=== PATIENT | female | born 1965 | race African-American/Black ===

== ENCOUNTER 2016-12-11 11:56 | Inpatient (IN) | payer MEDICARE, MEDICAID ==
[~2016-12-11] VITALS: Ht 170.2 cm; Wt 158.8 kg
[~2016-12-11 11:56] MED LIST: ACTOS30 MG ORAL; ATIVAN1 MG ORAL; BACLOFEN10 MG ORAL; BACLOFEN20 MG ORAL; CYMBALTA30 MG ORAL; GLIPIZIDE XL10 MG ORAL; GLIPIZIDE10 MG PO; HEPARIN SO5000 UNIT2 SUBQ; IRON325 M1 PO; LANTUS SOL100 UNIT/1 SUBQ; LYRICA150 MG ORAL; LYRICA50 MG ORAL; LYRICA75 M1 ORAL; MACROBID100 MG ORAL; MEROPENEM1 GM IV; MOBIC15 MG ORAL; MS CONTIN PO; NITROFURANTOIN100 M2 ORAL; NORCO 10-325 T1 EACH ORAL; NYSTATIN CREAM15 GM TOPIC; PERCOCET 5-3251 EACH ORAL; PRAVACHOL40 MG ORAL; PREDNISONE2.5 MG ORAL; VITAMIN D250000 UNI1 ORAL
[2016-12-11 12:13] VITALS: BP 141/83
[2016-12-11] MEDS ORDERED: ACTOS30 MG ORAL (13:15)
[2016-12-11] MEDS ORDERED: ATIVAN1 MG ORAL (13:15)
[2016-12-11] MEDS ORDERED: DUONEB 0.5-3(2.53 ML HHN (13:19)
[2016-12-11] MEDS ORDERED: HUMULIN R100 UNIT/1 SUBQ (13:19)
[2016-12-11] MEDS ORDERED: DULCOLAX10 MG RC (13:19)
[2016-12-11] MEDS ORDERED: FUROSEMIDE40 MG ORAL (13:20)
[2016-12-11] MEDS ORDERED: PROBIOTIC1 EAC2 PO (13:20)
[2016-12-11] MEDS ORDERED: MULTIVITAMINS1 EA13 ORAL (13:24)
[2016-12-11] MEDS ORDERED: MINERAL OIL EN133 ML RC (13:24)
[2016-12-11] MEDS ORDERED: VITAMIN D250000 UNI1 ORAL (13:25)
[2016-12-11] MEDS ORDERED: ocean nasal spray NASAL (13:25)
[2016-12-11 14:42] VITALS: BP 139/86
[2016-12-11 16:03] LABS: BASOPHILS % (AUTO) 1.4 % (0.0-2.0); EOSINOPHILS % (AUTO) 3.9 % (0.0-3.0); MEAN CORPUSCULAR HEMOGLOBIN 30.2 PG (27.0-31.0); MEAN CORPUSCULAR VOLUME 89 FL (80-99); MEAN PLATELET VOLUME 7.6 FL (6.5-10.1); MONOCYTES % (AUTO) 11.3 % (1.0-10.0); NEUTROPHILS % (AUTO) 42.5 % (45.0-75.0); PLATELET COUNT 189 K/UL (150-450); RED CELL DISTRIBUTION WIDTH 14.2 % (11.6-14.8); WHITE BLOOD COUNT 5.6 K/UL (4.8-10.8)
[2016-12-11 16:33] LABS: TROPONIN I < 0.30 ng/mL (<=0.30)
[2016-12-11 17:07] LABS: ALANINE AMINOTRANSFERASE 17 U/L (3-33); ALBUMIN/GLOBULIN RATIO 0.9 (1.0-2.7); ANION GAP 18 (5-15); ASPARTATE AMINO TRANSFERASE 17 U/L (5-40); CALCIUM 9.4 mg/dL (8.6-10.2); CARBON DIOXIDE 26 mEQ/L (20-30); CHLORIDE 90 mEQ/L (98-107); CREATININE 0.9 mg/dL (0.5-0.9); GLOMERULAR FILTRATION RATE > 60 mL/min (>60); HEMOLYSIS 3; POTASSIUM 4.1 mEQ/L (3.4-4.9); SODIUM 134 mEQ/L (135-145); TOTAL PROTEIN 7.7 g/dL (6.6-8.7)
[2016-12-11 17:17] LABS: CKMB 1.9 ng/mL (< 3.8)
--- NOTE | 2016-12-11 17:33 | Emergency Room Report ---
History of Present Illness General Chief Complaint: Female Urogenital Problems Source: Patient Present Illness HPI 51-year-old female presents ED for evaluation. Patient states that she has a superpubic catheter because she is paralyzed. Per home care worker was attempting to flush the catheter today but is clogged. She tried to deflate the balloon. Care worker was unsuccessful so she cut the catheter. Patient is here to have catheter replaced. Patient states she otherwise feels fine. Patient that she likely has a UTI. Has increased urinary frequency. Denies any fevers or chills. Denies flank pain. Denies nausea or vomiting. No other aggravating or leading factors. 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, VRE Hx Neurological Problems: Yes - paraplegic Hx Paralysis: Yes Hx Peripheral Neuropathy: Yes 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 Review of Systems All Other Systems: negative except mentioned in HPI Physical Exam Vital Signs Date Time Temp Pulse Resp B/P Pulse Ox O2 Delivery O2 Flow Rate FiO2 12/11/16 11:55 97.0 82 16 141/83 98 Room Air Sp02 EP Interpretation: reviewed, normal General Appearance: no apparent distress, alert, GCS 15, non-toxic, obese Head: normocephalic Eyes: bilateral eye PERRL, bilateral eye normal inspection ENT: normal ENT inspection Neck: normal inspection Respiratory: chest non-tender, lungs clear, normal breath sounds, speaking full sentences Cardiovascular #1: regular rate, rhythm, no edema Gastrointestinal: normal bowel sounds, non tender, soft, non-distended, no guarding, no rebound Rectal: deferred Genitourinary: other - suprapubic catheter site C/D/I. catheter cut Musculoskeletal: normal inspection Neurologic: alert, oriented x3, responsive, motor strength/tone normal, sensory intact, speech normal Psychiatric: normal inspection Skin: normal inspection Lymphatic: normal inspection Medical Decision Making Diagnostic Impression: Primary Impression: Suprapubic catheter dysfunction Qualified Codes: T83.010A - Breakdown (mechanical) of cystostomy catheter, initial encounter ER Course Hospital Course 51-year-old female presents to ED with suprapubic catheter which was caught by brick pitcher. Unable to deflate balloon Differential Diagnosis - UTI, cystitis, malfunctioning catheter Clinical course Patient placed on stretcher. After initial history and physical, I secured the catheter using a clamp. I was unable to deflate the balloon. I discussed case with urology. Recommend that Garcia catheter be placed in the urethra. If successful patient can be discharged home and is suprapubic catheter will keep the site open. We were unable to successfully place a Garcia catheter in the urethra. Patient states it is very difficult to place a Garcia catheter for her. Ordered labs, IVFs Labs reviewed-no leukocytosis, hemoglobin/hematocrit stable, electrolytes okay Case discussed wtih Dr Gutierrez; he will consult and see the patient Case discussed with Dr. Choe and he agreed to accept the patient to his service for further care and support Diagnosis - suprapubic catheter dysfunction Admitted to floor in serious condition Labs Test 12/11/16 15:40 White Blood Count 5.6 K/UL (4.8-10.8) Red Blood Count 4.50 M/UL (4.20-5.40) Hemoglobin 13.6 G/DL (12.0-16.0) Hematocrit 39.9 % (37.0-47.0) Mean Corpuscular Volume 89 FL (80-99) Mean Corpuscular Hemoglobin 30.2 PG (27.0-31.0) Mean Corpuscular Hemoglobin Concent 34.0 G/DL (32.0-36.0) Red Cell Distribution Width 14.2 % (11.6-14.8) Platelet Count 189 K/UL (150-450) Mean Platelet Volume 7.6 FL (6.5-10.1) Neutrophils (%) (Auto) 42.5 % (45.0-75.0) Lymphocytes (%) (Auto) 41.0 % (20.0-45.0) Monocytes (%) (Auto) 11.3 % (1.0-10.0) Eosinophils (%) (Auto) 3.9 % (0.0-3.0) Basophils (%) (Auto) 1.4 % (0.0-2.0) Sodium Level 134 mEQ/L (135-145) Potassium Level 4.1 mEQ/L (3.4-4.9) Chloride Level 90 mEQ/L (98-107) Carbon Dioxide Level 26 mEQ/L (20-30) Anion Gap 18 (5-15) Blood Urea Nitrogen 11 mg/dL (7-23) Creatinine 0.9 mg/dL (0.5-0.9) Estimat Glomerular Filtration Rate > 60 mL/min (>60) Glucose Level 314 mg/dL (74-106) Lactic Acid Level 1.50 mmol/L (0.66-2.22) Calcium Level 9.4 mg/dL (8.6-10.2) Total Bilirubin 0.3 mg/dL (0.0-1.2) Aspartate Amino Transf (AST/SGOT) 17 U/L (5-40) Alanine Aminotransferase (ALT/SGPT) 17 U/L (3-33) Alkaline Phosphatase 80 U/L (35-104) Total Creatine Kinase 174 U/L (26-140) Creatine Kinase MB 1.9 ng/mL (< 3.8) Creatine Kinase MB Relative Index 1.0 Troponin I < 0.30 ng/mL (<=0.30) Total Protein 7.7 g/dL (6.6-8.7) Albumin 3.8 g/dL (3.5-5.2) Globulin 3.9 g/dL Albumin/Globulin Ratio 0.9 (1.0-2.7) Last Vital Signs Date Time Temp Pulse Resp B/P Pulse Ox O2 Delivery O2 Flow Rate FiO2 12/11/16 14:42 97.2 68 15 139/86 98 Room Air Status: improved Disposition: ADMITTED INPATIENT Condition: Serious Referrals: NON PHYSICIAN (PCP) MACHO WRIGHT M.D. Dec 11, 2016 17:33
[2016-12-11] MEDS ORDERED: LORazepam 1mg tab ORAL PRN (18:15)
[2016-12-11] MEDS ORDERED: Morphine Sulfate 2mg/ml Inj IVP ONE (18:15)
[2016-12-11] MEDS ORDERED: DuoNeb 0.5-3(2.5)mg/3ml neb HHN PRN (18:15)
[2016-12-11] MEDS ORDERED: Fleet's Mineral Oil Enema RECTAL PRN (18:15)
[2016-12-11] MEDS ORDERED: Norco 10mg/325mg tab ORAL PRN (18:15)
[2016-12-11] MEDS ORDERED: Morphine Sulfate 2mg/ml Inj IVP PRN (18:30)
--- NOTE | 2016-12-11 18:32 | History and Physical ---
History of Present Illness General Date patient seen: Dec 11, 2016 Time patient seen: 18:32 Reason for Hospitalization: Suprapubic catheter dysfunction, UTI Present Illness HPI 50 year old female with pmh of DM2 c/b neuropathy, morbid obesity, paraplegia s/ p fall and neurogenic bladder w/ multiple admissions for clogged suprapubic catheter and UTI, multiple decubitus ulcers presents with suprapubic catheter dysfunction. Pt states that her suprapubic catheter was changed a few weeks ago and it got clogged w/ debris. Family was unable to irrigate it. A home nurse tried to remove it but was unsuccessful in replacing the balloon. She cut the catheter but she was still unsuccessful. the catheter has been plugged up for a few days. She has been passing some urine around the catheter from the urethra. She does has some mild discomfort in that area. She denies f/c, n/v, d/c, chest pain, SOB. Allergies: Coded Allergies: No Known Allergies (Unverified , 07/15/16) Medication History Scheduled Duloxetine Hcl* (Cymbalta*), 30 MG ORAL BID, (Reported) Ergocalciferol (Vitamin D2)* (Vitamin D*), 50,000 UNIT ORAL ONCE A WEEK, ( Reported) Ferrous Sulfate (Iron), 325 MG PO DAILY, (Reported) Furosemide* (Lasix*), 40 MG ORAL DAILY, (Reported) Glipizide (Glipizide), 5 MG ORAL BID, (Reported) Insulin Glargine (Lantus), 12 UNITS SUBQ BEDTIME, (Reported) Insulin Regular, Human (Humulin R), 0 SUBQ BEFORE MEALS AND HS, (Reported) Lactobacillus Acidophilus (Probiotic), 1 EACH PO DAILY, (Reported) Meloxicam* (Mobic*), 15 MG ORAL DAILY, (Reported) Multivitamin with Minerals (Multivitamins with Minerals), 1 TAB ORAL DAILY, ( Reported) Pioglitazone Hcl* (Actos*), 30 MG ORAL DAILY, (Reported) Pravastatin Sodium (Pravachol), 40 MG ORAL BEDTIME, (Reported) Pregabalin* (Lyrica*), 200 MG ORAL BID, (Reported) [ms contin sr], 15 MG PO TID, (Reported) Scheduled PRN Baclofen* (Lioresal*), 20 MG ORAL THREE TIMES A DAY PRN for Muscle Spasms, ( Reported) Bisacodyl (Dulcolax), 10 MG RC DAILY PRN for Constipation, (Reported) Hydrocodone Bit/Acetaminophen 10-325* (Marlin 10-325*), 1 TAB ORAL Q6H PRN for For Pain, (Reported) Ipratropium/Albuterol Sulfate (DuoNeb 0.5-3(2.5)mg/3ml), 3 ML HHN EVERY 4 HOURS PRN for Shortness of Breath, (Reported) Lorazepam* (Ativan*), 1 MG ORAL THREE TIMES A DAY PRN for For Anxiety, (Reported ) Mineral Oil (Mineral Oil Enema), 133 ML RC DAILY PRN for Constipation, (Reported ) [ocean nasal spray], 1 SPRAYS NASAL EVERY 2 HOURS PRN for congestion, (Reported) Discontinued Medications Baclofen* (Baclofen*), 200 MG ORAL THREE TIMES A DAY, (Reported) Discontinued Reason: Prescription changed Meropenem (Meropenem), 1 GM IV Q8HR, (Reported) Discontinued Reason: Therapy completed Patient History History Provided By: Patient, Medical Record, PMD Healthcare decision maker Resuscitation status Advanced Directive on File Family History Family History: Patient reports no known family medical history. Social History Social History: (1) No significant social history Review of Systems ROS Narrative CONSTITUTIONAL: No weight loss, fever, chills, weakness or fatigue. HEENT: Eyes: No visual loss, blurred vision, double vision or yellow sclerae. Ears, Nose, Throat: No hearing loss, sneezing, congestion, runny nose or sore throat. SKIN: No rash or itching. CARDIOVASCULAR: No chest pain, chest pressure or chest discomfort. No palpitations or edema. RESPIRATORY: No shortness of breath, cough or sputum. GASTROINTESTINAL: No anorexia, nausea, vomiting or diarrhea. No abdominal pain or blood. NEUROLOGICAL: No headache, dizziness, syncope, paralysis, ataxia, numbness or tingling in the extremities. No change in bowel or bladder control. MUSCULOSKELETAL: No muscle, back pain, joint pain or stiffness. HEMATOLOGIC: No anemia, bleeding or bruising. LYMPHATICS: No enlarged nodes. No history of splenectomy. PSYCHIATRIC: No history of depression or anxiety. ENDOCRINOLOGIC: No reports of sweating, cold or heat intolerance. No polyuria or polydipsia. ALLERGIES: No history of asthma, hives, eczema or rhinitis. Physical Exam Physical Exam Narrative General: alert, cooperative, no distress, appears stated age, morbidly obese Head: normocephalic, without obvious abnormality, atraumatic Eyes: conjunctivae/corneas clear. PERRL, EOM's intact Throat: lips, mucosa, and tongue normal. MMM Neck: supple, symmetrical, trachea midline, and no JVD Lungs: clear to auscultation bilaterally Heart: regular rate and rhythm, S1, S2 normal, no murmur, click, rub or gallop Abdomen: soft, non-tender, non-distended, bowel sounds normal; no masses or organomegaly : suprapubic catheter site c/d/i Extremities: extremities normal, atraumatic, no cyanosis or edema Pulses: 2+ and symmetric Skin: skin color, texture, turgor normal; no rashes or lesions Neurologic: grossly normal, no focal deficits Last 24 Hour Vital Signs Date Time Temp Pulse Resp B/P Pulse Ox O2 Delivery O2 Flow Rate FiO2 12/11/16 18:01 97.2 79 15 99/63 98 Room Air 12/11/16 14:42 97.2 68 15 139/86 98 Room Air 12/11/16 12:13 97.0 16 141/83 98 Room Air 12/11/16 11:55 97.0 82 16 141/83 98 Room Air Laboratory Tests Test 12/11/16 15:40 White Blood Count 5.6 K/UL (4.8-10.8) Red Blood Count 4.50 M/UL (4.20-5.40) Hemoglobin 13.6 G/DL (12.0-16.0) Hematocrit 39.9 % (37.0-47.0) Mean Corpuscular Volume 89 FL (80-99) Mean Corpuscular Hemoglobin 30.2 PG (27.0-31.0) Mean Corpuscular Hemoglobin Concent 34.0 G/DL (32.0-36.0) Red Cell Distribution Width 14.2 % (11.6-14.8) Platelet Count 189 K/UL (150-450) Mean Platelet Volume 7.6 FL (6.5-10.1) Neutrophils (%) (Auto) 42.5 % (45.0-75.0) L Lymphocytes (%) (Auto) 41.0 % (20.0-45.0) Monocytes (%) (Auto) 11.3 % (1.0-10.0) H Eosinophils (%) (Auto) 3.9 % (0.0-3.0) H Basophils (%) (Auto) 1.4 % (0.0-2.0) Sodium Level 134 mEQ/L (135-145) L Potassium Level 4.1 mEQ/L (3.4-4.9) Chloride Level 90 mEQ/L (98-107) L Carbon Dioxide Level 26 mEQ/L (20-30) Anion Gap 18 (5-15) H Blood Urea Nitrogen 11 mg/dL (7-23) Creatinine 0.9 mg/dL (0.5-0.9) Estimat Glomerular Filtration Rate > 60 mL/min (>60) Glucose Level 314 mg/dL (74-106) H Lactic Acid Level 1.50 mmol/L (0.66-2.22) Calcium Level 9.4 mg/dL (8.6-10.2) Total Bilirubin 0.3 mg/dL (0.0-1.2) Aspartate Amino Transf (AST/SGOT) 17 U/L (5-40) Alanine Aminotransferase (ALT/SGPT) 17 U/L (3-33) Alkaline Phosphatase 80 U/L (35-104) Total Creatine Kinase 174 U/L (26-140) H Creatine Kinase MB 1.9 ng/mL (< 3.8) Creatine Kinase MB Relative Index 1.0 Troponin I < 0.30 ng/mL (<=0.30) Total Protein 7.7 g/dL (6.6-8.7) Albumin 3.8 g/dL (3.5-5.2) Globulin 3.9 g/dL Albumin/Globulin Ratio 0.9 (1.0-2.7) L Height (Feet): 5 Height (Inches): 7.00 Weight (Pounds): 350 Medications Current Medications Medications (Trade) Dose Ordered Sig/Cristóbal Route PRN Reason Start Time Stop Time Status Last Admin Dose Admin Acetaminophen/ Hydrocodone Bitart (Marlin 10/325) 1 ea Q6H PRN ORAL For severe Pain 12/11/16 18:15 12/18/16 18:14 UNV Albuterol/ Ipratropium (DuoNeb 0.5-3(2.5)mg/3ml) 3 ml EVERY 4 HOURS PRN HHN Shortness of Breath 12/11/16 18:15 12/16/16 18:14 UNV Baclofen (Lioresal) 200 mg THREE TIMES A DAY PRN ORAL muscle spasms 12/11/16 18:15 01/10/17 18:14 UNV Bisacodyl (Dulcolax) 10 mg DAILY PRN RECTAL Constipation 12/11/16 18:15 01/10/17 18:14 UNV Dextrose (Dextrose 50%) STAT PRN IV Hypoglycemia 12/11/16 18:15 01/10/17 18:14 UNV Dextrose (Dextrose 50%) STAT PRN IV Hypoglycemia 12/11/16 18:15 01/10/17 18:14 UNV Duloxetine HCl (Cymbalta) 30 mg BID ORAL 12/12/16 09:00 01/11/17 08:59 UNV Ferrous Sulfate (Feosol) 325 mg DAILY ORAL 12/12/16 09:00 01/11/17 08:59 UNV Heparin Sodium (Porcine) (Heparin 5000 units/ml) 5,000 units EVERY 12 HOURS SUBQ 12/11/16 21:00 01/10/17 20:59 UNV Lorazepam (Ativan) 1 mg THREE TIMES A DAY PRN ORAL For Anxiety 12/11/16 18:15 12/18/16 18:14 UNV Mineral Oil (Fleet's Mineral Oil Enema) 133 ml DAILY PRN RECTAL Constipation 12/11/16 18:15 01/10/17 18:14 UNV Multivitamins Therapeutic (Therapeutic Multivitamin) 1 ea DAILY ORAL 12/12/16 09:00 01/11/17 08:59 UNV Pravastatin Sodium (Pravachol) 40 mg BEDTIME ORAL 12/11/16 21:00 01/10/17 20:59 UNV Pregabalin (Lyrica) 200 mg BID ORAL 12/12/16 09:00 01/11/17 08:59 UNV Assessment/Plan Problem List: (1) Suprapubic catheter dysfunction ICD Codes: T83.018A - Breakdown (mechanical) of other indwelling urethral catheter, initial encounter SNOMED: 852618987 Qualifiers: Qualified Codes: T83.010A - Breakdown (mechanical) of cystostomy catheter, initial encounter (2) UTI (urinary tract infection) ICD Codes: N39.0 - Urinary tract infection, site not specified SNOMED: 19434024 (3) Neurogenic bladder ICD Codes: N31.9 - Neuromuscular dysfunction of bladder, unspecified SNOMED: 208680915 (4) Diabetes mellitus type 2 with complications, uncontrolled ICD Codes: E11.8 - Type 2 diabetes mellitus with unspecified complications; E11.65 - Type 2 diabetes mellitus with hyperglycemia SNOMED: 47261048, 484143028, 387210515 (5) Morbid obesity ICD Codes: E66.01 - Morbid (severe) obesity due to excess calories SNOMED: 327230994 Status: stable Assessment/Plan Admit inpt Appreciate urology rec's--old suprapubic catheter was removed and new one placed and irrigated Start zosyn for likely UTI (12/11-) F/u urine cx ID consult in AM Cont home meds Pain control, supportive care, bowel regimen IVFs Trend CBC, BMP DVT Prophylaxis: SCD, HSQ Code Status: Full Hospital Classification Declaration: Based on this initial evaluation, and depending on the patient's clinical course, I anticipate that this patient will require hospitalization for 2-3 days for suprapubic catheter dysfunction, UTI, and close respiratory/hemodynamic monitoring. Disposition: Once the patient is stable to leave the hospital, I anticipate the patient will likely be discharged to the following environment: home with vs SNF I spent 70 minutes on this patient's case, and 37 minutes were dedicated to counseling and/or care coordination. Discussed with patient/family, nursing staff, SW/CM, urology, ID regarding clinical status, treatment course, and disposition planning. Time of note may not reflect time of encounter. Gregg Cortes M.D. Dec 11, 2016 18:32
[2016-12-11] MEDS ORDERED: BACLOFEN20 MG ORAL (18:48)
[2016-12-11 18:55] VITALS: BP 137/84
[2016-12-11 20:00] VITALS: BP 108/61
[2016-12-11] MEDS: Heparin 5000 units/ml inj SUBQ SCH (21:00)
[2016-12-11] MEDS: Piperacillin/Tazobactam 4.5 GM in D5W 110 ML IVPB SCH (21:02)
[2016-12-11] MEDS: DULoxetine 30mg cap ORAL SCH (21:50)
[2016-12-11] MEDS: NovoLOG Insulin Flexpen SUBQ SCH (21:55)
[2016-12-11] MEDS ORDERED: Levemir Flexpen SUBQ SCH (23:00)
[2016-12-12] VITALS: BP 112/60
[2016-12-12 02:16] LABS: KETONES,URINE NEGATIVE (NEGATIVE); LEUKOCYTE ESTERASE ,URINE 3+ (NEGATIVE); NITRITE,URINE NEGATIVE (NEGATIVE); PH,URINE 6 (4.5-8.0); PROTEIN,URINE 3+ (NEGATIVE); UROBILINOGEN,URINE NORMAL MG/DL (0.0-1.0)
[2016-12-12 02:17] LABS: APPEARANCE,URINE SLIGHTLY CLOUDY
[2016-12-12 02:30] LABS: BACTERIA,URINE FEW /HPF; SQUAMOUS EPITHELIAL CELL,UR FEW /LPF (NONE/OCC); WBC,URINE TNTC /HPF (0 - 2)
--- NOTE | 2016-12-12 02:58 | Consultation ---
DATE OF CONSULTATION: 12/11/2016 CONSULTATION: REFERRING PHYSICIAN: Rj Choe M.D. and Rigoberto Perrin M.D. CONSULTING PHYSICIAN: Shaheen Gutierrez M.D. REASON FOR CONSULTATION: Evaluation of malfunctioning suprapubic tube. HISTORY OF PRESENT ILLNESS: This is a 51-year-old female, she has a history of neurogenic bladder. She has a history of urinary retention. She has a history of chronic suprapubic tube. Apparently, suprapubic tube was changed a few weeks ago and it got clogged with debris. Family were not able to irrigate it. A home nurse tried to remove it, but she was unsuccessful in replacing the balloon. She cut the catheter, however, she was still unsuccessful. The patient was brought to the emergency room. Apparently, the catheter had been plugged up for a few days. She has been passing some urine around the catheter from the urethra. She has some mild discomfort. PAST MEDICAL HISTORY: Significant for above, again neurogenic bladder. She also has a history of paraplegia and diabetes. PAST SURGICAL HISTORY: As above. MEDICATIONS: Current medication list was reviewed. ALLERGIES: No known drug allergies. SOCIAL HISTORY: Currently nonsmoker. FAMILY HISTORY: Noncontributory. REVIEW OF SYSTEMS: No chest pain. PHYSICAL EXAMINATION: GENERAL: The patient is an obese female, in no acute distress. VITAL SIGNS: Temperature is 97.2 degrees, blood pressure 99/62, pulse 79, and respirations 16. HEENT: Normocephalic . NECK: Supple. ABDOMEN: Soft. Suprapubic tube is in place. It appears to be an 18 or 20-[place], it has been cut. LABORATORY DATA: BUN 11, creatinine 0.9, and potassium 4.1. White count is 5.6, hemoglobin 13.6, and platelets of 189,000. IMAGING STUDIES: No renal imaging studies here. PROCEDURE AT THE BEDSIDE: To evaluate the existing suprapubic tube, it appeared to be 20-[place] catheter, it was cut. I was able to pass a 0.018 wire through the balloon port and opened up the port and allowed the water to drain and I was able to remove the suprapubic tube. At that point, the area was prepped and I placed a new 22-[place] Irish suprapubic tube catheter, put in about 25 cubic centimeters of sterile water to keep it in, catheter was hand irrigated and it was in good position. IMPRESSION: 1. Urinary retention with chronic suprapubic tube. 2. Probable neurogenic bladder. 3. Hematuria history. 4. Urinary tract infection history. PLAN AND DISCUSSION: Again, as noted above. I was able to remove the old suprapubic tube and new catheter has been placed. The catheter was irrigated and remained indwelling. She does have urine with an odor, it is probably infected or colonized and will recommend antibiotics. Catheter will be irrigated on a p.r.n. basis. At some point, she may need to have a cystoscopy. Thank you for this consultation. Shaheen Gutierrez M.D. DR: Sav JOB#: [id number] CC:
[2016-12-12 04:00] VITALS: BP 137/72
[2016-12-12] MEDS: Piperacillin/Tazobactam 4.5 GM in D5W 110 ML IVPB SCH ×3 (05:33→21:11)
[2016-12-12] MEDS: GlipiZIDE 5mg tab ORAL SCH ×2 (06:13→17:23)
[2016-12-12] MEDS: NovoLOG Insulin Flexpen SUBQ SCH ×4 (06:15→21:15)
[2016-12-12 07:32] LABS: HEMOGLOBIN A1C 8.5 % (< 6.0)
[2016-12-12 07:33] LABS: ANION GAP 14 (5-15); CALCIUM 8.9 mg/dL (8.6-10.2); CARBON DIOXIDE 28 mEQ/L (20-30); CHLORIDE 95 mEQ/L (98-107); CREATININE 0.8 mg/dL (0.5-0.9); GLOMERULAR FILTRATION RATE > 60 mL/min (>60); HEMOLYSIS 1; MAGNESIUM 1.6 mg/dL (1.7-2.5); SODIUM 137 mEQ/L (135-145)
[2016-12-12 07:38] LABS: BASOPHILS % (AUTO) 0.7 % (0.0-2.0); EOSINOPHILS % (AUTO) 3.6 % (0.0-3.0); LYMPHOCYTES % (AUTO) 35.2 % (20.0-45.0); MEAN CORPUSCULAR HEMOGLOBIN 28.4 PG (27.0-31.0); MEAN CORPUSCULAR HGB CONC 31.3 G/DL (32.0-36.0); MEAN CORPUSCULAR VOLUME 91 FL (80-99); MEAN PLATELET VOLUME 8.2 FL (6.5-10.1); NEUTROPHILS % (AUTO) 49.6 % (45.0-75.0); PLATELET COUNT 192 K/UL (150-450); RED BLOOD COUNT 4.14 M/UL (4.20-5.40); RED CELL DISTRIBUTION WIDTH 14.7 % (11.6-14.8); WHITE BLOOD COUNT 6.4 K/UL (4.8-10.8)
[2016-12-12 08:00] VITALS: BP 167/89
[2016-12-12 08:15] LABS: ALANINE AMINOTRANSFERASE 15 U/L (3-33); ASPARTATE AMINO TRANSFERASE 15 U/L (5-40); BILIRUBIN,DIRECT 0.1 mg/dL (0.1-0.3); HEMOLYSIS 2; TOTAL PROTEIN 6.8 g/dL (6.6-8.7)
[2016-12-12] MEDS: Lyrica 50mg cap ORAL SCH ×2 (09:06→17:23)
[2016-12-12] MEDS: Multivitamin w/Minerals tab ORAL SCH (09:06)
[2016-12-12] MEDS: Lyrica 75mg cap ORAL SCH ×2 (09:07→17:23)
[2016-12-12] MEDS: DULoxetine 30mg cap ORAL SCH ×2 (09:07→21:11)
[2016-12-12] MEDS: Heparin 5000 units/ml inj SUBQ SCH ×2 (09:08→21:13)
--- NOTE | 2016-12-12 10:52 | Urology Progress Note ---
Assessment/Plan Assessment/Plan 1. Urinary retention with chronic suprapubic tube. 2. Probable neurogenic bladder. 3. Hematuria history. 4. Urinary tract infection history. irrigate sp tube PRN abx as ordered consider renal u/s Subjective Allergies: Coded Allergies: No Known Allergies (Unverified , 07/15/16) Subjective all noted, new sp tube draining ok Objective Last 24 Hour Vital Signs Date Time Temp Pulse Resp B/P Pulse Ox O2 Delivery O2 Flow Rate FiO2 12/12/16 10:06 97.7 12/12/16 08:00 97.7 80 20 167/89 99 Room Air 12/12/16 06:39 76 16 Room Air 12/12/16 04:00 97.7 83 20 137/72 98 Room Air 12/12/16 00:00 98.1 88 20 112/60 100 Room Air 12/11/16 20:00 97.7 99 20 108/61 99 Room Air 12/11/16 20:00 97.7 99 20 108/61 99 Room Air 12/11/16 19:40 91 18 Room Air 12/11/16 18:55 97.5 88 21 137/84 100 Room Air 12/11/16 18:01 97.2 79 15 99/63 98 Room Air 12/11/16 14:42 97.2 68 15 139/86 98 Room Air 12/11/16 12:13 97.0 16 141/83 98 Room Air 12/11/16 11:55 97.0 82 16 141/83 98 Room Air Intake and Output 12/11/16 12/12/16 19:00 07:00 Output Total 250 ml Balance -250 ml Output Urine Total 250 ml Current Medications Medications (Trade) Dose Ordered Sig/Cristóbal Route PRN Reason Start Time Stop Time Status Last Admin Dose Admin Acetaminophen/ Hydrocodone Bitart ([place] 10/325) 1 ea Q6H PRN ORAL Severe Pain (Pain Scale 7-10) 12/11/16 18:15 12/18/16 18:14 Albuterol/ Ipratropium (DuoNeb 0.5-3(2.5)mg/3ml) 3 ml Q4H PRN HHN Shortness of Breath 12/11/16 18:15 12/16/16 18:14 Baclofen (Lioresal) 20 mg TIDPRN PRN ORAL muscle spasms 12/11/16 18:15 01/10/17 18:14 Bisacodyl (Dulcolax) 10 mg DAILYPRN PRN RECTAL Constipation 12/11/16 18:15 01/10/17 18:14 Dextrose (Dextrose 50%) STAT PRN IV Hypoglycemia 12/11/16 19:00 01/10/17 18:59 Duloxetine HCl (Cymbalta) 30 mg Q12HR ORAL 12/11/16 21:00 01/10/17 20:59 12/12/16 09:07 Ferrous Sulfate (Feosol) 325 mg DAILY ORAL 12/12/16 09:00 01/11/17 08:59 12/12/16 09:07 Glipizide (Glucotrol) 5 mg BIAC ORAL 12/12/16 06:30 01/11/17 06:29 12/12/16 06:13 Heparin Sodium (Porcine) (Heparin 5000 units/ml) 5,000 units EVERY 12 HOURS SUBQ 12/11/16 21:00 01/10/17 20:59 12/12/16 09:08 Insulin Aspart (NovoLOG) BEFORE MEALS AND HS SUBQ 12/11/16 21:00 01/10/17 20:59 12/12/16 06:15 Insulin Detemir 12 units 12 units QHS SUBQ 12/12/16 21:00 01/11/17 20:59 Lorazepam (Ativan) 1 mg Q8H PRN ORAL For Anxiety 12/11/16 18:15 12/18/16 18:14 Magnesium Sulfate (Magnesium Sulfate 1gm/100ml) 100 ml @ 100 mls/hr Q1H IVPB 12/12/16 09:30 12/12/16 11:29 Mineral Oil (Fleet's Mineral Oil Enema) 133 ml DAILYPRN PRN RECTAL Constipation 12/11/16 18:15 01/10/17 18:14 Morphine Sulfate (Morphine Sulfate) 2 mg Q4H PRN IVP For breakthrough Pain 12/11/16 18:30 12/18/16 18:29 Multivitamins Therapeutic (Therapeutic Multivitamin) 1 ea DAILY ORAL 12/12/16 09:00 01/11/17 08:59 12/12/16 09:06 Ondansetron HCl 4 mg 4 mg Q6H PRN IVP Nausea & Vomiting 12/11/16 18:30 5/26/17 18:29 Piperacillin Sod/ Tazobactam Sod/ Dextrose (Zosyn/D5W) 110 ml @ 27.5 mls/hr EVERY 8 HOURS IVPB 12/11/16 20:00 12/18/16 19:59 12/12/16 05:33 Pravastatin Sodium (Pravachol) 40 mg BEDTIME ORAL 12/11/16 21:00 01/10/17 20:59 12/11/16 21:51 Pregabalin (Lyrica) 50 mg BID ORAL 12/12/16 09:00 01/11/17 08:59 12/12/16 09:06 Pregabalin (Lyrica) 150 mg BID ORAL 12/12/16 09:00 01/11/17 08:59 12/12/16 09:07 Laboratory Tests 12/11/16 15:40: White Blood Count 5.6, Red Blood Count 4.50, Hemoglobin 13.6, Hematocrit 39.9, Mean Corpuscular Volume 89, Mean Corpuscular Hemoglobin 30.2, Mean Corpuscular Hemoglobin Concent 34.0, Red Cell Distribution Width 14.2, Platelet Count 189, Mean Platelet Volume 7.6, Neutrophils (%) (Auto) 42.5L, Lymphocytes (%) (Auto) 41.0, Monocytes (%) (Auto) 11.3H, Eosinophils (%) (Auto) 3.9H, Basophils (%) ( Auto) 1.4, Sodium Level 134L, Potassium Level 4.1, Chloride Level 90L, Carbon Dioxide Level 26, Anion Gap 18H, Blood Urea Nitrogen 11, Creatinine 0.9, Estimat Glomerular Filtration Rate > 60, Glucose Level 314H, Lactic Acid Level 1.50, Calcium Level 9.4, Total Bilirubin 0.3, Aspartate Amino Transf (AST/SGOT) 17, Alanine Aminotransferase (ALT/SGPT) 17, Alkaline Phosphatase 80, Total Creatine Kinase 174H, Creatine Kinase MB 1.9, Creatine Kinase MB Relative Index 1.0, Troponin I < 0.30, Total Protein 7.7, Albumin 3.8, Globulin 3.9, Albumin/ Globulin Ratio 0.9L 12/12/16 02:02: Urine Color Pale yellow, Urine Appearance Slightly cloudy, Urine pH 6, Urine Specific [place] 1.015, Urine Protein 3+H, Urine Glucose (UA) 4+H, Urine Ketones Negative, Urine Occult Blood 5+H, Urine Nitrite Negative, Urine Bilirubin Negative, Urine Urobilinogen Normal, Urine Leukocyte Esterase 3+H, Urine RBC 2-4H, Urine WBC TntcH, Urine Squamous Epithelial Cells Few, Urine Bacteria Few 12/12/16 05:10: White Blood Count 6.4, Red Blood Count 4.14L, Hemoglobin 11.8L, Hematocrit 37.7 , Mean Corpuscular Volume 91, Mean Corpuscular Hemoglobin 28.4, Mean Corpuscular Hemoglobin Concent 31.3L, Red Cell Distribution Width 14.7, Platelet Count 192, Mean Platelet Volume 8.2, Neutrophils (%) (Auto) 49.6, Lymphocytes (%) (Auto) 35.2, Monocytes (%) (Auto) 11.0H, Eosinophils (%) (Auto) 3.6H, Basophils (%) (Auto) 0.7, Sodium Level 137, Potassium Level 4.0, Chloride Level 95L, Carbon Dioxide Level 28, Anion Gap 14, Blood Urea Nitrogen 11, Creatinine 0.8, Estimat Glomerular Filtration Rate > 60, Glucose Level 320H, Calcium Level 8.9, Total Bilirubin < 0.2, Aspartate Amino Transf (AST/SGOT) 15, Alanine Aminotransferase (ALT/SGPT) 15, Alkaline Phosphatase 70, Total Protein 6.8, Albumin 3.4L, Hemoglobin A1c 8.5H, Magnesium Level 1.6L, Direct Bilirubin 0.1, Pro-B-Type Natriuretic Peptide 43 Height (Feet): 5 Height (Inches): 7.00 Weight (Pounds): 350 Objective exam stable DAPHNIE VIDES Dec 12, 2016 10:52
[2016-12-12 12:00] VITALS: BP 127/68
[2016-12-12] MEDS ORDERED: Heparin 2000 units/Ns 1000ml INJ ONE (12:15)
[2016-12-12] MEDS ORDERED: Lidocaine 1% Plain 30 ml INJ ONE (12:15)
[2016-12-12] MEDS ORDERED: Sodium Bicarbonate 8.4% 50ml Inj IV ONE (12:15)
--- NOTE | 2016-12-12 12:50 | Infectious Diseases Prog Note ---
Assessment/Plan Assessment/Plan Full consult to follow: A) 1) uti 2) hx pseudomonas and esbl 3) sp catheter 4) dm, nb, spinal chord injury, neuropathy P) 1) agree with zosyn 2) check urine culture 3) continue treatment per primary 4) thank you Subjective Allergies: Coded Allergies: No Known Allergies (Unverified , 07/15/16) Objective Vital Signs Last 24 Hour Vital Signs Date Time Temp Pulse Resp B/P Pulse Ox O2 Delivery O2 Flow Rate FiO2 12/12/16 10:06 97.7 12/12/16 08:00 97.7 80 20 167/89 99 Room Air 12/12/16 06:39 76 16 Room Air 12/12/16 04:00 97.7 83 20 137/72 98 Room Air 12/12/16 00:00 98.1 88 20 112/60 100 Room Air 12/11/16 20:00 97.7 99 20 108/61 99 Room Air 12/11/16 20:00 97.7 99 20 108/61 99 Room Air 12/11/16 19:40 91 18 Room Air 12/11/16 18:55 97.5 88 21 137/84 100 Room Air 12/11/16 18:01 97.2 79 15 99/63 98 Room Air 12/11/16 14:42 97.2 68 15 139/86 98 Room Air Height (Feet): 5 Height (Inches): 7.00 Weight (Pounds): 350 Laboratory Tests Test 12/11/16 15:40 12/12/16 02:02 12/12/16 05:10 White Blood Count 5.6 K/UL (4.8-10.8) 6.4 K/UL (4.8-10.8) Red Blood Count 4.50 M/UL (4.20-5.40) 4.14 M/UL (4.20-5.40) L Hemoglobin 13.6 G/DL (12.0-16.0) 11.8 G/DL (12.0-16.0) L Hematocrit 39.9 % (37.0-47.0) 37.7 % (37.0-47.0) Mean Corpuscular Volume 89 FL (80-99) 91 FL (80-99) Mean Corpuscular Hemoglobin 30.2 PG (27.0-31.0) 28.4 PG (27.0-31.0) Mean Corpuscular Hemoglobin Concent 34.0 G/DL (32.0-36.0) 31.3 G/DL (32.0-36.0) L Red Cell Distribution Width 14.2 % (11.6-14.8) 14.7 % (11.6-14.8) Platelet Count 189 K/UL (150-450) 192 K/UL (150-450) Mean Platelet Volume 7.6 FL (6.5-10.1) 8.2 FL (6.5-10.1) Neutrophils (%) (Auto) 42.5 % (45.0-75.0) L 49.6 % (45.0-75.0) Lymphocytes (%) (Auto) 41.0 % (20.0-45.0) 35.2 % (20.0-45.0) Monocytes (%) (Auto) 11.3 % (1.0-10.0) H 11.0 % (1.0-10.0) H Eosinophils (%) (Auto) 3.9 % (0.0-3.0) H 3.6 % (0.0-3.0) H Basophils (%) (Auto) 1.4 % (0.0-2.0) 0.7 % (0.0-2.0) Sodium Level 134 mEQ/L (135-145) L 137 mEQ/L (135-145) Potassium Level 4.1 mEQ/L (3.4-4.9) 4.0 mEQ/L (3.4-4.9) Chloride Level 90 mEQ/L (98-107) L 95 mEQ/L (98-107) L Carbon Dioxide Level 26 mEQ/L (20-30) 28 mEQ/L (20-30) Anion Gap 18 (5-15) H 14 (5-15) Blood Urea Nitrogen 11 mg/dL (7-23) 11 mg/dL (7-23) Creatinine 0.9 mg/dL (0.5-0.9) 0.8 mg/dL (0.5-0.9) Estimat Glomerular Filtration Rate > 60 mL/min (>60) > 60 mL/min (>60) Glucose Level 314 mg/dL (74-106) H 320 mg/dL (74-106) H Lactic Acid Level 1.50 mmol/L (0.66-2.22) Calcium Level 9.4 mg/dL (8.6-10.2) 8.9 mg/dL (8.6-10.2) Total Bilirubin 0.3 mg/dL (0.0-1.2) < 0.2 mg/dL (0.0-1.2) Aspartate Amino Transf (AST/SGOT) 17 U/L (5-40) 15 U/L (5-40) Alanine Aminotransferase (ALT/SGPT) 17 U/L (3-33) 15 U/L (3-33) Alkaline Phosphatase 80 U/L (35-104) 70 U/L (35-104) Total Creatine Kinase 174 U/L (26-140) H Creatine Kinase MB 1.9 ng/mL (< 3.8) Creatine Kinase MB Relative Index 1.0 Troponin I < 0.30 ng/mL (<=0.30) Total Protein 7.7 g/dL (6.6-8.7) 6.8 g/dL (6.6-8.7) Albumin 3.8 g/dL (3.5-5.2) 3.4 g/dL (3.5-5.2) L Globulin 3.9 g/dL Albumin/Globulin Ratio 0.9 (1.0-2.7) L Urine Color Pale yellow Urine Appearance Slightly cloudy Urine pH 6 (4.5-8.0) Urine Specific [place] 1.015 (1.005-1.035) Urine Protein 3+ (NEGATIVE) H Urine Glucose (UA) 4+ (NEGATIVE) H Urine Ketones Negative (NEGATIVE) Urine Occult Blood 5+ (NEGATIVE) H Urine Nitrite Negative (NEGATIVE) Urine Bilirubin Negative (NEGATIVE) Urine Urobilinogen Normal MG/DL (0.0-1.0) Urine Leukocyte Esterase 3+ (NEGATIVE) H Urine RBC 2-4 /HPF (0 - 2) H Urine WBC Tntc /HPF (0 - 2) H Urine Squamous Epithelial Cells Few /LPF (NONE/OCC) Urine Bacteria Few /HPF (NONE) Hemoglobin A1c 8.5 % (< 6.0) H Magnesium Level 1.6 mg/dL (1.7-2.5) L Direct Bilirubin 0.1 mg/dL (0.1-0.3) Pro-B-Type Natriuretic Peptide 43 pg/mL (0-125) Current Medications Medications (Trade) Dose Ordered Sig/Cristóbal Route PRN Reason Start Time Stop Time Status Last Admin Dose Admin Acetaminophen/ Hydrocodone Bitart ([place] 10/325) 1 ea Q6H PRN ORAL Severe Pain (Pain Scale 7-10) 12/11/16 18:15 12/18/16 18:14 Albuterol/ Ipratropium (DuoNeb 0.5-3(2.5)mg/3ml) 3 ml Q4H PRN HHN Shortness of Breath 12/11/16 18:15 12/16/16 18:14 Baclofen (Lioresal) 20 mg TIDPRN PRN ORAL muscle spasms 12/11/16 18:15 01/10/17 18:14 Bisacodyl (Dulcolax) 10 mg DAILYPRN PRN RECTAL Constipation 12/11/16 18:15 01/10/17 18:14 Dextrose (Dextrose 50%) STAT PRN IV Hypoglycemia 12/11/16 19:00 01/10/17 18:59 Duloxetine HCl (Cymbalta) 30 mg Q12HR ORAL 12/11/16 21:00 01/10/17 20:59 12/12/16 09:07 Ferrous Sulfate (Feosol) 325 mg DAILY ORAL 12/12/16 09:00 01/11/17 08:59 12/12/16 09:07 Glipizide (Glucotrol) 5 mg BIAC ORAL 12/12/16 06:30 01/11/17 06:29 12/12/16 06:13 Heparin Sodium (Porcine) (Heparin 5000 units/ml) 5,000 units EVERY 12 HOURS SUBQ 12/11/16 21:00 01/10/17 20:59 12/12/16 09:08 Heparin Sodium/ Sodium Chloride (Heparin 2000 units/Ns 1000ml premix) 2,000 unit ONCE ONCE INJ 12/12/16 12:15 12/12/16 12:16 UNV Insulin Aspart (NovoLOG) BEFORE MEALS AND HS SUBQ 12/11/16 21:00 01/10/17 20:59 12/12/16 12:06 Insulin Detemir (Levemir) 12 units QHS SUBQ 12/12/16 21:00 01/11/17 20:59 Lidocaine HCl (Xylocaine 1% 30ml) 30 ml ONCE ONCE INJ 12/12/16 12:15 12/12/16 12:16 UNV Lorazepam (Ativan) 1 mg Q8H PRN ORAL For Anxiety 12/11/16 18:15 12/18/16 18:14 Mineral Oil (Fleet's Mineral Oil Enema) 133 ml DAILYPRN PRN RECTAL Constipation 12/11/16 18:15 01/10/17 18:14 Morphine Sulfate (Morphine Sulfate) 2 mg Q4H PRN IVP For breakthrough Pain 12/11/16 18:30 12/18/16 18:29 Multivitamins Therapeutic (Therapeutic Multivitamin) 1 ea DAILY ORAL 12/12/16 09:00 01/11/17 08:59 12/12/16 09:06 Ondansetron HCl 4 mg 4 mg Q6H PRN IVP Nausea & Vomiting 12/11/16 18:30 01/10/17 18:29 Piperacillin Sod/ Tazobactam Sod/ Dextrose (Zosyn/D5W) 110 ml @ 27.5 mls/hr EVERY 8 HOURS IVPB 12/11/16 20:00 12/18/16 19:59 12/12/16 05:33 Pravastatin Sodium (Pravachol) 40 mg BEDTIME ORAL 12/11/16 21:00 01/10/17 20:59 12/11/16 21:51 Pregabalin (Lyrica) 50 mg BID ORAL 12/12/16 09:00 01/11/17 08:59 12/12/16 09:06 Pregabalin (Lyrica) 150 mg BID ORAL 12/12/16 09:00 01/11/17 08:59 12/12/16 09:07 Sodium Bicarbonate (Sodium Bicarbonate) 50 ml ONCE ONCE IV 12/12/16 12:15 12/12/16 12:16 UNV ARIELA NEVAREZ Dec 12, 2016 12:50
[2016-12-12] MEDS ORDERED: NS 275ml ONE (15:23)
[2016-12-12] MEDS ORDERED: Tubing IV Secondary IV ONE (15:23)
--- NOTE | 2016-12-12 15:35 | Wound Care Consultation ---
Wound Assessment Wound Assessment #1: Wound Number: #1 Wound Present on Admission: Yes New Wound: No Status Change of Wound: No Wound Location Body Site Modif: left Wound Location Body Site: breast fold Wound Type: erosion - intertrigo rash Chato Test: Does not Chato Wound Thickness: Partial Thickness Percent of Wound Yaak/Red: 100 Wound Drainage Description: Serosanguineous Wound Drainage Amount: Scant Wound Drainage Odor: None/Absent Tissue Surrounding Wound: Macerated - erythemic Wound General Appearance: Reddened, Open to air Wound Assessment #2: Wound Number: #2 Wound Present on Admission: Yes New Wound: No Status Change of Wound: No Wound Location Body Site Modif: left Wound Location Body Site: ischial tuberosity Wound Type: scar Chato Test: Does not Chato Wound Thickness: Full Thickness Wound Length: 3.0 Wound Width: 2.0 Wound Depth: utd Percent of Wound Yaak/Red: 100 Wound Drainage Amount: None Wound Drainage Odor: None/Absent Tissue Surrounding Wound: Intact Wound General Appearance: Open to air, Clean/Dry Wound Assessment #3: Wound Number: #3 Wound Present on Admission: Yes New Wound: No Status Change of Wound: No Wound Location Body Site Modif: left, mid Wound Location Body Site: buttocks Wound Type: pressure ulcer Chato Test: Does not Chato Pressure Ulcer Stage: II Wound Thickness: Partial Thickness Wound Length: 1.0 Wound Width: 1.0 Wound Depth: 0.2 Percent of Wound Yaak/Red: 100 Wound Drainage Description: Serosanguineous Wound Drainage Amount: Scant Wound Drainage Odor: None/Absent Tissue Surrounding Wound: Macerated - erythemic Wound General Appearance: Reddened Wound Assessment #4: Wound Number: #4 Wound Present on Admission: Yes New Wound: No Status Change of Wound: No Wound Location Body Site Modif: mid Wound Location Body Site: coccyx Wound Type: pressure ulcer Chato Test: Does not Chato Pressure Ulcer Stage: II Wound Thickness: Partial Thickness Wound Length: 1.5 Wound Width: 1.5 Wound Depth: 0.1 Percent of Wound Yaak/Red: 100 Wound Drainage Description: Serosanguineous Wound Drainage Amount: Scant Tissue Surrounding Wound: Macerated - erythemic Wound General Appearance: Reddened Wound Comment #1 left breast fold intertrigo. #2 left ischial tuberosity full thickness scar tissue. #3 left mid buttock stage II. #4 coccyx pressure ulcer stage II. Recommendation. -Apply low air loss overlay mattress SPR. -Local wound care as ordered. -Turn and reposition. -Keep clean and dry. -Optimize nutrition. -Offload affected sites. -Assess and notify MD for any further changes of condition in skin. ABEL TINAJERO Dec 12, 2016 15:35
[2016-12-12 16:00] VITALS: BP 119/71
--- NOTE | 2016-12-12 17:30 | Diagnostic Imaging Report ---
Indications: Needs long-term IV access Technique: Ultrasound confirms patent compressible right basilic vein. Total sterile technique, including sterile probe cover and sterile gel, hat, mask,, sterile gown, large sterile drape, and preparation with 2% chlorhexidine utilized. Local anesthesia with 1% lidocaine. Under real-time ultrasound guidance, puncture basilic vein using 21-gauge needle, documented and archived, passage 0.018 guidewire under direct fluoroscopy, which was used to determine appropriate catheter length, exchange for 5 [place] peel-away sheath. 5 [place] Bard dual-lumen power PICC cut to is 41 cm. It was inserted through the peel-away sheath. Peel-away sheath and guidewire removed. Catheter fixed to the skin. Both catheter ports aspirated and flushed. Patient tolerated procedure well, without immediate complication. Digital radiograph documents satisfactory catheter tip position, at the cavoatrial junction. Total fluoroscopy time 0.3 minutes. Total dose area product 30 dGycm2 Impression: Successful placement of right arm PICC under sonographic and fluoroscopic guidance, as described above.
[2016-12-12] MEDS: Magnesium Oxide 400mg tab ORAL SCH (18:43)
[2016-12-12] MEDS: Nystatin Powder 100,000 units/gm 15gm TOPIC SCH (18:58)
[2016-12-12 20:00] VITALS: BP 124/74
[2016-12-12] MEDS ORDERED: Levemir Flexpen SUBQ SCH ×2 (21:00)
--- NOTE | 2016-12-12 21:50 | General Progress Note ---
Assessment/Plan Problem List: (1) Suprapubic catheter dysfunction ICD Codes: T83.018A - Breakdown (mechanical) of other indwelling urethral catheter, initial encounter SNOMED: 193641745 Qualifiers: Qualified Codes: T83.010A - Breakdown (mechanical) of cystostomy catheter, initial encounter (2) UTI (urinary tract infection) ICD Codes: N39.0 - Urinary tract infection, site not specified SNOMED: 66035775 (3) Neurogenic bladder ICD Codes: N31.9 - Neuromuscular dysfunction of bladder, unspecified SNOMED: 911773920 (4) Diabetes mellitus type 2 with complications, uncontrolled ICD Codes: E11.8 - Type 2 diabetes mellitus with unspecified complications; E11.65 - Type 2 diabetes mellitus with hyperglycemia SNOMED: 15382435, 293517364, 495691561 (5) Morbid obesity ICD Codes: E66.01 - Morbid (severe) obesity due to excess calories SNOMED: 925393802 Status: stable Assessment/Plan Appreciate urology rec's--old suprapubic catheter was removed and new one placed and irrigated on 12/11 Cont zosyn for UTI (12/11-) F/u urine cx--showing >100K GNR Appreciate ID rec's Cont home meds Pain control, supportive care, bowel regimen IVFs Trend CBC, BMP PICC line placed 12/12 DVT Prophylaxis: SCD, HSQ Code Status: Full Hospital Classification Declaration: Based on this initial evaluation, and depending on the patient's clinical course, I anticipate that this patient will require hospitalization for 2-3 days for suprapubic catheter dysfunction, UTI, and close respiratory/hemodynamic monitoring. Disposition: Once the patient is stable to leave the hospital, I anticipate the patient will likely be discharged to the following environment: home with \ I spent 40 minutes on this patient's case, and 22 minutes were dedicated to counseling and/or care coordination. Discussed with patient/family, nursing staff, SW/CM, urology, ID regarding clinical status, treatment course, and disposition planning. Time of note may not reflect time of encounter. Subjective Date patient seen: Dec 12, 2016 Time patient seen: 13:00 ROS Limited/Unobtainable: No Constitutional: Reports: no symptoms HEENT: Reports: no symptoms Cardiovascular: Reports: no symptoms Respiratory: Reports: no symptoms Gastrointestinal/Abdominal: Reports: no symptoms Genitourinary: Reports: no symptoms Neurologic/Psychiatric: Reports: no symptoms Endocrine: Reports: no symptoms Hematologic/Lymphatic: Reports: no symptoms Allergies: Coded Allergies: No Known Allergies (Unverified , 07/15/16) All Systems: reviewed and negative except above Subjective No acute o/n events Difficult IV access so pt requesting for PICC UCx showing >100K GNR Cont on zosyn per ID Objective Last 24 Hour Vital Signs Date Time Temp Pulse Resp B/P Pulse Ox O2 Delivery O2 Flow Rate FiO2 12/12/16 20:00 96.8 92 18 124/74 12/12/16 19:54 90 18 Room Air 12/12/16 18:24 98.2 12/12/16 16:00 98.1 89 20 119/71 98 Room Air 12/12/16 12:00 98.2 93 20 127/68 97 Room Air 12/12/16 08:00 97.7 80 20 167/89 99 Room Air 12/12/16 06:39 76 16 Room Air 12/12/16 04:00 97.7 83 20 137/72 98 Room Air 12/12/16 00:00 98.1 88 20 112/60 100 Room Air Intake and Output 12/11/16 12/12/16 19:00 07:00 Output Total 250 ml Balance -250 ml Output Urine Total 250 ml Laboratory Tests 12/12/16 02:02: Urine Color Pale yellow, Urine Appearance Slightly cloudy, Urine pH 6, Urine Specific [place] 1.015, Urine Protein 3+H, Urine Glucose (UA) 4+H, Urine Ketones Negative, Urine Occult Blood 5+H, Urine Nitrite Negative, Urine Bilirubin Negative, Urine Urobilinogen Normal, Urine Leukocyte Esterase 3+H, Urine RBC 2-4H, Urine WBC TntcH, Urine Squamous Epithelial Cells Few, Urine Bacteria Few 12/12/16 05:10: White Blood Count 6.4, Red Blood Count 4.14L, Hemoglobin 11.8L, Hematocrit 37.7 , Mean Corpuscular Volume 91, Mean Corpuscular Hemoglobin 28.4, Mean Corpuscular Hemoglobin Concent 31.3L, Red Cell Distribution Width 14.7, Platelet Count 192, Mean Platelet Volume 8.2, Neutrophils (%) (Auto) 49.6, Lymphocytes (%) (Auto) 35.2, Monocytes (%) (Auto) 11.0H, Eosinophils (%) (Auto) 3.6H, Basophils (%) (Auto) 0.7, Sodium Level 137, Potassium Level 4.0, Chloride Level 95L, Carbon Dioxide Level 28, Anion Gap 14, Blood Urea Nitrogen 11, Creatinine 0.8, Estimat Glomerular Filtration Rate > 60, Glucose Level 320H, Hemoglobin A1c 8.5H, Calcium Level 8.9, Magnesium Level 1.6L, Total Bilirubin < 0.2, Direct Bilirubin 0.1, Aspartate Amino Transf (AST/SGOT) 15, Alanine Aminotransferase (ALT/SGPT) 15, Alkaline Phosphatase 70, Pro-B-Type Natriuretic Peptide 43, Total Protein 6.8, Albumin 3.4L Height (Feet): 5 Height (Inches): 7.00 Weight (Pounds): 350 Objective General: alert, cooperative, no distress, appears stated age, obese Head: normocephalic, without obvious abnormality, atraumatic Eyes: conjunctivae/corneas clear. PERRL, EOM's intact Throat: lips, mucosa, and tongue normal. MMM Neck: supple, symmetrical, trachea midline, and no JVD Lungs: clear to auscultation bilaterally Heart: regular rate and rhythm, S1, S2 normal, no murmur, click, rub or gallop Abdomen: soft, non-tender, non-distended, bowel sounds normal; no masses or organomegaly Extremities: extremities normal, atraumatic, no cyanosis or edema Pulses: 2+ and symmetric Skin: skin color, texture, turgor normal; no rashes or lesions Neurologic: grossly normal, no focal deficits Gregg Cortes M.D. Dec 12, 2016 21:50
[2016-12-13] VITALS: BP 126/71
[2016-12-13 04:00] VITALS: BP 124/72
[2016-12-13] MEDS: GlipiZIDE 5mg tab ORAL SCH ×2 (06:13→16:27)
[2016-12-13] MEDS: Piperacillin/Tazobactam 4.5 GM in D5W 110 ML IVPB SCH ×3 (06:13→22:11)
[2016-12-13] MEDS: NovoLOG Insulin Flexpen SUBQ SCH ×4 (06:15→22:16)
[2016-12-13 08:07] VITALS: BP 148/93
[2016-12-13] MEDS: DULoxetine 30mg cap ORAL SCH ×2 (09:15→22:11)
[2016-12-13] MEDS: Multivitamin w/Minerals tab ORAL SCH (09:16)
[2016-12-13] MEDS: Nystatin Powder 100,000 units/gm 15gm TOPIC SCH ×3 (09:16→17:32)
[2016-12-13] MEDS: Lyrica 50mg cap ORAL SCH ×2 (09:16→17:31)
[2016-12-13] MEDS: Lyrica 75mg cap ORAL SCH ×2 (09:16→17:30)
[2016-12-13] MEDS: Magnesium Oxide 400mg tab ORAL SCH ×2 (09:16→17:31)
[2016-12-13] MEDS: Heparin 5000 units/ml inj SUBQ SCH ×2 (09:18→22:14)
--- NOTE | 2016-12-13 10:16 | Urology Progress Note ---
Assessment/Plan Assessment/Plan 1. Urinary retention with chronic suprapubic tube. 2. Probable neurogenic bladder. 3. Hematuria history. 4. Urinary tract infection history. irrigate sp tube PRN abx as ordered f/u on cx's consider renal u/s Subjective Allergies: Coded Allergies: No Known Allergies (Unverified , 07/15/16) Subjective all noted, new sp tube draining ok Objective Last 24 Hour Vital Signs Date Time Temp Pulse Resp B/P Pulse Ox O2 Delivery O2 Flow Rate FiO2 12/13/16 08:07 97.9 82 16 148/93 100 Room Air 12/13/16 06:55 82 18 Room Air 12/13/16 04:00 98.1 91 20 124/72 98 Room Air 12/13/16 00:00 98.0 88 20 126/71 99 Room Air 12/12/16 20:00 96.8 92 18 124/74 12/12/16 19:54 90 18 Room Air 12/12/16 18:24 98.2 12/12/16 16:00 98.1 89 20 119/71 98 Room Air 12/12/16 12:00 98.2 93 20 127/68 97 Room Air Intake and Output 12/12/16 12/13/16 19:00 07:00 Intake Total 320 ml 910.0 ml Output Total 500 ml 700 ml Balance -180 ml 210.0 ml Intake Oral 320 ml 800 ml IV Total 110.0 ml Output Urine Total 500 ml 700 ml Microbiology Date/Time Source Procedure Growth Status 12/11/16 15:40 Blood Blood Culture - Preliminary NO GROWTH AFTER 24 HOURS Resulted 12/12/16 02:02 Urine,Clean Catch Urine Culture - Preliminary Gram Negative Bacillus 1 Resulted Current Medications Medications (Trade) Dose Ordered Sig/Cristóbal Route PRN Reason Start Time Stop Time Status Last Admin Dose Admin Acetaminophen/ Hydrocodone Bitart ([place] 10/325) 1 ea Q6H PRN ORAL Severe Pain (Pain Scale 7-10) 12/11/16 18:15 12/18/16 18:14 Albuterol/ Ipratropium (DuoNeb 0.5-3(2.5)mg/3ml) 3 ml Q4H PRN HHN Shortness of Breath 12/11/16 18:15 12/16/16 18:14 Baclofen (Lioresal) 20 mg TIDPRN PRN ORAL muscle spasms 12/11/16 18:15 01/10/17 18:14 Bisacodyl (Dulcolax) 10 mg DAILYPRN PRN RECTAL Constipation 12/11/16 18:15 01/10/17 18:14 Dextrose (Dextrose 50%) STAT PRN IV Hypoglycemia 12/11/16 19:00 01/10/17 18:59 Duloxetine HCl (Cymbalta) 30 mg Q12HR ORAL 12/11/16 21:00 01/10/17 20:59 12/13/16 09:15 Ferrous Sulfate (Feosol) 325 mg DAILY ORAL 12/12/16 09:00 01/11/17 08:59 12/13/16 09:16 Glipizide (Glucotrol) 5 mg BIAC ORAL 12/12/16 06:30 01/11/17 06:29 12/13/16 06:13 Heparin Sodium (Porcine) (Heparin 5000 units/ml) 5,000 units EVERY 12 HOURS SUBQ 12/11/16 21:00 01/10/17 20:59 12/13/16 09:18 Insulin Aspart (NovoLOG) BEFORE MEALS AND HS SUBQ 12/11/16 21:00 01/10/17 20:59 12/13/16 06:15 Insulin Detemir (Levemir) 15 units QHS SUBQ 12/12/16 21:00 01/11/17 20:59 12/12/16 21:16 Lorazepam (Ativan) 1 mg Q8H PRN ORAL For Anxiety 12/11/16 18:15 12/18/16 18:14 Magnesium Oxide 400 mg 400 mg BID ORAL 12/12/16 18:00 01/11/17 17:59 12/13/16 09:16 Magnesium Sulfate (Magnesium Sulfate 1gm/100ml) 100 ml @ 100 mls/hr Q1H IVPB 12/13/16 10:00 12/13/16 12:59 12/13/16 09:17 Mineral Oil (Fleet's Mineral Oil Enema) 133 ml DAILYPRN PRN RECTAL Constipation 12/11/16 18:15 01/10/17 18:14 Morphine Sulfate (Morphine Sulfate) 2 mg Q4H PRN IVP For breakthrough Pain 12/11/16 18:30 12/18/16 18:29 Multivitamins Therapeutic (Therapeutic Multivitamin) 1 ea DAILY ORAL 12/12/16 09:00 01/11/17 08:59 12/13/16 09:16 Nystatin (Nystop Powder) 1 applic THREE TIMES A DAY TOPIC 12/12/16 18:00 01/11/17 17:59 12/13/16 09:16 Ondansetron HCl 4 mg 4 mg Q6H PRN IVP Nausea & Vomiting 12/11/16 18:30 01/10/17 18:29 Piperacillin Sod/ Tazobactam Sod/ Dextrose (Zosyn/D5W) 110 ml @ 27.5 mls/hr EVERY 8 HOURS IVPB 12/11/16 20:00 12/18/16 19:59 12/13/16 06:13 Pravastatin Sodium (Pravachol) 40 mg BEDTIME ORAL 12/11/16 21:00 01/10/17 20:59 12/12/16 21:11 Pregabalin (Lyrica) 50 mg BID ORAL 12/12/16 09:00 01/11/17 08:59 12/13/16 09:16 Pregabalin (Lyrica) 150 mg BID ORAL 12/12/16 09:00 01/11/17 08:59 12/13/16 09:16 Laboratory Tests 12/13/16 06:45: Magnesium Level 1.4L Height (Feet): 5 Height (Inches): 7.00 Weight (Pounds): 350 Objective exam stable, urine yellow with some debris DAPHNIE VIDES Dec 13, 2016 10:16
[2016-12-13 11:43] LABS: ANION GAP 17 (5-15); CALCIUM 8.4 mg/dL (8.6-10.2); CARBON DIOXIDE 27 mEQ/L (20-30); CHLORIDE 92 mEQ/L (98-107); CREATININE 0.8 mg/dL (0.5-0.9); GLOMERULAR FILTRATION RATE > 60 mL/min (>60); HEMOLYSIS 3; POTASSIUM 3.9 mEQ/L (3.4-4.9); SODIUM 136 mEQ/L (135-145)
[2016-12-13 11:53] VITALS: BP 146/78
--- NOTE | 2016-12-13 13:58 | GI Initial Consult Note ---
History of Present Illness General Date patient seen: Dec 13, 2016 Time patient seen: 13:49 Reason for Hospitalization: Female Urogenital Problems Present Illness HPI 51-year-old female presents ED for evaluation. Patient states that she has a superpubic catheter because she is paralyzed. Per home care worker was attempting to flush the catheter today but is clogged. She tried to deflate the balloon. Care worker was unsuccessful so she cut the catheter. Patient is here to have catheter replaced. Patient states she otherwise feels fine. Patient that she likely has a UTI. Has increased urinary frequency. Denies any fevers or chills. Denies flank pain. Denies nausea or vomiting. No other aggravating or leading factors. Denies any other associated symptoms GI CONSULT: HPI as noted above. GI consulted for abdominal pain. Pt seen on floor, awake A&Ox4 NAD with no active s/sx of N/V/D. Abdomen tender to touch all quad. Pt having BM and positive for flatus. Presents today with anemia and hypoalbuminemia. No history of endoscopic procedures. Home Meds Reported Medications Baclofen* (LIORESAL*) 20 Mg Tablet, 20 MG ORAL THREE TIMES A DAY Y for Muscle Spasms, TAB 12/11/16 Ergocalciferol (Vitamin D2)* (VITAMIN D*) 50,000 Unit Capsule, 39325 UNIT ORAL ONCE A WEEK, CAP 12/11/16 [ocean nasal spray] No Conflict Check, 1 SPRAYS NASAL EVERY 2 HOURS Y for congestion 12/11/16 Multivitamin with Minerals (Multivitamins with Minerals) 1 Each Tablet, 1 TAB ORAL DAILY, TAB 12/11/16 Mineral Oil (MINERAL OIL ENEMA) 133 Ml Enema, 133 ML RC DAILY Y for Constipation , EA 12/11/16 Furosemide* (LASIX*) 40 Mg Tablet, 40 MG ORAL DAILY, TAB 12/11/16 Lactobacillus Acidophilus (PROBIOTIC) 1 Each Capsule, 1 EACH PO DAILY, CAP 12/11/16 Insulin Regular, Human (HUMULIN R) 100 Unit/1 Ml Vial, 0 SUBQ BEFORE MEALS AND HS, VIAL 12/11/16 Ipratropium/Albuterol Sulfate (DuoNeb 0.5-3(2.5)mg/3ml) 3 Ml Ampul.neb, 3 ML HHN EVERY 4 HOURS Y for Shortness of Breath, EA 12/11/16 Bisacodyl (DULCOLAX) 10 Mg Supp.rect, 10 MG RC DAILY Y for Constipation, SUPP 12/11/16 Glipizide (Glipizide) 10 Mg Tablet, 5 MG ORAL BID, #30 TAB 0 Refills 07/15/16 Duloxetine Hcl* (CYMBALTA*) 30 Mg Capsule.dr, 30 MG ORAL BID, CAP 07/15/16 Pregabalin* (LYRICA*) 75 Mg Capsule, 200 MG ORAL BID, CAP 07/15/16 Ferrous Sulfate (IRON) 325 Mg Tablet, 325 MG PO DAILY, TAB 08/31/15 Pravastatin Sodium (PRAVACHOL) 40 Mg Tablet, 40 MG ORAL BEDTIME, TAB 08/31/15 Pioglitazone Hcl* (ACTOS*) 30 Mg Tablet, 30 MG ORAL DAILY, TAB 08/31/15 [ms contin sr] No Conflict Check, 15 MG PO TID 08/31/15 Meloxicam* (MOBIC*) 15 Mg Tablet, 15 MG ORAL DAILY, #30 TAB 0 Refills 08/31/15 Lorazepam* (ATIVAN*) 1 Mg Tablet, 1 MG ORAL THREE TIMES A DAY Y for For Anxiety , TAB 08/31/15 Insulin Glargine (LANTUS) 100 Unit/1 Ml Insuln.pen, 12 UNITS SUBQ BEDTIME, #1 EA 0 Refills 08/31/15 Hydrocodone Bit/Acetaminophen 10-325* ([place] 10-325*) 1 Each Tablet, 1 TAB ORAL Q6H Y for For Pain, #10 TAB 0 Refills PRN PAIN 08/31/15 Discontinued Reported Medications Meropenem (MEROPENEM) 1 Gm Vial, 1 GM IV Q8HR for 7 Days, VIAL 07/19/16 Baclofen* (BACLOFEN*) 10 Mg Tablet, 200 MG ORAL THREE TIMES A DAY, TAB 07/15/16 Med list reviewed/reconciled: Yes Allergies: Coded Allergies: No Known Allergies (Unverified , 07/15/16) Patient History History Provided By: Patient, Medical Record PMH Narrative Past Medical History: other - paraplegic Past Surgical History: other - suprapubic catheter Pertinent Family History: none Social History: Denies: alcohol use, drug use, smoking Last Menstrual Period: 11/16/16 Now: No Immunizations: UTD Reviewed Nursing Documentation: PMH: Agreed, PSxH: Agreed Nursing Documentation-PMH Hx Cardiac Problems: No Hx Diabetes: Yes Hx Cancer: No Hx Gastrointestinal Problems: No 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, VRE Hx Neurological Problems: Yes - paraplegic Hx Paralysis: Yes Hx Peripheral Neuropathy: Yes 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 Review of Systems All Other Systems: negative except mentioned in HPI Physical Exam Vital Signs Date Time Temp Pulse Resp B/P Pulse Ox O2 Delivery O2 Flow Rate FiO2 12/11/16 11:55 97.0 82 16 141/83 98 Room Air Sp02 EP Interpretation: reviewed Labs Laboratory Tests Test 12/13/16 06:45 Sodium Level 136 mEQ/L (135-145) Potassium Level 3.9 mEQ/L (3.4-4.9) Chloride Level 92 mEQ/L (98-107) L Carbon Dioxide Level 27 mEQ/L (20-30) Anion Gap 17 (5-15) H Blood Urea Nitrogen 9 mg/dL (7-23) Creatinine 0.8 mg/dL (0.5-0.9) Estimat Glomerular Filtration Rate > 60 mL/min (>60) Glucose Level 312 mg/dL (74-106) H Calcium Level 8.4 mg/dL (8.6-10.2) L Magnesium Level 1.4 mg/dL (1.7-2.5) L General Appearance: well appearing, no apparent distress, alert, obese Head: normocephalic EENT: normal ENT inspection Respiratory: normal breath sounds, no respiratory distress Cardiovascular: normal rate Gastrointestinal: soft, tenderness - all quad Rectal: deferred Musculoskeletal: back normal Neurologic: normal inspection, alert, oriented x3, responsive Psychiatric: normal inspection, judgement/insight normal, memory normal Skin: normal inspection, normal color, no rash Lymphatic: normal inspection, no adenopathy Current Medications Current Medications Medications (Trade) Dose Ordered Sig/Cristóbal Route PRN Reason Start Time Stop Time Status Last Admin Dose Admin Acetaminophen/ Hydrocodone Bitart ([place] 10/325) 1 ea Q6H PRN ORAL Severe Pain (Pain Scale 7-10) 12/11/16 18:15 12/18/16 18:14 Albuterol/ Ipratropium (DuoNeb 0.5-3(2.5)mg/3ml) 3 ml Q4H PRN HHN Shortness of Breath 12/11/16 18:15 12/16/16 18:14 Baclofen (Lioresal) 20 mg TIDPRN PRN ORAL muscle spasms 12/11/16 18:15 01/10/17 18:14 Bisacodyl (Dulcolax) 10 mg DAILYPRN PRN RECTAL Constipation 12/11/16 18:15 01/10/17 18:14 Dextrose (Dextrose 50%) STAT PRN IV Hypoglycemia 12/11/16 19:00 01/10/17 18:59 Duloxetine HCl (Cymbalta) 30 mg Q12HR ORAL 12/11/16 21:00 01/10/17 20:59 12/13/16 09:15 Ferrous Sulfate (Feosol) 325 mg DAILY ORAL 12/12/16 09:00 01/11/17 08:59 12/13/16 09:16 Glipizide (Glucotrol) 5 mg BIAC ORAL 12/12/16 06:30 01/11/17 06:29 12/13/16 06:13 Heparin Sodium (Porcine) (Heparin 5000 units/ml) 5,000 units EVERY 12 HOURS SUBQ 12/11/16 21:00 01/10/17 20:59 12/13/16 09:18 Insulin Aspart (NovoLOG) BEFORE MEALS AND HS SUBQ 12/11/16 21:00 01/10/17 20:59 12/13/16 11:20 Insulin Detemir (Levemir) 15 units QHS SUBQ 12/12/16 21:00 01/11/17 20:59 12/12/16 21:16 Lorazepam (Ativan) 1 mg Q8H PRN ORAL For Anxiety 12/11/16 18:15 12/18/16 18:14 Magnesium Oxide (Mag-Ox 400mg) 400 mg BID ORAL 12/12/16 18:00 01/11/17 17:59 12/13/16 09:16 Mineral Oil (Fleet's Mineral Oil Enema) 133 ml DAILYPRN PRN RECTAL Constipation 12/11/16 18:15 01/10/17 18:14 Morphine Sulfate (Morphine Sulfate) 2 mg Q4H PRN IVP For breakthrough Pain 12/11/16 18:30 12/18/16 18:29 Multivitamins Therapeutic (Therapeutic Multivitamin) 1 ea DAILY ORAL 12/12/16 09:00 01/11/17 08:59 12/13/16 09:16 Nystatin (Nystop Powder) 1 applic THREE TIMES A DAY TOPIC 12/12/16 18:00 01/11/17 17:59 12/13/16 09:16 Ondansetron HCl 4 mg 4 mg Q6H PRN IVP Nausea & Vomiting 12/11/16 18:30 01/10/17 18:29 Piperacillin Sod/ Tazobactam Sod/ Dextrose (Zosyn/D5W) 110 ml @ 27.5 mls/hr EVERY 8 HOURS IVPB 12/11/16 20:00 12/18/16 19:59 12/13/16 13:13 Pravastatin Sodium (Pravachol) 40 mg BEDTIME ORAL 12/11/16 21:00 01/10/17 20:59 12/12/16 21:11 Pregabalin (Lyrica) 50 mg BID ORAL 12/12/16 09:00 01/11/17 08:59 12/13/16 09:16 Pregabalin (Lyrica) 150 mg BID ORAL 12/12/16 09:00 01/11/17 08:59 12/13/16 09:16 GI: Plan Problems: (1) Abdominal pain (2) Anemia (3) Hypoalbuminemia (4) Diabetes mellitus type 2 with complications, uncontrolled (5) Morbid obesity Plan symptomatic treatment at this time ordered KUB anemia work up monitor H&H, transfuse prn ordered H2 fu iron panel >> pt currently on FeSO4 OB stool uncollected colace fu labs Discussed with Dr. Owusu. Thank you for referring this patient, we will follow. Marika Leal N.P. Dec 13, 2016 13:58
[2016-12-13 14:11] LABS: BASOPHILS % (AUTO) 1.6 % (0.0-2.0); EOSINOPHILS % (AUTO) 4.4 % (0.0-3.0); LYMPHOCYTES % (AUTO) 42.1 % (20.0-45.0); MEAN CORPUSCULAR HEMOGLOBIN 29.1 PG (27.0-31.0); MEAN CORPUSCULAR HGB CONC 32.4 G/DL (32.0-36.0); MEAN CORPUSCULAR VOLUME 90 FL (80-99); MEAN PLATELET VOLUME 7.3 FL (6.5-10.1); MONOCYTES % (AUTO) 6.4 % (1.0-10.0); NEUTROPHILS % (AUTO) 45.4 % (45.0-75.0); PLATELET COUNT 173 K/UL (150-450); RED BLOOD COUNT 3.94 M/UL (4.20-5.40); RED CELL DISTRIBUTION WIDTH 14.5 % (11.6-14.8); WHITE BLOOD COUNT 4.9 K/UL (4.8-10.8)
--- NOTE | 2016-12-13 14:16 | Infectious Diseases Prog Note ---
Assessment/Plan Assessment/Plan Full consult dictated: A) 1) gram neg uti 2) hx pseudomonas and esbl 3) sp catheter 4) dm, nb, spinal chord injury, neuropathy P) 1) zosyn 2) check final urine culture 3) adjust abx once urine culture finalized 4) continue treatment per primary Subjective Constitutional: Denies: fever Cardiovascular: Denies: chest pain Gastrointestinal/Abdominal: Denies: nausea, vomiting Genitourinary: Reports: other - sp cath Neurologic: Denies: headache Allergies: Coded Allergies: No Known Allergies (Unverified , 07/15/16) Objective Vital Signs Last 24 Hour Vital Signs Date Time Temp Pulse Resp B/P Pulse Ox O2 Delivery O2 Flow Rate FiO2 12/13/16 11:53 97.3 86 15 146/78 100 12/13/16 08:07 97.9 82 16 148/93 100 Room Air 12/13/16 06:55 82 18 Room Air 12/13/16 04:00 98.1 91 20 124/72 98 Room Air 12/13/16 00:00 98.0 88 20 126/71 99 Room Air 12/12/16 20:00 96.8 92 18 124/74 12/12/16 19:54 90 18 Room Air 12/12/16 18:24 98.2 12/12/16 16:00 98.1 89 20 119/71 98 Room Air Height (Feet): 5 Height (Inches): 7.00 Weight (Pounds): 350 General Appearance: no acute distress HEENT: normocephalic, atraumatic, anicteric, mucous membranes moist, supple Respiratory/Chest: lungs clear, normal breath sounds, no respiratory distress Cardiovascular: normal rate, regular rhythm, no gallop/murmur Abdomen: soft, non tender, no organomegaly, non distended Genitourinary: other - sp cath Microbiology Date/Time Source Procedure Growth Status 12/11/16 15:40 Blood Blood Culture - Preliminary NO GROWTH AFTER 24 HOURS Resulted 12/11/16 15:25 Blood Blood Culture - Preliminary NO GROWTH AFTER 24 HOURS Resulted 12/12/16 02:02 Urine,Clean Catch Urine Culture - Preliminary Gram Negative Bacillus 1 Resulted Laboratory Tests Test 12/13/16 06:45 12/13/16 12:20 Sodium Level 136 mEQ/L (135-145) Potassium Level 3.9 mEQ/L (3.4-4.9) Chloride Level 92 mEQ/L (98-107) L Carbon Dioxide Level 27 mEQ/L (20-30) Anion Gap 17 (5-15) H Blood Urea Nitrogen 9 mg/dL (7-23) Creatinine 0.8 mg/dL (0.5-0.9) Estimat Glomerular Filtration Rate > 60 mL/min (>60) Glucose Level 312 mg/dL (74-106) H Calcium Level 8.4 mg/dL (8.6-10.2) L Magnesium Level 1.4 mg/dL (1.7-2.5) L White Blood Count 4.9 K/UL (4.8-10.8) Red Blood Count 3.94 M/UL (4.20-5.40) L Hemoglobin 11.5 G/DL (12.0-16.0) L Hematocrit 35.5 % (37.0-47.0) L Mean Corpuscular Volume 90 FL (80-99) Mean Corpuscular Hemoglobin 29.1 PG (27.0-31.0) Mean Corpuscular Hemoglobin Concent 32.4 G/DL (32.0-36.0) Red Cell Distribution Width 14.5 % (11.6-14.8) Platelet Count 173 K/UL (150-450) Mean Platelet Volume 7.3 FL (6.5-10.1) Neutrophils (%) (Auto) 45.4 % (45.0-75.0) Lymphocytes (%) (Auto) 42.1 % (20.0-45.0) Monocytes (%) (Auto) 6.4 % (1.0-10.0) Eosinophils (%) (Auto) 4.4 % (0.0-3.0) H Basophils (%) (Auto) 1.6 % (0.0-2.0) Current Medications Medications (Trade) Dose Ordered Sig/Cristóbal Route PRN Reason Start Time Stop Time Status Last Admin Dose Admin Acetaminophen/ Hydrocodone Bitart ([place] 10/325) 1 ea Q6H PRN ORAL Severe Pain (Pain Scale 7-10) 12/11/16 18:15 12/18/16 18:14 Albuterol/ Ipratropium (DuoNeb 0.5-3(2.5)mg/3ml) 3 ml Q4H PRN HHN Shortness of Breath 12/11/16 18:15 12/16/16 18:14 Baclofen (Lioresal) 20 mg TIDPRN PRN ORAL muscle spasms 12/11/16 18:15 01/10/17 18:14 Bisacodyl (Dulcolax) 10 mg DAILYPRN PRN RECTAL Constipation 12/11/16 18:15 01/10/17 18:14 Dextrose (Dextrose 50%) STAT PRN IV Hypoglycemia 12/11/16 19:00 01/10/17 18:59 Docusate Sodium (Colace) 100 mg TID ORAL 12/13/16 18:00 01/12/17 17:59 Duloxetine HCl (Cymbalta) 30 mg Q12HR ORAL 12/11/16 21:00 01/10/17 20:59 12/13/16 09:15 Famotidine (Pepcid I.v.) 20 mg Q12HR IVP 12/13/16 21:00 01/12/17 20:59 Ferrous Sulfate (Feosol) 325 mg DAILY ORAL 12/12/16 09:00 01/11/17 08:59 12/13/16 09:16 Glipizide (Glucotrol) 5 mg BIAC ORAL 12/12/16 06:30 01/11/17 06:29 12/13/16 06:13 Heparin Sodium (Porcine) (Heparin 5000 units/ml) 5,000 units EVERY 12 HOURS SUBQ 12/11/16 21:00 01/10/17 20:59 12/13/16 09:18 Insulin Aspart (NovoLOG) BEFORE MEALS AND HS SUBQ 12/11/16 21:00 01/10/17 20:59 12/13/16 11:20 Insulin Detemir (Levemir) 15 units QHS SUBQ 12/12/16 21:00 01/11/17 20:59 12/12/16 21:16 Lorazepam (Ativan) 1 mg Q8H PRN ORAL For Anxiety 12/11/16 18:15 12/18/16 18:14 Magnesium Oxide (Mag-Ox 400mg) 400 mg BID ORAL 12/12/16 18:00 01/11/17 17:59 12/13/16 09:16 Mineral Oil (Fleet's Mineral Oil Enema) 133 ml DAILYPRN PRN RECTAL Constipation 12/11/16 18:15 01/10/17 18:14 Morphine Sulfate (Morphine Sulfate) 2 mg Q4H PRN IVP For breakthrough Pain 12/11/16 18:30 12/18/16 18:29 Multivitamins Therapeutic (Therapeutic Multivitamin) 1 ea DAILY ORAL 12/12/16 09:00 01/11/17 08:59 12/13/16 09:16 Nystatin (Nystop Powder) 1 applic THREE TIMES A DAY TOPIC 12/12/16 18:00 01/11/17 17:59 12/13/16 09:16 Ondansetron HCl 4 mg 4 mg Q6H PRN IVP Nausea & Vomiting 12/11/16 18:30 01/10/17 18:29 Piperacillin Sod/ Tazobactam Sod/ Dextrose (Zosyn/D5W) 110 ml @ 27.5 mls/hr EVERY 8 HOURS IVPB 12/11/16 20:00 12/18/16 19:59 12/13/16 13:13 Pravastatin Sodium (Pravachol) 40 mg BEDTIME ORAL 12/11/16 21:00 01/10/17 20:59 12/12/16 21:11 Pregabalin (Lyrica) 50 mg BID ORAL 12/12/16 09:00 01/11/17 08:59 12/13/16 09:16 Pregabalin (Lyrica) 150 mg BID ORAL 12/12/16 09:00 01/11/17 08:59 12/13/16 09:16 ARIELA NEVAREZ Dec 13, 2016 14:16
--- NOTE | 2016-12-13 14:49 | Diagnostic Imaging Report ---
Indication: Abdominal pain Comparison: None Single view of the abdomen obtained Findings: The study is limited by body habitus. Bowel gas pattern is nonspecific. Cholecystectomy clips noted in the right upper quadrant of abdomen. No mass, ectopic calcifications, or abnormal gas collections are identified. The bones are unremarkable. Impression: No acute findings
[2016-12-13 16:26] VITALS: BP 141/85
--- NOTE | 2016-12-13 16:54 | General Progress Note ---
Assessment/Plan Problem List: (1) Suprapubic catheter dysfunction ICD Codes: T83.018A - Breakdown (mechanical) of other indwelling urethral catheter, initial encounter SNOMED: 399890894 Qualifiers: Qualified Codes: T83.010A - Breakdown (mechanical) of cystostomy catheter, initial encounter (2) UTI (urinary tract infection) ICD Codes: N39.0 - Urinary tract infection, site not specified SNOMED: 18170071 (3) Neurogenic bladder ICD Codes: N31.9 - Neuromuscular dysfunction of bladder, unspecified SNOMED: 065583907 (4) Diabetes mellitus type 2 with complications, uncontrolled ICD Codes: E11.8 - Type 2 diabetes mellitus with unspecified complications; E11.65 - Type 2 diabetes mellitus with hyperglycemia SNOMED: 74814184, 695349198, 123603964 (5) Morbid obesity ICD Codes: E66.01 - Morbid (severe) obesity due to excess calories SNOMED: 356909210 Status: stable Assessment/Plan Appreciate urology rec's--old suprapubic catheter was removed and new one placed and irrigated on 12/11 Cont zosyn for UTI (12/11-) F/u urine cx--showing >100K GNR Check renal U/S per urology Appreciate ID rec's Will consult GI given pt c/o worsening abd pain and distention Cont home meds Pain control, supportive care, bowel regimen IVFs Trend CBC, BMP PICC line placed 12/12 DVT Prophylaxis: SCD, HSQ Code Status: Full Hospital Classification Declaration: Based on this initial evaluation, and depending on the patient's clinical course, I anticipate that this patient will require hospitalization for 1-2 days for suprapubic catheter dysfunction, UTI, and close respiratory/hemodynamic monitoring. Disposition: Once the patient is stable to leave the hospital, I anticipate the patient will likely be discharged to the following environment: home with HH\ I spent 40 minutes on this patient's case, and 22 minutes were dedicated to counseling and/or care coordination. Discussed with patient/family, nursing staff, SW/CM, urology, ID regarding clinical status, treatment course, and disposition planning. Time of note may not reflect time of encounter. Subjective Date patient seen: Dec 13, 2016 Time patient seen: 16:52 ROS Limited/Unobtainable: No Constitutional: Reports: no symptoms HEENT: Reports: no symptoms Cardiovascular: Reports: no symptoms Respiratory: Reports: no symptoms Gastrointestinal/Abdominal: Reports: no symptoms Genitourinary: Reports: no symptoms Neurologic/Psychiatric: Reports: no symptoms Endocrine: Reports: no symptoms Hematologic/Lymphatic: Reports: no symptoms Allergies: Coded Allergies: No Known Allergies (Unverified , 07/15/16) All Systems: reviewed and negative except above Subjective No acute o/n events UCx showing >100K GNR Cont on zosyn per ID C/o worsening abd pain and distention. Wants to see GI Objective Last 24 Hour Vital Signs Date Time Temp Pulse Resp B/P Pulse Ox O2 Delivery O2 Flow Rate FiO2 12/13/16 16:26 97.3 67 15 141/85 100 Nasal Cannula 12/13/16 11:53 97.3 86 15 146/78 100 12/13/16 08:07 97.9 82 16 148/93 100 Room Air 12/13/16 06:55 82 18 Room Air 12/13/16 04:00 98.1 91 20 124/72 98 Room Air 12/13/16 00:00 98.0 88 20 126/71 99 Room Air 12/12/16 20:00 96.8 92 18 124/74 12/12/16 19:54 90 18 Room Air 12/12/16 18:24 98.2 Intake and Output 12/12/16 12/13/16 19:00 07:00 Intake Total 320 ml 910.0 ml Output Total 500 ml 700 ml Balance -180 ml 210.0 ml Intake Oral 320 ml 800 ml IV Total 110.0 ml Output Urine Total 500 ml 700 ml Laboratory Tests 12/13/16 06:45: Sodium Level 136, Potassium Level 3.9, Chloride Level 92L, Carbon Dioxide Level 27, Anion Gap 17H, Blood Urea Nitrogen 9, Creatinine 0.8, Estimat Glomerular Filtration Rate > 60, Glucose Level 312H, Calcium Level 8.4L, Magnesium Level 1.4L 12/13/16 12:20: White Blood Count 4.9, Red Blood Count 3.94L, Hemoglobin 11.5L, Hematocrit 35.5L , Mean Corpuscular Volume 90, Mean Corpuscular Hemoglobin 29.1, Mean Corpuscular Hemoglobin Concent 32.4, Red Cell Distribution Width 14.5, Platelet Count 173, Mean Platelet Volume 7.3, Neutrophils (%) (Auto) 45.4, Lymphocytes (% ) (Auto) 42.1, Monocytes (%) (Auto) 6.4, Eosinophils (%) (Auto) 4.4H, Basophils (%) (Auto) 1.6 Height (Feet): 5 Height (Inches): 7.00 Weight (Pounds): 350 Objective General: alert, cooperative, no distress, appears stated age, obese Head: normocephalic, without obvious abnormality, atraumatic Eyes: conjunctivae/corneas clear. PERRL, EOM's intact Throat: lips, mucosa, and tongue normal. MMM Neck: supple, symmetrical, trachea midline, and no JVD Lungs: clear to auscultation bilaterally Heart: regular rate and rhythm, S1, S2 normal, no murmur, click, rub or gallop Abdomen: soft, mild TTP diffusely,+some distention, obese abd, bowel sounds normal; no masses or organomegaly : suprapubic catheter site c/d/i Extremities: extremities normal, atraumatic, no cyanosis or edema Pulses: 2+ and symmetric Skin: skin color, texture, turgor normal; no rashes or lesions Neurologic: grossly normal, no focal deficits Gregg Cortes M.D. Dec 13, 2016 16:54
[2016-12-13] MEDS: Docusate 100mg tablet ORAL SCH (17:31)
[2016-12-13 21:00] VITALS: BP 130/72
[2016-12-13] MEDS: Levemir Flexpen SUBQ SCH (21:00)
[2016-12-13] MEDS: Famotidine 20 MG/ 2ML VIAL IVP SCH (22:12)
[2016-12-14] VITALS: BP 141/76
[2016-12-14 04:00] VITALS: BP 142/77
[2016-12-14] MEDS: NovoLOG Insulin Flexpen SUBQ SCH ×4 (06:47→21:23)
[2016-12-14] MEDS: Piperacillin/Tazobactam 4.5 GM in D5W 110 ML IVPB SCH ×2 (06:48→14:30)
[2016-12-14] MEDS: GlipiZIDE 5mg tab ORAL SCH ×2 (06:48→16:55)
[2016-12-14 08:39] LABS: BASOPHILS % (AUTO) 1.3 % (0.0-2.0); EOSINOPHILS % (AUTO) 5.3 % (0.0-3.0); MEAN CORPUSCULAR HEMOGLOBIN 28.5 PG (27.0-31.0); MEAN CORPUSCULAR HGB CONC 31.8 G/DL (32.0-36.0); MEAN CORPUSCULAR VOLUME 90 FL (80-99); MEAN PLATELET VOLUME 8.2 FL (6.5-10.1); MONOCYTES % (AUTO) 12.4 % (1.0-10.0); PLATELET COUNT 179 K/UL (150-450); RED BLOOD COUNT 4.05 M/UL (4.20-5.40); RED CELL DISTRIBUTION WIDTH 14.2 % (11.6-14.8); WHITE BLOOD COUNT 4.7 K/UL (4.8-10.8)
[2016-12-14 08:43] VITALS: BP 155/91
[2016-12-14 08:52] LABS: ANION GAP 13 (5-15); CALCIUM 7.5 mg/dL (8.6-10.2); CARBON DIOXIDE 29 mEQ/L (20-30); CHLORIDE 96 mEQ/L (98-107); CREATININE 0.8 mg/dL (0.5-0.9); GLOMERULAR FILTRATION RATE > 60 mL/min (>60); HEMOLYSIS 35; POTASSIUM 5.4 mEQ/L (3.4-4.9); SODIUM 138 mEQ/L (135-145)
[2016-12-14 08:58] LABS: FERRITIN 179 ng/mL (13-150)
--- NOTE | 2016-12-14 09:00 | Urology Progress Note ---
Assessment/Plan Assessment/Plan 1. Urinary retention with chronic suprapubic tube. 2. Probable neurogenic bladder. 3. Hematuria history. 4. Urinary tract infection history. irrigate sp tube PRN abx as ordered f/u on cx's consider renal u/s Subjective Allergies: Coded Allergies: No Known Allergies (Unverified , 07/15/16) Subjective all noted, new sp tube draining ok Objective Last 24 Hour Vital Signs Date Time Temp Pulse Resp B/P Pulse Ox O2 Delivery O2 Flow Rate FiO2 12/14/16 08:43 97.5 93 16 155/91 100 Nasal Cannula 12/14/16 04:00 97.0 74 20 142/77 99 Room Air 12/14/16 00:00 97.5 71 18 141/76 100 Room Air 12/13/16 21:00 97.7 61 19 130/72 94 Room Air 12/13/16 18:41 82 18 Room Air 12/13/16 16:26 97.3 67 15 141/85 100 Nasal Cannula 12/13/16 11:53 97.3 86 15 146/78 100 Intake and Output 12/13/16 12/14/16 19:00 07:00 Intake Total 2020.0 ml Output Total 1050 ml 1450 ml Balance 970.0 ml -1450 ml Intake Oral 1500 ml IV Total 520.0 ml Output Urine Total 1050 ml 1450 ml Microbiology Date/Time Source Procedure Growth Status 12/11/16 15:40 Blood Blood Culture - Preliminary NO GROWTH AFTER 24 HOURS Resulted 12/12/16 02:02 Urine,Clean Catch Urine Culture - Preliminary Gram Negative Bacillus 1 Resulted Current Medications Medications (Trade) Dose Ordered Sig/Cristóbal Route PRN Reason Start Time Stop Time Status Last Admin Dose Admin Acetaminophen/ Hydrocodone Bitart ([place] 10/325) 1 ea Q6H PRN ORAL Severe Pain (Pain Scale 7-10) 12/11/16 18:15 12/18/16 18:14 Albuterol/ Ipratropium (DuoNeb 0.5-3(2.5)mg/3ml) 3 ml Q4H PRN HHN Shortness of Breath 12/11/16 18:15 12/16/16 18:14 Baclofen (Lioresal) 20 mg TIDPRN PRN ORAL muscle spasms 12/11/16 18:15 01/10/17 18:14 Bisacodyl (Dulcolax) 10 mg DAILYPRN PRN RECTAL Constipation 12/11/16 18:15 01/10/17 18:14 Dextrose (Dextrose 50%) STAT PRN IV Hypoglycemia 12/11/16 19:00 01/10/17 18:59 Docusate Sodium (Colace) 100 mg TID ORAL 12/13/16 18:00 01/12/17 17:59 12/13/16 17:31 Duloxetine HCl (Cymbalta) 30 mg Q12HR ORAL 12/11/16 21:00 01/10/17 20:59 12/13/16 22:11 Famotidine (Pepcid I.v.) 20 mg Q12HR IVP 12/13/16 21:00 01/12/17 20:59 12/13/16 22:12 Ferrous Sulfate (Feosol) 325 mg DAILY ORAL 12/12/16 09:00 01/11/17 08:59 12/13/16 09:16 Glipizide (Glucotrol) 5 mg BIAC ORAL 12/12/16 06:30 01/11/17 06:29 12/14/16 06:48 Heparin Sodium (Porcine) (Heparin 5000 units/ml) 5,000 units EVERY 12 HOURS SUBQ 12/11/16 21:00 01/10/17 20:59 12/13/16 22:14 Insulin Aspart (NovoLOG) BEFORE MEALS AND HS SUBQ 12/11/16 21:00 01/10/17 20:59 12/14/16 06:47 Insulin Detemir (Levemir) 18 units QHS SUBQ 12/13/16 21:00 01/12/17 20:59 12/13/16 21:00 Lorazepam (Ativan) 1 mg Q8H PRN ORAL For Anxiety 12/11/16 18:15 12/18/16 18:14 Magnesium Oxide (Mag-Ox 400mg) 400 mg BID ORAL 12/12/16 18:00 01/11/17 17:59 12/13/16 17:31 Mineral Oil (Fleet's Mineral Oil Enema) 133 ml DAILYPRN PRN RECTAL Constipation 12/11/16 18:15 01/10/17 18:14 Morphine Sulfate (Morphine Sulfate) 2 mg Q4H PRN IVP For breakthrough Pain 12/11/16 18:30 12/18/16 18:29 Multivitamins Therapeutic (Therapeutic Multivitamin) 1 ea DAILY ORAL 12/12/16 09:00 01/11/17 08:59 12/13/16 09:16 Nystatin (Nystop Powder) 1 applic THREE TIMES A DAY TOPIC 12/12/16 18:00 01/11/17 17:59 12/13/16 09:16 Ondansetron HCl 4 mg 4 mg Q6H PRN IVP Nausea & Vomiting 12/11/16 18:30 01/10/17 18:29 Piperacillin Sod/ Tazobactam Sod/ Dextrose (Zosyn/D5W) 110 ml @ 27.5 mls/hr EVERY 8 HOURS IVPB 12/11/16 20:00 12/18/16 19:59 12/14/16 06:48 Pravastatin Sodium (Pravachol) 40 mg BEDTIME ORAL 12/11/16 21:00 01/10/17 20:59 12/13/16 22:11 Pregabalin (Lyrica) 50 mg BID ORAL 12/12/16 09:00 01/11/17 08:59 12/13/16 17:31 Pregabalin (Lyrica) 150 mg BID ORAL 12/12/16 09:00 01/11/17 08:59 12/13/16 17:30 Laboratory Tests 12/13/16 12:20: White Blood Count 4.9, Red Blood Count 3.94L, Hemoglobin 11.5L, Hematocrit 35.5L , Mean Corpuscular Volume 90, Mean Corpuscular Hemoglobin 29.1, Mean Corpuscular Hemoglobin Concent 32.4, Red Cell Distribution Width 14.5, Platelet Count 173, Mean Platelet Volume 7.3, Neutrophils (%) (Auto) 45.4, Lymphocytes (% ) (Auto) 42.1, Monocytes (%) (Auto) 6.4, Eosinophils (%) (Auto) 4.4H, Basophils (%) (Auto) 1.6 12/14/16 08:16: White Blood Count 4.7L, Red Blood Count 4.05L, Hemoglobin 11.6L, Hematocrit 36.3L, Mean Corpuscular Volume 90, Mean Corpuscular Hemoglobin 28.5, Mean Corpuscular Hemoglobin Concent 31.8L, Red Cell Distribution Width 14.2, Platelet Count 179, Mean Platelet Volume 8.2, Neutrophils (%) (Auto) 42.0L, Lymphocytes (%) (Auto) 39.0, Monocytes (%) (Auto) 12.4H, Eosinophils (%) (Auto) 5.3H, Basophils (%) (Auto) 1.3, Reticulocyte Count [Pending], Prothrombin Time [ Pending], Prothromb Time International Ratio [Pending], Activated Partial Thromboplast Time [Pending], Sodium Level 138, Potassium Level 5.4H, Chloride Level 96L, Carbon Dioxide Level 29, Anion Gap 13, Blood Urea Nitrogen 7, Creatinine 0.8, Estimat Glomerular Filtration Rate > 60, Glucose Level 258H, Calcium Level 7.5L, Iron Level 54, Total Iron Binding Capacity 217L, Percent Iron Saturation 25, Unsaturated Iron Binding 163, Ferritin 179H, Carcinoembryonic Antigen [Pending], Vitamin B12 Level [Pending], Folate [Pending ], Thyroid Stimulating Hormone (TSH) 1.260, Free Thyroxine [Pending] Height (Feet): 5 Height (Inches): 7.00 Weight (Pounds): 350 Objective exam stable, urine yellow with some debris DAPHNIE VIDES Dec 14, 2016 09:00
[2016-12-14] MEDS: Docusate 100mg tablet ORAL SCH ×3 (09:11→18:00)
[2016-12-14] MEDS: DULoxetine 30mg cap ORAL SCH ×2 (09:12→21:20)
[2016-12-14] MEDS: Multivitamin w/Minerals tab ORAL SCH (09:12)
[2016-12-14] MEDS: Lyrica 75mg cap ORAL SCH ×2 (09:12→18:06)
[2016-12-14] MEDS: Lyrica 50mg cap ORAL SCH ×2 (09:12→18:07)
[2016-12-14] MEDS: Magnesium Oxide 400mg tab ORAL SCH ×2 (09:12→18:06)
[2016-12-14] MEDS: Nystatin Powder 100,000 units/gm 15gm TOPIC SCH ×3 (09:13→18:08)
[2016-12-14] MEDS: Famotidine 20 MG/ 2ML VIAL IVP SCH ×2 (09:13→21:20)
[2016-12-14] MEDS: Heparin 5000 units/ml inj SUBQ SCH ×2 (09:15→21:21)
[2016-12-14] MEDS ORDERED: Sodium Polystyrene Sulfonate 15gm Powder ORAL ONE (11:00)
[2016-12-14 12:33] VITALS: BP 158/95
[2016-12-14 13:52] LABS: PROTHROMBIN TIME 10.2 SEC (9.30-11.50)
[2016-12-14 16:37] VITALS: BP 150/75
--- NOTE | 2016-12-14 18:22 | General Progress Note ---
Assessment/Plan Status: doing well, stable Assessment/Plan Assessment/Plan Problem List: (1) Suprapubic catheter dysfunction ICD Codes: T83.018A - Breakdown (mechanical) of other indwelling urethral catheter, initial encounter SNOMED: 208694551 Qualifiers: Qualified Codes: T83.010A - Breakdown (mechanical) of cystostomy catheter, initial encounter (2) UTI (urinary tract infection) ICD Codes: N39.0 - Urinary tract infection, of suprapubic catheter SNOMED: 09988622 (3) Neurogenic bladder ICD Codes: N31.9 - Neuromuscular dysfunction of bladder, unspecified SNOMED: 673769577 (4) Diabetes mellitus type 2 with complications, uncontrolled ICD Codes: E11.8 - Type 2 diabetes mellitus with unspecified complications; E11.65 - Type 2 diabetes mellitus with hyperglycemia SNOMED: 81430032, [id number], 764433699 (5) Morbid obesity ICD Codes: E66.01 - Morbid (severe) obesity due to excess calories SNOMED: 074765669 Status: stable Assessment/Plan Appreciate urology rec's--old suprapubic catheter was removed and new one placed and irrigated on 12/11 Urine cx was positive for proteus mirabilis, sensitive to amikacin, zosyn, and ertapenum. Resistant to many organisms including ceftriaxone. Consulted with ID , states she should continue on Ertapenum 1gm IVPB until 12/21/16. Check renal U/S per urology Appreciate ID rec's Cont home meds Pain control, supportive care, bowel regimen IVFs Trend CBC, BMP PICC line placed 12/12 DVT Prophylaxis: SCD, HSQ Code Status: Full Hospital Classification Declaration: Based on this initial evaluation, and depending on the patient's clinical course, I anticipate that this patient will require hospitalization for 1-2 days for suprapubic catheter dysfunction, UTI, and close respiratory/hemodynamic monitoring. Disposition: Once the patient is stable to leave the hospital, I anticipate the patient will likely be discharged to the following environment: home with HH: will need Ertapenum 1gm IVPB q24h until 12/21/16, can use picc I spent 40 minutes on this patient's case, and 22 minutes were dedicated to counseling and/or care coordination. Discussed with patient/family, nursing staff, SW/CM, urology, ID regarding clinical status, treatment course, and disposition planning. Time of note may not reflect time of encounter. Subjective Date patient seen: Dec 14, 2016 Time patient seen: 18:12 Constitutional: Denies: chills, diaphoresis, fever, malaise, weakness HEENT: Denies: blurred vision, double vision, ear pain, eye pain, tearing Cardiovascular: Denies: chest pain, edema, irregular heart rate, lightheadedness Respiratory: Denies: cough, orthopnea, shortness of breath Gastrointestinal/Abdominal: Denies: abdomen distended, abdominal pain, black stools Genitourinary: Denies: burning, discharge, flank pain, frequency Neurologic/Psychiatric: Denies: anxiety, depressed Endocrine: Denies: excessive sweating, flushing Hematologic/Lymphatic: Denies: anemia, easy bleeding Allergies: Coded Allergies: No Known Allergies (Unverified , 07/15/16) Subjective Patient denies fevers, pain. States she overall feels better. Objective Last 24 Hour Vital Signs Date Time Temp Pulse Resp B/P Pulse Ox O2 Delivery O2 Flow Rate FiO2 12/14/16 16:37 97.7 77 16 150/75 96 Room Air 12/14/16 13:37 79 18 Room Air 12/14/16 12:33 97.3 80 18 158/95 100 Room Air 12/14/16 10:11 97.5 12/14/16 08:43 97.5 93 16 155/91 100 Nasal Cannula 12/14/16 04:00 97.0 74 20 142/77 99 Room Air 12/14/16 00:00 97.5 71 18 141/76 100 Room Air 12/13/16 21:00 97.7 61 19 130/72 94 Room Air 12/13/16 18:41 82 18 Room Air Intake and Output 12/13/16 12/14/16 19:00 07:00 Intake Total 2020.0 ml Output Total 1050 ml 1450 ml Balance 970.0 ml -1450 ml Intake Oral 1500 ml IV Total 520.0 ml Output Urine Total 1050 ml 1450 ml Laboratory Tests 12/14/16 08:16: White Blood Count 4.7L, Red Blood Count 4.05L, Hemoglobin 11.6L, Hematocrit 36.3L, Mean Corpuscular Volume 90, Mean Corpuscular Hemoglobin 28.5, Mean Corpuscular Hemoglobin Concent 31.8L, Red Cell Distribution Width 14.2, Platelet Count 179, Mean Platelet Volume 8.2, Neutrophils (%) (Auto) 42.0L, Lymphocytes (%) (Auto) 39.0, Monocytes (%) (Auto) 12.4H, Eosinophils (%) (Auto) 5.3H, Basophils (%) (Auto) 1.3, Reticulocyte Count 0.8, Sodium Level 138, Potassium Level 5.4H, Chloride Level 96L, Carbon Dioxide Level 29, Anion Gap 13 , Blood Urea Nitrogen 7, Creatinine 0.8, Estimat Glomerular Filtration Rate > 60 , Glucose Level 258H, Calcium Level 7.5L, Iron Level 54, Total Iron Binding Capacity 217L, Percent Iron Saturation 25, Unsaturated Iron Binding 163, Ferritin 179H, Carcinoembryonic Antigen 3.1H, Vitamin B12 Level 532, Folate [ Pending], Thyroid Stimulating Hormone (TSH) 1.260, Free Thyroxine 1.05 12/14/16 12:50: Prothrombin Time 10.2, Prothromb Time International Ratio 1.0, Activated Partial Thromboplast Time 27 Height (Feet): 5 Height (Inches): 7.00 Weight (Pounds): 350 General Appearance: no apparent distress, alert EENT: PERRL/EOMI, normal ENT inspection Neck: non-tender, normal alignment, normal inspection Cardiovascular: normal peripheral pulses, normal rate, regular rhythm Respiratory/Chest: chest wall non-tender, lungs clear, normal breath sounds Genitourinary/Rectal: other - suprapubic [place] draining clear pale yellow liquid Extremities: normal range of motion, non-tender, normal inspection Edema: no edema noted Arm (L), no edema noted Arm (R), no edema noted Leg (L), no edema noted Leg (R), no edema noted Pedal (L), no edema noted Pedal (R), no edema noted Generalized Skin: normal pigmentation Objective Laboratory Tests Test 12/14/16 08:16 12/14/16 12:50 White Blood Count 4.7 K/UL (4.8-10.8) L Red Blood Count 4.05 M/UL (4.20-5.40) L Hemoglobin 11.6 G/DL (12.0-16.0) L Hematocrit 36.3 % (37.0-47.0) L Mean Corpuscular Volume 90 FL (80-99) Mean Corpuscular Hemoglobin 28.5 PG (27.0-31.0) Mean Corpuscular Hemoglobin Concent 31.8 G/DL (32.0-36.0) L Red Cell Distribution Width 14.2 % (11.6-14.8) Platelet Count 179 K/UL (150-450) Mean Platelet Volume 8.2 FL (6.5-10.1) Neutrophils (%) (Auto) 42.0 % (45.0-75.0) L Lymphocytes (%) (Auto) 39.0 % (20.0-45.0) Monocytes (%) (Auto) 12.4 % (1.0-10.0) H Eosinophils (%) (Auto) 5.3 % (0.0-3.0) H Basophils (%) (Auto) 1.3 % (0.0-2.0) Reticulocyte Count 0.8 % (0.0-2.0) Sodium Level 138 mEQ/L (135-145) Potassium Level 5.4 mEQ/L (3.4-4.9) H Chloride Level 96 mEQ/L (98-107) L Carbon Dioxide Level 29 mEQ/L (20-30) Anion Gap 13 (5-15) Blood Urea Nitrogen 7 mg/dL (7-23) Creatinine 0.8 mg/dL (0.5-0.9) Estimat Glomerular Filtration Rate > 60 mL/min (>60) Glucose Level 258 mg/dL (74-106) H Calcium Level 7.5 mg/dL (8.6-10.2) L Iron Level 54 ug/dL (37-145) Total Iron Binding Capacity 217 ug/dL (250-400) L Percent Iron Saturation 25 % (15-50) Unsaturated Iron Binding 163 ug/dL (112-346) Ferritin 179 ng/mL (13-150) H Carcinoembryonic Antigen 3.1 ng/mL H Vitamin B12 Level 532 pg/mL (211-946) Folate Pending Thyroid Stimulating Hormone (TSH) 1.260 uIU/mL (0.300-4.500) Free Thyroxine 1.05 ng/dL (0.86-1.85) Prothrombin Time 10.2 SEC (9.30-11.50) Prothromb Time International Ratio 1.0 (0.9-1.1) Activated Partial Thromboplast Time 27 SEC (23-33) Microbiology: Urine CX positive for proteus mirabilis , sensitive to ertapenum, zosyn, amikacin DION SYKES N.P. Dec 14, 2016 18:22
[2016-12-14] MEDS ORDERED: Ertapenem 1 GM in NS 55 ML IVPB SCH (20:00)
--- NOTE | 2016-12-14 20:12 | General Progress Note ---
Assessment/Plan Assessment/Plan Assessment (1) Abdominal pain (2) Anemia (3) Hypoalbuminemia (4) Diabetes mellitus type 2 with complications, uncontrolled (5) Morbid obesity Plan symptomatic treatment at this time anemia work up monitor H&H, transfuse prn ordered H2 fu iron panel >> pt currently on FeSO4 OB stool uncollected colace fu labs Subjective Allergies: Coded Allergies: No Known Allergies (Unverified , 07/15/16) Subjective Feels OK no abdominal complaints poor po BM not daily Objective Last 24 Hour Vital Signs Date Time Temp Pulse Resp B/P Pulse Ox O2 Delivery O2 Flow Rate FiO2 12/14/16 19:05 97.7 12/14/16 16:37 97.7 77 16 150/75 96 Room Air 12/14/16 13:37 79 18 Room Air 12/14/16 12:33 97.3 80 18 158/95 100 Room Air 12/14/16 08:43 97.5 93 16 155/91 100 Nasal Cannula 12/14/16 04:00 97.0 74 20 142/77 99 Room Air 12/14/16 00:00 97.5 71 18 141/76 100 Room Air 12/13/16 21:00 97.7 61 19 130/72 94 Room Air Intake and Output 12/13/16 12/14/16 19:00 07:00 Intake Total 2020.0 ml Output Total 1050 ml 1450 ml Balance 970.0 ml -1450 ml Intake Oral 1500 ml IV Total 520.0 ml Output Urine Total 1050 ml 1450 ml Laboratory Tests 12/14/16 08:16: White Blood Count 4.7L, Red Blood Count 4.05L, Hemoglobin 11.6L, Hematocrit 36.3L, Mean Corpuscular Volume 90, Mean Corpuscular Hemoglobin 28.5, Mean Corpuscular Hemoglobin Concent 31.8L, Red Cell Distribution Width 14.2, Platelet Count 179, Mean Platelet Volume 8.2, Neutrophils (%) (Auto) 42.0L, Lymphocytes (%) (Auto) 39.0, Monocytes (%) (Auto) 12.4H, Eosinophils (%) (Auto) 5.3H, Basophils (%) (Auto) 1.3, Reticulocyte Count 0.8, Sodium Level 138, Potassium Level 5.4H, Chloride Level 96L, Carbon Dioxide Level 29, Anion Gap 13 , Blood Urea Nitrogen 7, Creatinine 0.8, Estimat Glomerular Filtration Rate > 60 , Glucose Level 258H, Calcium Level 7.5L, Iron Level 54, Total Iron Binding Capacity 217L, Percent Iron Saturation 25, Unsaturated Iron Binding 163, Ferritin 179H, Carcinoembryonic Antigen 3.1H, Vitamin B12 Level 532, Folate [ Pending], Thyroid Stimulating Hormone (TSH) 1.260, Free Thyroxine 1.05 12/14/16 12:50: Prothrombin Time 10.2, Prothromb Time International Ratio 1.0, Activated Partial Thromboplast Time 27 Height (Feet): 5 Height (Inches): 7.00 Weight (Pounds): 350 Objective WDWN AA NCAT supple CTA RRR Soft ND NT no edema nonfocal ANGELINA GARCIA Dec 14, 2016 20:12
[2016-12-14 21:00] VITALS: BP 139/73
[2016-12-14] MEDS: Levemir Flexpen SUBQ SCH (21:22)
[2016-12-15] VITALS: BP 121/74
[2016-12-15 04:00] VITALS: BP 143/90
[2016-12-15] MEDS: GlipiZIDE 5mg tab ORAL SCH ×2 (05:56→15:34)
[2016-12-15] MEDS: NovoLOG Insulin Flexpen SUBQ SCH ×4 (05:57→21:03)
[2016-12-15 08:00] VITALS: BP 142/76
[2016-12-15] MEDS: DULoxetine 30mg cap ORAL SCH ×2 (08:37→20:58)
[2016-12-15] MEDS: Docusate 100mg tablet ORAL SCH ×3 (08:38→17:32)
[2016-12-15] MEDS: Magnesium Oxide 400mg tab ORAL SCH ×2 (08:38→17:32)
[2016-12-15] MEDS: Lyrica 50mg cap ORAL SCH ×2 (08:38→17:31)
[2016-12-15] MEDS: Lyrica 75mg cap ORAL SCH ×2 (08:38→17:32)
[2016-12-15] MEDS: Famotidine 20 MG/ 2ML VIAL IVP SCH (08:39)
[2016-12-15] MEDS: Multivitamin w/Minerals tab ORAL SCH (08:39)
[2016-12-15] MEDS: Nystatin Powder 100,000 units/gm 15gm TOPIC SCH ×3 (08:39→17:31)
--- NOTE | 2016-12-15 08:39 | Urology Progress Note ---
Assessment/Plan Assessment/Plan 1. Urinary retention with chronic suprapubic tube. 2. Probable neurogenic bladder. 3. Hematuria history. 4. Urinary tract infection/colonized. irrigate sp tube PRN MDR UTI/colonization abx as ordered, adjust per ID f/u on blood cx consider renal u/s Subjective Allergies: Coded Allergies: No Known Allergies (Unverified , 07/15/16) Subjective all noted, new sp tube draining ok Objective Last 24 Hour Vital Signs Date Time Temp Pulse Resp B/P Pulse Ox O2 Delivery O2 Flow Rate FiO2 12/15/16 08:00 97.3 80 20 142/76 97 Room Air 12/15/16 04:00 97.7 80 20 143/90 100 Room Air 12/15/16 00:00 82 20 121/74 100 Room Air 12/14/16 21:00 97.2 81 20 139/73 100 Room Air 12/14/16 19:30 77 18 Room Air 21 12/14/16 19:05 97.7 12/14/16 16:37 97.7 77 16 150/75 96 Room Air 12/14/16 13:37 79 18 Room Air 12/14/16 12:33 97.3 80 18 158/95 100 Room Air 12/14/16 08:43 97.5 93 16 155/91 100 Nasal Cannula Intake and Output 12/14/16 12/15/16 19:00 07:00 Intake Total 1220.0 ml 305 ml Output Total 1150 ml 900 ml Balance 70.0 ml -595 ml Intake Oral 1000 ml 250 ml IV Total 220.0 ml 55 ml Output Urine Total 1150 ml 900 ml # Bowel Movements 2 Microbiology Date/Time Source Procedure Growth Status 12/11/16 15:40 Blood Blood Culture - Preliminary NO GROWTH AFTER 48 HOURS Resulted 12/12/16 02:02 Urine,Clean Catch Urine Culture - Final Proteus Mirabilis Complete Current Medications Medications (Trade) Dose Ordered Sig/Cristóbal Route PRN Reason Start Time Stop Time Status Last Admin Dose Admin Acetaminophen/ Hydrocodone Bitart ([place] 10/325) 1 ea Q6H PRN ORAL Severe Pain (Pain Scale 7-10) 12/11/16 18:15 12/18/16 18:14 Albuterol/ Ipratropium (DuoNeb 0.5-3(2.5)mg/3ml) 3 ml Q4H PRN HHN Shortness of Breath 12/11/16 18:15 12/16/16 18:14 Baclofen (Lioresal) 20 mg TIDPRN PRN ORAL muscle spasms 12/11/16 18:15 01/10/17 18:14 Bisacodyl (Dulcolax) 10 mg DAILYPRN PRN RECTAL Constipation 12/11/16 18:15 01/10/17 18:14 Dextrose (Dextrose 50%) STAT PRN IV Hypoglycemia 12/11/16 19:00 01/10/17 18:59 Docusate Sodium (Colace) 100 mg TID ORAL 12/13/16 18:00 01/12/17 17:59 12/14/16 12:29 Duloxetine HCl (Cymbalta) 30 mg Q12HR ORAL 12/11/16 21:00 01/10/17 20:59 12/14/16 21:20 Ertapenem/Sodium Chloride (INVanz/Sodium Chloride) 55 ml @ 110 mls/hr Q24H IVPB 12/14/16 20:00 12/19/16 19:59 12/14/16 19:58 Famotidine (Pepcid I.v.) 20 mg Q12HR IVP 12/13/16 21:00 01/12/17 20:59 12/14/16 21:20 Ferrous Sulfate (Feosol) 325 mg DAILY ORAL 12/12/16 09:00 01/11/17 08:59 12/14/16 09:11 Glipizide (Glucotrol) 5 mg BIAC ORAL 12/12/16 06:30 01/11/17 06:29 12/15/16 05:56 Heparin Sodium (Porcine) (Heparin 5000 units/ml) 5,000 units EVERY 12 HOURS SUBQ 12/11/16 21:00 01/10/17 20:59 12/14/16 21:21 Insulin Aspart (NovoLOG) BEFORE MEALS AND HS SUBQ 12/11/16 21:00 01/10/17 20:59 12/15/16 05:57 Insulin Detemir 18 units 18 units QHS SUBQ 12/13/16 21:00 01/12/17 20:59 12/14/16 21:22 Lorazepam (Ativan) 1 mg Q8H PRN ORAL For Anxiety 12/11/16 18:15 12/18/16 18:14 Magnesium Oxide (Mag-Ox 400mg) 400 mg BID ORAL 12/12/16 18:00 01/11/17 17:59 12/14/16 18:06 Mineral Oil (Fleet's Mineral Oil Enema) 133 ml DAILYPRN PRN RECTAL Constipation 12/11/16 18:15 01/10/17 18:14 Morphine Sulfate (Morphine Sulfate) 2 mg Q4H PRN IVP For breakthrough Pain 12/11/16 18:30 12/18/16 18:29 Multivitamins Therapeutic (Therapeutic Multivitamin) 1 ea DAILY ORAL 12/12/16 09:00 01/11/17 08:59 12/14/16 09:12 Nystatin (Nystop Powder) 1 applic THREE TIMES A DAY TOPIC 12/12/16 18:00 01/11/17 17:59 12/14/16 18:08 Ondansetron HCl (Zofran) 4 mg Q6H PRN IVP Nausea & Vomiting 12/11/16 18:30 01/10/17 18:29 Pravastatin Sodium (Pravachol) 40 mg BEDTIME ORAL 12/11/16 21:00 01/10/17 20:59 12/14/16 21:20 Pregabalin (Lyrica) 50 mg BID ORAL 12/12/16 09:00 01/11/17 08:59 12/14/16 18:07 Pregabalin (Lyrica) 150 mg BID ORAL 12/12/16 09:00 01/11/17 08:59 12/14/16 18:06 Laboratory Tests 12/14/16 12:50: Prothrombin Time 10.2, Prothromb Time International Ratio 1.0, Activated Partial Thromboplast Time 27 Height (Feet): 5 Height (Inches): 7.00 Weight (Pounds): 350 Objective exam stable, urine yellow with some debris DAPHNIE VIDES Dec 15, 2016 08:39
[2016-12-15] MEDS: Heparin 5000 units/ml inj SUBQ SCH ×2 (08:52→21:00)
--- NOTE | 2016-12-15 09:08 | General Progress Note ---
Assessment/Plan Status: stable, progressing Assessment/Plan Assessment/Plan Problem List: (1) Suprapubic catheter dysfunction ICD Codes: T83.018A - Breakdown (mechanical) of other indwelling urethral catheter, initial encounter SNOMED: 676574286 Qualifiers: Qualified Codes: T83.010A - Breakdown (mechanical) of cystostomy catheter, initial encounter (2) UTI (urinary tract infection) ICD Codes: N39.0 - Urinary tract infection, of suprapubic catheter SNOMED: 20793356 (3) Neurogenic bladder ICD Codes: N31.9 - Neuromuscular dysfunction of bladder, unspecified SNOMED: 612514834 (4) Diabetes mellitus type 2 with complications, uncontrolled ICD Codes: E11.8 - Type 2 diabetes mellitus with unspecified complications; E11.65 - Type 2 diabetes mellitus with hyperglycemia SNOMED: 61694545, 300259754, 881204868 (5) Morbid obesity ICD Codes: E66.01 - Morbid (severe) obesity due to excess calories SNOMED: 107855781 Status: stable Assessment/Plan Appreciate urology rec's--old suprapubic catheter was removed and new one placed and irrigated on 12/11 Urine cx was positive for proteus mirabilis, sensitive to amikacin, zosyn, and ertapenum. Resistant to many organisms including ceftriaxone. Consulted with ID , states she should continue on Ertapenum 1gm IVPB until 12/21/16. Check renal U/S per urology; may be done as an outpatient if not completed this hospital stay Appreciate ID rec's Cont home meds Pain control, supportive care, bowel regimen IVFs Trend CBC, BMP PICC line placed 12/12 DVT Prophylaxis: SCD, HSQ Code Status: Full Hospital Classification Declaration: Based on this initial evaluation, and depending on the patient's clinical course, I anticipate that this patient will require hospitalization for 1-2 days for suprapubic catheter dysfunction, UTI, and close respiratory/hemodynamic monitoring. Disposition: Once the patient is stable to leave the hospital, I anticipate the patient will likely be discharged to the following environment: home with HH: will need Ertapenum 1gm IVPB q24h until 12/21/16, can use picc I spent 40 minutes on this patient's case, and 22 minutes were dedicated to counseling and/or care coordination. Discussed with patient/family (daughter), nursing staff, SW/CM, ID regarding clinical status, treatment course, and disposition planning. Time of note may not reflect time of encounter. Subjective Date patient seen: Dec 15, 2016 Time patient seen: 09:07 Constitutional: Reports: no symptoms, Denies: chills, fever, malaise, weakness HEENT: Reports: no symptoms Cardiovascular: Denies: chest pain, edema, irregular heart rate Respiratory: Denies: cough, orthopnea, shortness of breath Gastrointestinal/Abdominal: Denies: abdomen distended, abdominal pain, poor appetite, poor fluid intake, rectal bleeding Genitourinary: Reports: incontinence, Denies: burning, discharge, flank pain, frequency, hematuria Neurologic/Psychiatric: Reports: anxiety, no symptoms Endocrine: Reports: no symptoms Allergies: Coded Allergies: No Known Allergies (Unverified , 07/15/16) Subjective Patient denies fevers, pain. States she overall feels better. Objective Last 24 Hour Vital Signs Date Time Temp Pulse Resp B/P Pulse Ox O2 Delivery O2 Flow Rate FiO2 12/15/16 08:00 97.3 80 20 142/76 97 Room Air 12/15/16 04:00 97.7 80 20 143/90 100 Room Air 12/15/16 00:00 82 20 121/74 100 Room Air 12/14/16 21:00 97.2 81 20 139/73 100 Room Air 12/14/16 19:30 77 18 Room Air 21 12/14/16 19:05 97.7 12/14/16 16:37 97.7 77 16 150/75 96 Room Air 12/14/16 13:37 79 18 Room Air 12/14/16 12:33 97.3 80 18 158/95 100 Room Air Intake and Output 12/14/16 12/15/16 19:00 07:00 Intake Total 1220.0 ml 305 ml Output Total 1150 ml 900 ml Balance 70.0 ml -595 ml Intake Oral 1000 ml 250 ml IV Total 220.0 ml 55 ml Output Urine Total 1150 ml 900 ml # Bowel Movements 2 Laboratory Tests 12/14/16 12:50: Prothrombin Time 10.2, Prothromb Time International Ratio 1.0, Activated Partial Thromboplast Time 27 Height (Feet): 5 Height (Inches): 7.00 Weight (Pounds): 350 General Appearance: WD/WN, no apparent distress, alert EENT: PERRL/EOMI, normal ENT inspection Neck: non-tender, normal alignment, supple Cardiovascular: normal peripheral pulses, normal rate, regular rhythm Respiratory/Chest: chest wall non-tender, lungs clear Abdomen: normal bowel sounds, non tender, soft Genitourinary/Rectal: other - suprapubic urine draining clear yellow fluid Edema: no edema noted Arm (L), no edema noted Arm (R), no edema noted Leg (L), no edema noted Leg (R), no edema noted Pedal (L), no edema noted Pedal (R), no edema noted Generalized Edema: trace edema Neurologic: manager transit II-XII grossly normal, no motor/sensory deficits, alert, oriented x 3 Skin: normal pigmentation, warm/dry Lymphatic: normal anterior cervical (L), normal anterior cervical (R), normal axillary (L), normal axillary (R), normal inguinal (L), normal inguinal (R), normal other, normal posterior cervical (L), normal posterior cervical (R), normal submandibular (L), normal submandibular (R), normal supraclavicular (L), normal supraclavicular (R) Objective Laboratory Tests Test 12/14/16 08:16 12/14/16 12:50 White Blood Count 4.7 K/UL (4.8-10.8) L Red Blood Count 4.05 M/UL (4.20-5.40) L Hemoglobin 11.6 G/DL (12.0-16.0) L Hematocrit 36.3 % (37.0-47.0) L Mean Corpuscular Volume 90 FL (80-99) Mean Corpuscular Hemoglobin 28.5 PG (27.0-31.0) Mean Corpuscular Hemoglobin Concent 31.8 G/DL (32.0-36.0) L Red Cell Distribution Width 14.2 % (11.6-14.8) Platelet Count 179 K/UL (150-450) Mean Platelet Volume 8.2 FL (6.5-10.1) Neutrophils (%) (Auto) 42.0 % (45.0-75.0) L Lymphocytes (%) (Auto) 39.0 % (20.0-45.0) Monocytes (%) (Auto) 12.4 % (1.0-10.0) H Eosinophils (%) (Auto) 5.3 % (0.0-3.0) H Basophils (%) (Auto) 1.3 % (0.0-2.0) Reticulocyte Count 0.8 % (0.0-2.0) Sodium Level 138 mEQ/L (135-145) Potassium Level 5.4 mEQ/L (3.4-4.9) H Chloride Level 96 mEQ/L (98-107) L Carbon Dioxide Level 29 mEQ/L (20-30) Anion Gap 13 (5-15) Blood Urea Nitrogen 7 mg/dL (7-23) Creatinine 0.8 mg/dL (0.5-0.9) Estimat Glomerular Filtration Rate > 60 mL/min (>60) Glucose Level 258 mg/dL (74-106) H Calcium Level 7.5 mg/dL (8.6-10.2) L Iron Level 54 ug/dL (37-145) Total Iron Binding Capacity 217 ug/dL (250-400) L Percent Iron Saturation 25 % (15-50) Unsaturated Iron Binding 163 ug/dL (112-346) Ferritin 179 ng/mL (13-150) H Carcinoembryonic Antigen 3.1 ng/mL H Vitamin B12 Level 532 pg/mL (211-946) Folate Pending Thyroid Stimulating Hormone (TSH) 1.260 uIU/mL (0.300-4.500) Free Thyroxine 1.05 ng/dL (0.86-1.85) Prothrombin Time 10.2 SEC (9.30-11.50) Prothromb Time International Ratio 1.0 (0.9-1.1) Activated Partial Thromboplast Time 27 SEC (23-33) Microbiology: Urine CX positive for proteus mirabilis , sensitive to ertapenum, zosyn, amikacin DION SYKES NToroPToro Dec 15, 2016 09:08
[2016-12-15] MEDS ORDERED: Tubing IV Secondary IV ONE (09:43)
[2016-12-15] MEDS ORDERED: NS 275ml ONE (09:43)
[2016-12-15 11:51] VITALS: BP 156/79
--- NOTE | 2016-12-15 12:10 | Infectious Diseases Prog Note ---
Assessment/Plan Assessment/Plan A) 1) proteus uti - sensitive to carbapenems and zosyn, ? esbl 2) abdominal pain - w/u per gi 3) wounds noted and not acutely infected 4) suprapubic catheter - s/p replacement 5) dm, nb, spinal chord injury, neuropathy, obesity, anemia 6) allergies - negative, fh-nc, sh-negative, mar noted, notes and records reviewed 7) d/w RN P) 1) Invanz x one week more (total of 10 days abx) 2) watch labs 3) d/w with Claire Ignacio NP 4) continue treatment per primary and consultants 5) skin care per protocol 6) orders noted and entered Subjective Constitutional: Denies: fever HEENT: Denies: congestion Respiratory: Denies: shortness of breath Cardiovascular: Denies: chest pain Gastrointestinal/Abdominal: Reports: other - + abdominal bloating/discomfort , Denies: diarrhea, nausea, vomiting Neurologic: Denies: headache Psychiatric: Denies: depression Skin: Denies: rash Hematologic: Denies: bleeding Musculoskeletal: Denies: pain Allergies: Coded Allergies: No Known Allergies (Unverified , 07/15/16) Objective Vital Signs Last 24 Hour Vital Signs Date Time Temp Pulse Resp B/P Pulse Ox O2 Delivery O2 Flow Rate FiO2 12/15/16 11:51 98.8 82 22 156/79 97 Room Air 12/15/16 08:00 97.3 80 20 142/76 97 Room Air 12/15/16 06:59 83 18 Room Air 12/15/16 04:00 97.7 80 20 143/90 100 Room Air 12/15/16 00:00 82 20 121/74 100 Room Air 12/14/16 21:00 97.2 81 20 139/73 100 Room Air 12/14/16 19:30 77 18 Room Air 21 12/14/16 19:05 97.7 12/14/16 16:37 97.7 77 16 150/75 96 Room Air 12/14/16 13:37 79 18 Room Air 12/14/16 12:33 97.3 80 18 158/95 100 Room Air Height (Feet): 5 Height (Inches): 7.00 Weight (Pounds): 350 General Appearance: no acute distress HEENT: normocephalic, atraumatic, anicteric, mucous membranes moist, PERRL, EOMI, pharynx normal, supple, no JVD Respiratory/Chest: lungs clear, normal breath sounds, no respiratory distress, no accessory muscle use Cardiovascular: normal rate, regular rhythm, no gallop/murmur Abdomen: normal bowel sounds, soft, non tender, no organomegaly, no mass, distended Extremities: no cyanosis Skin: no rash, other - wounds noted and do noted look acutely infected Neurologic/Psychiatric: film reproducer II-XII grossly normal, alert, oriented x 3, responsive Lymphatic: no neck adenopathy Musculoskeletal: no effusion Objective kub - nad Microbiology Date/Time Source Procedure Growth Status 12/11/16 15:40 Blood Blood Culture - Preliminary NO GROWTH AFTER 72 HOURS Resulted 12/12/16 02:02 Urine,Clean Catch Urine Culture - Final Proteus Mirabilis Complete Laboratory Tests Test 12/14/16 12:50 Prothrombin Time 10.2 SEC (9.30-11.50) Prothromb Time International Ratio 1.0 (0.9-1.1) Activated Partial Thromboplast Time 27 SEC (23-33) Current Medications Medications (Trade) Dose Ordered Sig/Cristóbal Route PRN Reason Start Time Stop Time Status Last Admin Dose Admin Acetaminophen/ Hydrocodone Bitart ([place] 10/325) 1 ea Q6H PRN ORAL Severe Pain (Pain Scale 7-10) 12/11/16 18:15 12/18/16 18:14 Albuterol/ Ipratropium (DuoNeb 0.5-3(2.5)mg/3ml) 3 ml Q4H PRN HHN Shortness of Breath 12/11/16 18:15 12/16/16 18:14 Baclofen (Lioresal) 20 mg TIDPRN PRN ORAL muscle spasms 12/11/16 18:15 01/10/17 18:14 Bisacodyl (Dulcolax) 10 mg DAILYPRN PRN RECTAL Constipation 12/11/16 18:15 01/10/17 18:14 Dextrose (Dextrose 50%) STAT PRN IV Hypoglycemia 12/11/16 19:00 01/10/17 18:59 Docusate Sodium (Colace) 100 mg TID ORAL 12/13/16 18:00 01/12/17 17:59 12/15/16 08:38 Duloxetine HCl (Cymbalta) 30 mg Q12HR ORAL 12/11/16 21:00 01/10/17 20:59 12/15/16 08:37 Ertapenem/Sodium Chloride (INVanz/Sodium Chloride) 55 ml @ 110 mls/hr ONCE ONCE IVPB 12/15/16 14:00 12/15/16 14:29 Famotidine (Pepcid I.v.) 20 mg Q12HR IVP 12/13/16 21:00 01/12/17 20:59 12/15/16 08:39 Ferrous Sulfate (Feosol) 325 mg DAILY ORAL 12/12/16 09:00 01/11/17 08:59 12/15/16 08:38 Glipizide (Glucotrol) 5 mg BIAC ORAL 12/12/16 06:30 01/11/17 06:29 12/15/16 05:56 Heparin Sodium (Porcine) (Heparin 5000 units/ml) 5,000 units EVERY 12 HOURS SUBQ 12/11/16 21:00 01/10/17 20:59 12/15/16 08:52 Insulin Aspart (NovoLOG) BEFORE MEALS AND HS SUBQ 12/11/16 21:00 01/10/17 20:59 12/15/16 10:59 Insulin Detemir 18 units 18 units QHS SUBQ 12/13/16 21:00 01/12/17 20:59 12/14/16 21:22 Lorazepam (Ativan) 1 mg Q8H PRN ORAL For Anxiety 12/11/16 18:15 12/18/16 18:14 Magnesium Oxide (Mag-Ox 400mg) 400 mg BID ORAL 12/12/16 18:00 01/11/17 17:59 12/15/16 08:38 Mineral Oil (Fleet's Mineral Oil Enema) 133 ml DAILYPRN PRN RECTAL Constipation 12/11/16 18:15 01/10/17 18:14 Morphine Sulfate (Morphine Sulfate) 2 mg Q4H PRN IVP For breakthrough Pain 12/11/16 18:30 12/18/16 18:29 Multivitamins Therapeutic (Therapeutic Multivitamin) 1 ea DAILY ORAL 12/12/16 09:00 01/11/17 08:59 12/15/16 08:39 Nystatin (Nystop Powder) 1 applic THREE TIMES A DAY TOPIC 12/12/16 18:00 01/11/17 17:59 12/15/16 08:39 Ondansetron HCl (Zofran) 4 mg Q6H PRN IVP Nausea & Vomiting 12/11/16 18:30 01/10/17 18:29 Pravastatin Sodium (Pravachol) 40 mg BEDTIME ORAL 12/11/16 21:00 01/10/17 20:59 12/14/16 21:20 Pregabalin (Lyrica) 50 mg BID ORAL 12/12/16 09:00 01/11/17 08:59 12/15/16 08:38 Pregabalin (Lyrica) 150 mg BID ORAL 12/12/16 09:00 01/11/17 08:59 12/15/16 08:38 ARIELA NEVAREZ Dec 15, 2016 12:10
[2016-12-15] MEDS: Furosemide 40mg tab ORAL SCH (13:12)
[2016-12-15] MEDS ORDERED: Ertapenem 1 GM in NS 55 ML IVPB ONE (14:00)
--- NOTE | 2016-12-15 14:51 | General Progress Note ---
Assessment/Plan Assessment/Plan Assessment (1) Abdominal pain (2) Anemia (3) Hypoalbuminemia (4) Diabetes mellitus type 2 with complications, uncontrolled (5) Morbid obesity Plan symptomatic treatment at this time anemia work up monitor H&H, transfuse prn ordered H2 fu iron panel >> pt currently on FeSO4 OB stool uncollected colace fu labs Subjective Allergies: Coded Allergies: No Known Allergies (Unverified , 07/15/16) Subjective Feels OK no abdominal complaints poor po Objective Last 24 Hour Vital Signs Date Time Temp Pulse Resp B/P Pulse Ox O2 Delivery O2 Flow Rate FiO2 12/15/16 11:51 98.8 82 22 156/79 97 Room Air 12/15/16 08:00 97.3 80 20 142/76 97 Room Air 12/15/16 06:59 83 18 Room Air 12/15/16 04:00 97.7 80 20 143/90 100 Room Air 12/15/16 00:00 82 20 121/74 100 Room Air 12/14/16 21:00 97.2 81 20 139/73 100 Room Air 12/14/16 19:30 77 18 Room Air 21 12/14/16 19:05 97.7 12/14/16 16:37 97.7 77 16 150/75 96 Room Air Intake and Output 12/14/16 12/15/16 18:59 06:59 Intake Total 1220.0 ml 305 ml Output Total 1150 ml 900 ml Balance 70.0 ml -595 ml Intake Oral 1000 ml 250 ml IV Total 220.0 ml 55 ml Output Urine Total 1150 ml 900 ml # Bowel Movements 2 Height (Feet): 5 Height (Inches): 7.00 Weight (Pounds): 350 Objective WDWN AA NCAT supple CTA RRR Soft ND NT, (+) Sp cath no edema nonfocal ANGELINA GARCIA Dec 15, 2016 14:51
[2016-12-15 15:42] VITALS: BP 123/74
[2016-12-15 20:00] VITALS: BP 118/61
[2016-12-15] MEDS: Levemir Flexpen SUBQ SCH (21:02)
[2016-12-16] VITALS: BP 117/65
[2016-12-16 04:00] VITALS: BP 118/82
[2016-12-16 05:40] LABS: BASOPHILS % (AUTO) 1.3 % (0.0-2.0); EOSINOPHILS % (AUTO) 4.7 % (0.0-3.0); LYMPHOCYTES % (AUTO) 44.7 % (20.0-45.0); MEAN CORPUSCULAR HEMOGLOBIN 28.5 PG (27.0-31.0); MEAN CORPUSCULAR HGB CONC 31.6 G/DL (32.0-36.0); MEAN CORPUSCULAR VOLUME 90 FL (80-99); MEAN PLATELET VOLUME 7.9 FL (6.5-10.1); MONOCYTES % (AUTO) 10.1 % (1.0-10.0); NEUTROPHILS % (AUTO) 39.2 % (45.0-75.0); PLATELET COUNT 186 K/UL (150-450); RED CELL DISTRIBUTION WIDTH 14.9 % (11.6-14.8); WHITE BLOOD COUNT 6.2 K/UL (4.8-10.8)
[2016-12-16 05:57] LABS: ANION GAP 12 (5-15); CALCIUM 9.1 mg/dL (8.6-10.2); CARBON DIOXIDE 31 mEQ/L (20-30); CHLORIDE 95 mEQ/L (98-107); CREATININE 0.8 mg/dL (0.5-0.9); GLOMERULAR FILTRATION RATE > 60 mL/min (>60); HEMOLYSIS 0; POTASSIUM 3.7 mEQ/L (3.4-4.9); SODIUM 138 mEQ/L (135-145)
[2016-12-16] MEDS: GlipiZIDE 5mg tab ORAL SCH ×2 (06:17→17:11)
[2016-12-16] MEDS: NovoLOG Insulin Flexpen SUBQ SCH ×3 (06:19→17:15)
[2016-12-16 08:00] VITALS: BP 131/78
[2016-12-16] MEDS: Lyrica 75mg cap ORAL SCH ×2 (08:09→17:12)
[2016-12-16] MEDS: Lyrica 50mg cap ORAL SCH ×2 (08:09→17:11)
[2016-12-16] MEDS: DULoxetine 30mg cap ORAL SCH (08:10)
[2016-12-16] MEDS: Magnesium Oxide 400mg tab ORAL SCH ×2 (08:10→17:12)
[2016-12-16] MEDS: Furosemide 40mg tab ORAL SCH (08:10)
[2016-12-16] MEDS: Multivitamin w/Minerals tab ORAL SCH (08:10)
[2016-12-16] MEDS: Heparin 5000 units/ml inj SUBQ SCH (08:11)
[2016-12-16] MEDS: Nystatin Powder 100,000 units/gm 15gm TOPIC SCH ×3 (09:00→17:12)
--- NOTE | 2016-12-16 09:28 | Consultation ---
DATE OF CONSULTATION: 12/13/2016 CONSULTING PHYSICIAN: Nils Meneses M.D. ATTENDING PHYSICIAN: Rj Choe M.D. REASON FOR CONSULTATION: Gram-negative UTI and complicated UTI. CHIEF COMPLAINT: The patient's chief complaint coming into the hospital is malfunctioning suprapubic catheter. HISTORY OF PRESENT ILLNESS: This is a very pleasant 51-year-old female who comes in to [facility] with multiple medical problems, history of urinary tract infection, previous UTI, had ESBL organisms and Pseudomonas in the past. Records were reviewed. The patient also has a history of multiple wounds in the past. The patient comes in with malfunctioning suprapubic catheter and clotted with debris. The patient was admitted to [facility] for further management. It was noted that she had a significantly positive urinalysis, had complicated UTI with gram-negative UTI. Urine culture at this time is showing gram-negative organisms. The patient is presently on Zosyn. Case was communicated with Dr. Escobedo. The patient was also seen by Urology. MAR was noted. Orders were noted. Notes were reviewed. Case was discussed with RN. REVIEW OF SYSTEMS: Constitutional: The patient has generalized weakness and fatigue. She has a history of paralysis secondary to a spinal cord injury. Head And Neck: No neck pain, head pain, neck stiffness, thrush, dysphagia, weight loss, fevers, chills, or night sweats. Cardiac: No chest pain. Gastrointestinal: No nausea, vomiting, or diarrhea. She has some abdominal discomfort. Genitourinary: She has suprapubic catheter. Neurologic: No seizures. Skin: No new rash. She has multiple decubiti. Pulmonary: No congestion or shortness of breath. PAST MEDICAL HISTORY: Includes the following: The patient has past medical history of diabetes mellitus, history of neuropathy, history of morbid obesity, history of paraplegia, history of neurogenic bladder, history of status post fall and spinal cord injury, history of UTI, history of decubiti, history of suprapubic catheter, history of possible hyperlipidemia, history of hypoalbuminemia, and history of anemia. Please see past medical history in medical records. ALLERGIES: No known drug allergies. No antibiotic allergies. FAMILY HISTORY: Noncontributory. Negative for exposure to tuberculosis or cancer. SOCIAL HISTORY: Negative for smoking, alcohol, or drug use. MEDICATIONS: Upon reviewing the MAR, the patient is on the following medications: She is on Pepcid and Colace. She is on Levemir. She is on ferrous sulfate, multivitamins, Lyrica, glipizide, heparin, pravastatin, insulin, Zosyn, . She is on morphine, ondansetron, Zofran, baclofen, bisacodyl, hydrocodone, albuterol, lorazepam, and mineral oil. Please see medications in medical orders and past medication in medical orders. PHYSICAL EXAMINATION: GENERAL: The patient is alert, responsive, and in no acute distress. VITAL SIGNS: Temperature 97.3 degrees, pulse rate 86, respiratory rate 15, blood pressure 146/78, and oxygen saturation 100%. HEAD AND NECK: Oral exam, no thrush. Eye exam, no icterus. Neck is supple. No JVD. No sinus tenderness. Normocephalic. No facial droop. No neck stiffness. LUNGS: Clear bilaterally. No rhonchi or rales. HEART: Regular. No gallop or murmur. ABDOMEN: Soft. Positive bowel sounds. Some discomfort, but no rebound. SKIN: No rash or dermatitis. MUSCULOSKELETAL: No effusions or contractures. EXTREMITIES: Lower extremity exam, no obvious cellulitis. PERIPHERAL VASCULAR: No signs of gangrene. RECTAL: She has no rectal tube. GENITOURINARY: She has suprapubic catheter. Urine is cloudy. LINES: Line sites are without phlebitis. NEUROLOGIC: Generalized weakness and paralysis, but responsive and oriented x3. LABORATORY DATA: As follows: White count 4.9 and hemoglobin 11.5. Creatinine is 0.8. Urinalysis had 3+ leukocyte esterase and too many to count white blood cells. Urine culture has 100,000 gram-negative organisms. Blood cultures are negative. IMAGING STUDIES: PICC line was inserted. ASSESSMENT AND PLAN: 1. The patient has gram-negative urinary tract infection, complicated urinary tract infection. The patient has a history of Pseudomonas urinary tract infection in the past and also has a history of ESBL. ESBL in the past was sensitive to Zosyn. At this time, I will continue Zosyn, check final urine culture of the gram-negative organisms. for gram-negative, complicated urinary tract infection. Check final urine culture. 2. Malfunctioning suprapubic catheter. Treatment per Urology. 3. Abdominal discomfort. GI followup. 4. Diabetes. Blood sugar controlled per primary. 5. Anemia. 6. Hypoalbuminemia. 7. Possible hyperlipidemia. 8. Spinal cord injury and paralysis. 9. The patient has multiple wounds. . These are reviewed. Continue wound care protocol. 10. Neurogenic bladder and suprapubic catheter. 11. History of urinary tract infection. 12. Morbid obesity. 13. Neuropathy. 14. Neuralgia. 15. Social history is negative. 16. MAR is noted. 17. Case discussed with RN. 18. Family history noncontributory. 19. Case was communicated to Dr. Escboedo and the RN. 20. Case discussed with the patient and her family. 21. Continue treatment per primary consultants. Nils Meneses M.D. DR: ERLIN JOB#: [id number] CC:
[2016-12-16] MEDS: Docusate 100mg cap ORAL SCH ×2 (09:50→10:54)
[2016-12-16] MEDS ORDERED: Simethicone 80mg tab ORAL PRN (10:00)
[2016-12-16] MEDS ORDERED: Miralax 17gm pkt ORAL PRN (10:00)
--- NOTE | 2016-12-16 10:31 | Diagnostic Imaging Report ---
Indication: Flank pain, status post suprapubic catheter placement Technique: Grayscale and duplex images of the kidneys, retroperitoneum, and bladder were obtained. Comparison:None Findings: Right kidney measures 10.5 cm in length. Left kidney measures 8.4 cm in length. Both kidneys demonstrate normal echogenicity. No hydronephrosis. No focal abnormality. Normal inferior vena cava. Bladder is empty, contains a suprapubic catheter. Impression: Negative for hydronephrosis Suprapubic catheter within empty bladder.
--- NOTE | 2016-12-16 10:40 | GI Progress Note ---
Assessment/Plan Problems: (1) Diabetes mellitus type 2 with complications, uncontrolled ICD Codes: E11.8 - Type 2 diabetes mellitus with unspecified complications; E11.65 - Type 2 diabetes mellitus with hyperglycemia SNOMED: 51916117, 058455233, 820196995 (2) Morbid obesity ICD Codes: E66.01 - Morbid (severe) obesity due to excess calories SNOMED: 324333015 (3) Abdominal pain ICD Codes: R10.9 - Unspecified abdominal pain SNOMED: 55995393 (4) Hypoalbuminemia ICD Codes: E88.09 - Other disorders of plasma-protein metabolism, not elsewhere classified SNOMED: 995564159 (5) Anemia ICD Codes: D64.9 - Anemia, unspecified SNOMED: 812836704 Status: stable, unchanged Status Narrative Discussed with Dr. Owusu. Assessment/Plan KUB negative fu iron panel >> WNL >> FeSO4 OB stool uncollected symptomatic treatment at this time monitor H&H, transfuse prn H2B colace + miralax simethicone prn fu labs Subjective Subjective abdominal pain "fluid in her adipose tissue" Objective Last 24 Hour Vital Signs Date Time Temp Pulse Resp B/P Pulse Ox O2 Delivery O2 Flow Rate FiO2 12/16/16 09:24 96.9 12/16/16 08:00 97.3 82 20 131/78 100 Room Air 12/16/16 06:45 82 18 Room Air 12/16/16 04:00 96.9 76 20 118/82 98 Room Air 12/16/16 03:08 78 18 Room Air 12/16/16 00:00 96.8 80 20 117/65 100 Room Air 2.0 12/15/16 20:00 98.2 84 20 118/61 99 Room Air 12/15/16 15:42 98.4 82 22 123/74 96 Room Air 12/15/16 11:51 98.8 82 22 156/79 97 Room Air Intake and Output 12/15/16 12/16/16 19:00 07:00 Intake Total 1015 ml Output Total 1200 ml 4100 ml Balance -185 ml -4100 ml Intake Oral 960 ml IV Total 55 ml Output Urine Total 1200 ml 4100 ml Laboratory Tests Test 12/16/16 05:20 White Blood Count 6.2 K/UL (4.8-10.8) Red Blood Count 4.10 M/UL (4.20-5.40) L Hemoglobin 11.7 G/DL (12.0-16.0) L Hematocrit 36.9 % (37.0-47.0) L Mean Corpuscular Volume 90 FL (80-99) Mean Corpuscular Hemoglobin 28.5 PG (27.0-31.0) Mean Corpuscular Hemoglobin Concent 31.6 G/DL (32.0-36.0) L Red Cell Distribution Width 14.9 % (11.6-14.8) H Platelet Count 186 K/UL (150-450) Mean Platelet Volume 7.9 FL (6.5-10.1) Neutrophils (%) (Auto) 39.2 % (45.0-75.0) L Lymphocytes (%) (Auto) 44.7 % (20.0-45.0) Monocytes (%) (Auto) 10.1 % (1.0-10.0) H Eosinophils (%) (Auto) 4.7 % (0.0-3.0) H Basophils (%) (Auto) 1.3 % (0.0-2.0) Sodium Level 138 mEQ/L (135-145) Potassium Level 3.7 mEQ/L (3.4-4.9) Chloride Level 95 mEQ/L (98-107) L Carbon Dioxide Level 31 mEQ/L (20-30) H Anion Gap 12 (5-15) Blood Urea Nitrogen 8 mg/dL (7-23) Creatinine 0.8 mg/dL (0.5-0.9) Estimat Glomerular Filtration Rate > 60 mL/min (>60) Glucose Level 227 mg/dL (74-106) H Calcium Level 9.1 mg/dL (8.6-10.2) Height (Feet): 5 Height (Inches): 7.00 Weight (Pounds): 350 General Appearance: no apparent distress, alert, obese Cardiovascular: normal rate Respiratory/Chest: normal breath sounds, no respiratory distress Abdominal Exam: normal bowel sounds, non tender, soft Marika Leal N.PToro December 16, 2016 10:40
--- NOTE | 2016-12-16 11:07 | Urology Progress Note ---
Assessment/Plan Assessment/Plan 1. Urinary retention with chronic suprapubic tube. 2. Probable neurogenic bladder. 3. Hematuria history. 4. Urinary tract infection/colonized. irrigate sp tube PRN MDR UTI/colonization abx as ordered, adjust per ID f/u on blood cx Subjective Allergies: Coded Allergies: No Known Allergies (Unverified , 07/15/16) Subjective all noted, new sp tube draining ok Objective Last 24 Hour Vital Signs Date Time Temp Pulse Resp B/P Pulse Ox O2 Delivery O2 Flow Rate FiO2 12/16/16 09:24 96.9 12/16/16 08:00 97.3 82 20 131/78 100 Room Air 12/16/16 06:45 82 18 Room Air 12/16/16 04:00 96.9 76 20 118/82 98 Room Air 12/16/16 03:08 78 18 Room Air 12/16/16 00:00 96.8 80 20 117/65 100 Room Air 2.0 12/15/16 20:00 98.2 84 20 118/61 99 Room Air 12/15/16 15:42 98.4 82 22 123/74 96 Room Air 12/15/16 11:51 98.8 82 22 156/79 97 Room Air Intake and Output 12/15/16 12/16/16 19:00 07:00 Intake Total 1015 ml Output Total 1200 ml 4100 ml Balance -185 ml -4100 ml Intake Oral 960 ml IV Total 55 ml Output Urine Total 1200 ml 4100 ml Microbiology Date/Time Source Procedure Growth Status 12/11/16 15:40 Blood Blood Culture - Preliminary NO GROWTH AFTER 4 DAYS Resulted 12/12/16 02:02 Urine,Clean Catch Urine Culture - Final Proteus Mirabilis Complete Current Medications Medications (Trade) Dose Ordered Sig/Cristóbal Route PRN Reason Start Time Stop Time Status Last Admin Dose Admin Acetaminophen/ Hydrocodone Bitart ([place] 10/325) 1 ea Q6H PRN ORAL Severe Pain (Pain Scale 7-10) 12/11/16 18:15 12/18/16 18:14 Albuterol/ Ipratropium (DuoNeb 0.5-3(2.5)mg/3ml) 3 ml Q4H PRN HHN Shortness of Breath 12/11/16 18:15 12/16/16 18:14 Baclofen (Lioresal) 20 mg TIDPRN PRN ORAL muscle spasms 12/11/16 18:15 01/10/17 18:14 Bisacodyl (Dulcolax) 10 mg DAILYPRN PRN RECTAL Constipation 12/11/16 18:15 01/10/17 18:14 Dextrose (Dextrose 50%) STAT PRN IV Hypoglycemia 12/11/16 19:00 01/10/17 18:59 Docusate Sodium (Colace) 100 mg THREE TIMES A DAY ORAL 12/16/16 10:00 01/15/17 09:59 12/16/16 10:54 Duloxetine HCl (Cymbalta) 30 mg Q12HR ORAL 12/11/16 21:00 01/10/17 20:59 12/16/16 08:10 Ertapenem/Sodium Chloride (INVanz/Sodium Chloride) 50 ml @ 100 mls/hr Q24H IVPB 12/16/16 14:00 12/21/16 13:59 Ferrous Sulfate (Feosol) 325 mg DAILY ORAL 12/12/16 09:00 01/11/17 08:59 12/16/16 08:10 Furosemide (Lasix) 40 mg DAILY ORAL 12/15/16 14:00 01/14/17 13:59 12/16/16 08:10 Glipizide (Glucotrol) 5 mg BIAC ORAL 12/12/16 06:30 01/11/17 06:29 12/16/16 06:17 Heparin Sodium (Porcine) (Heparin 5000 units/ml) 5,000 units EVERY 12 HOURS SUBQ 12/11/16 21:00 01/10/17 20:59 12/16/16 08:11 Insulin Aspart (NovoLOG) BEFORE MEALS AND HS SUBQ 12/11/16 21:00 01/10/17 20:59 12/16/16 06:19 Insulin Detemir 18 units 18 units QHS SUBQ 12/13/16 21:00 01/12/17 20:59 12/15/16 21:02 Lorazepam (Ativan) 1 mg Q8H PRN ORAL For Anxiety 12/11/16 18:15 12/18/16 18:14 Magnesium Oxide (Mag-Ox 400mg) 400 mg BID ORAL 12/12/16 18:00 01/11/17 17:59 12/16/16 08:10 Mineral Oil (Fleet's Mineral Oil Enema) 133 ml DAILYPRN PRN RECTAL Constipation 12/11/16 18:15 01/10/17 18:14 Morphine Sulfate (Morphine Sulfate) 2 mg Q4H PRN IVP For breakthrough Pain 12/11/16 18:30 12/18/16 18:29 Multivitamins Therapeutic (Therapeutic Multivitamin) 1 ea DAILY ORAL 12/12/16 09:00 01/11/17 08:59 12/16/16 08:10 Nystatin (Nystop Powder) 1 applic THREE TIMES A DAY TOPIC 12/12/16 18:00 01/11/17 17:59 12/16/16 09:00 Ondansetron HCl (Zofran) 4 mg Q6H PRN IVP Nausea & Vomiting 12/11/16 18:30 01/10/17 18:29 Polyethylene Glycol (Miralax) 17 gm DAILY PRN ORAL Constipation 12/16/16 10:00 01/15/17 09:59 12/16/16 10:50 Pravastatin Sodium (Pravachol) 40 mg BEDTIME ORAL 12/11/16 21:00 01/10/17 20:59 12/15/16 20:59 Pregabalin (Lyrica) 50 mg BID ORAL 12/12/16 09:00 01/11/17 08:59 12/16/16 08:09 Pregabalin (Lyrica) 150 mg BID ORAL 12/12/16 09:00 01/11/17 08:59 12/16/16 08:09 Ranitidine HCl (Zantac) 150 mg Q12HR ORAL 12/15/16 21:00 01/12/17 20:59 12/16/16 08:10 Simethicone (Mylicon) 80 mg QID PRN ORAL Nausea & Vomiting 12/16/16 10:00 01/15/17 09:59 12/16/16 10:50 Laboratory Tests 12/16/16 05:20: White Blood Count 6.2, Red Blood Count 4.10L, Hemoglobin 11.7L, Hematocrit 36.9L , Mean Corpuscular Volume 90, Mean Corpuscular Hemoglobin 28.5, Mean Corpuscular Hemoglobin Concent 31.6L, Red Cell Distribution Width 14.9H, Platelet Count 186, Mean Platelet Volume 7.9, Neutrophils (%) (Auto) 39.2L, Lymphocytes (%) (Auto) 44.7, Monocytes (%) (Auto) 10.1H, Eosinophils (%) (Auto) 4.7H, Basophils (%) (Auto) 1.3, Sodium Level 138, Potassium Level 3.7, Chloride Level 95L, Carbon Dioxide Level 31H, Anion Gap 12, Blood Urea Nitrogen 8, Creatinine 0.8, Estimat Glomerular Filtration Rate > 60, Glucose Level 227H, Calcium Level 9.1 Height (Feet): 5 Height (Inches): 7.00 Weight (Pounds): 350 Objective exam stable, urine yellow with some debris renal u/s (12/13) negative DAPHNIE VIDES December 16, 2016 11:07
[2016-12-16 12:00] VITALS: BP 145/78
[2016-12-16 16:00] VITALS: BP 140/84
--- NOTE | 2016-12-16 18:20 | Discharge Summary ---
Discharge Summary Hospital Course Date of Admission Dec 11, 2016 at 15:46 Date of Discharge 12/16/16 Admitting Diagnosis malfunctioning suprapubic catheter HPI Carmen Mejia is a 51 year old female who was admitted on Dec 11, 2016 at 15: 46 for Malfuntioning Suprapubic Catheter Discharge Discharge Disposition Patient was discharged to Discharge Diagnoses: Gregg Cortes M.D. December 16, 2016 18:20
--- NOTE | 2016-12-16 19:19 | Infectious Diseases Prog Note ---
Assessment/Plan Assessment/Plan A) 1) proteus uti - sensitive to carbapenems and zosyn, ? esbl 2) abdominal pain - w/u per gi 3) wounds noted and not acutely infected 4) suprapubic catheter - s/p replacement 5) dm, nb, spinal chord injury, neuropathy, obesity, anemia 6) allergies - negative, fh-nc, sh-negative, mar noted, notes and records reviewed 7) d/w RN P) 1) Invanz x 6 days 2) watch labs 3) d/w Dr. Escobedo 4) continue treatment per primary and consultants 5) skin care per protocol 6) orders noted and entered Subjective Constitutional: Denies: fever HEENT: Denies: congestion Respiratory: Denies: shortness of breath Cardiovascular: Denies: chest pain Gastrointestinal/Abdominal: Denies: diarrhea, nausea, vomiting Genitourinary: Reports: other - + milton Neurologic: Denies: headache Psychiatric: Denies: depression Skin: Denies: rash Hematologic: Denies: bleeding Musculoskeletal: Denies: pain Allergies: Coded Allergies: No Known Allergies (Unverified , 07/15/16) Objective Vital Signs Last 24 Hour Vital Signs Date Time Temp Pulse Resp B/P Pulse Ox O2 Delivery O2 Flow Rate FiO2 12/16/16 18:10 97.5 12/16/16 16:00 97.9 87 20 140/84 100 Room Air 12/16/16 12:00 97.5 84 20 145/78 100 Room Air 12/16/16 08:00 97.3 82 20 131/78 100 Room Air 12/16/16 06:45 82 18 Room Air 12/16/16 04:00 96.9 76 20 118/82 98 Room Air 12/16/16 03:08 78 18 Room Air 12/16/16 00:00 96.8 80 20 117/65 100 Room Air 2.0 12/15/16 20:00 98.2 84 20 118/61 99 Room Air Height (Feet): 5 Height (Inches): 7.00 Weight (Pounds): 350 General Appearance: no acute distress HEENT: normocephalic, atraumatic, anicteric, mucous membranes moist, PERRL, EOMI, pharynx normal, supple, no JVD Respiratory/Chest: lungs clear, normal breath sounds, no respiratory distress, no accessory muscle use Cardiovascular: normal rate, regular rhythm, no gallop/murmur, no JVD Abdomen: normal bowel sounds, soft, non tender, no organomegaly, non distended Genitourinary: other - + milton - urine clearer Extremities: no cyanosis Skin: no rash Neurologic/Psychiatric: translator interpreter II-XII grossly normal, alert, oriented x 3, responsive, motor weakness Lymphatic: no groin adenopathy Musculoskeletal: no effusion Objective kub - nad Laboratory Tests Test 12/16/16 05:20 White Blood Count 6.2 K/UL (4.8-10.8) Red Blood Count 4.10 M/UL (4.20-5.40) L Hemoglobin 11.7 G/DL (12.0-16.0) L Hematocrit 36.9 % (37.0-47.0) L Mean Corpuscular Volume 90 FL (80-99) Mean Corpuscular Hemoglobin 28.5 PG (27.0-31.0) Mean Corpuscular Hemoglobin Concent 31.6 G/DL (32.0-36.0) L Red Cell Distribution Width 14.9 % (11.6-14.8) H Platelet Count 186 K/UL (150-450) Mean Platelet Volume 7.9 FL (6.5-10.1) Neutrophils (%) (Auto) 39.2 % (45.0-75.0) L Lymphocytes (%) (Auto) 44.7 % (20.0-45.0) Monocytes (%) (Auto) 10.1 % (1.0-10.0) H Eosinophils (%) (Auto) 4.7 % (0.0-3.0) H Basophils (%) (Auto) 1.3 % (0.0-2.0) Sodium Level 138 mEQ/L (135-145) Potassium Level 3.7 mEQ/L (3.4-4.9) Chloride Level 95 mEQ/L (98-107) L Carbon Dioxide Level 31 mEQ/L (20-30) H Anion Gap 12 (5-15) Blood Urea Nitrogen 8 mg/dL (7-23) Creatinine 0.8 mg/dL (0.5-0.9) Estimat Glomerular Filtration Rate > 60 mL/min (>60) Glucose Level 227 mg/dL (74-106) H Calcium Level 9.1 mg/dL (8.6-10.2) Current Medications Medications (Trade) Dose Ordered Sig/Cristóbal Route PRN Reason Start Time Stop Time Status Last Admin Dose Admin Acetaminophen/ Hydrocodone Bitart ([place] 10/325) 1 ea Q6H PRN ORAL Severe Pain (Pain Scale 7-10) 12/11/16 18:15 12/18/16 18:14 Baclofen (Lioresal) 20 mg TIDPRN PRN ORAL muscle spasms 12/11/16 18:15 01/10/17 18:14 Bisacodyl (Dulcolax) 10 mg DAILYPRN PRN RECTAL Constipation 12/11/16 18:15 01/10/17 18:14 Dextrose (Dextrose 50%) STAT PRN IV Hypoglycemia 12/11/16 19:00 01/10/17 18:59 Docusate Sodium (Colace) 100 mg THREE TIMES A DAY ORAL 12/16/16 10:00 01/15/17 09:59 12/16/16 10:54 Duloxetine HCl (Cymbalta) 30 mg Q12HR ORAL 12/11/16 21:00 01/10/17 20:59 12/16/16 08:10 Ertapenem/Sodium Chloride (INVanz/Sodium Chloride) 50 ml @ 100 mls/hr Q24H IVPB 12/16/16 14:00 12/21/16 13:59 12/16/16 14:44 Ferrous Sulfate (Feosol) 325 mg DAILY ORAL 12/12/16 09:00 01/11/17 08:59 12/16/16 08:10 Furosemide (Lasix) 40 mg DAILY ORAL 12/15/16 14:00 01/14/17 13:59 12/16/16 08:10 Glipizide (Glucotrol) 5 mg BIAC ORAL 12/12/16 06:30 01/11/17 06:29 12/16/16 17:11 Heparin Sodium (Porcine) (Heparin 5000 units/ml) 5,000 units EVERY 12 HOURS SUBQ 12/11/16 21:00 01/10/17 20:59 12/16/16 08:11 Insulin Aspart (NovoLOG) BEFORE MEALS AND HS SUBQ 12/11/16 21:00 01/10/17 20:59 12/16/16 17:15 Insulin Detemir 18 units 18 units QHS SUBQ 12/13/16 21:00 01/12/17 20:59 12/15/16 21:02 Lorazepam (Ativan) 1 mg Q8H PRN ORAL For Anxiety 12/11/16 18:15 12/18/16 18:14 Magnesium Oxide (Mag-Ox 400mg) 400 mg BID ORAL 12/12/16 18:00 01/11/17 17:59 12/16/16 17:12 Mineral Oil (Fleet's Mineral Oil Enema) 133 ml DAILYPRN PRN RECTAL Constipation 12/11/16 18:15 01/10/17 18:14 Morphine Sulfate (Morphine Sulfate) 2 mg Q4H PRN IVP For breakthrough Pain 12/11/16 18:30 12/18/16 18:29 Multivitamins Therapeutic (Therapeutic Multivitamin) 1 ea DAILY ORAL 12/12/16 09:00 01/11/17 08:59 12/16/16 08:10 Nystatin (Nystop Powder) 1 applic THREE TIMES A DAY TOPIC 12/12/16 18:00 01/11/17 17:59 12/16/16 17:12 Ondansetron HCl (Zofran) 4 mg Q6H PRN IVP Nausea & Vomiting 12/11/16 18:30 01/10/17 18:29 Polyethylene Glycol (Miralax) 17 gm DAILY PRN ORAL Constipation 12/16/16 10:00 01/15/17 09:59 12/16/16 10:50 Pravastatin Sodium (Pravachol) 40 mg BEDTIME ORAL 12/11/16 21:00 01/10/17 20:59 12/15/16 20:59 Pregabalin (Lyrica) 50 mg BID ORAL 12/12/16 09:00 01/11/17 08:59 12/16/16 17:11 Pregabalin (Lyrica) 150 mg BID ORAL 12/12/16 09:00 01/11/17 08:59 12/16/16 17:12 Ranitidine HCl (Zantac) 150 mg Q12HR ORAL 12/15/16 21:00 01/12/17 20:59 12/16/16 08:10 Simethicone (Mylicon) 80 mg QID PRN ORAL Nausea & Vomiting 12/16/16 10:00 01/15/17 09:59 12/16/16 10:50 ARIELA NEVAREZ December 16, 2016 19:18
[2016-12-16] MEDS ORDERED: Tubing IV Secondary IV ONE (19:59)
== END 2016-12-16 20:00 | disposition home health service (06) | DRG 699 ==
LOC: EDBD 11:56 → EMR 13:15 → 4E 15:46 → EDBEDREQ 16:17
PROC: 0T2BX0Z Change Drainage Device in Bladder, External Approach (ICD-10-PCS; principal; 2016-12-11)
PROC: 02HV33Z Insertion of Infusion Device into Superior Vena Cava, Percutaneous Approach (ICD-10-PCS; 2016-12-12)
DX: T83.010A Breakdown (mechanical) of cystostomy catheter, initial encounter (principal); N39.0 Urinary tract infection, site not specified; G82.20 Paraplegia, unspecified; Z68.43 Body mass index [BMI] 50.0-59.9, adult; N31.9 Neuromuscular dysfunction of bladder, unspecified; B96.4 Proteus (mirabilis) (morganii) as the cause of diseases classified elsewhere; E66.01 Morbid (severe) obesity due to excess calories; R33.8 Other retention of urine; Z79.4 Long term (current) use of insulin; G62.9 Polyneuropathy, unspecified; T14.8 Other injury of unspecified body region; X58.XXXS Exposure to other specified factors, sequela; E11.65 Type 2 diabetes mellitus with hyperglycemia; E88.09 Other disorders of plasma-protein metabolism, not elsewhere classified
CPT/HCPCS: 36415; 36569; 71010; 74000; 76775; 76937; 80048; 80053; 80076; 81001; 82378; 82550; 82553; 82607; 82728; 82746; 82962; 83036; 83540; 83550; 83605; 83735; 83880; 84439; 84443; 84484; 85025; 85044; 85610; 85730; 87040; 87086; 87181; 94664; J1815; S5561

== ENCOUNTER 2017-01-03 12:37 | Inpatient (IN) | payer MEDICARE, MEDICAID ==
[~2017-01-03] VITALS: Ht 170.2 cm; Wt 158.8 kg
[~2017-01-03 12:37] MED LIST changes: +DULCOLAX10 MG RC; +DUONEB 0.5-3(2.53 ML HHN; +FUROSEMIDE40 MG ORAL; +HUMULIN R100 UNIT/1 SUBQ; +MINERAL OIL EN133 ML RC; +MULTIVITAMINS1 EA13 ORAL; +PROBIOTIC1 EAC2 PO; +ocean nasal spray NASAL
[2017-01-03 16:00] VITALS: BP 121/78
--- NOTE | 2017-01-03 16:48 | History and Physical ---
History of Present Illness General Date patient seen: January 03, 2017 Time patient seen: 16:48 Reason for Hospitalization: UTI, generalized weakness Present Illness HPI 51 year old female with pmh of DM2 c/b neuropathy, morbid obesity, paraplegia s/ p fall and neurogenic bladder w/ multiple admissions for clogged suprapubic catheter and UTI, multiple decubitus ulcers presents with generalized weakness and concern for UTI. Pt was seen by PCP in office today. She c/o cloudy, malodorous urine, fevers/chills. She also c/o generalized weakness and inability to care for self. She was noted to have uncontrolled sugars. Denies n/ v, d/c, chest pain, SOB. Suprapubic catheter last changed 12/11. Pt recently treatment for UTI during last admission (12/11/16) and states she completed full treatment. Allergies: Coded Allergies: No Known Allergies (Unverified , 07/15/16) Medication History Scheduled Duloxetine Hcl* (Cymbalta*), 30 MG ORAL BID, (Reported) Ergocalciferol (Vitamin D2)* (Vitamin D*), 50,000 UNIT ORAL ONCE A WEEK, ( Reported) Ferrous Sulfate (Iron), 325 MG PO DAILY, (Reported) Furosemide* (Lasix*), 40 MG ORAL DAILY, (Reported) Glipizide (Glipizide), 5 MG ORAL BID, (Reported) Insulin Glargine (Lantus), 12 UNITS SUBQ BEDTIME, (Reported) Insulin Regular, Human (Humulin R), 0 SUBQ BEFORE MEALS AND HS, (Reported) Lactobacillus Acidophilus (Probiotic), 1 EACH PO DAILY, (Reported) Meloxicam* (Mobic*), 15 MG ORAL DAILY, (Reported) Multivitamin with Minerals (Multivitamins with Minerals), 1 TAB ORAL DAILY, ( Reported) Pioglitazone Hcl* (Actos*), 30 MG ORAL DAILY, (Reported) Pravastatin Sodium (Pravachol), 40 MG ORAL BEDTIME, (Reported) Pregabalin* (Lyrica*), 200 MG ORAL BID, (Reported) [ms contin sr], 15 MG PO TID, (Reported) Scheduled PRN Baclofen* (Lioresal*), 20 MG ORAL THREE TIMES A DAY PRN for Muscle Spasms, ( Reported) Bisacodyl (Dulcolax), 10 MG RC DAILY PRN for Constipation, (Reported) Hydrocodone Bit/Acetaminophen 10-325* ([place] 10-325*), 1 TAB ORAL Q6H PRN for For Pain, (Reported) Ipratropium/Albuterol Sulfate (DuoNeb 0.5-3(2.5)mg/3ml), 3 ML HHN EVERY 4 HOURS PRN for Shortness of Breath, (Reported) Lorazepam* (Ativan*), 1 MG ORAL THREE TIMES A DAY PRN for For Anxiety, (Reported ) Mineral Oil (Mineral Oil Enema), 133 ML RC DAILY PRN for Constipation, (Reported ) [ocean nasal spray], 1 SPRAYS NASAL EVERY 2 HOURS PRN for congestion, (Reported) Patient History History Provided By: Medical Record, PMD Healthcare decision maker N Resuscitation status Advanced Directive on File Past Medical/Surgical History Past Medical/Surgical History: (1) Diabetes mellitus type 2 with complications, uncontrolled (2) Suprapubic catheter (3) Neurogenic bladder (4) Pressure ulcer of left buttock, stage 2 (5) Pressure ulcer of coccygeal region, stage 2 (6) Intertrigo (7) Paraplegia Family History Family History: Patient reports no known family medical history. Social History Social History: (1) Lives in private house Review of Systems Constitutional: Reports: weakness Eye: Reports: no symptoms ENT: Reports: no symptoms Respiratory: Reports: no symptoms Cardiovascular: Reports: no symptoms Gastrointestinal: Reports: no symptoms Genitourinary: Reports: other - cloudy, malodorous urine Musculoskeletal: Reports: no symptoms Skin: Reports: no symptoms Psychiatric: Reports: no symptoms Neurological: Reports: no symptoms Endocrine: Reports: no symptoms Hematologic/Lymphatic: Reports: no symptoms Physical Exam Physical Exam Narrative General: alert, cooperative, no distress, appears stated age, morbidly obese Head: normocephalic, without obvious abnormality, atraumatic Eyes: conjunctivae/corneas clear. PERRL, EOM's intact Throat: lips, mucosa, and tongue normal. MMM Neck: supple, symmetrical, trachea midline, and no JVD Lungs: clear to auscultation bilaterally Heart: regular rate and rhythm, S1, S2 normal, no murmur, click, rub or gallop Abdomen: soft, non-tender, non-distended, bowel sounds normal; no masses or organomegaly : suprapubic catheter site c/d/i Extremities: extremities normal, atraumatic, no cyanosis or edema Pulses: 2+ and symmetric Skin: skin color, texture, turgor normal; no rashes or lesions Neurologic: +weakness BLE, stable Assessment/Plan Problem List: (1) Recurrent UTI ICD Codes: N39.0 - Urinary tract infection, site not specified SNOMED: 097659241 (2) Generalized weakness ICD Codes: R53.1 - Weakness SNOMED: 69236206 (3) Diabetes mellitus type 2 with complications, uncontrolled ICD Codes: E11.8 - Type 2 diabetes mellitus with unspecified complications; E11.65 - Type 2 diabetes mellitus with hyperglycemia SNOMED: 36578931, 528582347, 361519726 (4) Morbid obesity ICD Codes: E66.01 - Morbid (severe) obesity due to excess calories SNOMED: 862086090 (5) Suprapubic catheter ICD Codes: Z93.59 - Other cystostomy status SNOMED: 170649286 (6) Pressure ulcer of coccygeal region, stage 2 ICD Codes: L89.152 - Pressure ulcer of sacral region, stage 2 SNOMED: 367355985 (7) Pressure ulcer of left buttock, stage 2 ICD Codes: L89.322 - Pressure ulcer of left buttock, stage 2 SNOMED: 260191261 (8) Neurogenic bladder ICD Codes: N31.9 - Neuromuscular dysfunction of bladder, unspecified SNOMED: 218653027 (9) Peripheral neuropathy ICD Codes: G62.9 - Polyneuropathy, unspecified SNOMED: 20715577 Status: stable Assessment/Plan Admit inpt ID consulted Start zosyn (12/04-) given abnormal U/A concerning for recurrent infection Suprapubic catheter last changed on 12/11 F/u urine cx Cont home meds BALBIR Lantus 18U qHS Pain control, supportive care, bowel regimen Trend CBC, BMP PT/OT Wound care Will likely need SNF placement DVT Prophylaxis: SCD, HSQ Code Status: Full Hospital Classification Declaration: Based on this initial evaluation, and depending on the patient's clinical course, I anticipate that this patient will require hospitalization for 2-3 days for suprapubic catheter dysfunction, UTI, and close respiratory/hemodynamic monitoring. Disposition: Once the patient is stable to leave the hospital, I anticipate the patient will likely be discharged to the following environment: SNF I spent 70 minutes on this patient's case, and 37 minutes were dedicated to counseling and/or care coordination. Discussed with patient/family, nursing staff, SW/CM, ID regarding clinical status, treatment course, and disposition planning. Time of note may not reflect time of encounter. Gregg Cortes M.D. January 03, 2017 16:48
[2017-01-03] MEDS ORDERED: DuoNeb 0.5-3(2.5)mg/3ml neb HHN PRN (17:15)
[2017-01-03] MEDS ORDERED: Norco 10mg/325mg tab ORAL PRN (17:15)
[2017-01-03] MEDS ORDERED: Vitamin D 50,000 units cap ORAL SCH (17:15)
[2017-01-03] MEDS ORDERED: LORazepam 1mg tab ORAL PRN (17:15)
[2017-01-03] MEDS ORDERED: Fleet's Mineral Oil Enema RECTAL PRN (17:15)
[2017-01-03] MEDS ORDERED: Lyrica 50mg cap ORAL SCH (18:00)
[2017-01-03 18:04] LABS: BASOPHILS % (AUTO) 1.2 % (0.0-2.0); EOSINOPHILS % (AUTO) 2.7 % (0.0-3.0); LYMPHOCYTES % (AUTO) 34.8 % (20.0-45.0); MEAN CORPUSCULAR HEMOGLOBIN 30.6 PG (27.0-31.0); MEAN CORPUSCULAR HGB CONC 34.1 G/DL (32.0-36.0); MEAN CORPUSCULAR VOLUME 90 FL (80-99); MEAN PLATELET VOLUME 7.8 FL (6.5-10.1); MONOCYTES % (AUTO) 7.3 % (1.0-10.0); PLATELET COUNT 196 K/UL (150-450); RED BLOOD COUNT 4.17 M/UL (4.20-5.40); RED CELL DISTRIBUTION WIDTH 13.6 % (11.6-14.8); WHITE BLOOD COUNT 6.7 K/UL (4.8-10.8)
[2017-01-03 18:14] LABS: ALANINE AMINOTRANSFERASE 23 U/L (3-33); ANION GAP 16 (5-15); ASPARTATE AMINO TRANSFERASE 16 U/L (5-40); CALCIUM 9.3 mg/dL (8.6-10.2); CARBON DIOXIDE 27 mEQ/L (20-30); CHLORIDE 89 mEQ/L (98-107); CREATININE 0.9 mg/dL (0.5-0.9); GLOMERULAR FILTRATION RATE > 60 mL/min (>60); HEMOLYSIS 5; MAGNESIUM 1.5 mg/dL (1.7-2.5); POTASSIUM 3.8 mEQ/L (3.4-4.9); SODIUM 132 mEQ/L (135-145); TOTAL PROTEIN 7.1 g/dL (6.6-8.7)
[2017-01-03] MEDS ORDERED: Levemir Flexpen SUBQ SCH ×2 (21:00→23:00)
--- NOTE | 2017-01-03 21:03 | Infectious Diseases Prog Note ---
Assessment/Plan Assessment/Plan Full consult to follow: A) 1) possible ut, urine cloudy, ua pending, + symptoms per pt 2) hx uti's 3) allergies - negative 4) pmh noted P) 1) zosyn 2) check ua and urine culture 3) thank you Subjective Allergies: Coded Allergies: No Known Allergies (Unverified , 07/15/16) Objective Vital Signs Last 24 Hour Vital Signs Date Time Temp Pulse Resp B/P Pulse Ox O2 Delivery O2 Flow Rate FiO2 01/03/17 20:46 104 18 Room Air 01/03/17 16:00 97.3 95 121/78 98 Room Air Height (Feet): 5 Height (Inches): 7.00 Weight (Pounds): 350 Laboratory Tests Test 01/03/17 17:05 01/03/17 19:30 White Blood Count 6.7 K/UL (4.8-10.8) Red Blood Count 4.17 M/UL (4.20-5.40) L Hemoglobin 12.8 G/DL (12.0-16.0) Hematocrit 37.5 % (37.0-47.0) Mean Corpuscular Volume 90 FL (80-99) Mean Corpuscular Hemoglobin 30.6 PG (27.0-31.0) Mean Corpuscular Hemoglobin Concent 34.1 G/DL (32.0-36.0) Red Cell Distribution Width 13.6 % (11.6-14.8) Platelet Count 196 K/UL (150-450) Mean Platelet Volume 7.8 FL (6.5-10.1) Neutrophils (%) (Auto) 54.0 % (45.0-75.0) Lymphocytes (%) (Auto) 34.8 % (20.0-45.0) Monocytes (%) (Auto) 7.3 % (1.0-10.0) Eosinophils (%) (Auto) 2.7 % (0.0-3.0) Basophils (%) (Auto) 1.2 % (0.0-2.0) Sodium Level 132 mEQ/L (135-145) L Potassium Level 3.8 mEQ/L (3.4-4.9) Chloride Level 89 mEQ/L (98-107) L Carbon Dioxide Level 27 mEQ/L (20-30) Anion Gap 16 (5-15) H Blood Urea Nitrogen 14 mg/dL (7-23) Creatinine 0.9 mg/dL (0.5-0.9) Estimat Glomerular Filtration Rate > 60 mL/min (>60) Glucose Level 375 mg/dL (74-106) H Calcium Level 9.3 mg/dL (8.6-10.2) Magnesium Level 1.5 mg/dL (1.7-2.5) L Total Bilirubin 0.2 mg/dL (0.0-1.2) Aspartate Amino Transf (AST/SGOT) 16 U/L (5-40) Alanine Aminotransferase (ALT/SGPT) 23 U/L (3-33) Alkaline Phosphatase 102 U/L (35-104) Total Protein 7.1 g/dL (6.6-8.7) Albumin 3.7 g/dL (3.5-5.2) Globulin 3.4 g/dL Albumin/Globulin Ratio 1.0 (1.0-2.7) Urine Color Pending Urine Appearance Pending Urine pH Pending Urine Specific [place] Pending Urine Protein Pending Urine Glucose (UA) Pending Urine Ketones Pending Urine Occult Blood Pending Urine Nitrite Pending Urine Bilirubin Pending Urine Urobilinogen Pending Urine Leukocyte Esterase Pending Urine RBC Pending Urine WBC Pending Urine Squamous Epithelial Cells Pending Urine Bacteria Pending Current Medications Medications (Trade) Dose Ordered Sig/Cristóbal Route PRN Reason Start Time Stop Time Status Last Admin Dose Admin Acetaminophen/ Hydrocodone Bitart ([place] 10/325) 1 ea Q6H PRN ORAL For Pain 01/03/17 17:15 01/10/17 17:14 Albuterol/ Ipratropium (DuoNeb 0.5-3(2.5)mg/3ml) 3 ml Q4H PRN HHN Shortness of Breath 01/03/17 17:15 01/08/17 17:14 Baclofen (Lioresal) 20 mg THREE TIMES A DAY ORAL 01/03/17 18:00 02/02/17 17:59 01/03/17 17:50 Bisacodyl (Dulcolax) 10 mg DAILYPRN PRN RECTAL Constipation 01/03/17 17:00 02/02/17 16:59 Dextrose (Dextrose 50%) STAT PRN IV Hypoglycemia 01/03/17 17:00 02/02/17 16:59 Duloxetine HCl (Cymbalta) 30 mg BID ORAL 01/03/17 20:00 02/02/17 19:59 Ferrous Sulfate (Feosol) 325 mg DAILY ORAL 01/04/17 09:00 02/03/17 08:59 Furosemide (Lasix) 40 mg DAILY ORAL 01/04/17 09:00 02/03/17 08:59 Glipizide (Glucotrol) 5 mg BIAC ORAL 01/04/17 06:30 02/03/17 06:29 Heparin Sodium (Porcine) (Heparin 5000 units/ml) 5,000 units EVERY 12 HOURS SUBQ 01/03/17 21:00 02/02/17 20:59 Insulin Aspart (NovoLOG) BEFORE MEALS AND HS SUBQ 01/03/17 21:00 02/02/17 20:59 Insulin Detemir (Levemir) 15 units QHS SUBQ 01/03/17 21:00 02/02/17 20:59 Lactobacillus Acidophilus (Culturelle) 1 tab DAILY ORAL 01/04/17 09:00 02/03/17 08:59 Lorazepam (Ativan) 1 mg TIDPRN PRN ORAL ANXIETY 01/03/17 17:15 01/10/17 17:14 Mineral Oil (Fleet's Mineral Oil Enema) 133 ml DAILYPRN PRN RECTAL Constipation 01/03/17 17:15 02/02/17 17:14 Multivitamins (Multivitamins) 1 tab DAILY ORAL 01/04/17 09:00 02/03/17 08:59 Nystatin (Nystop Powder) 1 applic THREE TIMES A DAY TOPIC 01/03/17 20:00 02/02/17 19:59 Pioglitazone HCl (Actos) 30 mg ACBREAKFAST ORAL 01/04/17 06:30 02/03/17 06:29 Pravastatin Sodium (Pravachol) 40 mg BEDTIME ORAL 01/03/17 21:00 02/02/17 20:59 Pregabalin (Lyrica) 200 mg Q12HR ORAL 01/03/17 21:00 02/02/17 20:59 ARIELA NEVAREZ January 03, 2017 21:03
[2017-01-03] MEDS: Nystatin Powder 100,000 units/gm 15gm TOPIC SCH (21:04)
[2017-01-03] MEDS: NovoLOG Insulin Flexpen SUBQ SCH (21:06)
[2017-01-03] MEDS: DULoxetine 30mg cap ORAL SCH (21:06)
[2017-01-03] MEDS: Lyrica 50mg cap ORAL SCH (21:06)
[2017-01-03] MEDS: Heparin 5000 units/ml inj SUBQ SCH (21:10)
[2017-01-03 22:06] VITALS: BP 98/65
[2017-01-03 23:58] LABS: APPEARANCE,URINE CLOUDY; KETONES,URINE NEGATIVE (NEGATIVE); LEUKOCYTE ESTERASE ,URINE 3+ (NEGATIVE); NITRITE,URINE NEGATIVE (NEGATIVE); PH,URINE 8 (4.5-8.0); PROTEIN,URINE 2+ (NEGATIVE); UROBILINOGEN,URINE NORMAL MG/DL (0.0-1.0)
[2017-01-04 00:33] LABS: WBC,URINE 30-40 /HPF (0 - 2)
[2017-01-04 00:34] LABS: AMORPHOUS SEDIMENT,UR MANY /LPF; BACTERIA,URINE MANY /HPF; TRIPLE PHOSPHATE CRYSTAL,UR FEW /LPF
[2017-01-04 04:52] VITALS: BP 120/73
[2017-01-04] MEDS: GlipiZIDE 5mg tab ORAL SCH ×2 (06:08→16:59)
[2017-01-04] MEDS: NovoLOG Insulin Flexpen SUBQ SCH ×4 (06:10→22:37)
[2017-01-04 08:25] VITALS: BP 131/69
[2017-01-04] MEDS: Lactobacillus-GG tablet ORAL SCH (09:27)
[2017-01-04] MEDS: DULoxetine 30mg cap ORAL SCH ×2 (09:29→17:05)
[2017-01-04] MEDS: Lyrica 50mg cap ORAL SCH ×2 (09:30→22:25)
[2017-01-04] MEDS: Heparin 5000 units/ml inj SUBQ SCH ×2 (09:33→21:00)
[2017-01-04] MEDS: Nystatin Powder 100,000 units/gm 15gm TOPIC SCH ×3 (09:34→17:06)
[2017-01-04] MEDS: Furosemide 40mg tab ORAL SCH (09:51)
[2017-01-04 12:00] VITALS: BP 137/76
--- NOTE | 2017-01-04 14:16 | General Progress Note ---
Assessment/Plan Problem List: (1) Recurrent UTI ICD Codes: N39.0 - Urinary tract infection, site not specified SNOMED: 600009999 (2) Generalized weakness ICD Codes: R53.1 - Weakness SNOMED: 49395097 (3) Suprapubic catheter ICD Codes: Z93.59 - Other cystostomy status SNOMED: 525599668 (4) Morbid obesity ICD Codes: E66.01 - Morbid (severe) obesity due to excess calories SNOMED: 000456964 (5) Diabetes mellitus type 2 with complications, uncontrolled ICD Codes: E11.8 - Type 2 diabetes mellitus with unspecified complications; E11.65 - Type 2 diabetes mellitus with hyperglycemia SNOMED: 92665535, 396543046, 743017479 (6) Peripheral neuropathy ICD Codes: G62.9 - Polyneuropathy, unspecified SNOMED: 28534357 (7) Pressure ulcer of left buttock, stage 2 ICD Codes: L89.322 - Pressure ulcer of left buttock, stage 2 SNOMED: 019696830 (8) Pressure ulcer of coccygeal region, stage 2 ICD Codes: L89.152 - Pressure ulcer of sacral region, stage 2 SNOMED: 886355370 (9) Intertrigo ICD Codes: L30.4 - Erythema intertrigo SNOMED: 53679027 Status: stable Assessment/Plan ID consulted, appreciate rec's Cont zosyn (12/04-) given abnormal U/A concerning for recurrent infection Suprapubic catheter last changed on 12/11 F/u urine cx Cont home meds BALBIR Increase Lantus to 22U qHS Pain control, supportive care, bowel regimen PT/OT Wound care Will likely need SNF placement DVT Prophylaxis: SCD, HSQ Code Status: Full Hospital Classification Declaration: Based on this initial evaluation, and depending on the patient's clinical course, I anticipate that this patient will require hospitalization for 2-3 days for generalized weakness, UTI, and close respiratory/hemodynamic monitoring. Disposition: Once the patient is stable to leave the hospital, I anticipate the patient will likely be discharged to the following environment: SNF I spent 40 minutes on this patient's case, and 22 minutes were dedicated to counseling and/or care coordination. Discussed with patient/family, nursing staff, SW/CM, ID regarding clinical status, treatment course, and disposition planning. Time of note may not reflect time of encounter. Subjective Date patient seen: January 04, 2017 Time patient seen: 14:16 ROS Limited/Unobtainable: No Constitutional: Reports: weakness HEENT: Reports: no symptoms Cardiovascular: Reports: no symptoms Respiratory: Reports: no symptoms Gastrointestinal/Abdominal: Reports: no symptoms Genitourinary: Reports: no symptoms Neurologic/Psychiatric: Reports: no symptoms Endocrine: Reports: no symptoms Hematologic/Lymphatic: Reports: no symptoms Allergies: Coded Allergies: No Known Allergies (Unverified , 07/15/16) All Systems: reviewed and negative except above Subjective No acute o/n events C/o twitching of UEs, now improved Denies f/c, d/c, chest pain, SOB, abd pain Nauseous this AM, now improved Fowler too ill to work w/ PT/OT today Objective Last 24 Hour Vital Signs Date Time Temp Pulse Resp B/P Pulse Ox O2 Delivery O2 Flow Rate FiO2 01/04/17 14:07 98.1 01/04/17 12:00 98.1 79 19 137/76 Room Air 01/04/17 08:25 98.1 90 22 131/69 94 Room Air 01/04/17 08:25 99 18 Room Air 01/04/17 04:52 97.0 92 18 120/73 96 Room Air 01/03/17 22:06 96.0 104 17 98/65 100 Room Air 01/03/17 20:46 104 18 Room Air 01/03/17 16:00 97.3 95 121/78 98 Room Air Intake and Output 01/03/17 01/04/17 19:00 07:00 Intake Total 380 ml 100 ml Output Total 450 ml 1050 ml Balance -70 ml -950 ml Intake Oral 380 ml IV Total 100 ml Output Urine Total 450 ml 1050 ml # Voids 1 Laboratory Tests 01/03/17 17:05: White Blood Count 6.7, Red Blood Count 4.17L, Hemoglobin 12.8, Hematocrit 37.5, Mean Corpuscular Volume 90, Mean Corpuscular Hemoglobin 30.6, Mean Corpuscular Hemoglobin Concent 34.1, Red Cell Distribution Width 13.6, Platelet Count 196, Mean Platelet Volume 7.8, Neutrophils (%) (Auto) 54.0, Lymphocytes (%) (Auto) 34.8, Monocytes (%) (Auto) 7.3, Eosinophils (%) (Auto) 2.7, Basophils (%) (Auto ) 1.2, Sodium Level 132L, Potassium Level 3.8, Chloride Level 89L, Carbon Dioxide Level 27, Anion Gap 16H, Blood Urea Nitrogen 14, Creatinine 0.9, Estimat Glomerular Filtration Rate > 60, Glucose Level 375H, Calcium Level 9.3, Magnesium Level 1.5L, Total Bilirubin 0.2, Aspartate Amino Transf (AST/SGOT) 16 , Alanine Aminotransferase (ALT/SGPT) 23, Alkaline Phosphatase 102, Total Protein 7.1, Albumin 3.7, Globulin 3.4, Albumin/Globulin Ratio 1.0 01/03/17 20:20: Urine Color Pale yellow, Urine Appearance Cloudy, Urine pH 8, Urine Specific [place] 1.010, Urine Protein 2+H, Urine Glucose (UA) 4+H, Urine Ketones Negative , Urine Occult Blood 5+H, Urine Nitrite Negative, Urine Bilirubin Negative, Urine Urobilinogen Normal, Urine Leukocyte Esterase 3+H, Urine RBC 10-15H, Urine WBC 30-40H, Urine Squamous Epithelial Cells None, Urine Triple Phosphate Crystals FewH, Urine Amorphous Sediment ManyH, Urine Bacteria ManyH Height (Feet): 5 Height (Inches): 7.00 Weight (Pounds): 350 Objective General: alert, cooperative, no distress, appears stated age, morbidly obese Head: normocephalic, without obvious abnormality, atraumatic Eyes: conjunctivae/corneas clear. PERRL, EOM's intact Throat: lips, mucosa, and tongue normal. MMM Neck: supple, symmetrical, trachea midline, and no JVD Lungs: clear to auscultation bilaterally Heart: regular rate and rhythm, S1, S2 normal, no murmur, click, rub or gallop Abdomen: soft, non-tender, non-distended, bowel sounds normal; no masses or organomegaly : suprapubic catheter site c/d/i Extremities: extremities normal, atraumatic, no cyanosis or edema Pulses: 2+ and symmetric Skin: skin color, texture, turgor normal; no rashes or lesions Neurologic: +weakness BLE, stable Gregg Cortes M.D. January 04, 2017 14:16
[2017-01-04] MEDS ORDERED: Lidocaine 1% Plain 30 ml INJ PRN (14:30)
[2017-01-04] MEDS ORDERED: Heparin 2000 units/Ns 1000ml INJ PRN (14:30)
[2017-01-04] MEDS ORDERED: Sodium Bicarbonate 4% 2.4meq/5ml vial INJ PRN (14:30)
--- NOTE | 2017-01-04 15:41 | Infectious Diseases Prog Note ---
Assessment/Plan Assessment/Plan Full consult dictated: A) 1) uti, sig + ua 2) hx uti's 3) allergies - negative 4) pmh noted P) 1) zosyn 2) check urine culture 3) d/w Dr. Escobedo 4) d/w RN Subjective Allergies: Coded Allergies: No Known Allergies (Unverified , 07/15/16) Objective Vital Signs Last 24 Hour Vital Signs Date Time Temp Pulse Resp B/P Pulse Ox O2 Delivery O2 Flow Rate FiO2 01/04/17 14:07 98.1 01/04/17 12:00 98.1 79 19 137/76 Room Air 01/04/17 08:25 98.1 90 22 131/69 94 Room Air 01/04/17 08:25 99 18 Room Air 01/04/17 04:52 97.0 92 18 120/73 96 Room Air 01/03/17 22:06 96.0 104 17 98/65 100 Room Air 01/03/17 20:46 104 18 Room Air 01/03/17 16:00 97.3 95 121/78 98 Room Air Height (Feet): 5 Height (Inches): 7.00 Weight (Pounds): 350 Laboratory Tests Test 01/03/17 17:05 01/03/17 20:20 White Blood Count 6.7 K/UL (4.8-10.8) Red Blood Count 4.17 M/UL (4.20-5.40) L Hemoglobin 12.8 G/DL (12.0-16.0) Hematocrit 37.5 % (37.0-47.0) Mean Corpuscular Volume 90 FL (80-99) Mean Corpuscular Hemoglobin 30.6 PG (27.0-31.0) Mean Corpuscular Hemoglobin Concent 34.1 G/DL (32.0-36.0) Red Cell Distribution Width 13.6 % (11.6-14.8) Platelet Count 196 K/UL (150-450) Mean Platelet Volume 7.8 FL (6.5-10.1) Neutrophils (%) (Auto) 54.0 % (45.0-75.0) Lymphocytes (%) (Auto) 34.8 % (20.0-45.0) Monocytes (%) (Auto) 7.3 % (1.0-10.0) Eosinophils (%) (Auto) 2.7 % (0.0-3.0) Basophils (%) (Auto) 1.2 % (0.0-2.0) Sodium Level 132 mEQ/L (135-145) L Potassium Level 3.8 mEQ/L (3.4-4.9) Chloride Level 89 mEQ/L (98-107) L Carbon Dioxide Level 27 mEQ/L (20-30) Anion Gap 16 (5-15) H Blood Urea Nitrogen 14 mg/dL (7-23) Creatinine 0.9 mg/dL (0.5-0.9) Estimat Glomerular Filtration Rate > 60 mL/min (>60) Glucose Level 375 mg/dL (74-106) H Calcium Level 9.3 mg/dL (8.6-10.2) Magnesium Level 1.5 mg/dL (1.7-2.5) L Total Bilirubin 0.2 mg/dL (0.0-1.2) Aspartate Amino Transf (AST/SGOT) 16 U/L (5-40) Alanine Aminotransferase (ALT/SGPT) 23 U/L (3-33) Alkaline Phosphatase 102 U/L (35-104) Total Protein 7.1 g/dL (6.6-8.7) Albumin 3.7 g/dL (3.5-5.2) Globulin 3.4 g/dL Albumin/Globulin Ratio 1.0 (1.0-2.7) Urine Color Pale yellow Urine Appearance Cloudy Urine pH 8 (4.5-8.0) Urine Specific [place] 1.010 (1.005-1.035) Urine Protein 2+ (NEGATIVE) H Urine Glucose (UA) 4+ (NEGATIVE) H Urine Ketones Negative (NEGATIVE) Urine Occult Blood 5+ (NEGATIVE) H Urine Nitrite Negative (NEGATIVE) Urine Bilirubin Negative (NEGATIVE) Urine Urobilinogen Normal MG/DL (0.0-1.0) Urine Leukocyte Esterase 3+ (NEGATIVE) H Urine RBC 10-15 /HPF (0 - 2) H Urine WBC 30-40 /HPF (0 - 2) H Urine Squamous Epithelial Cells None /LPF (NONE/OCC) Urine Triple Phosphate Crystals Few /LPF (NONE) H Urine Amorphous Sediment Many /LPF (NONE) H Urine Bacteria Many /HPF (NONE) H Current Medications Medications (Trade) Dose Ordered Sig/Cristóbal Route PRN Reason Start Time Stop Time Status Last Admin Dose Admin Acetaminophen/ Hydrocodone Bitart ([place] 10/325) 1 ea Q6H PRN ORAL For Pain 01/03/17 17:15 01/10/17 17:14 Albuterol/ Ipratropium (DuoNeb 0.5-3(2.5)mg/3ml) 3 ml Q4H PRN HHN Shortness of Breath 01/03/17 17:15 01/08/17 17:14 Baclofen (Lioresal) 20 mg THREE TIMES A DAY ORAL 01/03/17 18:00 02/02/17 17:59 01/04/17 13:08 Bisacodyl (Dulcolax) 10 mg DAILYPRN PRN RECTAL Constipation 01/03/17 17:00 02/02/17 16:59 Chlorhexidine Gluconate (Glenda-Hex 2%) 1 applic DAILY TOPIC 01/05/17 09:00 02/04/17 08:59 Dextrose (Dextrose 50%) STAT PRN IV Hypoglycemia 01/03/17 17:00 02/02/17 16:59 Duloxetine HCl (Cymbalta) 30 mg BID ORAL 01/03/17 20:00 02/02/17 19:59 01/04/17 09:29 Ferrous Sulfate (Feosol) 325 mg DAILY ORAL 01/04/17 09:00 02/03/17 08:59 01/04/17 09:29 Furosemide (Lasix) 40 mg DAILY ORAL 01/04/17 09:00 02/03/17 08:59 01/04/17 09:51 Glipizide (Glucotrol) 5 mg BIAC ORAL 01/04/17 06:30 02/03/17 06:29 01/04/17 06:08 Heparin Sodium (Porcine) (Heparin 5000 units/ml) 5,000 units EVERY 12 HOURS SUBQ 01/03/17 21:00 02/02/17 20:59 01/04/17 09:33 Heparin Sodium/ Sodium Chloride (Heparin 2000 units/Ns 1000ml premix) 2,000 unit ONCE PRN INJ PICC LINE PLACEMENT 01/04/17 14:30 01/04/17 21:00 Insulin Aspart (NovoLOG) BEFORE MEALS AND HS SUBQ 01/03/17 21:00 02/02/17 20:59 01/04/17 12:02 Insulin Detemir (Levemir) 22 units QHS SUBQ 01/04/17 21:00 02/03/17 20:59 Lactobacillus Acidophilus (Culturelle) 1 tab DAILY ORAL 01/04/17 09:00 02/03/17 08:59 01/04/17 09:27 Lidocaine HCl (Xylocaine 1% 30ml) 30 ml ONCE PRN INJ PICC LINE PLACEMENT 01/04/17 14:30 01/04/17 21:00 Lorazepam (Ativan) 1 mg TIDPRN PRN ORAL ANXIETY 01/03/17 17:15 01/10/17 17:14 Mineral Oil (Fleet's Mineral Oil Enema) 133 ml DAILYPRN PRN RECTAL Constipation 01/03/17 17:15 02/02/17 17:14 Multivitamins (Multivitamins) 1 tab DAILY ORAL 01/04/17 09:00 02/03/17 08:59 01/04/17 09:27 Nystatin (Nystop Powder) 1 applic THREE TIMES A DAY TOPIC 01/03/17 20:00 02/02/17 19:59 01/04/17 13:09 Ondansetron HCl (Zofran) 4 mg Q6H PRN IVP Nausea & Vomiting 01/04/17 13:00 02/03/17 12:59 01/04/17 13:08 Pioglitazone HCl (Actos) 30 mg ACBREAKFAST ORAL 01/04/17 06:30 02/03/17 06:29 01/04/17 06:08 Piperacillin Sod/ Tazobactam Sod/ Dextrose (Zosyn/D5W) 100 ml @ 25 mls/hr EVERY 8 HOURS IVPB 01/03/17 23:00 01/08/17 22:59 01/04/17 13:08 Pravastatin Sodium (Pravachol) 40 mg BEDTIME ORAL 01/03/17 21:00 02/02/17 20:59 01/03/17 21:07 Pregabalin 200 mg 200 mg Q12HR ORAL 01/03/17 21:00 02/02/17 20:59 01/04/17 09:30 Sodium Bicarbonate (Sodium Bicarbonate 4%) 1 ml ONCE PRN INJ PICC LINE PLACEMENT 01/04/17 14:30 5/20/17 21:00 ARIELA NEVAREZ January 04, 2017 15:41
[2017-01-04 16:00] VITALS: BP 118/68
[2017-01-04] MEDS ORDERED: NS 275ml ONE (17:42)
[2017-01-04] MEDS ORDERED: Tubing IV Secondary IV ONE (17:42)
[2017-01-04 20:00] VITALS: BP 117/71
[2017-01-04] MEDS ORDERED: Levemir Flexpen SUBQ SCH ×2 (21:00)
[2017-01-05] VITALS: BP 120/76
[2017-01-05 04:00] VITALS: BP 134/74
--- NOTE | 2017-01-05 05:00 | Consultation ---
DATE OF CONSULTATION: 01/04/2017 INFECTIOUS DISEASES CONSULTATION ATTENDING PHYSICIAN: Rj Choe M.D. CONSULTING PHYSICIAN: Nils Meneses M.D. I was asked by Dr. Escobedo, his associate to see this patient. REASON FOR CONSULTATION: Urinary tract infection. CHIEF COMPLAINT: The patient's chief complaint coming into the hospital is urinary tract infection. HISTORY OF PRESENT ILLNESS: This is a 51-year-old female who has a history of recurrent UTI and has a Garcia at this time. She felt that she has symptoms related to UTI. The patient was admitted to [facility] for urinary tract infection treatment. The patient has urinalysis, likely has complicated UTI. An Infectious Diseases consultation is requested for antibiotic management. The patient was placed on Zosyn pending urine culture. The patient's case was discussed with Dr. Escobedo and RN. The patient will need a PICC line for difficult access and this was ordered. MAR was noted. Orders were noted. Notes were reviewed. PAST MEDICAL HISTORY: The patient's past medical history includes the following: The patient has a past medical history of recurrent UTI. She has a history of diabetes mellitus. She has a history of hyperlipidemia. She has a history of obesity, history of suprapubic catheter, hyperlipidemia, diabetes peripheral neuropathy, generalized weakness, history of UTIs, history of stage II pressure ulcer, history of anemia, hyperalbuminemia, abdominal pain, and neurogenic bladder. No mention of hypertension. Please see past medical history in medical order. MEDICATIONS: Upon reviewing the MAR, she is on the following medications: She is on chlorhexidine, insulin, sodium bicarbonate, lidocaine, heparin, Zofran, ferrous sulfate, Lasix, lactobacillus, multivitamins, glipizide, Actos, and Zosyn. She is on insulin, heparin, pravastatin, Lyrica, Cymbalta, Lioresal, and baclofen. She was on hydrocodone, DuoNeb, lorazepam, and . Please see medications in medical order. ALLERGIES: No known drug allergies. SOCIAL HISTORY: Negative for smoking, alcohol, or drug use. FAMILY HISTORY: Noncontributory. Negative for tuberculosis exposure or cancer. REVIEW OF SYSTEMS: Constitutional: She has generalized weakness and fatigue. No fever, chills, or night sweats. No weight loss. Head And Neck: No head pain, neck pain, thrush, or dysphagia. Cardiac: No chest pain or palpitation. Gastrointestinal: No nausea, vomiting, or diarrhea. Genitourinary: She has a Garcia. Pulmonary: No congestion or shortness of breath. Skin: No rash or itching. Extremities: No extremity pain. Neurologic: No seizures. PHYSICAL EXAMINATION: VITAL SIGNS: Temperature is 98.1 degrees, pulse rate 79, pulse rate , respiratory rate 19, blood pressure 137/76, and saturation 94% on room air. GENERAL: Alert, responsive, in no acute distress. No shortness of breath. HEAD AND NECK: Oral exam, no thrush. Eye exam, no icterus. Normocephalic. No facial droop. No neck stiffness. Neck, supple. HEART: Regular. No gallop or murmur. No friction rub. ABDOMEN: Soft. Positive bowel sounds. Nontender. LUNGS: Clear bilaterally. No rhonchi or rales. SKIN: No rash or dermatitis. MUSCULOSKELETAL: No effusion or contractures. Lower extremities are without cellulitis. PERIPHERAL VASCULAR: No cyanosis or gangrene. RECTAL: No rectal tube. GENITOURINARY: She has a suprapubic catheter. Urine is cloudy. LINES: Line sites are without phlebitis. NEUROLOGIC: Generalized weakness, responsive. Nonfocal. Alert and oriented x3. LABORATORY DATA: Laboratory data is as follows, white count 6.7, hemoglobin 12.8. The patient's creatinine is 0.9. Urinalysis had 3+ leukocyte esterase, 30-40 white blood cells, and many bacteria. Urine culture is pending. IMAGING STUDIES: None. ASSESSMENT AND PLAN: 1. The patient has a recurrent urinary tract infection. At this time, we will continue Zosyn and we will check urine culture. Zosyn also has ESBL coverage often. Also, Zosyn has enterococcus coverage. Thus, we will continue Zosyn pending urine culture. 2. The patient has history of diabetes. Continue blood sugar control per primary. 3. Suprapubic catheter. 4. History of . 5. Obesity. 6. Hyperlipidemia. 7. Peripheral neuropathy. 8. Generalized weakness. 9. History of edema. 10. History of ulcers. Wound care protocol. 11. Intertrigo. 12. Anemia. 13. Hyperalbuminemia. 14. History of abdominal pain. 15. No known allergies. 16. MAR as noted. 17. Family history is noncontributory. 18. Social history is negative. 19. . 20. Notes were reviewed. 21. Continue treatment with primary consultants. 22. Case was discussed with Dr. Escobedo. 23. Case was discussed with RN. 24. Case discussed with the patient. Nils Meneses M.D. DR: Isaias JOB#: [id number] CC:
[2017-01-05] MEDS: GlipiZIDE 5mg tab ORAL SCH ×2 (06:19→16:30)
[2017-01-05] MEDS: NovoLOG Insulin Flexpen SUBQ SCH ×5 (06:21→21:58)
[2017-01-05 07:10] LABS: ANION GAP 13 (5-15); CALCIUM 9.4 mg/dL (8.6-10.2); CARBON DIOXIDE 31 mEQ/L (20-30); CHLORIDE 96 mEQ/L (98-107); CREATININE 0.8 mg/dL (0.5-0.9); GLOMERULAR FILTRATION RATE > 60 mL/min (>60); HEMOLYSIS 2; SODIUM 140 mEQ/L (135-145)
[2017-01-05 07:17] LABS: BASOPHILS % (AUTO) 1.4 % (0.0-2.0); EOSINOPHILS % (AUTO) 3.4 % (0.0-3.0); LYMPHOCYTES % (AUTO) 46.7 % (20.0-45.0); MEAN CORPUSCULAR HEMOGLOBIN 28.1 PG (27.0-31.0); MEAN CORPUSCULAR HGB CONC 31.9 G/DL (32.0-36.0); MEAN CORPUSCULAR VOLUME 88 FL (80-99); MEAN PLATELET VOLUME 8.9 FL (6.5-10.1); MONOCYTES % (AUTO) 10.2 % (1.0-10.0); NEUTROPHILS % (AUTO) 38.2 % (45.0-75.0); PLATELET COUNT 213 K/UL (150-450); RED BLOOD COUNT 4.27 M/UL (4.20-5.40)
[2017-01-05] MEDS: Dyna-Hex 2% Top Sol 8oz TOPIC SCH (07:48)
[2017-01-05 08:00] VITALS: BP 127/71
[2017-01-05] MEDS: Lactobacillus-GG tablet ORAL SCH (09:11)
[2017-01-05] MEDS: DULoxetine 30mg cap ORAL SCH ×2 (09:11→17:55)
[2017-01-05] MEDS: Furosemide 40mg tab ORAL SCH (09:11)
[2017-01-05] MEDS: Lyrica 50mg cap ORAL SCH ×2 (09:11→21:55)
[2017-01-05] MEDS: Nystatin Powder 100,000 units/gm 15gm TOPIC SCH ×3 (09:12→17:55)
[2017-01-05] MEDS: Heparin 5000 units/ml inj SUBQ SCH ×2 (09:17→21:57)
[2017-01-05 12:16] VITALS: BP 135/77
[2017-01-05 16:00] VITALS: BP 114/73
[2017-01-05 20:00] VITALS: BP 124/66
[2017-01-05] MEDS: Levemir Flexpen SUBQ SCH (21:56)
[2017-01-06] VITALS: BP 121/65
[2017-01-06 04:00] VITALS: BP 132/81
[2017-01-06] MEDS: GlipiZIDE 5mg tab ORAL SCH (06:23)
[2017-01-06] MEDS: NovoLOG Insulin Flexpen SUBQ SCH ×9 (06:24→21:35)
[2017-01-06 07:54] VITALS: BP 109/79
[2017-01-06] MEDS: Lactobacillus-GG tablet ORAL SCH (08:19)
[2017-01-06] MEDS: Lyrica 50mg cap ORAL SCH ×2 (08:20→21:00)
[2017-01-06] MEDS: Furosemide 40mg tab ORAL SCH (08:20)
[2017-01-06] MEDS: DULoxetine 30mg cap ORAL SCH ×2 (08:21→16:46)
[2017-01-06] MEDS: Heparin 5000 units/ml inj SUBQ SCH ×2 (08:25→21:33)
[2017-01-06] MEDS: Dyna-Hex 2% Top Sol 8oz TOPIC SCH (08:25)
[2017-01-06] MEDS: Nystatin Powder 100,000 units/gm 15gm TOPIC SCH ×3 (08:26→16:46)
--- NOTE | 2017-01-06 09:39 | General Progress Note ---
Assessment/Plan Problem List: (1) Recurrent UTI ICD Codes: N39.0 - Urinary tract infection, site not specified SNOMED: 601082603 (2) Generalized weakness ICD Codes: R53.1 - Weakness SNOMED: 10562359 (3) Suprapubic catheter ICD Codes: Z93.59 - Other cystostomy status SNOMED: 063136538 (4) Morbid obesity ICD Codes: E66.01 - Morbid (severe) obesity due to excess calories SNOMED: 180960601 (5) Diabetes mellitus type 2 with complications, uncontrolled ICD Codes: E11.8 - Type 2 diabetes mellitus with unspecified complications; E11.65 - Type 2 diabetes mellitus with hyperglycemia SNOMED: 08575761, 786524422, 408772899 (6) Peripheral neuropathy ICD Codes: G62.9 - Polyneuropathy, unspecified SNOMED: 78556788 (7) Pressure ulcer of left buttock, stage 2 ICD Codes: L89.322 - Pressure ulcer of left buttock, stage 2 SNOMED: 773210723 (8) Pressure ulcer of coccygeal region, stage 2 ICD Codes: L89.152 - Pressure ulcer of sacral region, stage 2 SNOMED: 015523701 (9) Intertrigo ICD Codes: L30.4 - Erythema intertrigo SNOMED: 22708758 Status: stable Assessment/Plan ID consulted, appreciate rec's Cont zosyn (12/04-) given abnormal U/A concerning for recurrent infection Suprapubic catheter last changed on 12/11 F/u urine cx Cont home meds BALBIR Start Lispro 5U TID AC Incr Lantus to 24U qHS Pain control, supportive care, bowel regimen PT/OT Wound care SW consult for SNF placement--Jaime Stephens DC planning for Saturday 01/06 DVT Prophylaxis: SCD, HSQ Code Status: Full Hospital Classification Declaration: Based on this initial evaluation, and depending on the patient's clinical course, I anticipate that this patient will require hospitalization for 2-3 days for generalized weakness, UTI, and close respiratory/hemodynamic monitoring. Disposition: Once the patient is stable to leave the hospital, I anticipate the patient will likely be discharged to the following environment: SNF I spent 40 minutes on this patient's case, and 22 minutes were dedicated to counseling and/or care coordination. Discussed with patient/family, nursing staff, SW/CM, ID regarding clinical status, treatment course, and disposition planning. Time of note may not reflect time of encounter. Subjective Date patient seen: January 05, 2017 Time patient seen: 12:00 ROS Limited/Unobtainable: No Constitutional: Reports: weakness HEENT: Reports: no symptoms Cardiovascular: Reports: no symptoms Respiratory: Reports: no symptoms Gastrointestinal/Abdominal: Reports: no symptoms Genitourinary: Reports: no symptoms Neurologic/Psychiatric: Reports: no symptoms Endocrine: Reports: no symptoms Hematologic/Lymphatic: Reports: no symptoms Allergies: Coded Allergies: No Known Allergies (Unverified , 07/15/16) All Systems: reviewed and negative except above Subjective No acute o/n events Feels better today Denies f/c, d/c, chest pain, SOB, abd pain Asking to go to rehab Objective Last 24 Hour Vital Signs Date Time Temp Pulse Resp B/P Pulse Ox O2 Delivery O2 Flow Rate FiO2 01/06/17 07:54 96.8 92 18 109/79 99 Room Air 01/06/17 07:46 86 18 Room Air 01/06/17 04:00 96.4 74 20 132/81 99 Room Air 01/06/17 00:00 96.6 69 20 121/65 96 Room Air 01/05/17 20:40 90 18 Room Air 01/05/17 20:00 97.7 93 22 124/66 98 Room Air 01/05/17 18:54 96.1 01/05/17 16:00 96.1 101 18 114/73 100 Nasal Cannula 2.0 01/05/17 12:16 97.7 83 18 135/77 97 Room Air Intake and Output 01/05/17 01/06/17 19:00 07:00 Intake Total 820 ml Output Total 1000 ml 550 ml Balance -180 ml -550 ml Intake Oral 720 ml IV Total 100 ml Output Urine Total 1000 ml 550 ml Height (Feet): 5 Height (Inches): 7.00 Weight (Pounds): 350 Objective General: alert, cooperative, no distress, appears stated age, morbidly obese Head: normocephalic, without obvious abnormality, atraumatic Eyes: conjunctivae/corneas clear. PERRL, EOM's intact Throat: lips, mucosa, and tongue normal. MMM Neck: supple, symmetrical, trachea midline, and no JVD Lungs: clear to auscultation bilaterally Heart: regular rate and rhythm, S1, S2 normal, no murmur, click, rub or gallop Abdomen: soft, non-tender, non-distended, bowel sounds normal; no masses or organomegaly : suprapubic catheter site c/d/i Extremities: extremities normal, atraumatic, no cyanosis or edema Pulses: 2+ and symmetric Skin: skin color, texture, turgor normal; no rashes or lesions Neurologic: +weakness BLE, stable Gregg Cortes M.D. January 06, 2017 09:39
[2017-01-06] MEDS ORDERED: VITAMIN D1000 UNI1 ORAL (09:47)
[2017-01-06] MEDS ORDERED: GLIPIZIDE5 MG ORAL (09:47)
[2017-01-06] MEDS ORDERED: NOVOLOG100 UNITS1 SUBQ ×2 (09:47)
[2017-01-06] MEDS ORDERED: INVANZ1 GM IVPB (10:02)
[2017-01-06] MEDS: Vitamin D 1000 IU Tab ORAL SCH (11:30)
[2017-01-06] MEDS: Ertapenem 1 GM in NS 55 ML IVPB SCH (13:30)
[2017-01-06 14:00] VITALS: BP 124/65
--- NOTE | 2017-01-06 14:22 | Diagnostic Imaging Report ---
Indications: Needs long-term IV access Technique: Ultrasound confirms patent compressible right basilic vein. Total sterile technique, including sterile probe cover and sterile gel, hat, mask,, sterile gown, large sterile drape, and preparation with 2% chlorhexidine utilized. Local anesthesia with 1% lidocaine. Under real-time ultrasound guidance, puncture basilic vein using 21-gauge needle, documented and archived, passage 0.018 guidewire under direct fluoroscopy, which was used to determine appropriate catheter length, exchange for 5 Turk[place] peel-away sheath. 5 [place] Bard dual-lumen power PICC cut to 48 cm. It was inserted through the peel-away sheath. Peel-away sheath and guidewire removed. Catheter fixed to the skin. Both catheter ports aspirated and flushed. Patient tolerated procedure well, without immediate complication. Digital radiograph documents satisfactory catheter tip position, at the cavoatrial junction. Total fluoroscopy time 0.4 minutes. Total dose area product 13 dGycm2 Impression: Successful placement of right arm PICC under sonographic and fluoroscopic guidance, as described above.
--- NOTE | 2017-01-06 15:04 | Infectious Diseases Prog Note ---
Assessment/Plan Assessment/Plan ASSESSMENT AND PLAN: 1. gram neg uti - clinically improved - change to Ertapenem for 7 days - check final urine culture - check labs 2. The patient has history of diabetes. Continue blood sugar control per primary. 3. Suprapubic catheter. 4. History of UTI 5. Obesity. 6. Hyperlipidemia. 7. Peripheral neuropathy. 8. Generalized weakness. 9. History of edema. 10. History of ulcers. Wound care protocol. 11. Intertrigo. 12. Anemia. 13. Hyperalbuminemia. 14. History of abdominal pain. 15. No known allergies. 16. MAR as noted. 17. Family history is noncontributory. 18. Social history is negative. 19. mar noted 20. Notes were reviewed. 21. Continue treatment with primary consultants. 22. Case was discussed with Dr. Escobedo. 23. Case was discussed with RN. 24. Case discussed with the patient. Subjective Constitutional: Denies: fever HEENT: Denies: congestion Respiratory: Denies: shortness of breath Cardiovascular: Denies: chest pain Gastrointestinal/Abdominal: Denies: nausea, vomiting Genitourinary: Reports: other - + milton Neurologic: Denies: headache Psychiatric: Denies: depression Skin: Denies: rash Hematologic: Denies: bleeding Musculoskeletal: Denies: pain Allergies: Coded Allergies: No Known Allergies (Unverified , 07/15/16) Objective Vital Signs Last 24 Hour Vital Signs Date Time Temp Pulse Resp B/P Pulse Ox O2 Delivery O2 Flow Rate FiO2 01/06/17 13:59 96.8 01/06/17 07:54 96.8 92 18 109/79 99 Room Air 01/06/17 07:46 86 18 Room Air 01/06/17 04:00 96.4 74 20 132/81 99 Room Air 01/06/17 00:00 96.6 69 20 121/65 96 Room Air 01/05/17 20:40 90 18 Room Air 01/05/17 20:00 97.7 93 22 124/66 98 Room Air 01/05/17 16:00 96.1 101 18 114/73 100 Nasal Cannula 2.0 Height (Feet): 5 Height (Inches): 7.00 Weight (Pounds): 350 General Appearance: no acute distress HEENT: normocephalic, atraumatic, anicteric, mucous membranes moist, PERRL, EOMI, pharynx normal, supple, no JVD Respiratory/Chest: lungs clear, normal breath sounds, no respiratory distress, no accessory muscle use Cardiovascular: normal rate, regular rhythm, no gallop/murmur, no JVD Abdomen: normal bowel sounds, soft, non tender, no organomegaly, non distended Genitourinary: other - + milton - urine clearer Extremities: no cyanosis Skin: no rash 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, alert, oriented x 3, responsive Lymphatic: no neck adenopathy Musculoskeletal: no effusion Microbiology Date/Time Source Procedure Growth Status 01/03/17 20:10 Blood Blood Culture - Preliminary NO GROWTH AFTER 48 HOURS Resulted 01/03/17 20:00 Blood Blood Culture - Preliminary NO GROWTH AFTER 48 HOURS Resulted 01/03/17 19:30 Urine,Suprapubic Urine Culture - Preliminary Gram Negative Bacillus 1 Gram Negative Bacillus 2 Gram Negative Bacillus 3 Resulted Labs Test 01/03/17 17:05 01/03/17 20:20 01/05/17 05:55 White Blood Count 6.7 K/UL (4.8-10.8) 5.0 K/UL (4.8-10.8) Red Blood Count 4.17 M/UL (4.20-5.40) 4.27 M/UL (4.20-5.40) Hemoglobin 12.8 G/DL (12.0-16.0) 12.0 G/DL (12.0-16.0) Hematocrit 37.5 % (37.0-47.0) 37.6 % (37.0-47.0) Mean Corpuscular Volume 90 FL (80-99) 88 FL (80-99) Mean Corpuscular Hemoglobin 30.6 PG (27.0-31.0) 28.1 PG (27.0-31.0) Mean Corpuscular Hemoglobin Concent 34.1 G/DL (32.0-36.0) 31.9 G/DL (32.0-36.0) Red Cell Distribution Width 13.6 % (11.6-14.8) 14.0 % (11.6-14.8) Platelet Count 196 K/UL (150-450) 213 K/UL (150-450) Mean Platelet Volume 7.8 FL (6.5-10.1) 8.9 FL (6.5-10.1) Neutrophils (%) (Auto) 54.0 % (45.0-75.0) 38.2 % (45.0-75.0) Lymphocytes (%) (Auto) 34.8 % (20.0-45.0) 46.7 % (20.0-45.0) Monocytes (%) (Auto) 7.3 % (1.0-10.0) 10.2 % (1.0-10.0) Eosinophils (%) (Auto) 2.7 % (0.0-3.0) 3.4 % (0.0-3.0) Basophils (%) (Auto) 1.2 % (0.0-2.0) 1.4 % (0.0-2.0) Sodium Level 132 mEQ/L (135-145) 140 mEQ/L (135-145) Potassium Level 3.8 mEQ/L (3.4-4.9) 4.0 mEQ/L (3.4-4.9) Chloride Level 89 mEQ/L (98-107) 96 mEQ/L (98-107) Carbon Dioxide Level 27 mEQ/L (20-30) 31 mEQ/L (20-30) Anion Gap 16 (5-15) 13 (5-15) Blood Urea Nitrogen 14 mg/dL (7-23) 12 mg/dL (7-23) Creatinine 0.9 mg/dL (0.5-0.9) 0.8 mg/dL (0.5-0.9) Estimat Glomerular Filtration Rate > 60 mL/min (>60) > 60 mL/min (>60) Glucose Level 375 mg/dL (74-106) 271 mg/dL (74-106) Calcium Level 9.3 mg/dL (8.6-10.2) 9.4 mg/dL (8.6-10.2) Magnesium Level 1.5 mg/dL (1.7-2.5) Total Bilirubin 0.2 mg/dL (0.0-1.2) Aspartate Amino Transf (AST/SGOT) 16 U/L (5-40) Alanine Aminotransferase (ALT/SGPT) 23 U/L (3-33) Alkaline Phosphatase 102 U/L (35-104) Total Protein 7.1 g/dL (6.6-8.7) Albumin 3.7 g/dL (3.5-5.2) Globulin 3.4 g/dL Albumin/Globulin Ratio 1.0 (1.0-2.7) Urine Color Pale yellow Urine Appearance Cloudy Urine pH 8 (4.5-8.0) Urine Specific [place] 1.010 (1.005-1.035) Urine Protein 2+ (NEGATIVE) Urine Glucose (UA) 4+ (NEGATIVE) Urine Ketones Negative (NEGATIVE) Urine Occult Blood 5+ (NEGATIVE) Urine Nitrite Negative (NEGATIVE) Urine Bilirubin Negative (NEGATIVE) Urine Urobilinogen Normal MG/DL (0.0-1.0) Urine Leukocyte Esterase 3+ (NEGATIVE) Urine RBC 10-15 /HPF (0 - 2) Urine WBC 30-40 /HPF (0 - 2) Urine Squamous Epithelial Cells None /LPF (NONE/OCC) Urine Triple Phosphate Crystals Few /LPF (NONE) Urine Amorphous Sediment Many /LPF (NONE) Urine Bacteria Many /HPF (NONE) Current Medications Medications (Trade) Dose Ordered Sig/Cristóbal Route PRN Reason Start Time Stop Time Status Last Admin Dose Admin Acetaminophen/ Hydrocodone Bitart ([place] 10/325) 1 ea Q6H PRN ORAL For Pain 01/03/17 17:15 01/10/17 17:14 Albuterol/ Ipratropium (DuoNeb 0.5-3(2.5)mg/3ml) 3 ml Q4H PRN HHN Shortness of Breath 01/03/17 17:15 01/08/17 17:14 Baclofen (Lioresal) 20 mg THREE TIMES A DAY ORAL 01/03/17 18:00 02/02/17 17:59 01/06/17 13:00 Bisacodyl (Dulcolax) 10 mg DAILYPRN PRN RECTAL Constipation 01/03/17 17:00 02/02/17 16:59 Chlorhexidine Gluconate (Glenda-Hex 2%) 1 applic DAILY TOPIC 01/05/17 09:00 02/04/17 08:59 Dextrose (Dextrose 50%) STAT PRN IV Hypoglycemia 01/03/17 17:00 02/02/17 16:59 Duloxetine HCl (Cymbalta) 30 mg BID ORAL 01/03/17 20:00 02/02/17 19:59 01/06/17 08:21 Ertapenem/Sodium Chloride (INVanz/Sodium Chloride) 55 ml @ 110 mls/hr Q24H IVPB 01/06/17 12:00 01/13/17 11:59 01/06/17 13:30 Ferrous Sulfate (Feosol) 325 mg DAILY ORAL 01/04/17 09:00 02/03/17 08:59 01/06/17 08:19 Furosemide (Lasix) 40 mg DAILY ORAL 01/04/17 09:00 02/03/17 08:59 01/06/17 08:20 Glipizide (Glucotrol) 10 mg BIAC ORAL 01/06/17 16:30 02/05/17 16:29 Heparin Sodium (Porcine) (Heparin 5000 units/ml) 5,000 units EVERY 12 HOURS SUBQ 01/03/17 21:00 02/02/17 20:59 01/06/17 08:25 Insulin Aspart (NovoLOG) BEFORE MEALS AND HS SUBQ 01/03/17 21:00 02/02/17 20:59 01/06/17 12:30 Insulin Aspart (NovoLOG) 5 units NOVOTIAC SUBQ 01/05/17 16:50 02/04/17 16:49 01/06/17 13:30 Insulin Detemir (Levemir) 24 units QHS SUBQ 01/05/17 21:00 02/04/17 20:59 01/05/17 21:56 Lactobacillus Acidophilus (Culturelle) 1 tab DAILY ORAL 01/04/17 09:00 02/03/17 08:59 01/06/17 08:19 Lorazepam (Ativan) 1 mg TIDPRN PRN ORAL ANXIETY 01/03/17 17:15 01/10/17 17:14 Mineral Oil (Fleet's Mineral Oil Enema) 133 ml DAILYPRN PRN RECTAL Constipation 01/03/17 17:15 02/02/17 17:14 Multivitamins (Multivitamins) 1 tab DAILY ORAL 01/04/17 09:00 02/03/17 08:59 01/06/17 08:19 Nystatin (Nystop Powder) 1 applic THREE TIMES A DAY TOPIC 01/03/17 20:00 02/02/17 19:59 01/06/17 13:00 Ondansetron HCl (Zofran) 4 mg Q6H PRN IVP Nausea & Vomiting 01/04/17 13:00 02/03/17 12:59 01/04/17 13:08 Pioglitazone HCl (Actos) 30 mg ACBREAKFAST ORAL 01/04/17 06:30 02/03/17 06:29 01/06/17 06:22 Pravastatin Sodium (Pravachol) 40 mg BEDTIME ORAL 01/03/17 21:00 02/02/17 20:59 01/05/17 21:53 Pregabalin (Lyrica) 200 mg Q12HR ORAL 01/03/17 21:00 02/02/17 20:59 01/06/17 08:20 Vitamin D 1000 intlu 1,000 intlu DAILY ORAL 01/06/17 10:00 02/05/17 09:59 01/06/17 11:30 ARIELA NEVAREZ January 06, 2017 15:04
[2017-01-06 16:00] VITALS: BP 124/65
--- NOTE | 2017-01-06 16:02 | Wound Care Consultation ---
Wound Assessment Wound Assessment #1: Wound Present on Admission: Yes New Wound: No Status Change of Wound: No Wound Location Body Site Modif: left Wound Location Body Site: ischial tuberosity Wound Type: scar Chato Test: Does not Chato Wound Thickness: Full Thickness - scar tissue Wound Length: 3.0 Wound Width: 2.0 Wound Depth: utd Percent of Wound [place]/Red: 100 Wound Drainage Amount: None Wound Drainage Odor: None/Absent Tissue Surrounding Wound: Intact Wound General Appearance: Asymptomatic Wound Assessment #2: Wound Number: #2 Wound Present on Admission: Yes New Wound: No Status Change of Wound: No Wound Location Body Site Modif: left, right Wound Location Body Site: breast fold - intertrigo Wound Thickness: Partial Thickness Percent of Wound [place]/Red: 100 Wound Drainage Amount: None Wound Drainage Odor: None/Absent Tissue Surrounding Wound: Erythemic Wound General Appearance: Reddened Wound Comment #1 Left and right breast fold intertrigo #2 Left ischial tuberosity full thickness scar tissue Recommendation -Keep clean and dry -Offload both heels -Heel protector on both heels -Local wound care as ordered -Optimize nutrition -Assess and f/u accordingly for any changes JALIL CAMPA RN January 06, 2017 16:02
[2017-01-06] MEDS: GlipiZIDE 10mg tab ORAL SCH (16:46)
[2017-01-06] MEDS ORDERED: NS 275ml ONE (17:57)
[2017-01-06 20:00] VITALS: BP 108/68
[2017-01-06] MEDS: Levemir Flexpen SUBQ SCH (21:34)
--- NOTE | 2017-01-06 23:48 | General Progress Note ---
Assessment/Plan Problem List: (1) Recurrent UTI ICD Codes: N39.0 - Urinary tract infection, site not specified SNOMED: 009204776 (2) Generalized weakness ICD Codes: R53.1 - Weakness SNOMED: 41770443 (3) Suprapubic catheter ICD Codes: Z93.59 - Other cystostomy status SNOMED: 832109215 (4) Morbid obesity ICD Codes: E66.01 - Morbid (severe) obesity due to excess calories SNOMED: 893388127 (5) Diabetes mellitus type 2 with complications, uncontrolled ICD Codes: E11.8 - Type 2 diabetes mellitus with unspecified complications; E11.65 - Type 2 diabetes mellitus with hyperglycemia SNOMED: 59974933, 735264601, 237912925 (6) Peripheral neuropathy ICD Codes: G62.9 - Polyneuropathy, unspecified SNOMED: 80451465 (7) Pressure ulcer of left buttock, stage 2 ICD Codes: L89.322 - Pressure ulcer of left buttock, stage 2 SNOMED: 066823281 (8) Pressure ulcer of coccygeal region, stage 2 ICD Codes: L89.152 - Pressure ulcer of sacral region, stage 2 SNOMED: 939832080 (9) Intertrigo ICD Codes: L30.4 - Erythema intertrigo SNOMED: 53723129 Status: stable Assessment/Plan ID consulted, appreciate rec's Change to ertapenem per ID x 7 days (01/06-), s/p zosyn (01/03-01/06) Suprapubic catheter last changed on 12/11 Urology consulted for SP catheter exchange given UTI and it is almost due for change F/u urine cx--GNR Cont home meds BALBIR Cont Lispro 5U TID AC Incr Lantus to 24U qHS Glipizide 10mg BID AC Pain control, supportive care, bowel regimen PT/OT Wound care SW consult for SNF placement--awaiting bed confirmation DVT Prophylaxis: SCD, HSQ Code Status: Full Hospital Classification Declaration: Based on this initial evaluation, and depending on the patient's clinical course, I anticipate that this patient will require hospitalization for 2-3 days for generalized weakness, UTI, and close respiratory/hemodynamic monitoring. Disposition: Once the patient is stable to leave the hospital, I anticipate the patient will likely be discharged to the following environment: SNF I spent 40 minutes on this patient's case, and 22 minutes were dedicated to counseling and/or care coordination. Discussed with patient/family, nursing staff, SW/CM, ID regarding clinical status, treatment course, and disposition planning. Time of note may not reflect time of encounter. Subjective Date patient seen: January 06, 2017 Time patient seen: 16:00 ROS Limited/Unobtainable: No Constitutional: Reports: no symptoms HEENT: Reports: no symptoms Cardiovascular: Reports: no symptoms Respiratory: Reports: no symptoms Gastrointestinal/Abdominal: Reports: no symptoms Genitourinary: Reports: no symptoms Neurologic/Psychiatric: Reports: no symptoms Endocrine: Reports: no symptoms Hematologic/Lymphatic: Reports: no symptoms Allergies: Coded Allergies: No Known Allergies (Unverified , 07/15/16) Subjective No acute o/n events Feels better today Denies f/c, d/c, chest pain, SOB, abd pain Asking to go to rehab Objective Last 24 Hour Vital Signs Date Time Temp Pulse Resp B/P Pulse Ox O2 Delivery O2 Flow Rate FiO2 01/06/17 20:00 97.3 93 19 108/68 99 Room Air 01/06/17 19:30 82 20 Room Air 21 01/06/17 17:47 97.7 01/06/17 16:00 97.7 88 18 124/65 97 Room Air 01/06/17 07:54 96.8 92 18 109/79 99 Room Air 01/06/17 07:46 86 18 Room Air 01/06/17 04:00 96.4 74 20 132/81 99 Room Air 01/06/17 00:00 96.6 69 20 121/65 96 Room Air Intake and Output 01/05/17 01/06/17 19:00 07:00 Intake Total 820 ml Output Total 1000 ml 550 ml Balance -180 ml -550 ml Intake Oral 720 ml IV Total 100 ml Output Urine Total 1000 ml 550 ml Height (Feet): 5 Height (Inches): 7.00 Weight (Pounds): 350 Objective General: alert, cooperative, no distress, appears stated age, morbidly obese Head: normocephalic, without obvious abnormality, atraumatic Eyes: conjunctivae/corneas clear. PERRL, EOM's intact Throat: lips, mucosa, and tongue normal. MMM Neck: supple, symmetrical, trachea midline, and no JVD Lungs: clear to auscultation bilaterally Heart: regular rate and rhythm, S1, S2 normal, no murmur, click, rub or gallop Abdomen: soft, non-tender, non-distended, bowel sounds normal; no masses or organomegaly : suprapubic catheter site c/d/i Extremities: extremities normal, atraumatic, no cyanosis or edema Pulses: 2+ and symmetric Skin: skin color, texture, turgor normal; no rashes or lesions Neurologic: +weakness BLE, stable Gregg Cortes M.D. January 06, 2017 23:48
[2017-01-07] VITALS (9 sets, daily range): BP systolic 101–149; BP diastolic 59–86
--- NOTE | 2017-01-07 02:46 | Consultation ---
DATE OF CONSULTATION: 01/06/2017 CONSULTING PHYSICIAN: Shaheen Gutierrez M.D. REFERRING PHYSICIAN: Gergg Cortes M.D. REASON FOR CONSULTATION: For evaluation of suprapubic tube and UTI. HISTORY OF PRESENT ILLNESS: This is a 51-year-old female. She has a history of neurogenic bladder and chronic suprapubic tube from recent evaluation. I saw her on 12/11/2016 in the emergency room for suprapubic tube that was occluded. The catheter was removed and 22-[place] catheter was placed. The patient had a urinary tract infection and was treated with a course of antibiotics. She was admitted last week again because of urinary tract infection and weakness. She is due for suprapubic tube. Urology evaluation is requested. PAST MEDICAL HISTORY: Significant for history of neurogenic bladder as noted above, history of diabetes mellitus, history of recurrent UTIs, hyperlipidemia, obesity, and pressure ulcers. PAST SURGICAL HISTORY: She has had a suprapubic tube as noted above. CURRENT MEDICATIONS: Here in the hospital, the patient is on Glucotrol, , Levemir, Zofran, Feosol, Lasix, Culturelle, multivitamins, Actos, subcutaneous heparin, pravastatin, Lyrica, Cymbalta, Baclofen inhaler, Ativan, dextrose, and Dulcolax. ALLERGIES: No known drug allergies. SOCIAL HISTORY: She is currently nonsmoker. FAMILY HISTORY: Noncontributory. REVIEW OF SYSTEMS: No chest pain. PHYSICAL EXAMINATION: GENERAL: A pleasant female. VITAL SIGNS: Temperature is 97.7 degrees, blood pressure is /65, pulse 88, and respirations 18. HEENT: Normocephalic. NECK: Supple without lymphadenopathy. Suprapubic tube is in place. Urine is [place]. LABORATORY DATA: Her UA showed 10 to 15 RBCs, 3 to 4 WBCs, many bacteria, and 2+ protein. Urine culture on 01/03/2017 showed three strains of gram-negative bacilli. Blood cultures are negative thus far. Her BUN is 12, creatinine 0.8, and potassium 4.0. White count is 5.2, hemoglobin 12.0, and platelets are 213,000. DIAGNOSTIC IMAGING STUDIES: The patient had a renal ultrasound during the last admission, which was essentially negative. IMPRESSION: 1. Urinary retention with chronic suprapubic tube. 2. Neurogenic bladder. 3. Urinary tract infection and colonization. 4. Hematuria. 5. Proteinuria. PLAN AND DISCUSSION: The patient does have a suprapubic tube in place and is due for exchange. She is on antibiotics per recommendation of ID for UTI and colonization. I will plan to exchange the suprapubic tube prior to her discharge. At some point, she may need to have cystoscopy to evaluate the bladder. Thank you for this consultation. Shaheen Gutierrez M.D. DR: JOEL JOB#: [id number] CC:
[2017-01-07] MEDS: NovoLOG Insulin Flexpen SUBQ SCH ×7 (06:30→21:22)
[2017-01-07] MEDS: GlipiZIDE 10mg tab ORAL SCH ×2 (06:30→16:56)
--- NOTE | 2017-01-07 09:04 | Urology Progress Note ---
Assessment/Plan Assessment/Plan 1. Urinary retention with chronic suprapubic tube. 2. Neurogenic bladder. 3. Urinary tract infection and colonization. 4. Hematuria. 5. Proteinuria. abx as ordered I personally changed SP tube new 22f cath placed irrigated well and position is satisfactory rec to change q 3-4 weeks Subjective Allergies: Coded Allergies: No Known Allergies (Unverified , 07/15/16) Subjective all noted, feels fair, going to SNF today Objective Last 24 Hour Vital Signs Date Time Temp Pulse Resp B/P Pulse Ox O2 Delivery O2 Flow Rate FiO2 01/07/17 07:57 96.4 89 18 120/80 96 Room Air 01/07/17 06:45 85 18 Room Air 21 01/07/17 04:00 96.7 88 18 115/59 99 Room Air 01/07/17 00:00 97.2 82 19 127/70 100 Room Air 01/06/17 20:00 97.3 93 19 108/68 99 Room Air 01/06/17 19:30 82 20 Room Air 21 01/06/17 17:47 97.7 01/06/17 16:00 97.7 88 18 124/65 97 Room Air Intake and Output 01/06/17 01/07/17 19:00 07:00 Intake Total 720 ml 120 ml Output Total 1800 ml 900 ml Balance -1080 ml -780 ml Intake Oral 720 ml 120 ml Output Urine Total 1800 ml 900 ml Microbiology Date/Time Source Procedure Growth Status 01/03/17 20:10 Blood Blood Culture - Preliminary NO GROWTH AFTER 72 HOURS Resulted 01/03/17 19:30 Urine,Suprapubic Urine Culture - Preliminary Gram Negative Bacillus 1 Proteus Mirabilis Gram Negative Bacillus 3 Resulted Current Medications Medications (Trade) Dose Ordered Sig/Cristóbal Route PRN Reason Start Time Stop Time Status Last Admin Dose Admin Acetaminophen/ Hydrocodone Bitart ([place] 10/325) 1 ea Q6H PRN ORAL For Pain 01/03/17 17:15 01/10/17 17:14 Albuterol/ Ipratropium (DuoNeb 0.5-3(2.5)mg/3ml) 3 ml Q4H PRN HHN Shortness of Breath 01/03/17 17:15 01/08/17 17:14 Baclofen (Lioresal) 20 mg THREE TIMES A DAY ORAL 01/03/17 18:00 02/02/17 17:59 01/06/17 16:48 Bisacodyl (Dulcolax) 10 mg DAILYPRN PRN RECTAL Constipation 01/03/17 17:00 02/02/17 16:59 Chlorhexidine Gluconate (Glenda-Hex 2%) 1 applic DAILY TOPIC 01/05/17 09:00 02/04/17 08:59 Dextrose (Dextrose 50%) STAT PRN IV Hypoglycemia 01/03/17 17:00 02/02/17 16:59 Duloxetine HCl (Cymbalta) 30 mg BID ORAL 01/03/17 20:00 02/02/17 19:59 01/06/17 16:46 Ertapenem/Sodium Chloride (INVanz/Sodium Chloride) 55 ml @ 110 mls/hr Q24H IVPB 01/06/17 12:00 01/13/17 11:59 01/06/17 13:30 Ferrous Sulfate (Feosol) 325 mg DAILY ORAL 01/04/17 09:00 02/03/17 08:59 01/06/17 08:19 Furosemide (Lasix) 40 mg DAILY ORAL 01/04/17 09:00 02/03/17 08:59 01/06/17 08:20 Glipizide (Glucotrol) 10 mg BIAC ORAL 01/06/17 16:30 02/05/17 16:29 01/07/17 06:30 Heparin Sodium (Porcine) (Heparin 5000 units/ml) 5,000 units EVERY 12 HOURS SUBQ 01/03/17 21:00 02/02/17 20:59 01/06/17 21:33 Insulin Aspart (NovoLOG) BEFORE MEALS AND HS SUBQ 01/03/17 21:00 02/02/17 20:59 01/07/17 06:30 Insulin Aspart (NovoLOG) 5 units NOVOTIAC SUBQ 01/05/17 16:50 02/04/17 16:49 01/07/17 07:48 Insulin Detemir (Levemir) 24 units QHS SUBQ 01/05/17 21:00 02/04/17 20:59 01/06/17 21:34 Lactobacillus Acidophilus (Culturelle) 1 tab DAILY ORAL 01/04/17 09:00 02/03/17 08:59 5/22/17 08:19 Lorazepam (Ativan) 1 mg TIDPRN PRN ORAL ANXIETY 01/03/17 17:15 01/10/17 17:14 Mineral Oil (Fleet's Mineral Oil Enema) 133 ml DAILYPRN PRN RECTAL Constipation 01/03/17 17:15 02/02/17 17:14 Multivitamins (Multivitamins) 1 tab DAILY ORAL 01/04/17 09:00 02/03/17 08:59 01/06/17 08:19 Nystatin (Nystop Powder) 1 applic THREE TIMES A DAY TOPIC 01/03/17 20:00 02/02/17 19:59 01/06/17 16:46 Ondansetron HCl (Zofran) 4 mg Q6H PRN IVP Nausea & Vomiting 01/04/17 13:00 02/03/17 12:59 01/04/17 13:08 Pioglitazone HCl (Actos) 30 mg ACBREAKFAST ORAL 01/04/17 06:30 02/03/17 06:29 01/07/17 06:30 Pravastatin Sodium (Pravachol) 40 mg BEDTIME ORAL 01/03/17 21:00 02/02/17 20:59 01/06/17 21:29 Pregabalin (Lyrica) 200 mg Q12HR ORAL 01/03/17 21:00 02/02/17 20:59 01/06/17 21:00 Vitamin D 1000 intlu 1,000 intlu DAILY ORAL 01/06/17 10:00 02/05/17 09:59 01/06/17 11:30 Height (Feet): 5 Height (Inches): 7.00 Weight (Pounds): 350 Objective exam stable DAPHNIE VIDES January 07, 2017 09:04
[2017-01-07] MEDS: Lactobacillus-GG tablet ORAL SCH (09:40)
[2017-01-07] MEDS: Lyrica 50mg cap ORAL SCH ×2 (09:45→20:47)
[2017-01-07] MEDS: DULoxetine 30mg cap ORAL SCH ×2 (09:52→18:13)
[2017-01-07] MEDS: Vitamin D 1000 IU Tab ORAL SCH (09:53)
[2017-01-07] MEDS: Furosemide 40mg tab ORAL SCH (10:02)
[2017-01-07] MEDS: Heparin 5000 units/ml inj SUBQ SCH ×2 (10:36→20:51)
[2017-01-07] MEDS: Dyna-Hex 2% Top Sol 8oz TOPIC SCH (10:37)
[2017-01-07] MEDS: Nystatin Powder 100,000 units/gm 15gm TOPIC SCH ×3 (10:38→18:14)
[2017-01-07] MEDS: Ertapenem 1 GM in NS 55 ML IVPB SCH (12:02)
[2017-01-07] MEDS ORDERED: Levemir Flexpen SUBQ SCH (21:00)
[2017-01-08 04:00] VITALS: BP 138/71
[2017-01-08] MEDS: GlipiZIDE 10mg tab ORAL SCH ×2 (05:54→17:01)
[2017-01-08] MEDS: NovoLOG Insulin Flexpen SUBQ SCH ×6 (05:55→16:55)
[2017-01-08] MEDS: Dyna-Hex 2% Top Sol 8oz TOPIC SCH (08:15)
[2017-01-08] MEDS: Vitamin D 1000 IU Tab ORAL SCH (08:16)
[2017-01-08] MEDS: Lyrica 50mg cap ORAL SCH (08:16)
[2017-01-08] MEDS: Furosemide 40mg tab ORAL SCH (08:16)
[2017-01-08] MEDS: DULoxetine 30mg cap ORAL SCH ×2 (08:17→17:01)
[2017-01-08] MEDS: Lactobacillus-GG tablet ORAL SCH (08:17)
[2017-01-08] MEDS: Heparin 5000 units/ml inj SUBQ SCH (08:23)
--- NOTE | 2017-01-08 08:44 | General Progress Note ---
Assessment/Plan Problem List: (1) Recurrent UTI ICD Codes: N39.0 - Urinary tract infection, site not specified SNOMED: 838965188 (2) Generalized weakness ICD Codes: R53.1 - Weakness SNOMED: 80459664 (3) Suprapubic catheter ICD Codes: Z93.59 - Other cystostomy status SNOMED: 348441933 (4) Morbid obesity ICD Codes: E66.01 - Morbid (severe) obesity due to excess calories SNOMED: 051709459 (5) Diabetes mellitus type 2 with complications, uncontrolled ICD Codes: E11.8 - Type 2 diabetes mellitus with unspecified complications; E11.65 - Type 2 diabetes mellitus with hyperglycemia SNOMED: 53686763, 684228733, 326640504 (6) Peripheral neuropathy ICD Codes: G62.9 - Polyneuropathy, unspecified SNOMED: 51858627 (7) Pressure ulcer of left buttock, stage 2 ICD Codes: L89.322 - Pressure ulcer of left buttock, stage 2 SNOMED: 898690699 (8) Pressure ulcer of coccygeal region, stage 2 ICD Codes: L89.152 - Pressure ulcer of sacral region, stage 2 SNOMED: 661647179 (9) Intertrigo ICD Codes: L30.4 - Erythema intertrigo SNOMED: 62533448 Status: stable Assessment/Plan ID consulted, appreciate rec's Change to ertapenem per ID x 7 days (01/06-), s/p zosyn (01/03-01/06) Suprapubic catheter last changed on 12/11 Urology consulted for SP catheter exchange, appreciate rec's SP catheter exchanged on 01/07/17 F/u urine cx--GNR Cont home meds [facility] Cont Lispro 8U TID AC Incr Lantus to 28U qHS Glipizide 10mg BID AC Hold Actos Pain control, supportive care, bowel regimen PT/OT Wound care SW consult for SNF placement--awaiting bed confirmation DVT Prophylaxis: SCD, HSQ Code Status: Full Hospital Classification Declaration: Based on this initial evaluation, and depending on the patient's clinical course, I anticipate that this patient will require hospitalization for 2-3 days for generalized weakness, UTI, and close respiratory/hemodynamic monitoring. Disposition: Once the patient is stable to leave the hospital, I anticipate the patient will likely be discharged to the following environment: SNF I spent 40 minutes on this patient's case, and 22 minutes were dedicated to counseling and/or care coordination. Discussed with patient/family, nursing staff, SW/PATRICIA, ID regarding clinical status, treatment course, and disposition planning. Time of note may not reflect time of encounter. Subjective Date patient seen: January 07, 2017 Time patient seen: 16:00 Constitutional: Reports: no symptoms HEENT: Reports: no symptoms Cardiovascular: Reports: no symptoms Respiratory: Reports: no symptoms Gastrointestinal/Abdominal: Reports: no symptoms Genitourinary: Reports: no symptoms Neurologic/Psychiatric: Reports: no symptoms Endocrine: Reports: no symptoms Allergies: Coded Allergies: No Known Allergies (Unverified , 07/15/16) All Systems: reviewed and negative except above Subjective No acute o/n events Feels better today Denies f/c, d/c, chest pain, SOB, abd pain Asking to go to rehab Objective Last 24 Hour Vital Signs Date Time Temp Pulse Resp B/P Pulse Ox O2 Delivery O2 Flow Rate FiO2 01/08/17 07:53 93 18 Room Air 21 01/08/17 04:00 96.6 88 18 138/71 100 Room Air 01/07/17 23:47 97.5 96 18 123/62 98 Room Air 01/07/17 20:00 96.6 93 18 101/68 99 Room Air 01/07/17 19:47 87 18 Room Air 21 01/07/17 19:12 97.8 01/07/17 18:16 97.8 99 16 126/71 100 Room Air 01/07/17 16:00 97.8 99 16 126/71 100 Room Air 01/07/17 11:28 97.2 88 13 137/86 100 Room Air Intake and Output 01/07/17 01/08/17 19:00 07:00 Intake Total 240 ml 420 ml Output Total 900 ml 450 ml Balance -660 ml -30 ml Intake Oral 240 ml 420 ml Output Urine Total 900 ml 450 ml Height (Feet): 5 Height (Inches): 7.00 Weight (Pounds): 350 Objective General: alert, cooperative, no distress, appears stated age, morbidly obese Head: normocephalic, without obvious abnormality, atraumatic Eyes: conjunctivae/corneas clear. PERRL, EOM's intact Throat: lips, mucosa, and tongue normal. MMM Neck: supple, symmetrical, trachea midline, and no JVD Lungs: clear to auscultation bilaterally Heart: regular rate and rhythm, S1, S2 normal, no murmur, click, rub or gallop Abdomen: soft, non-tender, non-distended, bowel sounds normal; no masses or organomegaly : suprapubic catheter site c/d/i Extremities: extremities normal, atraumatic, no cyanosis or edema Pulses: 2+ and symmetric Skin: skin color, texture, turgor normal; no rashes or lesions Neurologic: +weakness BLE, stable Gregg Cortes M.D. January 08, 2017 08:44
[2017-01-08] MEDS: Nystatin Powder 100,000 units/gm 15gm TOPIC SCH ×3 (08:50→17:01)
[2017-01-08 08:58] VITALS: BP 108/66
--- NOTE | 2017-01-08 10:28 | Urology Progress Note ---
Assessment/Plan Assessment/Plan 1. Urinary retention with chronic suprapubic tube. 2. Neurogenic bladder. 3. Urinary tract infection and colonization. 4. Hematuria. 5. Proteinuria. keep sp tube, last changed 01/07 hand irrigate PRN abx as ordered cysto later Subjective Allergies: Coded Allergies: No Known Allergies (Unverified , 07/15/16) Subjective all noted, feels fair, new sp tube draining well, dc was held Objective Last 24 Hour Vital Signs Date Time Temp Pulse Resp B/P Pulse Ox O2 Delivery O2 Flow Rate FiO2 01/08/17 09:16 96.9 01/08/17 08:58 96.9 89 20 108/66 98 Room Air 01/08/17 07:53 93 18 Room Air 21 01/08/17 04:00 96.6 88 18 138/71 100 Room Air 01/07/17 23:47 97.5 96 18 123/62 98 Room Air 01/07/17 20:00 96.6 93 18 101/68 99 Room Air 01/07/17 19:47 87 18 Room Air 21 01/07/17 18:16 97.8 99 16 126/71 100 Room Air 01/07/17 16:00 97.8 99 16 126/71 100 Room Air 01/07/17 11:28 97.2 88 13 137/86 100 Room Air Intake and Output 01/07/17 01/08/17 19:00 07:00 Intake Total 240 ml 420 ml Output Total 900 ml 450 ml Balance -660 ml -30 ml Intake Oral 240 ml 420 ml Output Urine Total 900 ml 450 ml Microbiology Date/Time Source Procedure Growth Status 01/03/17 20:10 Blood Blood Culture - Preliminary NO GROWTH AFTER 4 DAYS Resulted 01/03/17 19:30 Urine,Suprapubic Urine Culture - Preliminary Klebsiella Oxytoca Proteus Mirabilis Esbl Resulted Current Medications Medications (Trade) Dose Ordered Sig/Cristóbal Route PRN Reason Start Time Stop Time Status Last Admin Dose Admin Acetaminophen/ Hydrocodone Bitart ([place] 10/325) 1 ea Q6H PRN ORAL For Pain 01/03/17 17:15 01/10/17 17:14 Albuterol/ Ipratropium (DuoNeb 0.5-3(2.5)mg/3ml) 3 ml Q4H PRN HHN Shortness of Breath 01/03/17 17:15 01/08/17 17:14 Baclofen (Lioresal) 20 mg THREE TIMES A DAY ORAL 01/03/17 18:00 02/02/17 17:59 01/08/17 08:17 Bisacodyl (Dulcolax) 10 mg DAILYPRN PRN RECTAL Constipation 01/03/17 17:00 02/02/17 16:59 Chlorhexidine Gluconate (Glenda-Hex 2%) 1 applic DAILY TOPIC 01/05/17 09:00 02/04/17 08:59 01/08/17 08:15 Dextrose (Dextrose 50%) STAT PRN IV Hypoglycemia 01/03/17 17:00 02/02/17 16:59 Duloxetine HCl (Cymbalta) 30 mg BID ORAL 01/03/17 20:00 02/02/17 19:59 01/08/17 08:17 Ertapenem/Sodium Chloride (INVanz/Sodium Chloride) 55 ml @ 110 mls/hr Q24H IVPB 01/06/17 12:00 01/13/17 11:59 01/07/17 12:02 Ferrous Sulfate (Feosol) 325 mg DAILY ORAL 01/04/17 09:00 02/03/17 08:59 01/08/17 08:16 Furosemide (Lasix) 40 mg DAILY ORAL 01/04/17 09:00 02/03/17 08:59 01/08/17 08:16 Glipizide (Glucotrol) 10 mg BIAC ORAL 01/06/17 16:30 02/05/17 16:29 01/08/17 05:54 Heparin Sodium (Porcine) (Heparin 5000 units/ml) 5,000 units EVERY 12 HOURS SUBQ 01/03/17 21:00 02/02/17 20:59 01/08/17 08:23 Insulin Aspart (NovoLOG) BEFORE MEALS AND HS SUBQ 01/03/17 21:00 02/02/17 20:59 01/08/17 05:55 Insulin Aspart (NovoLOG) 8 units NOVOTIAC SUBQ 01/07/17 16:50 02/06/17 16:49 01/08/17 05:56 Insulin Detemir (Levemir) 28 units QHS SUBQ 01/07/17 21:00 02/06/17 20:59 01/07/17 21:20 Lactobacillus Acidophilus (Culturelle) 1 tab DAILY ORAL 01/04/17 09:00 02/03/17 08:59 01/08/17 08:17 Lorazepam (Ativan) 1 mg TIDPRN PRN ORAL ANXIETY 01/03/17 17:15 01/10/17 17:14 Mineral Oil (Fleet's Mineral Oil Enema) 133 ml DAILYPRN PRN RECTAL Constipation 01/03/17 17:15 02/02/17 17:14 Multivitamins (Multivitamins) 1 tab DAILY ORAL 01/04/17 09:00 02/03/17 08:59 01/08/17 08:17 Nystatin (Nystop Powder) 1 applic THREE TIMES A DAY TOPIC 01/03/17 20:00 02/02/17 19:59 01/08/17 08:50 Ondansetron HCl (Zofran) 4 mg Q6H PRN IVP Nausea & Vomiting 01/04/17 13:00 02/03/17 12:59 01/08/17 08:50 Pioglitazone HCl (Actos) 30 mg ACBREAKFAST ORAL 01/04/17 06:30 02/03/17 06:29 01/08/17 05:54 Pravastatin Sodium (Pravachol) 40 mg BEDTIME ORAL 01/03/17 21:00 02/02/17 20:59 01/07/17 20:48 Pregabalin (Lyrica) 200 mg Q12HR ORAL 01/03/17 21:00 02/02/17 20:59 01/08/17 08:16 Vitamin D 1000 intlu 1,000 intlu DAILY ORAL 01/06/17 10:00 02/05/17 09:59 01/08/17 08:16 Height (Feet): 5 Height (Inches): 7.00 Weight (Pounds): 350 Objective exam stable DAPHNIE VIDES January 08, 2017 10:28
[2017-01-08] MEDS: Ertapenem 1 GM in NS 55 ML IVPB SCH (11:38)
[2017-01-08 12:50] VITALS: BP 127/68
--- NOTE | 2017-01-08 13:06 | Infectious Diseases Prog Note ---
Assessment/Plan Assessment/Plan ASSESSMENT AND PLAN: 1. klebsiella and proteus uti - clinically improved - change to Ertapenem for 5 days - check labs 2. The patient has history of diabetes. Continue blood sugar control per primary. 3. Suprapubic catheter. 4. History of UTI 5. Obesity. 6. Hyperlipidemia. 7. Peripheral neuropathy. 8. Generalized weakness. 9. History of edema. 10. History of ulcers. Wound care protocol. 11. Intertrigo. 12. Anemia. 13. Hyperalbuminemia. 14. History of abdominal pain. 15. No known allergies. 16. MAR as noted. 17. Family history is noncontributory. 18. Social history is negative. 19. mar noted 20. Notes were reviewed. 21. Continue treatment with primary consultants. 22. Case was discussed with Dr. Escobedo. 23. Case was discussed with RN. 24. Case discussed with the patient. Subjective Constitutional: Denies: fever HEENT: Denies: congestion Respiratory: Denies: shortness of breath Cardiovascular: Denies: chest pain Gastrointestinal/Abdominal: Denies: diarrhea, nausea, vomiting Genitourinary: Reports: other - + milton Neurologic: Denies: headache Psychiatric: Denies: depression Skin: Denies: rash Hematologic: Denies: bleeding Musculoskeletal: Denies: pain Allergies: Coded Allergies: No Known Allergies (Unverified , 07/15/16) Objective Vital Signs Last 24 Hour Vital Signs Date Time Temp Pulse Resp B/P Pulse Ox O2 Delivery O2 Flow Rate FiO2 01/08/17 12:50 96.8 86 20 127/68 99 Room Air 01/08/17 09:16 96.9 01/08/17 08:58 96.9 89 20 108/66 98 Room Air 01/08/17 07:53 93 18 Room Air 01/08/17 04:00 96.6 88 18 138/71 100 Room Air 01/07/17 23:47 97.5 96 18 123/62 98 Room Air 01/07/17 20:00 96.6 93 18 101/68 99 Room Air 01/07/17 19:47 87 18 Room Air 21 01/07/17 18:16 97.8 99 16 126/71 100 Room Air 01/07/17 16:00 97.8 99 16 126/71 100 Room Air Height (Feet): 5 Height (Inches): 7.00 Weight (Pounds): 350 General Appearance: no acute distress HEENT: normocephalic, atraumatic, anicteric, mucous membranes moist, PERRL, EOMI, pharynx normal, supple, no JVD Respiratory/Chest: lungs clear, normal breath sounds, no accessory muscle use, respiratory distress Cardiovascular: normal peripheral pulses, normal rate, regular rhythm, no gallop/murmur, no JVD Abdomen: normal bowel sounds, soft, non tender, no organomegaly, non distended Genitourinary: other - + milton - urine clearer Extremities: no cyanosis Skin: no rash 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, 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 Lymphatic: no neck adenopathy Musculoskeletal: no effusion Objective none Microbiology Date/Time Source Procedure Growth Status 01/03/17 20:10 Blood Blood Culture - Preliminary NO GROWTH AFTER 4 DAYS Resulted 01/03/17 19:30 Urine,Suprapubic Urine Culture - Preliminary Klebsiella Oxytoca Proteus Mirabilis Esbl Resulted wbc - 5.0 hgb - 12.0 cr - 0.8 Current Medications Medications (Trade) Dose Ordered Sig/Cristóbal Route PRN Reason Start Time Stop Time Status Last Admin Dose Admin Acetaminophen/ Hydrocodone Bitart ([place] 10/325) 1 ea Q6H PRN ORAL For Pain 01/03/17 17:15 01/10/17 17:14 Albuterol/ Ipratropium (DuoNeb 0.5-3(2.5)mg/3ml) 3 ml Q4H PRN HHN Shortness of Breath 01/03/17 17:15 01/08/17 17:14 Baclofen (Lioresal) 20 mg THREE TIMES A DAY ORAL 01/03/17 18:00 02/02/17 17:59 01/08/17 08:17 Bisacodyl (Dulcolax) 10 mg DAILYPRN PRN RECTAL Constipation 01/03/17 17:00 02/02/17 16:59 Chlorhexidine Gluconate (Glenda-Hex 2%) 1 applic DAILY TOPIC 01/05/17 09:00 02/04/17 08:59 01/08/17 08:15 Dextrose (Dextrose 50%) STAT PRN IV Hypoglycemia 01/03/17 17:00 02/02/17 16:59 Duloxetine HCl (Cymbalta) 30 mg BID ORAL 01/03/17 20:00 02/02/17 19:59 01/08/17 08:17 Ertapenem/Sodium Chloride (INVanz/Sodium Chloride) 55 ml @ 110 mls/hr Q24H IVPB 01/06/17 12:00 01/13/17 11:59 01/08/17 11:38 Ferrous Sulfate (Feosol) 325 mg DAILY ORAL 01/04/17 09:00 02/03/17 08:59 01/08/17 08:16 Furosemide (Lasix) 40 mg DAILY ORAL 01/04/17 09:00 02/03/17 08:59 01/08/17 08:16 Glipizide (Glucotrol) 10 mg BIAC ORAL 01/06/17 16:30 02/05/17 16:29 01/08/17 05:54 Heparin Sodium (Porcine) (Heparin 5000 units/ml) 5,000 units EVERY 12 HOURS SUBQ 01/03/17 21:00 02/02/17 20:59 01/08/17 08:23 Insulin Aspart (NovoLOG) BEFORE MEALS AND HS SUBQ 01/03/17 21:00 02/02/17 20:59 01/08/17 11:43 Insulin Aspart (NovoLOG) 8 units NOVOTIAC SUBQ 01/07/17 16:50 02/06/17 16:49 01/08/17 11:43 Insulin Detemir (Levemir) 28 units QHS SUBQ 01/07/17 21:00 02/06/17 20:59 01/07/17 21:20 Lactobacillus Acidophilus (Culturelle) 1 tab DAILY ORAL 01/04/17 09:00 02/03/17 08:59 01/08/17 08:17 Lorazepam (Ativan) 1 mg TIDPRN PRN ORAL ANXIETY 01/03/17 17:15 01/10/17 17:14 Mineral Oil (Fleet's Mineral Oil Enema) 133 ml DAILYPRN PRN RECTAL Constipation 01/03/17 17:15 02/02/17 17:14 Multivitamins (Multivitamins) 1 tab DAILY ORAL 01/04/17 09:00 02/03/17 08:59 01/08/17 08:17 Nystatin (Nystop Powder) 1 applic THREE TIMES A DAY TOPIC 01/03/17 20:00 02/02/17 19:59 01/08/17 08:50 Ondansetron HCl (Zofran) 4 mg Q6H PRN IVP Nausea & Vomiting 01/04/17 13:00 02/03/17 12:59 01/08/17 08:50 Pioglitazone HCl (Actos) 30 mg ACBREAKFAST ORAL 01/04/17 06:30 02/03/17 06:29 01/08/17 05:54 Pravastatin Sodium (Pravachol) 40 mg BEDTIME ORAL 01/03/17 21:00 02/02/17 20:59 01/07/17 20:48 Pregabalin (Lyrica) 200 mg Q12HR ORAL 01/03/17 21:00 02/02/17 20:59 01/08/17 08:16 Vitamin D 1000 intlu 1,000 intlu DAILY ORAL 01/06/17 10:00 02/05/17 09:59 01/08/17 08:16 ARIELA NEVAREZ January 08, 2017 13:06
[2017-01-08 16:10] VITALS: BP 114/73
--- NOTE | 2017-01-08 18:22 | Diagnostic Imaging Report ---
APPROVED REPORT CPT Code: 92392 Present Symptoms Lower Extremity Pain: Bilateral Comments: Limited study due to patient's body habitus. BILATERAL: Imaging reveals a patent deep venous system bilaterally. There is no evidence of thrombus within the common femoral, proximal superficial femoral and the tibial segments. The greater saphenous veins are also within normal limits. Doppler indicates normal spontaneous flow within these segments. Mid superficial femoral to the popliteal veins were not visualized, bilaterally due to patient's body habitus.
[2017-01-08] MEDS ORDERED: Sterile Water Irrig 1000ml IRRIG ONE (19:44)
--- NOTE | 2017-01-09 08:21 | Discharge Summary ---
Discharge Summary Hospital Course Date of Admission January 03, 2017 at 14:57 Date of Discharge January 08, 2017 at 19:45 Admitting Diagnosis UTI, generalized weaknes Reason for Hospitalization: UTI HPI 51 year old female with pmh of DM2 c/b neuropathy, morbid obesity, paraplegia s/ p fall and neurogenic bladder w/ multiple admissions for clogged suprapubic catheter and UTI, multiple decubitus ulcers presents with generalized weakness and concern for UTI. Pt was seen by PCP in office today. She c/o cloudy, malodorous urine, fevers/chills. She also c/o generalized weakness and inability to care for self. She was noted to have uncontrolled sugars. Denies n/ v, d/c, chest pain, SOB. Suprapubic catheter last changed 12/11. Pt recently treatment for UTI during last admission (12/11/16) and states she completed full treatment. Consultations Infectious disease, Urology Procedures Suprapubic catheter exchange by urology on 01/07/17 Hospital Course Pt was admitted and seen by ID. She was started on zosyn for UTI. Culture grew proteus mirabilis. Pt was switched to course of ertapenem on discharge. Pt also with generalized weakness, deconditioning and inability to care for self. Pt was seen by PT/OT who recommended SNF however pt ultimately decided to go home. She will consider SNF for rehab at a later date. Prior to d/c pt was HD stable and tolerating PO. Discharge Medications New Medications: Ertapenem Sodium* (INVanz*) 1 Gm Vial.port 1 GM IVPB Q24H for 7 Days, VIAL Cholecalciferol (Vitamin D3)* (Vitamin D*) 1,000 Unit Tablet 1000 INTLU ORAL DAILY for 30 Days, TAB Glipizide* (Glipizide*) 5 Mg Tablet 10 MG ORAL BIAC for 30 Days, TAB Insulin Aspart (Novolog Flexpen) 100 Unit/1 Ml Insuln.pen 0 UNITS SUBQ BEFORE MEALS AND HS for 30 Days, EA Insulin Aspart (Novolog Flexpen) 100 Unit/1 Ml Insuln.pen 5 UNITS SUBQ NOVOTIAC for 30 Days, EA Continued Medications: Baclofen* (Lioresal*) 20 Mg Tablet 20 MG ORAL THREE TIMES A DAY PRN for Muscle Spasms, TAB Bisacodyl (Dulcolax) 10 Mg Supp.rect 10 MG RC DAILY PRN for Constipation, SUPP Duloxetine Hcl* (Cymbalta*) 30 Mg Capsule.dr 30 MG ORAL BID, CAP Ergocalciferol (Vitamin D2)* (Vitamin D*) 50,000 Unit Capsule 64709 UNIT ORAL ONCE A WEEK, CAP Ferrous Sulfate (Iron) 325 Mg Tablet 325 MG PO DAILY, TAB Furosemide* (Lasix*) 40 Mg Tablet 40 MG ORAL DAILY, TAB Glipizide (Glipizide) 10 Mg Tablet 5 MG ORAL BID, #30 TAB 0 Refills Hydrocodone Bit/Acetaminophen 10-325* ([place] 10-325*) 1 Each Tablet 1 TAB ORAL Q6H PRN for For Pain, #10 TAB 0 Refills PRN PAIN Ipratropium/Albuterol Sulfate (DuoNeb 0.5-3(2.5)mg/3ml) 3 Ml Ampul.neb 3 ML HHN EVERY 4 HOURS PRN for Shortness of Breath, EA Lactobacillus Acidophilus (Probiotic) 1 Each Capsule 1 EACH PO DAILY, CAP Lorazepam* (Ativan*) 1 Mg Tablet 1 MG ORAL THREE TIMES A DAY PRN for For Anxiety, TAB Meloxicam* (Mobic*) 15 Mg Tablet 15 MG ORAL DAILY, #30 TAB 0 Refills Mineral Oil (Mineral Oil Enema) 133 Ml Enema 133 ML RC DAILY PRN for Constipation, EA Multivitamin with Minerals (Multivitamins with Minerals) 1 Each Tablet 1 TAB ORAL DAILY, TAB Pravastatin Sodium (Pravachol) 40 Mg Tablet 40 MG ORAL BEDTIME, TAB Pregabalin* (Lyrica*) 75 Mg Capsule 200 MG ORAL BID, CAP Discontinued Medications: Insulin Glargine (Lantus) 100 Unit/1 Ml Insuln.pen 12 UNITS SUBQ BEDTIME, #1 EA 0 Refills Insulin Regular, Human (Humulin R) 100 Unit/1 Ml Vial 0 SUBQ BEFORE MEALS AND HS, VIAL Pioglitazone Hcl* (Actos*) 30 Mg Tablet 30 MG ORAL DAILY, TAB Discharge Condition Upon Discharge: stable Discharge Disposition Patient was discharged to Home with Home Health(06) Discharge Diagnoses: (1) Recurrent UTI (2) Neurogenic bladder (3) Suprapubic catheter (4) Diabetes mellitus type 2 with complications, uncontrolled (5) Paraplegia (6) Generalized weakness (7) Pressure ulcer of coccygeal region, stage 2 (8) Intertrigo Wijegunaratne,Kanishka M.D. January 09, 2017 08:21
== END 2017-01-08 19:45 | disposition home health service (06) | DRG 690 ==
LOC: 4W 14:57
PROC: 02HV33Z Insertion of Infusion Device into Superior Vena Cava, Percutaneous Approach (ICD-10-PCS; principal; 2017-01-06)
DX: N39.0 Urinary tract infection, site not specified (principal); L89.152 Pressure ulcer of sacral region, stage 2; G82.20 Paraplegia, unspecified; L89.322 Pressure ulcer of left buttock, stage 2; Z68.43 Body mass index [BMI] 50.0-59.9, adult; E11.9 Type 2 diabetes mellitus without complications; D64.9 Anemia, unspecified; Z93.59 Other cystostomy status; E66.01 Morbid (severe) obesity due to excess calories; G90.9 Disorder of the autonomic nervous system, unspecified; N31.9 Neuromuscular dysfunction of bladder, unspecified; G62.9 Polyneuropathy, unspecified; T14.8 Other injury of unspecified body region; W19.XXXS Unspecified fall, sequela; E78.5 Hyperlipidemia, unspecified; Z79.4 Long term (current) use of insulin; L30.4 Erythema intertrigo; R33.9 Retention of urine, unspecified
CPT/HCPCS: 36415; 36569; 76937; 80048; 80053; 81001; 82962; 83735; 85025; 87040; 87086; 87181; 93970; 94664; J1815; J2405; S5561

== ENCOUNTER 2017-03-17 11:33 | Inpatient (IN) | payer MEDICARE, MEDICAID, OTHER ==
[~2017-03-17] VITALS: Ht 170.2 cm; Wt 158.8 kg
[~2017-03-17 11:33] MED LIST changes: +GLIPIZIDE5 MG ORAL; +INVANZ1 GM IVPB; +NOVOLOG100 UNITS1 SUBQ; +VITAMIN D1000 UNI1 ORAL
[2017-03-17] MEDS ORDERED: Metoclopramide 10mg/2ml Inj IVP PRN (16:00)
[2017-03-17] MEDS ORDERED: LORazepam 1mg tab ORAL PRN (16:00)
[2017-03-17] MEDS ORDERED: Fleet's Mineral Oil Enema RECTAL PRN (16:00)
[2017-03-17] MEDS ORDERED: Miralax 17gm pkt ORAL PRN (16:00)
[2017-03-17] MEDS ORDERED: Milk of Magnesia 30ml Ud ORAL PRN (16:00)
[2017-03-17] MEDS ORDERED: Mylanta II UD 30ml ORAL PRN (16:00)
[2017-03-17] MEDS ORDERED: DuoNeb 0.5-3(2.5)mg/3ml neb HHN PRN (16:00)
[2017-03-17 17:18] VITALS: BP 121/67
--- NOTE | 2017-03-17 17:26 | History and Physical ---
History of Present Illness General Date patient seen: Mar 17, 2017 Time patient seen: 17:26 Reason for Hospitalization: generalized weakness, sacral pain, UTI Present Illness HPI 51 year old female with pmh of DM2 c/b neuropathy, morbid obesity, paraplegia s/ p fall and neurogenic bladder w/ multiple admissions for clogged suprapubic catheter and UTI, multiple decubitus ulcers presents with generalized weakness and concern for UTI. Pt c/o cloudy, malodorous urine, fevers/chills. She also c/ o generalized weakness and inability to care for self. She was noted to have uncontrolled sugars. Denies n/v, d/c, chest pain, SOB. Suprapubic catheter last changed during last admission so it overdue fo rchange. Pt recently treatment for UTI during last admission (01/07) and states she completed full treatment w/ ertapenem at home. She still has PICC line in place since last admission. Allergies: Coded Allergies: No Known Allergies (Unverified , 07/15/16) Medication History Scheduled Cholecalciferol (Vitamin D3)* (Vitamin D*), 1,000 INTLU ORAL DAILY Duloxetine Hcl* (Cymbalta*), 30 MG ORAL BID, (Reported) Ergocalciferol (Vitamin D2)* (Vitamin D*), 50,000 UNIT ORAL ONCE A WEEK, ( Reported) Ertapenem Sodium* (INVanz*), 1 GM IVPB Q24H Ferrous Sulfate (Iron), 325 MG PO DAILY, (Reported) Furosemide* (Lasix*), 40 MG ORAL DAILY, (Reported) Glipizide (Glipizide), 5 MG ORAL BID, (Reported) Glipizide* (Glipizide*), 10 MG ORAL BIAC Insulin Aspart (Novolog Flexpen), 0 UNITS SUBQ BEFORE MEALS AND HS Insulin Aspart (Novolog Flexpen), 5 UNITS SUBQ NOVOTIAC Lactobacillus Acidophilus (Probiotic), 1 EACH PO DAILY, (Reported) Meloxicam* (Mobic*), 15 MG ORAL DAILY, (Reported) Multivitamin with Minerals (Multivitamins with Minerals), 1 TAB ORAL DAILY, ( Reported) Pravastatin Sodium (Pravachol), 40 MG ORAL BEDTIME, (Reported) Pregabalin* (Lyrica*), 200 MG ORAL BID, (Reported) [ms contin sr], 15 MG PO TID, (Reported) Scheduled PRN Baclofen* (Lioresal*), 20 MG ORAL THREE TIMES A DAY PRN for Muscle Spasms, ( Reported) Bisacodyl (Dulcolax), 10 MG RC DAILY PRN for Constipation, (Reported) Hydrocodone Bit/Acetaminophen 10-325* ([place] 10-325*), 1 TAB ORAL Q6H PRN for For Pain, (Reported) Ipratropium/Albuterol Sulfate (DuoNeb 0.5-3(2.5)mg/3ml), 3 ML HHN EVERY 4 HOURS PRN for Shortness of Breath, (Reported) Lorazepam* (Ativan*), 1 MG ORAL THREE TIMES A DAY PRN for For Anxiety, (Reported ) Mineral Oil (Mineral Oil Enema), 133 ML RC DAILY PRN for Constipation, (Reported ) [ocean nasal spray], 1 SPRAYS NASAL EVERY 2 HOURS PRN for congestion, (Reported) Patient History Healthcare decision maker N Resuscitation status Full Code Advanced Directive on File Family History Family History: Patient reports no known family medical history. Social History Social History: (1) Lives in private house Review of Systems Constitutional: Reports: fever, weakness Eye: Reports: no symptoms ENT: Reports: no symptoms Respiratory: Reports: no symptoms Cardiovascular: Reports: no symptoms Gastrointestinal: Reports: no symptoms Genitourinary: Reports: dysuria, frequency, other - cloudy, malodorous urine Skin: Reports: no symptoms Psychiatric: Reports: no symptoms Neurological: Reports: no symptoms Endocrine: Reports: no symptoms Hematologic/Lymphatic: Reports: no symptoms Physical Exam Physical Exam Narrative General: alert, cooperative, no distress, appears stated age, morbidly obese Head: normocephalic, without obvious abnormality, atraumatic Eyes: conjunctivae/corneas clear. PERRL, EOM's intact Throat: lips, mucosa, and tongue normal. MMM Neck: supple, symmetrical, trachea midline, and no JVD Lungs: clear to auscultation bilaterally Heart: regular rate and rhythm, S1, S2 normal, no murmur, click, rub or gallop Abdomen: soft, non-tender, non-distended, bowel sounds normal; no masses or organomegaly : suprapubic catheter site c/d/i Extremities: extremities normal, atraumatic, no cyanosis or edema Pulses: 2+ and symmetric Skin: skin color, texture, turgor normal; no rashes or lesions Neurologic: +weakness BLE, stable Last 24 Hour Vital Signs Date Time Temp Pulse Resp B/P Pulse Ox O2 Delivery O2 Flow Rate FiO2 03/17/17 17:18 96.6 85 15 121/67 96 Room Air Height (Feet): 5 Height (Inches): 7.00 Weight (Pounds): 350 Medications Current Medications Medications (Trade) Dose Ordered Sig/Cristóbal Route PRN Reason Start Time Stop Time Status Last Admin Dose Admin Acetaminophen (Tylenol) 650 mg Q4H PRN ORAL Mild Pain (Pain Scale 1-3) 03/17/17 16:00 04/16/17 15:59 Acetaminophen/ Hydrocodone Bitart ([place] 10/325) 1 ea Q6H PRN ORAL moderate to severe pain 03/17/17 16:00 03/24/17 15:59 Al Hydroxide/Mg Hydroxide (Mylanta II) 30 ml Q6H PRN ORAL dyspepsia 03/17/17 16:00 04/16/17 15:59 Albuterol/ Ipratropium (DuoNeb 0.5-3(2.5)mg/3ml) 3 ml Q4H PRN HHN Shortness of Breath 03/17/17 16:00 03/22/17 15:59 Baclofen (Lioresal) 20 mg TIDPRN PRN ORAL Muscle Spasms 03/17/17 16:00 04/16/17 15:59 Bisacodyl (Dulcolax) 10 mg DAILYPRN PRN RECTAL Constipation Third Line Agent 03/17/17 16:00 04/16/17 15:59 Bisacodyl (Dulcolax) 10 mg HSPRN PRN RECTAL Constipation 03/17/17 16:00 04/16/17 15:59 Dextrose (Dextrose 50%) STAT PRN IV Hypoglycemia 03/17/17 16:30 04/16/17 16:29 Diphenhydramine HCl (Benadryl) 25 mg Q6H PRN ORAL Itching/Pruritis 03/17/17 16:00 04/16/17 15:59 Docusate Sodium (Colace) 100 mg EVERY 12 HOURS ORAL 03/17/17 21:00 04/16/17 20:59 Duloxetine HCl (Cymbalta) 30 mg BID ORAL 03/17/17 18:00 04/16/17 17:59 Ferrous Sulfate (Feosol) 325 mg DAILY ORAL 03/18/17 09:00 04/17/17 08:59 Glipizide (Glucotrol) 10 mg BIAC ORAL 03/17/17 17:30 04/16/17 17:29 Heparin Sodium (Porcine) (Heparin 5000 units/ml) 5,000 units EVERY 12 HOURS SUBQ 03/17/17 21:00 04/16/17 20:59 UNV Insulin Aspart (NovoLOG) BEFORE MEALS AND HS SUBQ 03/17/17 21:00 04/16/17 20:59 Lorazepam (Ativan) 1 mg TIDPRN PRN ORAL For Anxiety 03/17/17 16:00 03/24/17 15:59 Magnesium Hydroxide (Mom) 30 ml HSPRN PRN ORAL Constipation Second Line Agent 03/17/17 16:00 04/16/17 15:59 Metoclopramide HCl (Reglan) 10 mg Q6H PRN IVP Nausea & Vomiting 03/17/17 16:00 04/16/17 15:59 Mineral Oil (Fleet's Mineral Oil Enema) 133 ml DAILYPRN PRN RECTAL Constipation Fourth Line Agent 03/17/17 16:00 04/16/17 15:59 Multivitamins Therapeutic (Therapeutic Multivitamin) 1 ea DAILY ORAL 03/18/17 09:00 04/17/17 08:59 Ondansetron HCl (Zofran) 4 mg Q6H PRN IVP Nausea & Vomiting 03/17/17 16:00 04/16/17 15:59 Polyethylene Glycol (Miralax) 17 gm HSPRN PRN ORAL Constipation First Line Agent 03/17/17 16:00 04/16/17 15:59 Pravastatin Sodium (Pravachol) 40 mg BEDTIME ORAL 03/17/17 21:00 04/16/17 20:59 Pregabalin (Lyrica) 200 mg BID ORAL 03/17/17 18:00 04/16/17 17:59 Sodium Chloride (0.45% NS 1000ml) 1,000 ml @ 75 mls/hr [id number] IV 03/17/17 18:00 04/16/17 17:59 Vitamin D (Vitamin D) 1,000 intlu DAILY ORAL 03/18/17 09:00 04/17/17 08:59 Assessment/Plan Problem List: (1) UTI (urinary tract infection) Assessment & Plan: UTI in setting of suprapubic catheter ICD Codes: N39.0 - Urinary tract infection, site not specified SNOMED: 42541267 (2) Hypomagnesemia ICD Codes: E83.42 - Hypomagnesemia SNOMED: 857531573 (3) Hyponatremia ICD Codes: E87.1 - Hypo-osmolality and hyponatremia SNOMED: 45556810 (4) Pressure ulcer of sacral region, unspecified stage ICD Codes: L89.159 - Pressure ulcer of sacral region, unspecified stage SNOMED: 919920323 (5) Neurogenic bladder ICD Codes: N31.9 - Neuromuscular dysfunction of bladder, unspecified SNOMED: 816311427 (6) Suprapubic catheter ICD Codes: Z93.59 - Other cystostomy status SNOMED: 789864056 (7) Diabetes mellitus type 2 with complications, uncontrolled ICD Codes: E11.8 - Type 2 diabetes mellitus with unspecified complications; E11.65 - Type 2 diabetes mellitus with hyperglycemia SNOMED: 51837458, 025476742, 069408017 (8) Morbid obesity ICD Codes: E66.01 - Morbid (severe) obesity due to excess calories SNOMED: 141169645 (9) Generalized weakness ICD Codes: R53.1 - Weakness SNOMED: 37666436 (10) Peripheral neuropathy ICD Codes: G62.9 - Polyneuropathy, unspecified SNOMED: 65035150 (11) Paraplegia ICD Codes: G82.20 - Paraplegia, unspecified SNOMED: 27723744 Status: stable Assessment/Plan Admit inpt ID consulted Start meropenem (01/07-) given abnormal U/A concerning for UTI Suprapubic catheter last changed on 01/07 Will consult urology to change SP catheter as it is overdue and in setting of infection F/u urine cx Cont home meds BALBIR Levermir 18U BID Pain control, supportive care, bowel regimen Trend CBC, BMP Replete lytes IVFs PT/OT Wound care Will likely need SNF placement DVT Prophylaxis: SCD, HSQ Code Status: Full Hospital Classification Declaration: Based on this initial evaluation, and depending on the patient's clinical course, I anticipate that this patient will require hospitalization for 2-3 days for suprapubic catheter dysfunction, UTI, and close respiratory/hemodynamic monitoring. Disposition: Once the patient is stable to leave the hospital, I anticipate the patient will likely be discharged to the following environment: SNF I spent 70 minutes on this patient's case, and 36 minutes were dedicated to counseling and/or care coordination. Discussed with patient/family, nursing staff, SW/CM, ID, urology regarding clinical status, treatment course, and disposition planning. Time of note may not reflect time of encounter. Gregg Cortes M.D. Mar 17, 2017 17:26
[2017-03-17] MEDS ORDERED: GlipiZIDE 5mg tab ORAL SCH (17:30)
[2017-03-17 17:41] LABS: APPEARANCE,URINE CLOUDY; KETONES,URINE NEGATIVE (NEGATIVE); LEUKOCYTE ESTERASE ,URINE 3+ (NEGATIVE); NITRITE,URINE POSITIVE (NEGATIVE); PH,URINE 6 (4.5-8.0); PROTEIN,URINE 2+ (NEGATIVE); UROBILINOGEN,URINE NORMAL MG/DL (0.0-1.0)
[2017-03-17 17:51] LABS: BASOPHILS % (AUTO) 1.1 % (0.0-2.0); EOSINOPHILS % (AUTO) 4.3 % (0.0-3.0); LYMPHOCYTES % (AUTO) 41.1 % (20.0-45.0); MEAN CORPUSCULAR HEMOGLOBIN 30.1 PG (27.0-31.0); MEAN CORPUSCULAR HGB CONC 33.8 G/DL (32.0-36.0); MEAN CORPUSCULAR VOLUME 89 FL (80-99); MEAN PLATELET VOLUME 9.1 FL (6.5-10.1); MONOCYTES % (AUTO) 7.5 % (1.0-10.0); PLATELET COUNT 180 K/UL (150-450); RED BLOOD COUNT 4.39 M/UL (4.20-5.40); RED CELL DISTRIBUTION WIDTH 13.2 % (11.6-14.8); WHITE BLOOD COUNT 5.5 K/UL (4.8-10.8)
[2017-03-17 17:55] LABS: BACTERIA,URINE MANY /HPF; RBC,URINE 60-80 /HPF (0 - 2); SQUAMOUS EPITHELIAL CELL,UR FEW /LPF (NONE/OCC); WBC,URINE 20-30 /HPF (0 - 2)
[2017-03-17 18:02] LABS: ALANINE AMINOTRANSFERASE 12 U/L (3-33); ALBUMIN/GLOBULIN RATIO 1.1 (1.0-2.7); ANION GAP 10 (5-15); ASPARTATE AMINO TRANSFERASE 15 U/L (5-40); CALCIUM 9.3 mg/dL (8.6-10.2); CARBON DIOXIDE 29 mEQ/L (20-30); CHLORIDE 92 mEQ/L (98-107); CREATININE 0.7 mg/dL (0.5-0.9); GLOMERULAR FILTRATION RATE > 60 mL/min (>60); HEMOLYSIS 3; MAGNESIUM 1.4 mg/dL (1.7-2.5); SODIUM 131 mEQ/L (135-145); TOTAL PROTEIN 6.6 g/dL (6.6-8.7)
--- NOTE | 2017-03-17 18:09 | Infectious Diseases Prog Note ---
Assessment/Plan Assessment/Plan ASSESSMENT AND PLAN: 1. uti, complicated uti, ? suprapubic catheter site infection, weakness, sacral pain - hx esbl infection - meropenem - check urine culture and suprapubic site wound culture - watch labs 2. Diabetes - continue blood sugar control per primary. 3. Suprapubic catheter. 4. History of UTI and esbl infection 5. Obesity. 6. Hyperlipidemia. 7. Peripheral neuropathy. 8. Generalized weakness. 9. History of edema. 10. History of ulcers. Wound care protocol. 11. Intertrigo. 12. Anemia. 13. Hyperalbuminemia. 14. History of abdominal pain. 15. No known allergies. 16. MAR as noted. 17. Family history is noncontributory. 18. Social history is negative. 19. mar noted 20. Notes were reviewed. 21. Continue treatment with primary consultants. 22. Case was discussed with RN. 23. Case discussed with the patient. 24. thank you Subjective Allergies: Coded Allergies: No Known Allergies (Unverified , 07/15/16) Objective Vital Signs Last 24 Hour Vital Signs Date Time Temp Pulse Resp B/P Pulse Ox O2 Delivery O2 Flow Rate FiO2 03/17/17 17:18 96.6 85 15 121/67 96 Room Air Height (Feet): 5 Height (Inches): 7.00 Weight (Pounds): 350 Laboratory Tests Test 03/17/17 17:30 White Blood Count 5.5 K/UL (4.8-10.8) Red Blood Count 4.39 M/UL (4.20-5.40) Hemoglobin 13.2 G/DL (12.0-16.0) Hematocrit 39.1 % (37.0-47.0) Mean Corpuscular Volume 89 FL (80-99) Mean Corpuscular Hemoglobin 30.1 PG (27.0-31.0) Mean Corpuscular Hemoglobin Concent 33.8 G/DL (32.0-36.0) Red Cell Distribution Width 13.2 % (11.6-14.8) Platelet Count 180 K/UL (150-450) Mean Platelet Volume 9.1 FL (6.5-10.1) Neutrophils (%) (Auto) 46.0 % (45.0-75.0) Lymphocytes (%) (Auto) 41.1 % (20.0-45.0) Monocytes (%) (Auto) 7.5 % (1.0-10.0) Eosinophils (%) (Auto) 4.3 % (0.0-3.0) H Basophils (%) (Auto) 1.1 % (0.0-2.0) Urine Color Pale yellow Urine Appearance Cloudy Urine pH 6 (4.5-8.0) Urine Specific [place] 1.010 (1.005-1.035) Urine Protein 2+ (NEGATIVE) H Urine Glucose (UA) 4+ (NEGATIVE) H Urine Ketones Negative (NEGATIVE) Urine Occult Blood 5+ (NEGATIVE) H Urine Nitrite Positive (NEGATIVE) H Urine Bilirubin Negative (NEGATIVE) Urine Urobilinogen Normal MG/DL (0.0-1.0) Urine Leukocyte Esterase 3+ (NEGATIVE) H Urine RBC 60-80 /HPF (0 - 2) H Urine WBC 20-30 /HPF (0 - 2) H Urine Squamous Epithelial Cells Few /LPF (NONE/OCC) Urine Bacteria Many /HPF (NONE) H Sodium Level Pending Potassium Level Pending Chloride Level Pending Carbon Dioxide Level Pending Blood Urea Nitrogen Pending Creatinine Pending Estimat Glomerular Filtration Rate Pending Glucose Level Pending Calcium Level Pending Magnesium Level Pending Total Bilirubin Pending Aspartate Amino Transf (AST/SGOT) Pending Alanine Aminotransferase (ALT/SGPT) Pending Alkaline Phosphatase Pending Pro-B-Type Natriuretic Peptide Pending Total Protein Pending Albumin Pending Globulin Pending Vitamin B12 Level Pending Folate Pending Thyroid Stimulating Hormone (TSH) Pending Current Medications Medications (Trade) Dose Ordered Sig/Cristóbal Route PRN Reason Start Time Stop Time Status Last Admin Dose Admin Acetaminophen (Tylenol) 650 mg Q4H PRN ORAL Mild Pain (Pain Scale 1-3) 03/17/17 16:00 04/16/17 15:59 Acetaminophen/ Hydrocodone Bitart ([place] 10/325) 1 ea Q6H PRN ORAL moderate to severe pain 03/17/17 16:00 03/24/17 15:59 Al Hydroxide/Mg Hydroxide (Mylanta II) 30 ml Q6H PRN ORAL dyspepsia 03/17/17 16:00 04/16/17 15:59 Albuterol/ Ipratropium (DuoNeb 0.5-3(2.5)mg/3ml) 3 ml Q4H PRN HHN Shortness of Breath 03/17/17 16:00 03/22/17 15:59 Baclofen (Lioresal) 20 mg TIDPRN PRN ORAL Muscle Spasms 03/17/17 16:00 04/16/17 15:59 Bisacodyl (Dulcolax) 10 mg DAILYPRN PRN RECTAL Constipation Third Line Agent 03/17/17 16:00 04/16/17 15:59 Bisacodyl (Dulcolax) 10 mg HSPRN PRN RECTAL Constipation 03/17/17 16:00 04/16/17 15:59 Dextrose (Dextrose 50%) STAT PRN IV Hypoglycemia 03/17/17 16:30 04/16/17 16:29 Diphenhydramine HCl (Benadryl) 25 mg Q6H PRN ORAL Itching/Pruritis 03/17/17 16:00 04/16/17 15:59 Docusate Sodium (Colace) 100 mg EVERY 12 HOURS ORAL 03/17/17 21:00 04/16/17 20:59 Duloxetine HCl (Cymbalta) 30 mg BID ORAL 03/17/17 18:00 04/16/17 17:59 Ferrous Sulfate (Feosol) 325 mg DAILY ORAL 03/18/17 09:00 04/17/17 08:59 Glipizide (Glucotrol) 10 mg BIAC ORAL 03/17/17 17:30 04/16/17 17:29 Heparin Sodium (Porcine) (Heparin 5000 units/ml) 5,000 units EVERY 12 HOURS SUBQ 03/17/17 21:00 04/16/17 20:59 UNV Insulin Aspart (NovoLOG) BEFORE MEALS AND HS SUBQ 03/17/17 21:00 04/16/17 20:59 Lorazepam (Ativan) 1 mg TIDPRN PRN ORAL For Anxiety 03/17/17 16:00 03/24/17 15:59 Magnesium Hydroxide (Mom) 30 ml HSPRN PRN ORAL Constipation Second Line Agent 03/17/17 16:00 04/16/17 15:59 Metoclopramide HCl (Reglan) 10 mg Q6H PRN IVP Nausea & Vomiting 03/17/17 16:00 04/16/17 15:59 Mineral Oil (Fleet's Mineral Oil Enema) 133 ml DAILYPRN PRN RECTAL Constipation Fourth Line Agent 03/17/17 16:00 04/16/17 15:59 Multivitamins Therapeutic (Therapeutic Multivitamin) 1 ea DAILY ORAL 03/18/17 09:00 04/17/17 08:59 Ondansetron HCl (Zofran) 4 mg Q6H PRN IVP Nausea & Vomiting 03/17/17 16:00 04/16/17 15:59 Polyethylene Glycol (Miralax) 17 gm HSPRN PRN ORAL Constipation First Line Agent 03/17/17 16:00 04/16/17 15:59 Pravastatin Sodium (Pravachol) 40 mg BEDTIME ORAL 03/17/17 21:00 04/16/17 20:59 Pregabalin (Lyrica) 200 mg BID ORAL 03/17/17 18:00 04/16/17 17:59 Sodium Chloride (0.45% NS 1000ml) 1,000 ml @ 75 mls/hr [id number] IV 03/17/17 18:00 04/16/17 17:59 Vitamin D (Vitamin D) 1,000 intlu DAILY ORAL 03/18/17 09:00 04/17/17 08:59 ARIELA NEVAREZ Mar 17, 2017 18:09
[2017-03-17 18:11] LABS: THYROID STIMULATING HORMONE 2.59 uIU/mL (0.300-4.500)
[2017-03-17] MEDS: DULoxetine 30mg cap ORAL SCH (18:24)
[2017-03-17] MEDS: Norco 10mg/325mg tab ORAL PRN (18:24)
[2017-03-17] MEDS: Lyrica 50mg cap ORAL SCH (18:25)
[2017-03-17 20:00] VITALS: BP 96/63
[2017-03-17] MEDS: Docusate 100mg cap ORAL SCH (20:46)
[2017-03-17] MEDS: Heparin 5000 units/ml inj SUBQ SCH (20:48)
[2017-03-17] MEDS: NovoLOG Insulin Flexpen SUBQ SCH (20:49)
[2017-03-17] MEDS: Levemir Flexpen SUBQ SCH (21:13)
--- NOTE | 2017-03-17 22:30 | Consultation ---
DATE OF CONSULTATION: 03/17/2017 INFECTIOUS DISEASES CONSULTATION ATTENDING PHYSICIAN: Rj Choe M.D. I was asked by Dr. Escobedo to see this patient. REASON FOR CONSULTATION: Urinary tract infection, likely complicated urinary tract infection with weakness. CHIEF COMPLAINT: The patient's chief complaint coming into the hospital is weakness, sacral pain, urinary tract infection, complicated urinary tract infection, and also possible suprapubic catheter site infection. HISTORY OF PRESENT ILLNESS: This is a very pleasant 51-year-old female who has a history of multiple medical problems including history of recurrent urinary tract infection. The patient has suprapubic catheter that is chronic. The patient does have a PICC line also. The patient has significant positive urinalysis and weakness, likely had complicated urinary tract infection. An Infectious Diseases consultation requested. The patient was placed on meropenem 1 g IV q. 8 h. Urine culture is pending. Also the suprapubic catheter site, there might be some drainage. There is no significant cellulitis. Wound culture was obtained. MAR was noted. Orders were noted. Notes were reviewed. Case discussed with RN. PAST MEDICAL HISTORY: The patient's past medical history includes the following: The patient has a past medical history of ESBL E. coli urinary tract infection, history of diabetes, history of suprapubic catheter, history of weakness, obesity, hyperlipidemia, peripheral neuropathy, history of generalized weakness, edema, history of ulcers, anemia, history of hypoalbuminemia, history of abdominal pain, history of neurogenic bladder, decubiti, paraplegia. MEDICATIONS: Upon reviewing the MAR, she is on the following medications: She is on vitamin D, ferrous sulfate, multivitamins, meropenem, heparin, docusate, pravastatin, insulin, sodium chloride, duloxetine, Cymbalta, pregabalin, glipizide, acetaminophen, bisacodyl, magnesium hydroxide, polyethylene, Zofran, metoclopramide, diphenhydramine, , bisacodyl, hydrocodone, albuterol, lorazepam, mineral oil. ALLERGIES: No known drug allergies. No antibiotic allergies. SOCIAL HISTORY: Negative for smoking, alcohol, or drug use. FAMILY HISTORY: Noncontributory. Negative for tuberculosis exposure or cancer. REVIEW OF SYSTEMS: Constitutional: She has generalized weakness and fatigue. No fever or chills. She has sacral pain. Head And Neck: No head pain or neck pain. No thrush, or dysphagia Cardiac: No chest pain or palpitation. Gastrointestinal: No nausea, vomiting, or diarrhea. Genitourinary: + supra-pubic catheter Pulmonary: No congestion, shortness of breath or significant secretions. Skin: No new rash. Neurologic: No seizures. There is generalized weakness. PHYSICAL EXAMINATION: VITAL SIGNS: Temperature is 96.6 degrees, pulse rate 85, respiratory rate 15, blood pressure 121/67, and saturation 96% . GENERAL: Alert, responsive, in no acute distress. She has generalized weakness but oriented x3. HEAD AND NECK: Oral exam, no thrush. Eye exam, no icterus. Normocephalic. No facial droop. No neck stiffness. HEART: Regular. No gallop or murmur. ABDOMEN: Soft. Positive bowel sounds. Nontender. LUNGS: Clear bilaterally. No rhonchi or rales. SKIN: No rash or dermatitis. MUSCULOSKELETAL: No effusion or contractures. Lower extremities are without cellulitis. PERIPHERAL VASCULAR: No cyanosis or gangrene. RECTAL: Deferred. GENITOURINARY: She has a suprapubic catheter. Urine is cloudy. LINES: Line sites are without phlebitis. She has a PICC line. NEUROLOGIC: Generalized weakness, responsive. Her suprapubic catheter site has some drainage but no cellulitis. LABORATORY DATA: Laboratory data is as follows, white count 5.5, hemoglobin 13.2. The patient's creatinine is 0.7. Urinalysis had 3+ leukocyte esterase, 20-30 white blood cells, and many bacteria. Previous urine culture were noted and reviewed. Wound culture and urine culture were pending. IMAGING STUDIES: None were done. ASSESSMENT AND PLAN: 1. The patient has a urinary tract infection, likely complicate urinary tract infection, questionable suprapubic catheter site infection. There is no obvious cellulitis at the suprapubic catheter site. There may be mild drainage. Per the records, wound culture was obtained but I am not sure about this. With regards to her complicated urinary tract infection, I would start her on meropenem 1 g q. 8 h. She has normal creatinine. She has history of ESBL infection including ESBL gram negative and meropenem is the drug of choice until urine culture is back. With regards to her suprapubic catheter site, we will check wound culture if there is drainage and continue meropenem for that also. Check followup labs. Check cultures. 2. Diabetes. Blood sugar control per primary. 3. Suprapubic catheter. 4. History of urinary tract infection and ESBL infection 5. Obesity. 6. Hyperlipidemia. 7. Peripheral neuropathy. 8. Generalized weakness and paraplegia. 9. History of ulcers. Wound care protocol. 10. History of edema. 11. Anemia. 12. History of abdominal pain. 13. History of hyperlipidemia. 14. Past medical history noted. 15. No known allergies. 16. Social history is negative. 17. Family history is noncontributory. 18. MAR as noted. 19. Case was discussed with RN. 20. Notes were reviewed. 21. Continue treatment with primary consultants. Nils Meneses M.D. DR: Kailey JOB#: [id number] CC: MARYCARMEN
--- NOTE | 2017-03-18 00:30 | Consultation ---
DATE OF CONSULTATION: 03/17/2017 CONSULTING PHYSICIAN: Shaheen Gutierrez M.D. REFERRING PHYSICIAN: Gregg Cortes M.D. REASON FOR CONSULTATION: Evaluation of suprapubic tube. HISTORY OF PRESENT ILLNESS: This is a 51-year-old female. She is known to me from previous evaluations. She has a history of neurogenic bladder with chronic suprapubic tube. She has a history of recurring urinary tract infections. She has suprapubic tube, which apparently was last changed about 2 months ago or so. She was admitted to the hospital because of weakness, sacral pain, and a urinary tract infection noted. Urology evaluation was requested. PAST MEDICAL HISTORY: Significant for above, again neurogenic bladder, chronic suprapubic tube, history of diabetes, and hypercholesterolemia. PAST SURGICAL HISTORY: Suprapubic tube. Other surgeries are unknown. CURRENT MEDICATIONS: In the hospital, the patient is on vitamin D, Feosol, multivitamin, Glucotrol, Glucophage, meropenem, heparin, Colace, Pravachol, NovoLog, Levemir, Cymbalta, Lyrica, MOM, MiraLax, Zofran, Mylanta, and Colace. ALLERGIES: No known drug allergies. SOCIAL HISTORY: She is currently a nonsmoker. FAMILY HISTORY: Noncontributory. REVIEW OF SYSTEMS: As above. PHYSICAL EXAMINATION: GENERAL: This is a well-developed and well-nourished female, slightly obese. VITAL SIGNS: Temperature is 96.6, blood pressure 120/67, pulse 85, and respirations 16. HEENT: Normocephalic. NECK: Supple. ABDOMEN: Soft. A 22-[place] suprapubic tube in place. Urine yellow and briana. EXTREMITIES: No clubbing or cyanosis. LABORATORY DATA: White count is 5.5, hemoglobin 13.2, and platelets are 180,000. BUN is 8, creatinine 0.7, and potassium 4.0. UA shows 60 to 80 RBCs, 20 to 30 WBCs, many bacteria, and 2+ protein. DIAGNOSTIC IMAGING STUDIES: The patient had a renal ultrasound back in November of this year. At that time, the kidneys were reportedly normal without hydronephrosis. IMPRESSION: 1. Neurogenic bladder. 2. Urinary retention with chronic suprapubic tube. 3. Urinary tract infection and colonization. 4. Hematuria. 5. Proteinuria. PLAN AND DISCUSSION: Again, the patient does have suprapubic tube, which is due for exchange. She does have a positive UA consistent with urinary tract infection and colonization. She is to be treated with antibiotics per recommendation of ID and we will make arrangements to change her suprapubic tube during this admission. I will follow the patient. Any other recommendations will be forthcoming. Thank you Dr. Cortes for asking me to participate in this consultation. Shaheen Gutierrez M.D. DR: ELIZABETH JOB#: [id number] CC:
[2017-03-18] MEDS: GlipiZIDE 5mg tab ORAL SCH ×2 (06:09→18:04)
[2017-03-18] MEDS: metFORMIN 500mg tab ORAL SCH ×2 (06:09→18:04)
[2017-03-18] MEDS: NovoLOG Insulin Flexpen SUBQ SCH ×4 (06:10→20:53)
[2017-03-18 06:53] LABS: BASOPHILS % (AUTO) 1.5 % (0.0-2.0); EOSINOPHILS % (AUTO) 4.8 % (0.0-3.0); LYMPHOCYTES % (AUTO) 48.4 % (20.0-45.0); MEAN CORPUSCULAR VOLUME 91 FL (80-99); MEAN PLATELET VOLUME 8.6 FL (6.5-10.1); MONOCYTES % (AUTO) 8.9 % (1.0-10.0); NEUTROPHILS % (AUTO) 36.3 % (45.0-75.0); PLATELET COUNT 182 K/UL (150-450); RED BLOOD COUNT 4.32 M/UL (4.20-5.40); RED CELL DISTRIBUTION WIDTH 13.4 % (11.6-14.8); WHITE BLOOD COUNT 5.2 K/UL (4.8-10.8)
[2017-03-18 07:31] LABS: ALANINE AMINOTRANSFERASE 11 U/L (3-33); ANION GAP 10 (5-15); ASPARTATE AMINO TRANSFERASE 17 U/L (5-40); CALCIUM 9.1 mg/dL (8.6-10.2); CARBON DIOXIDE 31 mEQ/L (20-30); CHLORIDE 97 mEQ/L (98-107); CREATININE 0.6 mg/dL (0.5-0.9); GLOMERULAR FILTRATION RATE > 60 mL/min (>60); HEMOLYSIS 0; POTASSIUM 3.8 mEQ/L (3.4-4.9); SODIUM 138 mEQ/L (135-145); TOTAL PROTEIN 6.4 g/dL (6.6-8.7)
--- NOTE | 2017-03-18 07:34 | Urology Progress Note ---
Assessment/Plan Assessment/Plan 1. Neurogenic bladder. 2. Urinary retention with chronic suprapubic tube. 3. Urinary tract infection and chronic colonization. 4. Hematuria. 5. Proteinuria. I personally changed sp tube new 22f cath placed, irrigates well hand irrigate PRN abx as ordered, per ID f/u on cx's Subjective Allergies: Coded Allergies: No Known Allergies (Unverified , 07/15/16) Subjective feels fair Objective Last 24 Hour Vital Signs Date Time Temp Pulse Resp B/P Pulse Ox O2 Delivery O2 Flow Rate FiO2 03/17/17 20:00 97.1 84 20 96/63 100 Room Air 03/17/17 17:18 96.6 85 15 121/67 96 Room Air Intake and Output 03/17/17 03/18/17 19:00 07:00 Intake Total 360 ml 725 ml Output Total 400 ml 400 ml Balance -40 ml 325 ml Intake Oral 360 ml IV Total 725 ml Output Urine Total 400 ml 400 ml Current Medications Medications (Trade) Dose Ordered Sig/Cristóbal Route PRN Reason Start Time Stop Time Status Last Admin Dose Admin Acetaminophen (Tylenol) 650 mg Q4H PRN ORAL Mild Pain (Pain Scale 1-3) 03/17/17 16:00 04/16/17 15:59 Acetaminophen/ Hydrocodone Bitart ([place] 10/325) 1 ea Q6H PRN ORAL moderate to severe pain 03/17/17 16:00 03/24/17 15:59 03/17/17 18:24 Al Hydroxide/Mg Hydroxide (Mylanta II) 30 ml Q6H PRN ORAL dyspepsia 03/17/17 16:00 04/16/17 15:59 Albuterol/ Ipratropium (DuoNeb 0.5-3(2.5)mg/3ml) 3 ml Q4H PRN HHN Shortness of Breath 03/17/17 16:00 03/22/17 15:59 Baclofen (Lioresal) 20 mg TIDPRN PRN ORAL Muscle Spasms 03/17/17 16:00 04/16/17 15:59 Bisacodyl (Dulcolax) 10 mg DAILYPRN PRN RECTAL Constipation Third Line Agent 03/17/17 16:00 04/16/17 15:59 Bisacodyl (Dulcolax) 10 mg HSPRN PRN RECTAL Constipation 03/17/17 16:00 04/16/17 15:59 Dextrose STAT PRN IV Hypoglycemia 03/17/17 16:30 04/16/17 16:29 Diphenhydramine HCl (Benadryl) 25 mg Q6H PRN ORAL Itching/Pruritis 03/17/17 16:00 04/16/17 15:59 Docusate Sodium (Colace) 100 mg EVERY 12 HOURS ORAL 03/17/17 21:00 04/16/17 20:59 03/17/17 20:46 Duloxetine HCl (Cymbalta) 30 mg BID ORAL 03/17/17 18:00 04/16/17 17:59 03/17/17 18:24 Ferrous Sulfate (Feosol) 325 mg DAILY ORAL 03/18/17 09:00 04/17/17 08:59 Glipizide (Glucotrol) 5 mg BIAC ORAL 03/18/17 06:30 04/17/17 06:29 03/18/17 06:09 Heparin Sodium (Porcine) (Heparin 5000 units/ml) 5,000 units EVERY 12 HOURS SUBQ 03/17/17 21:00 04/16/17 20:59 03/17/17 20:48 Insulin Aspart (NovoLOG) BEFORE MEALS AND HS SUBQ 03/17/17 21:00 04/16/17 20:59 03/18/17 06:10 Insulin Detemir (Levemir) 18 units Q12HR SUBQ 03/17/17 21:00 04/16/17 20:59 03/17/17 21:13 Lorazepam (Ativan) 1 mg TIDPRN PRN ORAL For Anxiety 03/17/17 16:00 03/24/17 15:59 Magnesium Hydroxide (Mom) 30 ml HSPRN PRN ORAL Constipation Second Line Agent 03/17/17 16:00 04/16/17 15:59 Meropenem/Sodium Chloride (Merrem/Sodium Chloride) 100 ml @ 200 mls/hr Q8HR IVPB 03/17/17 22:00 03/22/17 21:59 03/18/17 05:27 Metformin HCl 500 mg 500 mg BIAC ORAL 03/18/17 06:30 04/17/17 06:29 03/18/17 06:09 Metoclopramide HCl (Reglan) 10 mg Q6H PRN IVP Nausea & Vomiting 03/17/17 16:00 04/16/17 15:59 Mineral Oil (Fleet's Mineral Oil Enema) 133 ml DAILYPRN PRN RECTAL Constipation Fourth Line Agent 03/17/17 16:00 04/16/17 15:59 Multivitamins Therapeutic (Therapeutic Multivitamin) 1 ea DAILY ORAL 03/18/17 09:00 04/17/17 08:59 Ondansetron HCl (Zofran) 4 mg Q6H PRN IVP Nausea & Vomiting 03/17/17 16:00 04/16/17 15:59 Polyethylene Glycol (Miralax) 17 gm HSPRN PRN ORAL Constipation First Line Agent 03/17/17 16:00 04/16/17 15:59 Pravastatin Sodium (Pravachol) 40 mg BEDTIME ORAL 03/17/17 21:00 04/16/17 20:59 03/17/17 20:46 Pregabalin (Lyrica) 200 mg BID ORAL 03/17/17 18:00 04/16/17 17:59 03/17/17 18:25 Sodium Chloride (Sodium Chloride 1000ml bag) 1,000 ml @ 75 mls/hr [id number] IV 03/17/17 19:00 04/16/17 18:59 03/17/17 20:45 Vitamin D (Vitamin D) 1,000 intlu DAILY ORAL 03/18/17 09:00 04/17/17 08:59 Laboratory Tests 03/17/17 17:30: White Blood Count 5.5, Red Blood Count 4.39, Hemoglobin 13.2, Hematocrit 39.1, Mean Corpuscular Volume 89, Mean Corpuscular Hemoglobin 30.1, Mean Corpuscular Hemoglobin Concent 33.8, Red Cell Distribution Width 13.2, Platelet Count 180, Mean Platelet Volume 9.1, Neutrophils (%) (Auto) 46.0, Lymphocytes (%) (Auto) 41.1, Monocytes (%) (Auto) 7.5, Eosinophils (%) (Auto) 4.3H, Basophils (%) (Auto ) 1.1, Urine Color Pale yellow, Urine Appearance Cloudy, Urine pH 6, Urine Specific [place] 1.010, Urine Protein 2+H, Urine Glucose (UA) 4+H, Urine Ketones Negative, Urine Occult Blood 5+H, Urine Nitrite PositiveH, Urine Bilirubin Negative, Urine Urobilinogen Normal, Urine Leukocyte Esterase 3+H, Urine RBC 60-80H, Urine WBC 20-30H, Urine Squamous Epithelial Cells Few, Urine Bacteria ManyH, Sodium Level 131L, Potassium Level 4.0, Chloride Level 92L, Carbon Dioxide Level 29, Anion Gap 10, Blood Urea Nitrogen 8, Creatinine 0.7, Estimat Glomerular Filtration Rate > 60, Glucose Level 435H, Calcium Level 9.3, Magnesium Level 1.4L, Total Bilirubin 0.2, Aspartate Amino Transf (AST/SGOT) 15 , Alanine Aminotransferase (ALT/SGPT) 12, Alkaline Phosphatase 79, Pro-B-Type Natriuretic Peptide 30, Total Protein 6.6, Albumin 3.5, Globulin 3.1, Albumin/ Globulin Ratio 1.1, Vitamin B12 Level 616, Folate [Pending], Thyroid Stimulating Hormone (TSH) 2.590 03/18/17 05:15: White Blood Count 5.2, Red Blood Count 4.32, Hemoglobin 12.5, Hematocrit 39.1, Mean Corpuscular Volume 91, Mean Corpuscular Hemoglobin 29.0, Mean Corpuscular Hemoglobin Concent 32.0, Red Cell Distribution Width 13.4, Platelet Count 182, Mean Platelet Volume 8.6, Neutrophils (%) (Auto) 36.3L, Lymphocytes (%) (Auto) 48.4H, Monocytes (%) (Auto) 8.9, Eosinophils (%) (Auto) 4.8H, Basophils (%) ( Auto) 1.5, Sodium Level [Pending], Potassium Level [Pending], Chloride Level [ Pending], Carbon Dioxide Level [Pending], Blood Urea Nitrogen [Pending], Creatinine [Pending], Estimat Glomerular Filtration Rate [Pending], Glucose Level [Pending], Calcium Level [Pending], Total Bilirubin [Pending], Aspartate Amino Transf (AST/SGOT) [Pending], Alanine Aminotransferase (ALT/SGPT) [Pending] , Alkaline Phosphatase [Pending], Total Protein [Pending], Albumin [Pending], Globulin [Pending], Hemoglobin A1c 13.7H, Vitamin D 25-Hydroxy [Pending], 25- Hydroxy Vitamin D2 [Pending], 25-Hydroxy Vitamin D3 [Pending] Height (Feet): 5 Height (Inches): 7.00 Weight (Pounds): 350 Objective exam stable DAPHNIE VIDES Mar 18, 2017 07:34
[2017-03-18 08:05] VITALS: BP 105/66
[2017-03-18] MEDS: Levemir Flexpen SUBQ SCH ×2 (09:00→20:52)
[2017-03-18] MEDS: Multivitamin w/Minerals tab ORAL SCH (09:02)
[2017-03-18] MEDS: DULoxetine 30mg cap ORAL SCH ×2 (09:02→18:02)
[2017-03-18] MEDS: Vitamin D 1000 IU Tab ORAL SCH (09:02)
[2017-03-18] MEDS: Docusate 100mg cap ORAL SCH ×2 (09:02→20:49)
[2017-03-18] MEDS: Lyrica 50mg cap ORAL SCH ×2 (09:03→18:04)
[2017-03-18] MEDS: Heparin 5000 units/ml inj SUBQ SCH ×2 (09:05→20:51)
[2017-03-18] MEDS ORDERED: Levemir Flexpen SUBQ SCH (11:00)
[2017-03-18 11:45] VITALS: BP 99/63
[2017-03-18 16:15] VITALS: BP 101/61
--- NOTE | 2017-03-18 16:36 | General Progress Note ---
Assessment/Plan Problem List: (1) UTI (urinary tract infection) Assessment & Plan: UTI in setting of suprapubic catheter ICD Codes: N39.0 - Urinary tract infection, site not specified SNOMED: 83020405 (2) Hypomagnesemia ICD Codes: E83.42 - Hypomagnesemia SNOMED: 607430748 (3) Hyponatremia ICD Codes: E87.1 - Hypo-osmolality and hyponatremia SNOMED: 48986343 (4) Pressure ulcer of sacral region, unspecified stage ICD Codes: L89.159 - Pressure ulcer of sacral region, unspecified stage SNOMED: 360969331 (5) Neurogenic bladder ICD Codes: N31.9 - Neuromuscular dysfunction of bladder, unspecified SNOMED: 396803703 (6) Suprapubic catheter ICD Codes: Z93.59 - Other cystostomy status SNOMED: 511785707 (7) Diabetes mellitus type 2 with complications, uncontrolled ICD Codes: E11.8 - Type 2 diabetes mellitus with unspecified complications; E11.65 - Type 2 diabetes mellitus with hyperglycemia SNOMED: 43127131, 686428177, 536497692 (8) Morbid obesity ICD Codes: E66.01 - Morbid (severe) obesity due to excess calories SNOMED: 926054850 (9) Generalized weakness ICD Codes: R53.1 - Weakness SNOMED: 34689001 (10) Peripheral neuropathy ICD Codes: G62.9 - Polyneuropathy, unspecified SNOMED: 26219155 (11) Paraplegia ICD Codes: G82.20 - Paraplegia, unspecified SNOMED: 08097807 Status: stable Assessment/Plan ID consulted Cont meropenem (03/17-) given abnormal U/A concerning for UTI Urology consulted SP catheter changed on 03/18 F/u urine cx Cont home meds BALBIR Incr levermir 20U BID Endo consulted given uncontrolled diabetes, A1C 13 Pain control, supportive care, bowel regimen Trend CBC, BMP Replete lytes IVFs PT/OT Wound care Will likely need SNF placement DVT Prophylaxis: SCD, HSQ Code Status: Full Hospital Classification Declaration: Based on this initial evaluation, and depending on the patient's clinical course, I anticipate that this patient will require hospitalization for 1-2 days for suprapubic catheter dysfunction, UTI, and close respiratory/hemodynamic monitoring. Disposition: Once the patient is stable to leave the hospital, I anticipate the patient will likely be discharged to the following environment: SNF I spent 40 minutes on this patient's case, and 24 minutes were dedicated to counseling and/or care coordination. Discussed with patient/family, nursing staff, SW/CM, ID, urology regarding clinical status, treatment course, and disposition planning. Time of note may not reflect time of encounter. Subjective Date patient seen: Mar 18, 2017 Time patient seen: 16:36 ROS Limited/Unobtainable: No Allergies: Coded Allergies: No Known Allergies (Unverified , 07/15/16) Subjective Sugars uncontrolled. A1C 13.7. Endo consulted On Meropenem per ID. Urine cx pending SP catheter changed by urology today Pt doing well. Getting PT/OT. Motivated to get rehab to get stronger. Denies f/c , n/v, d/c, chest pain, SOB Objective Last 24 Hour Vital Signs Date Time Temp Pulse Resp B/P Pulse Ox O2 Delivery O2 Flow Rate FiO2 03/18/17 16:15 98.3 69 21 101/61 97 Room Air 03/18/17 11:45 97.7 88 22 99/63 95 Room Air 03/18/17 08:25 96 18 Room Air 03/18/17 08:05 97.5 86 21 105/66 99 Room Air 03/17/17 20:00 97.1 84 20 96/63 100 Room Air 03/17/17 17:18 96.6 85 15 121/67 96 Room Air Intake and Output 03/17/17 03/18/17 19:00 07:00 Intake Total 360 ml 800 ml Output Total 400 ml 400 ml Balance -40 ml 400 ml Intake Oral 360 ml IV Total 800 ml Output Urine Total 400 ml 400 ml Laboratory Tests 03/17/17 17:30: White Blood Count 5.5, Red Blood Count 4.39, Hemoglobin 13.2, Hematocrit 39.1, Mean Corpuscular Volume 89, Mean Corpuscular Hemoglobin 30.1, Mean Corpuscular Hemoglobin Concent 33.8, Red Cell Distribution Width 13.2, Platelet Count 180, Mean Platelet Volume 9.1, Neutrophils (%) (Auto) 46.0, Lymphocytes (%) (Auto) 41.1, Monocytes (%) (Auto) 7.5, Eosinophils (%) (Auto) 4.3H, Basophils (%) (Auto ) 1.1, Urine Color Pale yellow, Urine Appearance Cloudy, Urine pH 6, Urine Specific [place] 1.010, Urine Protein 2+H, Urine Glucose (UA) 4+H, Urine Ketones Negative, Urine Occult Blood 5+H, Urine Nitrite PositiveH, Urine Bilirubin Negative, Urine Urobilinogen Normal, Urine Leukocyte Esterase 3+H, Urine RBC 60-80H, Urine WBC 20-30H, Urine Squamous Epithelial Cells Few, Urine Bacteria ManyH, Sodium Level 131L, Potassium Level 4.0, Chloride Level 92L, Carbon Dioxide Level 29, Anion Gap 10, Blood Urea Nitrogen 8, Creatinine 0.7, Estimat Glomerular Filtration Rate > 60, Glucose Level 435H, Calcium Level 9.3, Magnesium Level 1.4L, Total Bilirubin 0.2, Aspartate Amino Transf (AST/SGOT) 15 , Alanine Aminotransferase (ALT/SGPT) 12, Alkaline Phosphatase 79, Pro-B-Type Natriuretic Peptide 30, Total Protein 6.6, Albumin 3.5, Globulin 3.1, Albumin/ Globulin Ratio 1.1, Vitamin B12 Level 616, Folate 15.7, Thyroid Stimulating Hormone (TSH) 2.590 03/18/17 05:15: White Blood Count 5.2, Red Blood Count 4.32, Hemoglobin 12.5, Hematocrit 39.1, Mean Corpuscular Volume 91, Mean Corpuscular Hemoglobin 29.0, Mean Corpuscular Hemoglobin Concent 32.0, Red Cell Distribution Width 13.4, Platelet Count 182, Mean Platelet Volume 8.6, Neutrophils (%) (Auto) 36.3L, Lymphocytes (%) (Auto) 48.4H, Monocytes (%) (Auto) 8.9, Eosinophils (%) (Auto) 4.8H, Basophils (%) ( Auto) 1.5, Sodium Level 138, Potassium Level 3.8, Chloride Level 97L, Carbon Dioxide Level 31H, Anion Gap 10, Blood Urea Nitrogen 8, Creatinine 0.6, Estimat Glomerular Filtration Rate > 60, Glucose Level 336#H, Calcium Level 9.1, Total Bilirubin 0.3, Aspartate Amino Transf (AST/SGOT) 17, Alanine Aminotransferase ( ALT/SGPT) 11, Alkaline Phosphatase 77, Total Protein 6.4L, Albumin 3.2L, Globulin 3.2, Albumin/Globulin Ratio 1.0, Hemoglobin A1c 13.7H, Vitamin D 25- Hydroxy [Pending], 25-Hydroxy Vitamin D2 [Pending], 25-Hydroxy Vitamin D3 [ Pending] Height (Feet): 5 Height (Inches): 7.00 Weight (Pounds): 350 Objective General: alert, cooperative, no distress, appears stated age, morbidly obese Head: normocephalic, without obvious abnormality, atraumatic Eyes: conjunctivae/corneas clear. PERRL, EOM's intact Throat: lips, mucosa, and tongue normal. MMM Neck: supple, symmetrical, trachea midline, and no JVD Lungs: clear to auscultation bilaterally Heart: regular rate and rhythm, S1, S2 normal, no murmur, click, rub or gallop Abdomen: soft, non-tender, non-distended, bowel sounds normal; no masses or organomegaly : suprapubic catheter site c/d/i Extremities: extremities normal, atraumatic, no cyanosis or edema Pulses: 2+ and symmetric Skin: skin color, texture, turgor normal; no rashes or lesions Neurologic: +weakness BLE, stable Gregg Cortes M.D. Mar 18, 2017 16:36
--- NOTE | 2017-03-18 17:59 | Infectious Diseases Prog Note ---
Assessment/Plan Assessment/Plan ASSESSMENT AND PLAN: 1. uti, complicated uti, ? suprapubic catheter site infection, weakness, sacral pain - hx esbl infection - meropenem for now - check urine culture and suprapubic site wound culture - watch labs 2. Diabetes - continue blood sugar control per primary. 3. Suprapubic catheter. 4. History of UTI and esbl infection 5. Obesity. 6. Hyperlipidemia. 7. Peripheral neuropathy. 8. Generalized weakness and paraplegia 9. History of edema. 10. History of ulcers. Wound care protocol. 11. Intertrigo. 12. Anemia. 13. Hyperalbuminemia. 14. History of abdominal pain. 15. No known allergies. 16. MAR as noted. 17. Family history is noncontributory. 18. Social history is negative. 19. mar noted 20. Notes were reviewed. 21. Continue treatment with primary consultants. 22. Case was discussed with RN. 23. Case discussed with the patient. Subjective Constitutional: Reports: fatigue, other - + generalized weakness , Denies: fever HEENT: Denies: congestion Respiratory: Denies: shortness of breath Cardiovascular: Denies: chest pain Gastrointestinal/Abdominal: Denies: diarrhea, nausea, vomiting Genitourinary: Reports: other - + supra-pubic catheter Neurologic: Denies: headache Psychiatric: Denies: depression Skin: Denies: rash Hematologic: Denies: bleeding Musculoskeletal: Denies: pain Allergies: Coded Allergies: No Known Allergies (Unverified , 07/15/16) Objective Vital Signs Last 24 Hour Vital Signs Date Time Temp Pulse Resp B/P Pulse Ox O2 Delivery O2 Flow Rate FiO2 03/18/17 16:15 98.3 69 21 101/61 97 Room Air 03/18/17 11:45 97.7 88 22 99/63 95 Room Air 03/18/17 08:25 96 18 Room Air 03/18/17 08:05 97.5 86 21 105/66 99 Room Air 03/17/17 20:00 97.1 84 20 96/63 100 Room Air Height (Feet): 5 Height (Inches): 7.00 Weight (Pounds): 350 General Appearance: no acute distress HEENT: normocephalic, atraumatic, anicteric, mucous membranes moist, PERRL, EOMI, pharynx normal, supple, no JVD Respiratory/Chest: lungs clear, normal breath sounds, no respiratory distress, no accessory muscle use Cardiovascular: normal rate, regular rhythm, no gallop/murmur, no JVD Abdomen: normal bowel sounds, soft, non tender, no organomegaly, non distended Genitourinary: other - + supra-pubci catheter - urine cloudy Extremities: no cyanosis Skin: no rash 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, alert, oriented x 3, motor weakness Lymphatic: no neck adenopathy Musculoskeletal: no effusion Objective no imaging Microbiology Date/Time Source Procedure Growth Status 03/17/17 17:30 Urine,Clean Catch Urine Culture - Preliminary Resulted Laboratory Tests Test 03/18/17 05:15 White Blood Count 5.2 K/UL (4.8-10.8) Red Blood Count 4.32 M/UL (4.20-5.40) Hemoglobin 12.5 G/DL (12.0-16.0) Hematocrit 39.1 % (37.0-47.0) Mean Corpuscular Volume 91 FL (80-99) Mean Corpuscular Hemoglobin 29.0 PG (27.0-31.0) Mean Corpuscular Hemoglobin Concent 32.0 G/DL (32.0-36.0) Red Cell Distribution Width 13.4 % (11.6-14.8) Platelet Count 182 K/UL (150-450) Mean Platelet Volume 8.6 FL (6.5-10.1) Neutrophils (%) (Auto) 36.3 % (45.0-75.0) L Lymphocytes (%) (Auto) 48.4 % (20.0-45.0) H Monocytes (%) (Auto) 8.9 % (1.0-10.0) Eosinophils (%) (Auto) 4.8 % (0.0-3.0) H Basophils (%) (Auto) 1.5 % (0.0-2.0) Sodium Level 138 mEQ/L (135-145) Potassium Level 3.8 mEQ/L (3.4-4.9) Chloride Level 97 mEQ/L (98-107) L Carbon Dioxide Level 31 mEQ/L (20-30) H Anion Gap 10 (5-15) Blood Urea Nitrogen 8 mg/dL (7-23) Creatinine 0.6 mg/dL (0.5-0.9) Estimat Glomerular Filtration Rate > 60 mL/min (>60) Glucose Level 336 mg/dL (74-106) #H Hemoglobin A1c 13.7 % (< 6.0) H Calcium Level 9.1 mg/dL (8.6-10.2) Total Bilirubin 0.3 mg/dL (0.0-1.2) Aspartate Amino Transf (AST/SGOT) 17 U/L (5-40) Alanine Aminotransferase (ALT/SGPT) 11 U/L (3-33) Alkaline Phosphatase 77 U/L (35-104) Total Protein 6.4 g/dL (6.6-8.7) L Albumin 3.2 g/dL (3.5-5.2) L Globulin 3.2 g/dL Albumin/Globulin Ratio 1.0 (1.0-2.7) Vitamin D 25-Hydroxy Pending 25-Hydroxy Vitamin D2 Pending 25-Hydroxy Vitamin D3 Pending Current Medications Medications (Trade) Dose Ordered Sig/Cristóbal Route PRN Reason Start Time Stop Time Status Last Admin Dose Admin Acetaminophen (Tylenol) 650 mg Q4H PRN ORAL Mild Pain (Pain Scale 1-3) 03/17/17 16:00 04/16/17 15:59 Acetaminophen/ Hydrocodone Bitart ([place] 10/325) 1 ea Q6H PRN ORAL moderate to severe pain 03/17/17 16:00 03/24/17 15:59 03/17/17 18:24 Al Hydroxide/Mg Hydroxide (Mylanta II) 30 ml Q6H PRN ORAL dyspepsia 03/17/17 16:00 04/16/17 15:59 Albuterol/ Ipratropium (DuoNeb 0.5-3(2.5)mg/3ml) 3 ml Q4H PRN HHN Shortness of Breath 03/17/17 16:00 03/22/17 15:59 Baclofen (Lioresal) 20 mg TIDPRN PRN ORAL Muscle Spasms 03/17/17 16:00 04/16/17 15:59 Bisacodyl (Dulcolax) 10 mg DAILYPRN PRN RECTAL Constipation Third Line Agent 03/17/17 16:00 04/16/17 15:59 Bisacodyl (Dulcolax) 10 mg HSPRN PRN RECTAL Constipation 03/17/17 16:00 04/16/17 15:59 Chlorhexidine Gluconate (Glenda-Hex 2%) 1 applic DAILY TOPIC 03/19/17 09:00 04/18/17 08:59 Dextrose STAT PRN IV Hypoglycemia 03/17/17 16:30 04/16/17 16:29 Diphenhydramine HCl (Benadryl) 25 mg Q6H PRN ORAL Itching/Pruritis 03/17/17 16:00 04/16/17 15:59 Docusate Sodium (Colace) 100 mg EVERY 12 HOURS ORAL 03/17/17 21:00 04/16/17 20:59 03/18/17 09:02 Duloxetine HCl (Cymbalta) 30 mg BID ORAL 03/17/17 18:00 04/16/17 17:59 03/18/17 09:02 Ferrous Sulfate (Feosol) 325 mg DAILY ORAL 03/18/17 09:00 04/17/17 08:59 03/18/17 09:02 Glipizide (Glucotrol) 5 mg BIAC ORAL 03/18/17 06:30 04/17/17 06:29 03/18/17 06:09 Heparin Sodium (Porcine) (Heparin 5000 units/ml) 5,000 units EVERY 12 HOURS SUBQ 03/17/17 21:00 04/16/17 20:59 03/18/17 09:05 Insulin Aspart (NovoLOG) BEFORE MEALS AND HS SUBQ 03/17/17 21:00 04/16/17 20:59 03/18/17 12:02 Insulin Aspart (NovoLOG) 10 units NOVOTIAC SUBQ 03/19/17 06:30 04/18/17 06:29 Insulin Detemir (Levemir) 30 units Q12HR SUBQ 03/18/17 21:00 04/17/17 20:59 Lorazepam (Ativan) 1 mg TIDPRN PRN ORAL For Anxiety 03/17/17 16:00 03/24/17 15:59 Magnesium Hydroxide (Mom) 30 ml HSPRN PRN ORAL Constipation Second Line Agent 03/17/17 16:00 04/16/17 15:59 Meropenem/Sodium Chloride (Merrem/Sodium Chloride) 100 ml @ 200 mls/hr Q8HR IVPB 03/17/17 22:00 03/22/17 21:59 03/18/17 14:46 Metformin HCl 500 mg 500 mg BIAC ORAL 03/18/17 06:30 04/17/17 06:29 03/18/17 06:09 Metoclopramide HCl (Reglan) 10 mg Q6H PRN IVP Nausea & Vomiting 03/17/17 16:00 04/16/17 15:59 Mineral Oil (Fleet's Mineral Oil Enema) 133 ml DAILYPRN PRN RECTAL Constipation Fourth Line Agent 03/17/17 16:00 04/16/17 15:59 Multivitamins Therapeutic (Therapeutic Multivitamin) 1 ea DAILY ORAL 03/18/17 09:00 04/17/17 08:59 03/18/17 09:02 Ondansetron HCl (Zofran) 4 mg Q6H PRN IVP Nausea & Vomiting 03/17/17 16:00 04/16/17 15:59 Polyethylene Glycol (Miralax) 17 gm HSPRN PRN ORAL Constipation First Line Agent 03/17/17 16:00 04/16/17 15:59 Pravastatin Sodium (Pravachol) 40 mg BEDTIME ORAL 03/17/17 21:00 04/16/17 20:59 03/17/17 20:46 Pregabalin (Lyrica) 200 mg BID ORAL 03/17/17 18:00 04/16/17 17:59 03/18/17 09:03 Sodium Chloride (Sodium Chloride 1000ml bag) 1,000 ml @ 75 mls/hr [id number] IV 03/17/17 19:00 04/16/17 18:59 03/18/17 09:16 Vitamin D (Vitamin D) 1,000 intlu DAILY ORAL 03/18/17 09:00 04/17/17 08:59 03/18/17 09:02 ARIELA NEVAREZ Mar 18, 2017 17:59
[2017-03-18 19:56] VITALS: BP 115/62
--- NOTE | 2017-03-19 01:38 | Wound Care Consultation ---
Wound Assessment Wound Assessment #1: Wound Number: #1 Wound Present on Admission: Yes New Wound: No Status Change of Wound: No Wound Location Body Site Modif: mid Wound Location Body Site: other - sacrococcygeal Wound Type: pressure ulcer Chato Test: Does not Chato Pressure Ulcer Stage: III Wound Thickness: Full Thickness Wound Length: 2.5 Wound Width: 0.8 Wound Depth: 0.3 Percent of Wound [place]/Red: 100 Wound Drainage Description: Serosanguineous Wound Drainage Amount: Scant Wound Drainage Odor: None/Absent Tissue Surrounding Wound: Erythemic Wound General Appearance: Reddened, Draining Wound Assessment #2: Wound Number: #2 Wound Present on Admission: Yes New Wound: No Status Change of Wound: No Wound Location Body Site Modif: left Wound Location Body Site: ischial tuberosity Wound Type: pressure ulcer Chato Test: Does not Chato Pressure Ulcer Stage: II - scattered Wound Thickness: Partial Thickness Wound Length: 3.5 Wound Width: 4.0 Wound Depth: less than 0.1 Percent of Wound [place]/Red: 100 Wound Drainage Description: Serosanguineous Wound Drainage Amount: Scant Wound Drainage Odor: None/Absent Tissue Surrounding Wound: Erythemic Wound General Appearance: Reddened Wound Assessment #3: Wound Number: #3 Wound Present on Admission: Yes New Wound: No Status Change of Wound: No Wound Location Body Site Modif: right Wound Location Body Site: ischial tuberosity Wound Type: pressure ulcer Chato Test: Does not Chato Pressure Ulcer Stage: II - scattered Wound Thickness: Partial Thickness Wound Length: 2.5 Wound Width: 2.5 Wound Depth: less than 0.1 Percent of Wound [place]/Red: 100 Wound Drainage Description: Serosanguineous Wound Drainage Amount: Scant Wound Drainage Odor: None/Absent Tissue Surrounding Wound: Erythemic Wound General Appearance: Reddened Wound Comment #1 Sacrococcygeal stage III pressure ulcer #2 Left ischial tuberosity scattered stage II pressure ulcer #3 Right ischial tuberosity scattered stage II pressure ulcer Recommendation -Sacrococcygeal stage III pressure ulcer, Left ischial tuberosity scattered stage II pressure ulcer and Right ischial tuberosity scattered stage II pressure ulcer Cleanse with saline, pat dry, apply Triad cream, cover with Biatain silicone drg daily and PRN soiled/dislodged -Keep clean and dry -Turn and reposition -Optimize nutrition -Low air loss mattress -Offload both heels -Heel protector on both heels -Assess and f/u accordingly for any changes JALIL CAMPA RN Mar 19, 2017 01:38
[2017-03-19 04:00] VITALS: BP 129/72
[2017-03-19] MEDS: metFORMIN 500mg tab ORAL SCH ×2 (06:11→16:40)
[2017-03-19] MEDS: GlipiZIDE 5mg tab ORAL SCH ×2 (06:11→16:40)
[2017-03-19] MEDS: NovoLOG Insulin Flexpen SUBQ SCH ×7 (06:12→21:46)
[2017-03-19 08:00] VITALS: BP 121/66
[2017-03-19] MEDS: Dyna-Hex 2% Top Sol 8oz TOPIC SCH (08:30)
[2017-03-19] MEDS: DULoxetine 30mg cap ORAL SCH ×2 (08:31→17:19)
[2017-03-19] MEDS: Docusate 100mg cap ORAL SCH ×2 (08:31→21:40)
[2017-03-19] MEDS: Vitamin D 1000 IU Tab ORAL SCH (08:31)
[2017-03-19] MEDS: Lyrica 50mg cap ORAL SCH ×2 (08:33→17:19)
[2017-03-19] MEDS: Heparin 5000 units/ml inj SUBQ SCH ×2 (08:39→21:41)
[2017-03-19] MEDS: Levemir Flexpen SUBQ SCH (08:40)
[2017-03-19] MEDS: Multivitamin w/Minerals tab ORAL SCH (08:45)
--- NOTE | 2017-03-19 09:07 | Urology Progress Note ---
Assessment/Plan Assessment/Plan 1. Neurogenic bladder. 2. Urinary retention with chronic suprapubic tube. 3. Urinary tract infection and chronic colonization. 4. Hematuria. 5. Proteinuria. keep sp tube, last changed 03/18 hand irrigate PRN abx as ordered, per ID f/u on cx's cysto later Subjective Allergies: Coded Allergies: No Known Allergies (Unverified , 07/15/16) Subjective feels fair Objective Last 24 Hour Vital Signs Date Time Temp Pulse Resp B/P Pulse Ox O2 Delivery O2 Flow Rate FiO2 03/19/17 08:00 97.2 70 20 121/66 100 Room Air 03/19/17 07:29 95 16 Room Air 03/19/17 04:00 97.2 95 20 129/72 97 Room Air 03/18/17 20:51 90 16 Room Air 03/18/17 19:56 97.7 90 20 115/62 98 Room Air 03/18/17 16:15 98.3 69 21 101/61 97 Room Air 03/18/17 11:45 97.7 88 22 99/63 95 Room Air Intake and Output 03/18/17 03/19/17 19:00 07:00 Intake Total 2200 ml 850 ml Output Total 350 ml 250 ml Balance 1850 ml 600 ml Intake Oral 1200 ml IV Total 1000 ml 850 ml Output Urine Total 350 ml 250 ml # Bowel Movements 1 Microbiology Date/Time Source Procedure Growth Status 03/17/17 17:30 Urine,Clean Catch Urine Culture - Preliminary Gram Negative Bacillus 1 Resulted 03/17/17 19:00 Arm Right Blood Culture - Preliminary NO GROWTH AFTER 24 HOURS Resulted Current Medications Medications (Trade) Dose Ordered Sig/Crsitóbal Route PRN Reason Start Time Stop Time Status Last Admin Dose Admin Acetaminophen (Tylenol) 650 mg Q4H PRN ORAL Mild Pain (Pain Scale 1-3) 03/17/17 16:00 04/16/17 15:59 Acetaminophen/ Hydrocodone Bitart ([place] 10/325) 1 ea Q6H PRN ORAL moderate to severe pain 03/17/17 16:00 03/24/17 15:59 03/17/17 18:24 Al Hydroxide/Mg Hydroxide (Mylanta II) 30 ml Q6H PRN ORAL dyspepsia 03/17/17 16:00 04/16/17 15:59 Albuterol/ Ipratropium (DuoNeb 0.5-3(2.5)mg/3ml) 3 ml Q4H PRN HHN Shortness of Breath 03/17/17 16:00 03/22/17 15:59 Baclofen (Lioresal) 20 mg TIDPRN PRN ORAL Muscle Spasms 03/17/17 16:00 04/16/17 15:59 03/19/17 08:32 Bisacodyl (Dulcolax) 10 mg DAILYPRN PRN RECTAL Constipation Third Line Agent 03/17/17 16:00 04/16/17 15:59 Bisacodyl (Dulcolax) 10 mg HSPRN PRN RECTAL Constipation 03/17/17 16:00 04/16/17 15:59 Chlorhexidine Gluconate (Glenda-Hex 2%) 1 applic DAILY TOPIC 03/19/17 09:00 04/18/17 08:59 03/19/17 08:30 Dextrose STAT PRN IV Hypoglycemia 03/17/17 16:30 04/16/17 16:29 Diphenhydramine HCl (Benadryl) 25 mg Q6H PRN ORAL Itching/Pruritis 03/17/17 16:00 04/16/17 15:59 Docusate Sodium (Colace) 100 mg EVERY 12 HOURS ORAL 03/17/17 21:00 04/16/17 20:59 03/19/17 08:31 Duloxetine HCl (Cymbalta) 30 mg BID ORAL 03/17/17 18:00 04/16/17 17:59 03/19/17 08:31 Ferrous Sulfate (Feosol) 325 mg DAILY ORAL 03/18/17 09:00 04/17/17 08:59 03/19/17 08:31 Glipizide (Glucotrol) 5 mg BIAC ORAL 03/18/17 06:30 04/17/17 06:29 03/19/17 06:11 Heparin Sodium (Porcine) (Heparin 5000 units/ml) 5,000 units EVERY 12 HOURS SUBQ 03/17/17 21:00 04/16/17 20:59 03/19/17 08:39 Insulin Aspart (NovoLOG) BEFORE MEALS AND HS SUBQ 03/17/17 21:00 04/16/17 20:59 03/19/17 06:14 Insulin Aspart (NovoLOG) 10 units NOVOTIAC SUBQ 03/19/17 06:30 04/18/17 06:29 03/19/17 06:12 Insulin Detemir (Levemir) 30 units Q12HR SUBQ 03/18/17 21:00 04/17/17 20:59 03/19/17 08:40 Lorazepam (Ativan) 1 mg TIDPRN PRN ORAL For Anxiety 03/17/17 16:00 03/24/17 15:59 Magnesium Hydroxide (Mom) 30 ml HSPRN PRN ORAL Constipation Second Line Agent 03/17/17 16:00 04/16/17 15:59 Meropenem/Sodium Chloride (Merrem/Sodium Chloride) 100 ml @ 200 mls/hr Q8HR IVPB 03/17/17 22:00 03/22/17 21:59 03/19/17 06:11 Metformin HCl 500 mg 500 mg BIAC ORAL 03/18/17 06:30 04/17/17 06:29 03/19/17 06:11 Metoclopramide HCl (Reglan) 10 mg Q6H PRN IVP Nausea & Vomiting 03/17/17 16:00 04/16/17 15:59 Mineral Oil (Fleet's Mineral Oil Enema) 133 ml DAILYPRN PRN RECTAL Constipation Fourth Line Agent 03/17/17 16:00 04/16/17 15:59 Multivitamins Therapeutic (Therapeutic Multivitamin) 1 ea DAILY ORAL 03/18/17 09:00 04/17/17 08:59 03/19/17 08:45 Ondansetron HCl (Zofran) 4 mg Q6H PRN IVP Nausea & Vomiting 03/17/17 16:00 04/16/17 15:59 Polyethylene Glycol (Miralax) 17 gm HSPRN PRN ORAL Constipation First Line Agent 03/17/17 16:00 04/16/17 15:59 Pravastatin Sodium (Pravachol) 40 mg BEDTIME ORAL 03/17/17 21:00 04/16/17 20:59 03/18/17 20:50 Pregabalin (Lyrica) 200 mg BID ORAL 03/17/17 18:00 04/16/17 17:59 03/19/17 08:33 Sodium Chloride (Sodium Chloride 1000ml bag) 1,000 ml @ 75 mls/hr [id number] IV 03/17/17 19:00 04/16/17 18:59 03/18/17 21:42 Vitamin D (Vitamin D) 1,000 intlu DAILY ORAL 03/18/17 09:00 04/17/17 08:59 03/19/17 08:31 Height (Feet): 5 Height (Inches): 7.00 Weight (Pounds): 350 Objective exam stable DAPHNIE VIDES Mar 19, 2017 09:07
[2017-03-19 12:00] VITALS: BP 140/83
--- NOTE | 2017-03-19 15:31 | General Progress Note ---
Assessment/Plan Problem List: (1) UTI (urinary tract infection) Assessment & Plan: UTI in setting of suprapubic catheter ICD Codes: N39.0 - Urinary tract infection, site not specified SNOMED: 35029774 (2) Hypomagnesemia ICD Codes: E83.42 - Hypomagnesemia SNOMED: 787727752 (3) Hyponatremia ICD Codes: E87.1 - Hypo-osmolality and hyponatremia SNOMED: 38535471 (4) Neurogenic bladder ICD Codes: N31.9 - Neuromuscular dysfunction of bladder, unspecified SNOMED: 072198803 (5) Suprapubic catheter ICD Codes: Z93.59 - Other cystostomy status SNOMED: 942695354 (6) Diabetes mellitus type 2 with complications, uncontrolled ICD Codes: E11.8 - Type 2 diabetes mellitus with unspecified complications; E11.65 - Type 2 diabetes mellitus with hyperglycemia SNOMED: 15574339, 977489083, 560900211 (7) Morbid obesity ICD Codes: E66.01 - Morbid (severe) obesity due to excess calories SNOMED: 846190586 (8) Generalized weakness ICD Codes: R53.1 - Weakness SNOMED: 60687918 (9) Peripheral neuropathy ICD Codes: G62.9 - Polyneuropathy, unspecified SNOMED: 55618471 (10) Paraplegia ICD Codes: G82.20 - Paraplegia, unspecified SNOMED: 32146310 (11) Sacrococcygeal stage III pressure ulcer (12) Left and right ischial tuberosity scattered stage II pressure ulcer Status: stable Assessment/Plan ID consulted Cont meropenem (03/17-) given abnormal U/A concerning for UTI Urology consulted SP catheter changed on 03/18 F/u urine cx-->100K GNR Cont home meds BALBIR Incr levermir 30U BID Started Aspart 10U TID AC Cont glipizide, MTF Endo consulted given uncontrolled diabetes, A1C 13 Pain control, supportive care, bowel regimen Trend CBC, BMP Replete lytes IVFs PT/OT Wound care Awaiting SNF placement DVT Prophylaxis: SCD, HSQ Code Status: Full Hospital Classification Declaration: Based on this initial evaluation, and depending on the patient's clinical course, I anticipate that this patient will require hospitalization for 1-2 days for suprapubic catheter dysfunction, UTI, and close respiratory/hemodynamic monitoring. Disposition: Once the patient is stable to leave the hospital, I anticipate the patient will likely be discharged to the following environment: SNF I spent 40 minutes on this patient's case, and 22 minutes were dedicated to counseling and/or care coordination. Discussed with patient/family, nursing staff, SW/CM, ID, urology regarding clinical status, treatment course, and disposition planning. Time of note may not reflect time of encounter. Subjective Date patient seen: Mar 19, 2017 Time patient seen: 15:28 ROS Limited/Unobtainable: No Constitutional: Reports: no symptoms HEENT: Reports: no symptoms Cardiovascular: Reports: no symptoms Respiratory: Reports: no symptoms Gastrointestinal/Abdominal: Reports: no symptoms Genitourinary: Reports: no symptoms Neurologic/Psychiatric: Reports: no symptoms Endocrine: Reports: no symptoms Hematologic/Lymphatic: Reports: no symptoms Allergies: Coded Allergies: No Known Allergies (Unverified , 07/15/16) All Systems: reviewed and negative except above Subjective Sugars uncontrolled. A1C 13.7. Endo consulted and insulin regimen adjusted On Meropenem per ID. Urine cx pending SP catheter changed by urology yesterday Pt doing well. Getting PT/OT. Motivated to get rehab to get stronger. Denies f/c , n/v, d/c, chest pain, SOB Objective Last 24 Hour Vital Signs Date Time Temp Pulse Resp B/P Pulse Ox O2 Delivery O2 Flow Rate FiO2 03/19/17 08:00 97.2 70 20 121/66 100 Room Air 03/19/17 07:29 95 16 Room Air 03/19/17 04:00 97.2 95 20 129/72 97 Room Air 03/18/17 20:51 90 16 Room Air 03/18/17 19:56 97.7 90 20 115/62 98 Room Air 03/18/17 16:15 98.3 69 21 101/61 97 Room Air Intake and Output 03/18/17 03/19/17 19:00 07:00 Intake Total 2200 ml 925 ml Output Total 350 ml 250 ml Balance 1850 ml 675 ml Intake Oral 1200 ml IV Total 1000 ml 925 ml Output Urine Total 350 ml 250 ml # Bowel Movements 1 Height (Feet): 5 Height (Inches): 7.00 Weight (Pounds): 350 Objective General: alert, cooperative, no distress, appears stated age, morbidly obese Head: normocephalic, without obvious abnormality, atraumatic Eyes: conjunctivae/corneas clear. PERRL, EOM's intact Throat: lips, mucosa, and tongue normal. MMM Neck: supple, symmetrical, trachea midline, and no JVD Lungs: clear to auscultation bilaterally Heart: regular rate and rhythm, S1, S2 normal, no murmur, click, rub or gallop Abdomen: soft, non-tender, non-distended, bowel sounds normal; no masses or organomegaly : suprapubic catheter site c/d/i Extremities: extremities normal, atraumatic, no cyanosis or edema Pulses: 2+ and symmetric Skin: skin color, texture, turgor normal; no rashes or lesions Neurologic: +weakness BLE, stable Gregg Cortes M.D. Mar 19, 2017 15:31
[2017-03-19 20:00] VITALS: BP 108/62
[2017-03-20] VITALS: BP 125/65
[2017-03-20 04:00] VITALS: BP 135/77
[2017-03-20] MEDS: metFORMIN 500mg tab ORAL SCH ×2 (06:06→16:49)
[2017-03-20] MEDS: GlipiZIDE 5mg tab ORAL SCH ×2 (06:06→16:49)
[2017-03-20] MEDS: NovoLOG Insulin Flexpen SUBQ SCH ×7 (06:07→22:17)
[2017-03-20 07:54] VITALS: BP 151/85
--- NOTE | 2017-03-20 09:02 | Urology Progress Note ---
Assessment/Plan Assessment/Plan 1. Neurogenic bladder. 2. Urinary retention with chronic suprapubic tube. 3. Urinary tract infection and chronic colonization. 4. Hematuria. 5. Proteinuria. keep sp tube, last changed 03/18 hand irrigate PRN abx as ordered, per ID f/u on cx's cysto later Subjective Allergies: Coded Allergies: No Known Allergies (Unverified , 07/15/16) Subjective feels fair Objective Last 24 Hour Vital Signs Date Time Temp Pulse Resp B/P Pulse Ox O2 Delivery O2 Flow Rate FiO2 03/20/17 07:54 98.4 96 19 151/85 98 Room Air 03/20/17 04:00 97.5 91 20 135/77 99 Room Air 03/20/17 00:00 97.3 89 20 125/65 98 Room Air 03/19/17 20:38 91 16 Room Air 03/19/17 20:00 97.5 88 20 108/62 98 Room Air 03/19/17 12:00 97.7 85 20 140/83 97 Room Air Intake and Output 03/19/17 03/20/17 19:00 07:00 Intake Total 540 ml 995 ml Output Total 900 ml 1100 ml Balance -360 ml -105 ml Intake Oral 240 ml 120 ml IV Total 300 ml 875 ml Output Urine Total 900 ml 1100 ml # Bowel Movements 1 Microbiology Date/Time Source Procedure Growth Status 03/17/17 17:30 Urine,Clean Catch Urine Culture - Preliminary Gram Negative Bacillus 1 Resulted 03/17/17 19:00 Arm Right Blood Culture - Preliminary NO GROWTH AFTER 48 HOURS Resulted Current Medications Medications (Trade) Dose Ordered Sig/Cristóbal Route PRN Reason Start Time Stop Time Status Last Admin Dose Admin Acetaminophen (Tylenol) 650 mg Q4H PRN ORAL Mild Pain (Pain Scale 1-3) 03/17/17 16:00 04/16/17 15:59 Acetaminophen/ Hydrocodone Bitart ([place] 10/325) 1 ea Q6H PRN ORAL moderate to severe pain 03/17/17 16:00 03/24/17 15:59 03/17/17 18:24 Al Hydroxide/Mg Hydroxide (Mylanta II) 30 ml Q6H PRN ORAL dyspepsia 03/17/17 16:00 04/16/17 15:59 Albuterol/ Ipratropium (DuoNeb 0.5-3(2.5)mg/3ml) 3 ml Q4H PRN HHN Shortness of Breath 03/17/17 16:00 03/22/17 15:59 Baclofen (Lioresal) 20 mg TIDPRN PRN ORAL Muscle Spasms 03/17/17 16:00 04/16/17 15:59 03/19/17 08:32 Bisacodyl (Dulcolax) 10 mg DAILYPRN PRN RECTAL Constipation Third Line Agent 03/17/17 16:00 04/16/17 15:59 Bisacodyl (Dulcolax) 10 mg HSPRN PRN RECTAL Constipation 03/17/17 16:00 04/16/17 15:59 Chlorhexidine Gluconate (Glenda-Hex 2%) 1 applic DAILY TOPIC 03/19/17 09:00 04/18/17 08:59 03/19/17 08:30 Dextrose STAT PRN IV Hypoglycemia 03/17/17 16:30 04/16/17 16:29 Diphenhydramine HCl (Benadryl) 25 mg Q6H PRN ORAL Itching/Pruritis 03/17/17 16:00 04/16/17 15:59 Docusate Sodium (Colace) 100 mg EVERY 12 HOURS ORAL 03/17/17 21:00 04/16/17 20:59 03/19/17 21:40 Duloxetine HCl (Cymbalta) 30 mg BID ORAL 03/17/17 18:00 04/16/17 17:59 03/19/17 17:19 Ferrous Sulfate (Feosol) 325 mg DAILY ORAL 03/18/17 09:00 04/17/17 08:59 03/19/17 08:31 Glipizide (Glucotrol) 5 mg BIAC ORAL 03/18/17 06:30 04/17/17 06:29 03/20/17 06:06 Heparin Sodium (Porcine) (Heparin 5000 units/ml) 5,000 units EVERY 12 HOURS SUBQ 03/17/17 21:00 04/16/17 20:59 03/19/17 21:41 Insulin Aspart (NovoLOG) BEFORE MEALS AND HS SUBQ 03/17/17 21:00 04/16/17 20:59 03/20/17 06:08 Insulin Aspart (NovoLOG) 10 units NOVOTIAC SUBQ 03/19/17 06:30 04/18/17 06:29 03/20/17 06:07 Insulin Detemir (Levemir) 30 units DAILY SUBQ 03/20/17 09:00 04/19/17 08:59 Lorazepam (Ativan) 1 mg TIDPRN PRN ORAL For Anxiety 03/17/17 16:00 03/24/17 15:59 Magnesium Hydroxide (Mom) 30 ml HSPRN PRN ORAL Constipation Second Line Agent 03/17/17 16:00 04/16/17 15:59 Meropenem/Sodium Chloride (Merrem/Sodium Chloride) 100 ml @ 200 mls/hr Q8HR IVPB 03/17/17 22:00 03/22/17 21:59 03/20/17 06:02 Metformin HCl 500 mg 500 mg BIAC ORAL 03/18/17 06:30 04/17/17 06:29 03/20/17 06:06 Metoclopramide HCl (Reglan) 10 mg Q6H PRN IVP Nausea & Vomiting 03/17/17 16:00 04/16/17 15:59 Mineral Oil (Fleet's Mineral Oil Enema) 133 ml DAILYPRN PRN RECTAL Constipation Fourth Line Agent 03/17/17 16:00 04/16/17 15:59 Multivitamins Therapeutic (Therapeutic Multivitamin) 1 ea DAILY ORAL 03/18/17 09:00 04/17/17 08:59 03/19/17 08:45 Ondansetron HCl (Zofran) 4 mg Q6H PRN IVP Nausea & Vomiting 03/17/17 16:00 04/16/17 15:59 Polyethylene Glycol (Miralax) 17 gm HSPRN PRN ORAL Constipation First Line Agent 03/17/17 16:00 04/16/17 15:59 Pravastatin Sodium (Pravachol) 40 mg BEDTIME ORAL 03/17/17 21:00 04/16/17 20:59 03/19/17 21:39 Pregabalin (Lyrica) 200 mg BID ORAL 03/17/17 18:00 04/16/17 17:59 03/19/17 17:19 Sodium Chloride (Sodium Chloride 1000ml bag) 1,000 ml @ 75 mls/hr [id number] IV 03/17/17 19:00 04/16/17 18:59 03/20/17 00:24 Vitamin D (Vitamin D) 1,000 intlu DAILY ORAL 03/18/17 09:00 04/17/17 08:59 03/19/17 08:31 Height (Feet): 5 Height (Inches): 7.00 Weight (Pounds): 350 Objective exam stable DAPHNIE VIDES Mar 20, 2017 09:02
[2017-03-20] MEDS: DULoxetine 30mg cap ORAL SCH ×2 (09:11→18:07)
[2017-03-20] MEDS: Docusate 100mg cap ORAL SCH ×2 (09:11→21:00)
[2017-03-20] MEDS: Lyrica 50mg cap ORAL SCH ×2 (09:12→18:08)
[2017-03-20] MEDS: Vitamin D 1000 IU Tab ORAL SCH (09:12)
[2017-03-20] MEDS: Multivitamin w/Minerals tab ORAL SCH (09:12)
[2017-03-20] MEDS: Levemir Flexpen SUBQ SCH ×2 (09:16→10:50)
[2017-03-20] MEDS: Heparin 5000 units/ml inj SUBQ SCH ×2 (09:16→22:15)
[2017-03-20] MEDS: Dyna-Hex 2% Top Sol 8oz TOPIC SCH (09:32)
--- NOTE | 2017-03-20 11:32 | Infectious Diseases Prog Note ---
Assessment/Plan Assessment/Plan ASSESSMENT AND PLAN: 1. pseudomonas uti and 2nd gram neg uti, d/w micro and id of 2nd gram neg pending - hx esbl infection - meropenem for now, abx x 7 days more - adjust abx once final urine culture back - watch labs 2. Diabetes - continue blood sugar control per primary. 3. Suprapubic catheter. 4. History of UTI and esbl infection 5. Obesity. 6. Hyperlipidemia. 7. Peripheral neuropathy. 8. Generalized weakness and paraplegia 9. History of edema. 10. History of ulcers. Wound care protocol. 11. Intertrigo. 12. Anemia. 13. Hyperalbuminemia. 14. History of abdominal pain. 15. No known allergies. 16. MAR as noted. 17. Family history is noncontributory. 18. Social history is negative. 19. mar noted 20. Notes were reviewed. 21. Continue treatment with primary consultants. 22. Case was discussed with RN. 23. Case discussed with the patient. 24. D/w Dr. Escobedo about abx Subjective Constitutional: Reports: fatigue, Denies: fever HEENT: Denies: congestion Respiratory: Denies: shortness of breath Cardiovascular: Denies: chest pain Gastrointestinal/Abdominal: Denies: diarrhea, nausea, vomiting Genitourinary: Reports: other - + [place] Neurologic: Denies: headache Psychiatric: Denies: depression Skin: Denies: rash Hematologic: Denies: bleeding Musculoskeletal: Denies: pain Allergies: Coded Allergies: No Known Allergies (Unverified , 07/15/16) Objective Vital Signs Last 24 Hour Vital Signs Date Time Temp Pulse Resp B/P Pulse Ox O2 Delivery O2 Flow Rate FiO2 03/20/17 09:12 Room Air 03/20/17 07:54 98.4 96 19 151/85 98 Room Air 03/20/17 04:00 97.5 91 20 135/77 99 Room Air 03/20/17 00:00 97.3 89 20 125/65 98 Room Air 03/19/17 20:38 91 16 Room Air 03/19/17 20:00 97.5 88 20 108/62 98 Room Air 03/19/17 12:00 97.7 85 20 140/83 97 Room Air Height (Feet): 5 Height (Inches): 7.00 Weight (Pounds): 350 General Appearance: no acute distress HEENT: normocephalic, atraumatic, anicteric, mucous membranes moist, PERRL, EOMI, pharynx normal, supple, no JVD Respiratory/Chest: lungs clear, normal breath sounds, no respiratory distress, no accessory muscle use Cardiovascular: normal rate, regular rhythm, no gallop/murmur, no JVD Abdomen: normal bowel sounds, soft, non tender, no organomegaly, non distended Genitourinary: other - + supra-pubic Extremities: no cyanosis Skin: no rash 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40) Hemoglobin 13.2 G/DL (12.0-16.0) 12.5 G/DL (12.0-16.0) Hematocrit 39.1 % (37.0-47.0) 39.1 % (37.0-47.0) Mean Corpuscular Volume 89 FL (80-99) 91 FL (80-99) Mean Corpuscular Hemoglobin 30.1 PG (27.0-31.0) 29.0 PG (27.0-31.0) Mean Corpuscular Hemoglobin Concent 33.8 G/DL (32.0-36.0) 32.0 G/DL (32.0-36.0) Red Cell Distribution Width 13.2 % (11.6-14.8) 13.4 % (11.6-14.8) Platelet Count 180 K/UL (150-450) 182 K/UL (150-450) Mean Platelet Volume 9.1 FL (6.5-10.1) 8.6 FL (6.5-10.1) Neutrophils (%) (Auto) 46.0 % (45.0-75.0) 36.3 % (45.0-75.0) Lymphocytes (%) (Auto) 41.1 % (20.0-45.0) 48.4 % (20.0-45.0) Monocytes (%) (Auto) 7.5 % (1.0-10.0) 8.9 % (1.0-10.0) Eosinophils (%) (Auto) 4.3 % (0.0-3.0) 4.8 % (0.0-3.0) Basophils (%) (Auto) 1.1 % (0.0-2.0) 1.5 % (0.0-2.0) Urine Color Pale yellow Urine Appearance Cloudy Urine pH 6 (4.5-8.0) Urine Specific [place] 1.010 (1.005-1.035) Urine Protein 2+ (NEGATIVE) Urine Glucose (UA) 4+ (NEGATIVE) Urine Ketones Negative (NEGATIVE) Urine Occult Blood 5+ (NEGATIVE) Urine Nitrite Positive (NEGATIVE) Urine Bilirubin Negative (NEGATIVE) Urine Urobilinogen Normal MG/DL (0.0-1.0) Urine Leukocyte Esterase 3+ (NEGATIVE) Urine RBC 60-80 /HPF (0 - 2) Urine WBC 20-30 /HPF (0 - 2) Urine Squamous Epithelial Cells Few /LPF (NONE/OCC) Urine Bacteria Many /HPF (NONE) Sodium Level 131 mEQ/L (135-145) 138 mEQ/L (135-145) Potassium Level 4.0 mEQ/L (3.4-4.9) 3.8 mEQ/L (3.4-4.9) Chloride Level 92 mEQ/L (98-107) 97 mEQ/L (98-107) Carbon Dioxide Level 29 mEQ/L (20-30) 31 mEQ/L (20-30) Anion Gap 10 (5-15) 10 (5-15) Blood Urea Nitrogen 8 mg/dL (7-23) 8 mg/dL (7-23) Creatinine 0.7 mg/dL (0.5-0.9) 0.6 mg/dL (0.5-0.9) Estimat Glomerular Filtration Rate > 60 mL/min (>60) > 60 mL/min (>60) Glucose Level 435 mg/dL (74-106) 336 mg/dL (74-106) Calcium Level 9.3 mg/dL (8.6-10.2) 9.1 mg/dL (8.6-10.2) Magnesium Level 1.4 mg/dL (1.7-2.5) Total Bilirubin 0.2 mg/dL (0.0-1.2) 0.3 mg/dL (0.0-1.2) Aspartate Amino Transf (AST/SGOT) 15 U/L (5-40) 17 U/L (5-40) Alanine Aminotransferase (ALT/SGPT) 12 U/L (3-33) 11 U/L (3-33) Alkaline Phosphatase 79 U/L (35-104) 77 U/L (35-104) Pro-B-Type Natriuretic Peptide 30 pg/mL (0-125) Total Protein 6.6 g/dL (6.6-8.7) 6.4 g/dL (6.6-8.7) Albumin 3.5 g/dL (3.5-5.2) 3.2 g/dL (3.5-5.2) Globulin 3.1 g/dL 3.2 g/dL Albumin/Globulin Ratio 1.1 (1.0-2.7) 1.0 (1.0-2.7) Vitamin B12 Level 616 pg/mL (211-946) Folate 15.7 ng/mL (>3.0) Thyroid Stimulating Hormone (TSH) 2.590 uIU/mL (0.300-4.500) Hemoglobin A1c 13.7 % (< 6.0) Current Medications Medications (Trade) Dose Ordered Sig/Cristóbal Route PRN Reason Start Time Stop Time Status Last Admin Dose Admin Acetaminophen (Tylenol) 650 mg Q4H PRN ORAL Mild Pain (Pain Scale 1-3) 03/17/17 16:00 04/16/17 15:59 Acetaminophen/ Hydrocodone Bitart ([place] 10/325) 1 ea Q6H PRN ORAL moderate to severe pain 03/17/17 16:00 03/24/17 15:59 03/17/17 18:24 Al Hydroxide/Mg Hydroxide (Mylanta II) 30 ml Q6H PRN ORAL dyspepsia 03/17/17 16:00 04/16/17 15:59 Albuterol/ Ipratropium (DuoNeb 0.5-3(2.5)mg/3ml) 3 ml Q4H PRN HHN Shortness of Breath 03/17/17 16:00 03/22/17 15:59 Baclofen (Lioresal) 20 mg TIDPRN PRN ORAL Muscle Spasms 03/17/17 16:00 04/16/17 15:59 03/19/17 08:32 Bisacodyl (Dulcolax) 10 mg DAILYPRN PRN RECTAL Constipation Third Line Agent 03/17/17 16:00 04/16/17 15:59 Bisacodyl (Dulcolax) 10 mg HSPRN PRN RECTAL Constipation 03/17/17 16:00 04/16/17 15:59 Chlorhexidine Gluconate (Glenda-Hex 2%) 1 applic DAILY TOPIC 03/19/17 09:00 04/18/17 08:59 03/20/17 09:32 Dextrose STAT PRN IV Hypoglycemia 03/17/17 16:30 04/16/17 16:29 Diphenhydramine HCl (Benadryl) 25 mg Q6H PRN ORAL Itching/Pruritis 03/17/17 16:00 04/16/17 15:59 Docusate Sodium (Colace) 100 mg EVERY 12 HOURS ORAL 03/17/17 21:00 04/16/17 20:59 03/20/17 09:11 Duloxetine HCl (Cymbalta) 30 mg BID ORAL 03/17/17 18:00 04/16/17 17:59 03/20/17 09:11 Ferrous Sulfate (Feosol) 325 mg DAILY ORAL 03/18/17 09:00 04/17/17 08:59 03/20/17 09:10 Glipizide (Glucotrol) 5 mg BIAC ORAL 03/18/17 06:30 04/17/17 06:29 03/20/17 06:06 Heparin Sodium (Porcine) (Heparin 5000 units/ml) 5,000 units EVERY 12 HOURS SUBQ 03/17/17 21:00 04/16/17 20:59 03/20/17 09:16 Insulin Aspart (NovoLOG) BEFORE MEALS AND HS SUBQ 03/17/17 21:00 04/16/17 20:59 03/20/17 06:08 Insulin Aspart (NovoLOG) 10 units NOVOTIAC SUBQ 03/19/17 06:30 04/18/17 06:29 03/20/17 06:07 Insulin Detemir (Levemir) 30 units DAILY SUBQ 03/20/17 09:00 04/19/17 08:59 03/20/17 10:50 Lorazepam (Ativan) 1 mg TIDPRN PRN ORAL For Anxiety 03/17/17 16:00 03/24/17 15:59 Magnesium Hydroxide (Mom) 30 ml HSPRN PRN ORAL Constipation Second Line Agent 03/17/17 16:00 04/16/17 15:59 Meropenem/Sodium Chloride (Merrem/Sodium Chloride) 100 ml @ 200 mls/hr Q8HR IVPB 03/17/17 22:00 03/22/17 21:59 03/20/17 06:02 Metformin HCl 500 mg 500 mg BIAC ORAL 03/18/17 06:30 04/17/17 06:29 03/20/17 06:06 Metoclopramide HCl (Reglan) 10 mg Q6H PRN IVP Nausea & Vomiting 03/17/17 16:00 04/16/17 15:59 Mineral Oil (Fleet's Mineral Oil Enema) 133 ml DAILYPRN PRN RECTAL Constipation Fourth Line Agent 03/17/17 16:00 04/16/17 15:59 Multivitamins Therapeutic (Therapeutic Multivitamin) 1 ea DAILY ORAL 03/18/17 09:00 04/17/17 08:59 03/20/17 09:12 Ondansetron HCl (Zofran) 4 mg Q6H PRN IVP Nausea & Vomiting 03/17/17 16:00 04/16/17 15:59 Polyethylene Glycol (Miralax) 17 gm HSPRN PRN ORAL Constipation First Line Agent 03/17/17 16:00 04/16/17 15:59 Pravastatin Sodium (Pravachol) 40 mg BEDTIME ORAL 03/17/17 21:00 04/16/17 20:59 03/19/17 21:39 Pregabalin (Lyrica) 200 mg BID ORAL 03/17/17 18:00 04/16/17 17:59 03/20/17 09:12 Sodium Chloride (Sodium Chloride 1000ml bag) 1,000 ml @ 75 mls/hr [id number] IV 03/17/17 19:00 04/16/17 18:59 03/20/17 00:24 Vitamin D (Vitamin D) 1,000 intlu DAILY ORAL 03/18/17 09:00 04/17/17 08:59 03/20/17 09:12 ARIELA NEVRAEZ Mar 20, 2017 11:32
[2017-03-20 11:55] VITALS: BP 147/86
--- NOTE | 2017-03-20 12:15 | Geriatric Medicine Prog Note ---
DATE: 03/19/2017 SUBJECTIVE: She came in from [facility] on 03/20/2017. OBJECTIVE: VITAL SIGNS: Blood pressure 140/83, pulse 85, respirations 18, and temperature 97.7. RESPIRATORY: Clear. CVS: Regular. Laboratory Data: Glucose 00:53 84 mg%. ASSESSMENT: Diabetes mellitus, improved control. Plan: Change Levemir insulin to 30 units subcutaneously daily with NovoLog 01:00 units a.c. 01:03 glucose less than 100 mg% in a.m. Dennis Davis M.D. DR: SUHAIL JOB#: [id number] CC:
[2017-03-20] MEDS: Norco 10mg/325mg tab ORAL PRN (15:20)
[2017-03-20 16:14] VITALS: BP 124/76
[2017-03-20 20:00] VITALS: BP 107/55
--- NOTE | 2017-03-20 22:11 | General Progress Note ---
Assessment/Plan Problem List: (1) UTI (urinary tract infection) Assessment & Plan: UTI in setting of suprapubic catheter ICD Codes: N39.0 - Urinary tract infection, site not specified SNOMED: 03478761 (2) Hypomagnesemia ICD Codes: E83.42 - Hypomagnesemia SNOMED: 218683235 (3) Hyponatremia ICD Codes: E87.1 - Hypo-osmolality and hyponatremia SNOMED: 64714234 (4) Neurogenic bladder ICD Codes: N31.9 - Neuromuscular dysfunction of bladder, unspecified SNOMED: 428207614 (5) Suprapubic catheter ICD Codes: Z93.59 - Other cystostomy status SNOMED: 894627128 (6) Diabetes mellitus type 2 with complications, uncontrolled ICD Codes: E11.8 - Type 2 diabetes mellitus with unspecified complications; E11.65 - Type 2 diabetes mellitus with hyperglycemia SNOMED: 79340388, 531152376, 900569387 (7) Morbid obesity ICD Codes: E66.01 - Morbid (severe) obesity due to excess calories SNOMED: 566726517 (8) Generalized weakness ICD Codes: R53.1 - Weakness SNOMED: 90214596 (9) Peripheral neuropathy ICD Codes: G62.9 - Polyneuropathy, unspecified SNOMED: 90620643 (10) Paraplegia ICD Codes: G82.20 - Paraplegia, unspecified SNOMED: 01196339 (11) Sacrococcygeal stage III pressure ulcer (12) Left and right ischial tuberosity scattered stage II pressure ulcer Status: stable Assessment/Plan ID consulted Cont meropenem (03/17-) given abnormal U/A concerning for UTI Urology consulted SP catheter changed on 03/18 F/u urine cx-->100K GNR Cont home meds BALBIR Incr levermir 30U BID Started Aspart 10U TID AC Cont glipizide, MTF Endo consulted given uncontrolled diabetes, A1C 13 Pain control, supportive care, bowel regimen Trend CBC, BMP Replete lytes IVFs PT/OT Wound care Awaiting SNF placement DVT Prophylaxis: SCD, HSQ Code Status: Full Hospital Classification Declaration: Based on this initial evaluation, and depending on the patient's clinical course, I anticipate that this patient will require hospitalization for 1-2 days for suprapubic catheter dysfunction, UTI, and close respiratory/hemodynamic monitoring. Disposition: Once the patient is stable to leave the hospital, I anticipate the patient will likely be discharged to the following environment: SNF I spent 40 minutes on this patient's case, and 22 minutes were dedicated to counseling and/or care coordination. Discussed with patient/family, nursing staff, SW/CM, ID, urology regarding clinical status, treatment course, and disposition planning. Time of note may not reflect time of encounter. Subjective Date patient seen: Mar 20, 2017 Time patient seen: 22:11 ROS Limited/Unobtainable: No Constitutional: Reports: no symptoms HEENT: Reports: no symptoms Cardiovascular: Reports: no symptoms Respiratory: Reports: no symptoms Gastrointestinal/Abdominal: Reports: no symptoms Genitourinary: Reports: no symptoms Neurologic/Psychiatric: Reports: no symptoms Endocrine: Reports: no symptoms Allergies: Coded Allergies: No Known Allergies (Unverified , 07/15/16) All Systems: reviewed and negative except above Subjective Sugars uncontrolled. A1C 13.7. Endo consulted and insulin regimen adjusted On Meropenem per ID. Urine cx shows >100K GNR Pt doing well. Getting PT/OT. Motivated to get rehab to get stronger. Denies f/c , n/v, d/c, chest pain, SOB Objective Last 24 Hour Vital Signs Date Time Temp Pulse Resp B/P Pulse Ox O2 Delivery O2 Flow Rate FiO2 03/20/17 20:59 87 18 Room Air 03/20/17 20:00 96.1 89 20 107/55 100 Room Air 03/20/17 16:14 98.2 82 19 124/76 99 Room Air 03/20/17 11:55 97.7 90 18 147/86 100 Room Air 03/20/17 09:12 Room Air 03/20/17 07:54 98.4 96 19 151/85 98 Room Air 03/20/17 04:00 97.5 91 20 135/77 99 Room Air 03/20/17 00:00 97.3 89 20 125/65 98 Room Air Intake and Output 03/19/17 03/20/17 19:00 07:00 Intake Total 540 ml 995 ml Output Total 900 ml 1100 ml Balance -360 ml -105 ml Intake Oral 240 ml 120 ml IV Total 300 ml 875 ml Output Urine Total 900 ml 1100 ml # Bowel Movements 1 Height (Feet): 5 Height (Inches): 7.00 Weight (Pounds): 350 Objective General: alert, cooperative, no distress, appears stated age, morbidly obese Head: normocephalic, without obvious abnormality, atraumatic Eyes: conjunctivae/corneas clear. PERRL, EOM's intact Throat: lips, mucosa, and tongue normal. MMM Neck: supple, symmetrical, trachea midline, and no JVD Lungs: clear to auscultation bilaterally Heart: regular rate and rhythm, S1, S2 normal, no murmur, click, rub or gallop Abdomen: soft, non-tender, non-distended, bowel sounds normal; no masses or organomegaly : suprapubic catheter site c/d/i Extremities: extremities normal, atraumatic, no cyanosis or edema Pulses: 2+ and symmetric Skin: skin color, texture, turgor normal; no rashes or lesions Neurologic: +weakness BLE, stable Gregg Cortes M.D. Mar 20, 2017 22:11
[2017-03-20] MEDS ORDERED: LEVEMIR FL100 UNIT/1 SUBQ (22:16)
[2017-03-20] MEDS ORDERED: NOVOLOG100 UNITS1 SUBQ (22:16)
[2017-03-20] MEDS ORDERED: GLUCOPHAGE500 MG ORAL (22:16)
[2017-03-21] VITALS: BP 121/59
[2017-03-21 04:00] VITALS: BP 122/65
[2017-03-21] MEDS: metFORMIN 500mg tab ORAL SCH (05:40)
[2017-03-21] MEDS: GlipiZIDE 5mg tab ORAL SCH (05:40)
[2017-03-21] MEDS: NovoLOG Insulin Flexpen SUBQ SCH ×4 (05:42→11:50)
[2017-03-21 08:09] VITALS: BP 116/91
[2017-03-21] MEDS: Multivitamin w/Minerals tab ORAL SCH (08:18)
[2017-03-21] MEDS: Lyrica 50mg cap ORAL SCH (08:19)
[2017-03-21] MEDS: Vitamin D 1000 IU Tab ORAL SCH (08:19)
[2017-03-21] MEDS: Dyna-Hex 2% Top Sol 8oz TOPIC SCH (08:19)
[2017-03-21] MEDS: Heparin 5000 units/ml inj SUBQ SCH (08:22)
[2017-03-21] MEDS: Levemir Flexpen SUBQ SCH (08:24)
[2017-03-21] MEDS: Docusate 100mg cap ORAL SCH (08:30)
[2017-03-21] MEDS: DULoxetine 30mg cap ORAL SCH (08:44)
--- NOTE | 2017-03-21 09:30 | Urology Progress Note ---
Assessment/Plan Assessment/Plan 1. Neurogenic bladder. 2. Urinary retention with chronic suprapubic tube. 3. Urinary tract infection and chronic colonization. 4. Hematuria. 5. Proteinuria. keep sp tube, last changed 03/18 hand irrigate PRN abx as ordered, per ID f/u on cx's cysto later Subjective Allergies: Coded Allergies: No Known Allergies (Unverified , 07/15/16) Subjective feels fair Objective Last 24 Hour Vital Signs Date Time Temp Pulse Resp B/P Pulse Ox O2 Delivery O2 Flow Rate FiO2 03/21/17 08:09 98.4 89 20 116/91 99 Room Air 03/21/17 07:30 88 20 Room Air 21 03/21/17 04:00 97.3 86 20 122/65 98 Room Air 03/21/17 00:00 97.0 74 20 121/59 100 Room Air 03/20/17 20:59 87 18 Room Air 03/20/17 20:00 96.1 89 20 107/55 100 Room Air 03/20/17 16:14 98.2 82 19 124/76 99 Room Air 03/20/17 11:55 97.7 90 18 147/86 100 Room Air Intake and Output 03/20/17 03/21/17 19:00 07:00 Intake Total 850 ml 1345 ml Output Total 1203 ml Balance 850 ml 142 ml Intake Oral 120 ml IV Total 850 ml 1225 ml Output Urine Total 1200 ml Stool Total 3 ml # Bowel Movements 3 Microbiology Date/Time Source Procedure Growth Status 03/17/17 17:30 Urine,Clean Catch Urine Culture - Preliminary Pseudomonas Aeruginosa Gram Negative Bacillus 2 Resulted 03/17/17 19:00 Arm Right Blood Culture - Preliminary NO GROWTH AFTER 72 HOURS Resulted Current Medications Medications (Trade) Dose Ordered Sig/Cristóbal Route PRN Reason Start Time Stop Time Status Last Admin Dose Admin Acetaminophen (Tylenol) 650 mg Q4H PRN ORAL Mild Pain (Pain Scale 1-3) 03/17/17 16:00 04/16/17 15:59 Acetaminophen/ Hydrocodone Bitart (Pequea 10/325) 1 ea Q6H PRN ORAL moderate to severe pain 03/17/17 16:00 03/24/17 15:59 03/20/17 15:20 Al Hydroxide/Mg Hydroxide (Mylanta II) 30 ml Q6H PRN ORAL dyspepsia 03/17/17 16:00 8/30/17 15:59 Albuterol/ Ipratropium (DuoNeb 0.5-3(2.5)mg/3ml) 3 ml Q4H PRN HHN Shortness of Breath 03/17/17 16:00 03/22/17 15:59 Baclofen (Lioresal) 20 mg TIDPRN PRN ORAL Muscle Spasms 03/17/17 16:00 04/16/17 15:59 03/19/17 08:32 Bisacodyl (Dulcolax) 10 mg DAILYPRN PRN RECTAL Constipation Third Line Agent 03/17/17 16:00 04/16/17 15:59 Bisacodyl (Dulcolax) 10 mg HSPRN PRN RECTAL Constipation 03/17/17 16:00 04/16/17 15:59 Chlorhexidine Gluconate (Glenda-Hex 2%) 1 applic DAILY TOPIC 03/19/17 09:00 04/18/17 08:59 03/21/17 08:19 Dextrose (Dextrose 50%) STAT PRN IV Hypoglycemia 03/17/17 16:30 04/16/17 16:29 Diphenhydramine HCl (Benadryl) 25 mg Q6H PRN ORAL Itching/Pruritis 03/17/17 16:00 04/16/17 15:59 Docusate Sodium (Colace) 100 mg EVERY 12 HOURS ORAL 03/17/17 21:00 04/16/17 20:59 03/20/17 09:11 Duloxetine HCl (Cymbalta) 30 mg BID ORAL 03/17/17 18:00 04/16/17 17:59 03/21/17 08:44 Ferrous Sulfate (Feosol) 325 mg DAILY ORAL 03/18/17 09:00 04/17/17 08:59 03/21/17 08:18 Glipizide (Glucotrol) 5 mg BIAC ORAL 03/18/17 06:30 04/17/17 06:29 03/21/17 05:40 Heparin Sodium (Porcine) (Heparin 5000 units/ml) 5,000 units EVERY 12 HOURS SUBQ 03/17/17 21:00 04/16/17 20:59 03/21/17 08:22 Insulin Aspart (NovoLOG) BEFORE MEALS AND HS SUBQ 03/17/17 21:00 04/16/17 20:59 03/21/17 05:42 Insulin Aspart (NovoLOG) 10 units NOVOTIAC SUBQ 03/19/17 06:30 04/18/17 06:29 03/21/17 05:43 Insulin Detemir 30 units 30 units DAILY SUBQ 03/20/17 09:00 04/19/17 08:59 03/21/17 08:24 Lorazepam (Ativan) 1 mg TIDPRN PRN ORAL For Anxiety 03/17/17 16:00 03/24/17 15:59 Magnesium Hydroxide (Mom) 30 ml HSPRN PRN ORAL Constipation Second Line Agent 03/17/17 16:00 04/16/17 15:59 Meropenem/Sodium Chloride (Merrem/Sodium Chloride) 100 ml @ 200 mls/hr Q8HR IVPB 03/20/17 14:00 03/25/17 13:59 03/21/17 05:32 Metformin HCl 500 mg 500 mg BIAC ORAL 03/18/17 06:30 04/17/17 06:29 03/21/17 05:40 Metoclopramide HCl (Reglan) 10 mg Q6H PRN IVP Nausea & Vomiting 03/17/17 16:00 04/16/17 15:59 Mineral Oil (Fleet's Mineral Oil Enema) 133 ml DAILYPRN PRN RECTAL Constipation Fourth Line Agent 03/17/17 16:00 04/16/17 15:59 Multivitamins Therapeutic (Therapeutic Multivitamin) 1 ea DAILY ORAL 03/18/17 09:00 04/17/17 08:59 03/21/17 08:18 Ondansetron HCl (Zofran) 4 mg Q6H PRN IVP Nausea & Vomiting 03/17/17 16:00 04/16/17 15:59 Polyethylene Glycol (Miralax) 17 gm HSPRN PRN ORAL Constipation First Line Agent 03/17/17 16:00 04/16/17 15:59 Pravastatin Sodium (Pravachol) 40 mg BEDTIME ORAL 03/17/17 21:00 04/16/17 20:59 03/20/17 22:13 Pregabalin (Lyrica) 200 mg BID ORAL 03/17/17 18:00 04/16/17 17:59 03/21/17 08:19 Sodium Chloride (Sodium Chloride 1000ml bag) 1,000 ml @ 75 mls/hr [id number] IV 03/17/17 19:00 04/16/17 18:59 03/21/17 04:13 Vitamin D (Vitamin D) 1,000 intlu DAILY ORAL 03/18/17 09:00 04/17/17 08:59 03/21/17 08:19 Height (Feet): 5 Height (Inches): 7.00 Weight (Pounds): 350 Objective exam stable DAPHNIE VIDES Mar 21, 2017 09:30
[2017-03-21] MEDS ORDERED: MEROPENEM-1 GM/50 ML IV (11:21)
[2017-03-21 11:55] VITALS: BP 136/77
[2017-03-21] MEDS ORDERED: MEROPENEM1 GM IV (12:16)
[2017-03-21] MEDS ORDERED: Tubing IV Secondary IV ONE (14:59)
--- NOTE | 2017-03-21 21:17 | Discharge Summary ---
Discharge Summary Hospital Course Date of Admission Mar 17, 2017 at 13:57 Date of Discharge Mar 21, 2017 at 15:00 Admitting Diagnosis HPI Carmen Mejia is a 51 year old female who was admitted on Mar 17, 2017 at 13: 57 for General Weakness Discharge Medications New Medications: Insulin Aspart (Novolog Flexpen) 100 Unit/1 Ml Insuln.pen 10 UNITS SUBQ NOVOTIAC for 90 Days, EA Insulin Detemir (Levemir Flexpen) 100 Unit/1 Ml Insuln.pen 30 UNITS SUBQ DAILY for 90 Days, EA Metformin Hcl* (Glucophage*) 500 Mg Tablet 500 MG ORAL BIAC for 180 Days, TAB Continued Medications: Baclofen* (Lioresal*) 20 Mg Tablet 20 MG ORAL THREE TIMES A DAY PRN for Muscle Spasms, TAB Bisacodyl (Dulcolax) 10 Mg Supp.rect 10 MG RC DAILY PRN for Constipation, SUPP Cholecalciferol (Vitamin D3)* (Vitamin D*) 1,000 Unit Tablet 1000 INTLU ORAL DAILY for 30 Days, TAB Duloxetine Hcl* (Cymbalta*) 30 Mg Capsule.dr 30 MG ORAL BID, CAP Ergocalciferol (Vitamin D2)* (Vitamin D*) 50,000 Unit Capsule 36040 UNIT ORAL ONCE A WEEK, CAP Ferrous Sulfate (Iron) 325 Mg Tablet 325 MG PO DAILY, TAB Furosemide* (Lasix*) 40 Mg Tablet 40 MG ORAL DAILY, TAB Glipizide (Glipizide) 10 Mg Tablet 5 MG ORAL BID, #30 TAB 0 Refills Hydrocodone Bit/Acetaminophen 10-325* (Ulysses 10-325*) 1 Each Tablet 1 TAB ORAL Q6H PRN for For Pain, #10 TAB 0 Refills PRN PAIN Insulin Aspart (Novolog Flexpen) 100 Unit/1 Ml Insuln.pen 0 UNITS SUBQ BEFORE MEALS AND HS for 30 Days, EA Ipratropium/Albuterol Sulfate (DuoNeb 0.5-3(2.5)mg/3ml) 3 Ml Ampul.neb 3 ML HHN EVERY 4 HOURS PRN for Shortness of Breath, EA Lactobacillus Acidophilus (Probiotic) 1 Each Capsule 1 EACH PO DAILY, CAP Lorazepam* (Ativan*) 1 Mg Tablet 1 MG ORAL THREE TIMES A DAY PRN for For Anxiety, TAB Meropenem (Meropenem) 1 Gm Vial 1 GM IV EVERY 8 HOURS for 6 Days, VIAL Mineral Oil (Mineral Oil Enema) 133 Ml Enema 133 ML RC DAILY PRN for Constipation, EA Multivitamin with Minerals (Multivitamins with Minerals) 1 Each Tablet 1 TAB ORAL DAILY, TAB Pravastatin Sodium (Pravachol) 40 Mg Tablet 40 MG ORAL BEDTIME, TAB Pregabalin* (Lyrica*) 75 Mg Capsule 200 MG ORAL BID, CAP [ocean nasal spray] () 1 SPRAYS NASAL EVERY 2 HOURS PRN for congestion Discontinued Medications: Ertapenem Sodium* (INVanz*) 1 Gm Vial.port 1 GM IVPB Q24H for 7 Days, VIAL Glipizide* (Glipizide*) 5 Mg Tablet 10 MG ORAL BIAC for 30 Days, TAB Insulin Aspart (Novolog Flexpen) 100 Unit/1 Ml Insuln.pen 5 UNITS SUBQ NOVOTIAC for 30 Days, EA Meloxicam* (Mobic*) 15 Mg Tablet 15 MG ORAL DAILY, #30 TAB 0 Refills [ms contin sr] () 15 MG PO TID Discharge Condition Upon Discharge: stable Discharge Disposition Patient was discharged to SNF/Subacute Facility(03) Discharge Diagnoses: (1) UTI (urinary tract infection) (2) Morbid obesity (3) Diabetes mellitus type 2 with complications, uncontrolled (4) Left and right ischial tuberosity scattered stage II pressure ulcer (5) Pressure ulcer of coccygeal region, stage 2 (6) Pressure ulcer of left buttock, stage 2 (7) Neurogenic bladder (8) Generalized weakness (9) Peripheral neuropathy (10) Hyperlipidemia (11) Hypomagnesemia (12) Hyponatremia Gregg Cortes M.D. Mar 21, 2017 21:17
--- NOTE | 2017-03-21 22:30 | Geriatric Medicine Prog Note ---
DATE: 03/21/2017 SUBJECTIVE: The patient recovered and eager to go home. OBJECTIVE: VITAL SIGNS: Stable. LUNGS: Clear. CVS: Regular. LABORATORY DATA: Glucose 173. ASSESSMENT: Diabetes mellitus, improved. PLAN: Levemir to 30 units q.8 h. and NovoLog 10 units t.i.d. a.c. Dennis Davis M.D. DR: SUHAIL JOB#: [id number] CC:
--- NOTE | 2017-03-22 04:15 | Operative Note - Dictated ---
NOTE: POOR AUDIO, UNABLE TO COMPREHEND DICTATION. REQUESTED CLIENT FOR RE-DICTATION blood pressure on the lower antihypertensive medications. She has been taking . FAMILY HISTORY: Noncontributory. PERSONAL HISTORY: Negative for tobacco, alcohol, or drug abuse. REVIEW OF SYSTEMS: A 14-point review is unremarkable. PHYSICAL EXAMINATION: GENERAL: The patient is in no acute distress. VITAL SIGNS: Blood pressure . Height 7 inches. Weight 110 pounds. . Dennis Davis M.D. DR: OUMAR JOB#: [id number] CC:
== END 2017-03-21 15:00 | DRG 690 ==
LOC: 4E 13:57
DX: N39.0 Urinary tract infection, site not specified (principal); L89.152 Pressure ulcer of sacral region, stage 2; L89.212 Pressure ulcer of right hip, stage 2; E11.65 Type 2 diabetes mellitus with hyperglycemia; L89.322 Pressure ulcer of left buttock, stage 2; G82.20 Paraplegia, unspecified; E11.8 Type 2 diabetes mellitus with unspecified complications; E87.1 Hypo-osmolality and hyponatremia; Z68.43 Body mass index [BMI] 50.0-59.9, adult; E83.42 Hypomagnesemia; N31.9 Neuromuscular dysfunction of bladder, unspecified; Z93.59 Other cystostomy status; E66.01 Morbid (severe) obesity due to excess calories; G62.9 Polyneuropathy, unspecified; Z79.4 Long term (current) use of insulin; Z79.84 Long term (current) use of oral hypoglycemic drugs; E78.5 Hyperlipidemia, unspecified; R33.9 Retention of urine, unspecified; L30.4 Erythema intertrigo; B96.5 Pseudomonas (aeruginosa) (mallei) (pseudomallei) as the cause of diseases classified elsewhere; L89.222 Pressure ulcer of left hip, stage 2
CPT/HCPCS: 36415; 80053; 81003; 82306; 82607; 82746; 82962; 83036; 83735; 83880; 84443; 85025; 87040; 87086; 87181; 94664; J1815; J2405; S5561

== ENCOUNTER 2017-09-18 12:16 | Inpatient (IN) | payer MEDICARE, MEDICAID ==
[~2017-09-18] VITALS: Ht 170.2 cm; Wt 158.8 kg
[~2017-09-18 12:16] MED LIST changes: +GLUCOPHAGE500 MG ORAL; +LEVEMIR FL100 UNIT/1 SUBQ; +MEROPENEM-1 GM/50 ML IV
[2017-09-18 14:47] LABS: APPEARANCE,URINE CLEAR; BILIRUBIN, URINE NEGATIVE (NEGATIVE); GLUCOSE, URINE (UA) 4+ (NEGATIVE); KETONES,URINE NEGATIVE (NEGATIVE); LEUKOCYTE ESTERASE ,URINE 2+ (NEGATIVE); NITRITE,URINE POSITIVE (NEGATIVE); PH,URINE 5 (4.5-8.0); PROTEIN,URINE 2+ (NEGATIVE); UROBILINOGEN,URINE NORMAL MG/DL (0.0-1.0)
[2017-09-18 14:53] LABS: COLOR,URINE YELLOW
[2017-09-18 15:53] VITALS: BP 108/49
[2017-09-18 18:15] VITALS: BP 98/40
[2017-09-18] MEDS ORDERED: Albuterol/Ipratropium 3ml neb HHN PRN (18:30)
[2017-09-18] MEDS ORDERED: LORazepam 1mg tab ORAL PRN (18:30)
[2017-09-18] MEDS ORDERED: Mylanta II UD 30ml ORAL PRN (18:30)
[2017-09-18] MEDS ORDERED: Miralax 17gm pkt ORAL PRN (18:30)
[2017-09-18] MEDS ORDERED: MELOXICAM15 MG PO (18:38)
[2017-09-18 18:48] VITALS: BP 102/60
--- NOTE | 2017-09-18 19:01 | Emergency Room Report ---
Physical Exam Vital Signs Date Time Temp Pulse Resp B/P (MAP) Pulse Ox O2 Delivery O2 Flow Rate FiO2 09/18/17 12:20 96.3 86 18 92/56 99 Room Air Medical Decision Making Diagnostic Impression: Primary Impression: Suprapubic catheter dysfunction ER Course This patient was turned over to me at shift change. The patient had clogging of her suprapubic catheter. She is wheelchair-bound and paraplegic. The suprapubic catheter had arty bed and exchanged and flushed and is draining well. The patient was a very difficult IV stick and the nurse and quality lab assoc were unable to obtain an IV or labs. The patient's primary care physician requested her admission because she is doing poorly at a [id number]. He is requesting her admission so that she can be placed in a rehabilitation facility. There is no evidence of infection. The patient's urinalysis is consistent with colonization. The patient was afebrile. Patient' s blood pressure runs low as she is a paraplegic. Patient is asymptomatic and well-appearing. Further discussion with the inpatient physician and a PICC line will be placed the following day as an inpatient. Central venous access by internal jugular or femoral vein is not indicated in this otherwise well appearing patient. She is tolerating oral fluids and food. She is admitted to the medical surgical floor for rehabilitation placement. Last Vital Signs Date Time Temp Pulse Resp B/P (MAP) Pulse Ox O2 Delivery O2 Flow Rate FiO2 09/18/17 18:53 85 11 102/60 100 Room Air 09/18/17 12:20 96.3 Disposition: ADMITTED INPATIENT Condition: Stable Referrals: RICHARD PATRICK (PCP) ALKA INFANTE D.O. Sep 18, 2017 19:01
[2017-09-18 20:00] VITALS: BP 105/58
[2017-09-18] MEDS: Heparin 5000 units/ml inj SUBQ SCH (21:00)
[2017-09-18] MEDS: NovoLOG Insulin Flexpen SUBQ SCH (21:00)
[2017-09-18] MEDS: Docusate 100mg cap ORAL SCH (21:00)
[2017-09-18] MEDS: DULoxetine 30mg cap ORAL SCH (22:00)
[2017-09-19] VITALS: BP 124/64
[2017-09-19] MEDS: NovoLOG Insulin Flexpen SUBQ SCH ×4 (06:04→22:39)
[2017-09-19 07:59] VITALS: BP 137/92
[2017-09-19] MEDS: DULoxetine 30mg cap ORAL SCH ×2 (08:49→17:39)
[2017-09-19] MEDS: Lyrica 50mg cap ORAL SCH ×2 (08:50→17:40)
[2017-09-19] MEDS: Multivitamin w/Minerals tab ORAL SCH (08:51)
[2017-09-19] MEDS: Heparin 5000 units/ml inj SUBQ SCH ×2 (08:51→22:38)
[2017-09-19] MEDS: Vitamin D 1000 IU Tab ORAL SCH (08:51)
[2017-09-19] MEDS: Docusate 100mg cap ORAL SCH ×2 (08:51→22:37)
[2017-09-19 08:55] LABS: BASOPHILS % (AUTO) 1.3 % (0.0-2.0); EOSINOPHILS % (AUTO) 3.3 % (0.0-3.0); LYMPHOCYTES % (AUTO) 33.8 % (20.0-45.0); MEAN CORPUSCULAR VOLUME 90 FL (80-99); MONOCYTES % (AUTO) 7.9 % (1.0-10.0); NEUTROPHILS % (AUTO) 53.8 % (45.0-75.0); PLATELET COUNT 250 K/UL (150-450); RED BLOOD COUNT 4.54 M/UL (4.20-5.40); RED CELL DISTRIBUTION WIDTH 13.5 % (11.6-14.8); WHITE BLOOD COUNT 5.8 K/UL (4.8-10.8)
[2017-09-19] MEDS: Levemir Flexpen SUBQ SCH (09:00)
[2017-09-19 09:47] LABS: ALANINE AMINOTRANSFERASE 23 U/L (12-78); ALBUMIN 2.3 G/DL (3.4-5.0); ALBUMIN/GLOBULIN RATIO 0.5 (1.0-2.7); ALKALINE PHOSPHATASE 90 U/L (46-116); ANION GAP 7 mmol/L (5-15); ASPARTATE AMINO TRANSFERASE 18 U/L (15-37); BILIRUBIN,TOTAL 0.2 MG/DL (0.2-1.0); BLOOD UREA NITROGEN 7 mg/dL (7-18); CALCIUM 8.8 MG/DL (8.5-10.1); CARBON DIOXIDE 31 MMOL/L (21-32); CHLORIDE 100 MMOL/L (98-107); CREATININE 0.8 MG/DL (0.55-1.30); POTASSIUM 3.8 MMOL/L (3.5-5.1); SODIUM 138 MMOL/L (136-145)
--- NOTE | 2017-09-19 10:56 | History and Physical ---
History of Present Illness General Date patient seen: Sep 19, 2017 Time patient seen: 10:55 Reason for Hospitalization: blocked suprapubic catheter with concern for infection Present Illness HPI 51 year old female with pmh of uncontrolled DM2 (A1C 12.5) c/b neuropathy, morbid obesity, paraplegia s/p fall, and neurogenic bladder w/ multiple admissions for clogged suprapubic catheter and UTI, multiple decubitus ulcers presents with generalized weakness and blocked suprapubic catheter with concern for infection. Pt states suprapubic catheter is blocked with decreased drainage. It is overdue for change per pt. Pt c/o cloudy, malodorous urine, fevers/chills for the past few days. She also c/o generalized weakness and inability to care for self. She was noted to have uncontrolled sugars. Denies n/ v, d/c, chest pain, SOB. Allergies: Coded Allergies: No Known Allergies (Unverified , 07/15/16) Medication History Scheduled Cholecalciferol (Vitamin D3)* (Vitamin D*), 1,000 INTLU ORAL DAILY Duloxetine Hcl* (Cymbalta*), 30 MG ORAL BID, (Reported) Ferrous Sulfate (Iron), 325 MG PO DAILY, (Reported) Insulin Aspart (Novolog Flexpen), 0 UNITS SUBQ BEFORE MEALS AND HS Insulin Aspart (Novolog Flexpen), 10 UNITS SUBQ NOVOTIAC Insulin Detemir (Levemir Flexpen), 30 UNITS SUBQ DAILY Lactobacillus Acidophilus (Probiotic), 1 EACH PO DAILY, (Reported) Meloxicam* (Meloxicam*), 15 MG PO DAILY, (Reported) Multivitamin with Minerals (Multivitamins with Minerals), 1 TAB ORAL DAILY, ( Reported) Pravastatin Sodium (Pravachol), 40 MG ORAL BEDTIME, (Reported) Pregabalin* (Lyrica*), 200 MG ORAL BID, (Reported) Scheduled PRN Baclofen* (Lioresal*), 20 MG ORAL THREE TIMES A DAY PRN for Muscle Spasms, ( Reported) Bisacodyl (Dulcolax), 10 MG RC DAILY PRN for Constipation, (Reported) Hydrocodone Bit/Acetaminophen 10-325* ([place] 10-325*), 1 TAB ORAL Q6H PRN for For Pain, (Reported) Ipratropium/Albuterol Sulfate (DuoNeb 0.5-3(2.5)mg/3ml), 3 ML HHN EVERY 4 HOURS PRN for Shortness of Breath, (Reported) Lorazepam* (Ativan*), 1 MG ORAL THREE TIMES A DAY PRN for For Anxiety, (Reported ) Mineral Oil (Mineral Oil Enema), 133 ML RC DAILY PRN for Constipation, (Reported ) Discontinued Medications Ergocalciferol (Vitamin D2)* (Vitamin D*), 50,000 UNIT ORAL ONCE A WEEK, ( Reported) Discontinued Reason: Pt stopped taking med Furosemide* (Lasix*), 40 MG ORAL DAILY, (Reported) Discontinued Reason: Pt stopped taking med Glipizide (Glipizide), 5 MG ORAL BID, (Reported) Discontinued Reason: Pt stopped taking med Meropenem (Meropenem), 1 GM IV EVERY 8 HOURS, (Reported) Discontinued Reason: Pt stopped taking med Meropenem-0.9% Sodium Chloride (Meropenem-0.9% NaCl 1 Gram/50), 1 GM IV EVERY 8 HOURS, (Reported) Discontinued Reason: Pt stopped taking med Metformin Hcl* (Glucophage*), 500 MG ORAL BIAC Discontinued Reason: Pt stopped taking med [ocean nasal spray], 1 SPRAYS NASAL EVERY 2 HOURS PRN for congestion, (Reported) Discontinued Reason: Pt stopped taking med Patient History History Provided By: Patient, Medical Record, PMD Healthcare decision maker N Resuscitation status Full Code Advanced Directive on File No Family History Family History: Patient reports no known family medical history. Social History Social History: (1) Diabetes mellitus type 2 with complications, uncontrolled (2) Peripheral neuropathy (3) Neurogenic bladder (4) Suprapubic catheter (5) Morbid obesity (6) Pressure ulcer of sacral region, unspecified stage Review of Systems Constitutional: Reports: chills, fever, malaise, weakness Eye: Reports: no symptoms ENT: Reports: no symptoms Respiratory: Reports: no symptoms Cardiovascular: Reports: no symptoms Gastrointestinal: Reports: no symptoms Genitourinary: Reports: no symptoms, other - cloudy, malodorous Musculoskeletal: Reports: no symptoms Skin: Reports: no symptoms Psychiatric: Reports: no symptoms Neurological: Reports: no symptoms Endocrine: Reports: no symptoms Hematologic/Lymphatic: Reports: no symptoms Physical Exam Physical Exam Narrative eneral: alert, cooperative, no distress, appears stated age, morbidly obese Head: normocephalic, without obvious abnormality, atraumatic Eyes: conjunctivae/corneas clear. PERRL, EOM's intact Throat: lips, mucosa, and tongue normal. MMM Neck: supple, symmetrical, trachea midline, and no JVD Lungs: clear to auscultation bilaterally Heart: regular rate and rhythm, S1, S2 normal, no murmur, click, rub or gallop Abdomen: soft, non-tender, non-distended, bowel sounds normal; no masses or organomegaly : suprapubic catheter site c/d/i Extremities: extremities normal, atraumatic, no cyanosis or edema Pulses: 2+ and symmetric Skin: skin color, texture, turgor normal; no rashes or lesions Neurologic: +weakness BLE, stable Last 24 Hour Vital Signs Date Time Temp Pulse Resp B/P (MAP) Pulse Ox O2 Delivery O2 Flow Rate FiO2 09/19/17 07:59 97.0 91 20 137/92 99 09/19/17 07:18 86 20 Room Air 21 09/19/17 00:00 97.0 85 20 124/64 96 09/18/17 20:00 97.2 79 20 105/58 96 09/18/17 18:53 85 11 102/60 100 Room Air 09/18/17 18:48 86 14 102/60 99 Room Air 09/18/17 18:15 85 11 98/40 100 Room Air 09/18/17 15:53 86 11 108/49 95 Room Air 09/18/17 12:20 96.3 86 18 92/56 99 Room Air Intake and Output 09/18/17 09/19/17 19:00 07:00 Intake Total 50 ml Output Total 600 ml Balance 50 ml -600 ml Intake Oral 50 ml Output Urine Total 600 ml Laboratory Tests Test 09/18/17 14:37 09/19/17 07:50 Urine Color Yellow Urine Appearance Clear Urine pH 5 (4.5-8.0) Urine Specific [place] 1.020 (1.005-1.035) Urine Protein 2+ (NEGATIVE) H Urine Glucose (UA) 4+ (NEGATIVE) H Urine Ketones Negative (NEGATIVE) Urine Occult Blood 5+ (NEGATIVE) H Urine Nitrite Positive (NEGATIVE) H Urine Bilirubin Negative (NEGATIVE) Urine Urobilinogen Normal MG/DL (0.0-1.0) Urine Leukocyte Esterase 2+ (NEGATIVE) H Urine RBC 30-40 /HPF (0 - 2) H Urine WBC 15-20 /HPF (0 - 2) H Urine Squamous Epithelial Cells Few /LPF (NONE/OCC) Urine Bacteria Moderate /HPF (NONE) H White Blood Count 5.8 K/UL (4.8-10.8) Red Blood Count 4.54 M/UL (4.20-5.40) Hemoglobin 13.0 G/DL (12.0-16.0) Hematocrit 41.0 % (37.0-47.0) Mean Corpuscular Volume 90 FL (80-99) Mean Corpuscular Hemoglobin 28.7 PG (27.0-31.0) Mean Corpuscular Hemoglobin Concent 31.8 G/DL (32.0-36.0) L Red Cell Distribution Width 13.5 % (11.6-14.8) Platelet Count 250 K/UL (150-450) Mean Platelet Volume 7.2 FL (6.5-10.1) Neutrophils (%) (Auto) 53.8 % (45.0-75.0) Lymphocytes (%) (Auto) 33.8 % (20.0-45.0) Monocytes (%) (Auto) 7.9 % (1.0-10.0) Eosinophils (%) (Auto) 3.3 % (0.0-3.0) H Basophils (%) (Auto) 1.3 % (0.0-2.0) Sodium Level 138 MMOL/L (136-145) Potassium Level 3.8 MMOL/L (3.5-5.1) Chloride Level 100 MMOL/L (98-107) Carbon Dioxide Level 31 MMOL/L (21-32) Anion Gap 7 mmol/L (5-15) Blood Urea Nitrogen 7 mg/dL (7-18) Creatinine 0.8 MG/DL (0.55-1.30) Estimat Glomerular Filtration Rate > 60 mL/min (>60) Glucose Level 275 MG/DL (74-106) H Hemoglobin A1c 12.5 % (4.3-6.0) H Calcium Level 8.8 MG/DL (8.5-10.1) Magnesium Level 1.5 MG/DL (1.8-2.4) L Total Bilirubin 0.2 MG/DL (0.2-1.0) Aspartate Amino Transf (AST/SGOT) 18 U/L (15-37) Alanine Aminotransferase (ALT/SGPT) 23 U/L (12-78) Alkaline Phosphatase 90 U/L (46-116) Total Protein 6.7 G/DL (6.4-8.2) Albumin 2.3 G/DL (3.4-5.0) L Globulin 4.4 g/dL Albumin/Globulin Ratio 0.5 (1.0-2.7) L Microbiology Date/Time Source Procedure Growth Status 09/18/17 14:37 Urine,Clean Catch Urine Culture - Preliminary Gram Negative Bacillus 1 Resulted Height (Feet): 5 Height (Inches): 7.00 Weight (Pounds): 350 Medications Current Medications Medications (Trade) Dose Ordered Sig/Cristóbal Route PRN Reason Start Time Stop Time Status Last Admin Dose Admin Acetaminophen (Tylenol) 650 mg Q4H PRN ORAL Mild Pain (Pain Scale 1-3) 09/18/17 18:30 10/18/17 18:29 Acetaminophen (Tylenol) 650 mg Q4H PRN ORAL fever (temp>100.5F) 09/18/17 18:30 10/18/17 18:29 Acetaminophen/ Hydrocodone Bitart ([place] 10/325) 1 tab Q6H PRN ORAL Pain 4-10 09/18/17 18:30 09/25/17 18:29 Al Hydroxide/Mg Hydroxide (Mylanta II) 30 ml Q6H PRN ORAL dyspepsia 09/18/17 18:30 10/18/17 18:29 Albuterol/ Ipratropium (Albuterol/ Ipratropium) 3 ml Q4H PRN HHN Shortness of Breath 09/18/17 18:30 09/23/17 18:29 Baclofen (Lioresal) 20 mg TIDPRN PRN ORAL Muscle Spasms 09/18/17 18:30 10/18/17 18:29 Bisacodyl (Dulcolax) 10 mg HSPRN PRN RECTAL Constipation 09/18/17 19:00 10/18/17 18:29 Dextrose (Dextrose 50%) STAT PRN IV Hypoglycemia 09/18/17 18:45 10/18/17 18:44 Diphenhydramine HCl (Benadryl) 25 mg Q6H PRN ORAL Itching/Pruritis 09/18/17 18:30 10/18/17 18:29 Docusate Sodium (Colace) 100 mg EVERY 12 HOURS ORAL 09/18/17 21:00 10/18/17 20:59 09/19/17 08:51 Duloxetine HCl (Cymbalta) 30 mg BID ORAL 09/18/17 22:00 10/18/17 21:59 09/19/17 08:49 Ferrous Sulfate (Feosol) 325 mg DAILY ORAL 09/19/17 09:00 10/19/17 08:59 09/19/17 08:52 Heparin Sodium (Porcine) (Heparin 5000 units/ml) 5,000 units EVERY 12 HOURS SUBQ 09/18/17 21:00 10/18/17 20:59 09/19/17 08:51 Insulin Aspart (NovoLOG) BEFORE MEALS AND HS SUBQ 09/18/17 21:00 10/18/17 20:59 09/19/17 06:04 Insulin Detemir (Levemir) 30 units DAILY SUBQ 09/19/17 09:00 10/19/17 08:59 09/19/17 09:00 Lorazepam (Ativan) 1 mg TIDPRN PRN ORAL For Anxiety 09/18/17 18:30 09/25/17 18:29 Multivitamins Therapeutic (Therapeutic Multivitamin) 1 ea DAILY ORAL 09/19/17 09:00 10/19/17 08:59 09/19/17 08:51 Ondansetron HCl (Zofran) 4 mg Q6H PRN IVP Nausea & Vomiting 09/18/17 18:30 10/18/17 18:29 Polyethylene Glycol (Miralax) 17 gm HSPRN PRN ORAL Constipation 09/18/17 18:30 10/18/17 18:29 Pravastatin Sodium (Pravachol) 40 mg BEDTIME ORAL 09/18/17 21:00 10/18/17 20:59 Pregabalin (Lyrica) 200 mg BID ORAL 09/19/17 09:00 10/19/17 08:59 09/19/17 08:50 Vitamin D (Vitamin D) 1,000 intlu DAILY ORAL 09/19/17 09:00 10/19/17 08:59 09/19/17 08:51 Assessment/Plan Problem List: (1) Blocked suprapubic catheter ICD Codes: T83.090A - Other mechanical complication of cystostomy catheter, initial encounter SNOMED: 859067874, 115336576 (2) UTI (urinary tract infection) ICD Codes: N39.0 - Urinary tract infection, site not specified SNOMED: 28479860 (3) Neurogenic bladder ICD Codes: N31.9 - Neuromuscular dysfunction of bladder, unspecified SNOMED: 846896315 (4) Diabetes mellitus type 2 with complications, uncontrolled ICD Codes: E11.8 - Type 2 diabetes mellitus with unspecified complications; E11.65 - Type 2 diabetes mellitus with hyperglycemia SNOMED: 82001474, 535796086, 769177858 (5) Peripheral neuropathy ICD Codes: G62.9 - Polyneuropathy, unspecified SNOMED: 27031330 (6) Hyperlipidemia ICD Codes: E78.5 - Hyperlipidemia, unspecified SNOMED: 41583418, 443701356 (7) Paraplegia ICD Codes: G82.20 - Paraplegia, unspecified SNOMED: 03204815 (8) Generalized weakness ICD Codes: R53.1 - Weakness SNOMED: 88416256 (9) Multiple pressure ulcers Status: stable Assessment/Plan Admit inpt Urology consulted s/p suprapubic catheter exchange in ED on 09/18/17 ID consulted U/A w/ concern for UTI Started on empiric meropenem per ID given h/o ESBL PICC ordered F/u urine cx Cont home meds BALBIR Levermir 30U daily Aspart 10U TID AC F/u A1C Pain control, supportive care, bowel regimen PT/OT Wound care CM consulted for SNF placement DVT Prophylaxis: SCD, HSQ Code Status: Full Hospital Classification Declaration: Based on this initial evaluation, and depending on the patient's clinical course, I anticipate that this patient will require hospitalization for 2-3 days for suprapubic catheter dysfunction, UTI, and close respiratory/hemodynamic monitoring. Disposition: Once the patient is stable to leave the hospital, I anticipate the patient will likely be discharged to the following environment: SNF I spent 70min on this case w/ >50% on care/coordination and counseling. Discussed with patient/family, nursing staff, SW/CM, ID, urology regarding clinical status, treatment course, and disposition planning. D/w ID re abx Time of note may not reflect time of encounter. Gregg Cortes M.D. Sep 19, 2017 10:56
[2017-09-19 12:00] VITALS: BP 122/70
--- NOTE | 2017-09-19 12:18 | Urology Progress Note ---
Assessment/Plan Assessment/Plan urinary retention neurogenic bladder with chronic sp tube UTI/colinized hematuria proteinuria sp tube last changed 09/18 I personally hand irrigated cath, patent abx f/u on cx Subjective Allergies: Coded Allergies: No Known Allergies (Unverified , 07/15/16) Subjective all noted, feels fair Objective Last 24 Hour Vital Signs Date Time Temp Pulse Resp B/P (MAP) Pulse Ox O2 Delivery O2 Flow Rate FiO2 09/19/17 07:59 97.0 91 20 137/92 99 09/19/17 07:18 86 20 Room Air 21 09/19/17 00:00 97.0 85 20 124/64 96 09/18/17 20:00 97.2 79 20 105/58 96 09/18/17 18:53 85 11 102/60 100 Room Air 09/18/17 18:48 86 14 102/60 99 Room Air 09/18/17 18:15 85 11 98/40 100 Room Air 09/18/17 15:53 86 11 108/49 95 Room Air 09/18/17 12:20 96.3 86 18 92/56 99 Room Air Intake and Output 09/18/17 09/19/17 19:00 07:00 Intake Total 50 ml Output Total 600 ml Balance 50 ml -600 ml Intake Oral 50 ml Output Urine Total 600 ml Microbiology Date/Time Source Procedure Growth Status 09/18/17 14:37 Urine,Clean Catch Urine Culture - Preliminary Gram Negative Bacillus 1 Resulted Current Medications Medications (Trade) Dose Ordered Sig/Cristóbal Route PRN Reason Start Time Stop Time Status Last Admin Dose Admin Acetaminophen (Tylenol) 650 mg Q4H PRN ORAL Mild Pain (Pain Scale 1-3) 09/18/17 18:30 10/18/17 18:29 Acetaminophen (Tylenol) 650 mg Q4H PRN ORAL fever (temp>100.5F) 09/18/17 18:30 10/18/17 18:29 Acetaminophen/ Hydrocodone Bitart ([place] 10/325) 1 tab Q6H PRN ORAL Pain 4-10 09/18/17 18:30 09/25/17 18:29 Al Hydroxide/Mg Hydroxide (Mylanta II) 30 ml Q6H PRN ORAL dyspepsia 09/18/17 18:30 10/18/17 18:29 Albuterol/ Ipratropium (Albuterol/ Ipratropium) 3 ml Q4H PRN HHN Shortness of Breath 09/18/17 18:30 09/23/17 18:29 Baclofen (Lioresal) 20 mg TIDPRN PRN ORAL Muscle Spasms 09/18/17 18:30 10/18/17 18:29 Bisacodyl (Dulcolax) 10 mg HSPRN PRN RECTAL Constipation 09/18/17 19:00 10/18/17 18:29 Dextrose (Dextrose 50%) STAT PRN IV Hypoglycemia 09/18/17 18:45 10/18/17 18:44 Diphenhydramine HCl (Benadryl) 25 mg Q6H PRN ORAL Itching/Pruritis 09/18/17 18:30 10/18/17 18:29 Docusate Sodium (Colace) 100 mg EVERY 12 HOURS ORAL 09/18/17 21:00 10/18/17 20:59 09/19/17 08:51 Duloxetine HCl (Cymbalta) 30 mg BID ORAL 09/18/17 22:00 10/18/17 21:59 09/19/17 08:49 Ferrous Sulfate (Feosol) 325 mg DAILY ORAL 09/19/17 09:00 10/19/17 08:59 09/19/17 08:52 Heparin Sodium (Porcine) (Heparin 5000 units/ml) 5,000 units EVERY 12 HOURS SUBQ 09/18/17 21:00 10/18/17 20:59 09/19/17 08:51 Insulin Aspart (NovoLOG) BEFORE MEALS AND HS SUBQ 09/18/17 21:00 10/18/17 20:59 09/19/17 11:36 Insulin Detemir (Levemir) 30 units DAILY SUBQ 09/19/17 09:00 10/19/17 08:59 09/19/17 09:00 Lorazepam (Ativan) 1 mg TIDPRN PRN ORAL For Anxiety 09/18/17 18:30 09/25/17 18:29 Multivitamins Therapeutic (Therapeutic Multivitamin) 1 ea DAILY ORAL 09/19/17 09:00 10/19/17 08:59 09/19/17 08:51 Ondansetron HCl (Zofran) 4 mg Q6H PRN IVP Nausea & Vomiting 09/18/17 18:30 10/18/17 18:29 Polyethylene Glycol (Miralax) 17 gm HSPRN PRN ORAL Constipation 09/18/17 18:30 10/18/17 18:29 Pravastatin Sodium (Pravachol) 40 mg BEDTIME ORAL 09/18/17 21:00 10/18/17 20:59 Pregabalin (Lyrica) 200 mg BID ORAL 09/19/17 09:00 10/19/17 08:59 09/19/17 08:50 Vitamin D (Vitamin D) 1,000 intlu DAILY ORAL 09/19/17 09:00 10/19/17 08:59 09/19/17 08:51 Laboratory Tests 09/18/17 14:37: Urine Color Yellow, Urine Appearance Clear, Urine pH 5, Urine Specific [place] 1.020, Urine Protein 2+H, Urine Glucose (UA) 4+H, Urine Ketones Negative, Urine Occult Blood 5+H, Urine Nitrite PositiveH, Urine Bilirubin Negative, Urine Urobilinogen Normal, Urine Leukocyte Esterase 2+H, Urine RBC 30-40H, Urine WBC 15-20H, Urine Squamous Epithelial Cells Few, Urine Bacteria ModerateH 09/19/17 07:50: White Blood Count 5.8, Red Blood Count 4.54, Hemoglobin 13.0, Hematocrit 41.0, Mean Corpuscular Volume 90, Mean Corpuscular Hemoglobin 28.7, Mean Corpuscular Hemoglobin Concent 31.8L, Red Cell Distribution Width 13.5, Platelet Count 250, Mean Platelet Volume 7.2, Neutrophils (%) (Auto) 53.8, Lymphocytes (%) (Auto) 33.8, Monocytes (%) (Auto) 7.9, Eosinophils (%) (Auto) 3.3H, Basophils (%) (Auto ) 1.3, Sodium Level 138, Potassium Level 3.8, Chloride Level 100, Carbon Dioxide Level 31, Anion Gap 7, Blood Urea Nitrogen 7, Creatinine 0.8, Estimat Glomerular Filtration Rate > 60, Glucose Level 275H, Hemoglobin A1c 12.5H, Calcium Level 8.8, Magnesium Level 1.5L, Total Bilirubin 0.2, Aspartate Amino Transf (AST/SGOT) 18, Alanine Aminotransferase (ALT/SGPT) 23, Alkaline Phosphatase 90, Total Protein 6.7, Albumin 2.3L, Globulin 4.4, Albumin/Globulin Ratio 0.5L Height (Feet): 5 Height (Inches): 7.00 Weight (Pounds): 350 Objective exam stable, urine yellow with debris DAPHNIE VIDES Sep 19, 2017 12:18
--- NOTE | 2017-09-19 14:37 | Infectious Diseases Prog Note ---
Assessment/Plan Assessment/Plan Full consult dictated: A) 1) gram neg uti 2) sp catheter blockage 3) allergies - negative 4) pmh noted P) 1) meropenem 2) check urine culture 3) d/w Dr. Escobedo 4) thank you Subjective Allergies: Coded Allergies: No Known Allergies (Unverified , 07/15/16) Objective Vital Signs Last 24 Hour Vital Signs Date Time Temp Pulse Resp B/P (MAP) Pulse Ox O2 Delivery O2 Flow Rate FiO2 09/19/17 14:31 Room Air 09/19/17 12:00 97.9 75 19 122/70 97 09/19/17 07:59 97.0 91 20 137/92 99 09/19/17 07:18 86 20 Room Air 21 09/19/17 00:00 97.0 85 20 124/64 96 09/18/17 20:00 97.2 79 20 105/58 96 09/18/17 18:53 85 11 102/60 100 Room Air 09/18/17 18:48 86 14 102/60 99 Room Air 09/18/17 18:15 85 11 98/40 100 Room Air 09/18/17 15:53 86 11 108/49 95 Room Air Height (Feet): 5 Height (Inches): 7.00 Weight (Pounds): 350 Microbiology Date/Time Source Procedure Growth Status 09/18/17 14:37 Urine,Clean Catch Urine Culture - Preliminary Gram Negative Bacillus 1 Resulted Laboratory Tests Test 09/18/17 14:37 09/19/17 07:50 Urine Color Yellow Urine Appearance Clear Urine pH 5 (4.5-8.0) Urine Specific [place] 1.020 (1.005-1.035) Urine Protein 2+ (NEGATIVE) H Urine Glucose (UA) 4+ (NEGATIVE) H Urine Ketones Negative (NEGATIVE) Urine Occult Blood 5+ (NEGATIVE) H Urine Nitrite Positive (NEGATIVE) H Urine Bilirubin Negative (NEGATIVE) Urine Urobilinogen Normal MG/DL (0.0-1.0) Urine Leukocyte Esterase 2+ (NEGATIVE) H Urine RBC 30-40 /HPF (0 - 2) H Urine WBC 15-20 /HPF (0 - 2) H Urine Squamous Epithelial Cells Few /LPF (NONE/OCC) Urine Bacteria Moderate /HPF (NONE) H White Blood Count 5.8 K/UL (4.8-10.8) Red Blood Count 4.54 M/UL (4.20-5.40) Hemoglobin 13.0 G/DL (12.0-16.0) Hematocrit 41.0 % (37.0-47.0) Mean Corpuscular Volume 90 FL (80-99) Mean Corpuscular Hemoglobin 28.7 PG (27.0-31.0) Mean Corpuscular Hemoglobin Concent 31.8 G/DL (32.0-36.0) L Red Cell Distribution Width 13.5 % (11.6-14.8) Platelet Count 250 K/UL (150-450) Mean Platelet Volume 7.2 FL (6.5-10.1) Neutrophils (%) (Auto) 53.8 % (45.0-75.0) Lymphocytes (%) (Auto) 33.8 % (20.0-45.0) Monocytes (%) (Auto) 7.9 % (1.0-10.0) Eosinophils (%) (Auto) 3.3 % (0.0-3.0) H Basophils (%) (Auto) 1.3 % (0.0-2.0) Sodium Level 138 MMOL/L (136-145) Potassium Level 3.8 MMOL/L (3.5-5.1) Chloride Level 100 MMOL/L (98-107) Carbon Dioxide Level 31 MMOL/L (21-32) Anion Gap 7 mmol/L (5-15) Blood Urea Nitrogen 7 mg/dL (7-18) Creatinine 0.8 MG/DL (0.55-1.30) Estimat Glomerular Filtration Rate > 60 mL/min (>60) Glucose Level 275 MG/DL (74-106) H Hemoglobin A1c 12.5 % (4.3-6.0) H Calcium Level 8.8 MG/DL (8.5-10.1) Magnesium Level 1.5 MG/DL (1.8-2.4) L Total Bilirubin 0.2 MG/DL (0.2-1.0) Aspartate Amino Transf (AST/SGOT) 18 U/L (15-37) Alanine Aminotransferase (ALT/SGPT) 23 U/L (12-78) Alkaline Phosphatase 90 U/L (46-116) Total Protein 6.7 G/DL (6.4-8.2) Albumin 2.3 G/DL (3.4-5.0) L Globulin 4.4 g/dL Albumin/Globulin Ratio 0.5 (1.0-2.7) L Current Medications Medications (Trade) Dose Ordered Sig/Cristóbal Route PRN Reason Start Time Stop Time Status Last Admin Dose Admin Acetaminophen (Tylenol) 650 mg Q4H PRN ORAL Mild Pain (Pain Scale 1-3) 09/18/17 18:30 10/18/17 18:29 Acetaminophen (Tylenol) 650 mg Q4H PRN ORAL fever (temp>100.5F) 09/18/17 18:30 10/18/17 18:29 Acetaminophen/ Hydrocodone Bitart ([place] 10/325) 1 tab Q6H PRN ORAL Pain 4-10 09/18/17 18:30 09/25/17 18:29 Al Hydroxide/Mg Hydroxide (Mylanta II) 30 ml Q6H PRN ORAL dyspepsia 09/18/17 18:30 10/18/17 18:29 Albuterol/ Ipratropium (Albuterol/ Ipratropium) 3 ml Q4H PRN HHN Shortness of Breath 09/18/17 18:30 09/23/17 18:29 Baclofen (Lioresal) 20 mg TIDPRN PRN ORAL Muscle Spasms 09/18/17 18:30 10/18/17 18:29 Bisacodyl (Dulcolax) 10 mg HSPRN PRN RECTAL Constipation 09/18/17 19:00 10/18/17 18:29 Dextrose (Dextrose 50%) STAT PRN IV Hypoglycemia 09/18/17 18:45 10/18/17 18:44 Diphenhydramine HCl (Benadryl) 25 mg Q6H PRN ORAL Itching/Pruritis 09/18/17 18:30 10/18/17 18:29 Docusate Sodium (Colace) 100 mg EVERY 12 HOURS ORAL 09/18/17 21:00 10/18/17 20:59 09/19/17 08:51 Duloxetine HCl (Cymbalta) 30 mg BID ORAL 09/18/17 22:00 10/18/17 21:59 09/19/17 08:49 Ferrous Sulfate (Feosol) 325 mg DAILY ORAL 09/19/17 09:00 10/19/17 08:59 2/2/18 08:52 Heparin Sodium (Porcine) (Heparin 5000 units/ml) 5,000 units EVERY 12 HOURS SUBQ 09/18/17 21:00 10/18/17 20:59 09/19/17 08:51 Insulin Aspart (NovoLOG) BEFORE MEALS AND HS SUBQ 09/18/17 21:00 10/18/17 20:59 09/19/17 11:36 Insulin Detemir (Levemir) 30 units DAILY SUBQ 09/19/17 09:00 10/19/17 08:59 09/19/17 09:00 Lorazepam (Ativan) 1 mg TIDPRN PRN ORAL For Anxiety 09/18/17 18:30 09/25/17 18:29 Multivitamins Therapeutic (Therapeutic Multivitamin) 1 ea DAILY ORAL 09/19/17 09:00 10/19/17 08:59 09/19/17 08:51 Ondansetron HCl (Zofran) 4 mg Q6H PRN IVP Nausea & Vomiting 09/18/17 18:30 10/18/17 18:29 Polyethylene Glycol (Miralax) 17 gm HSPRN PRN ORAL Constipation 09/18/17 18:30 10/18/17 18:29 Pravastatin Sodium (Pravachol) 40 mg BEDTIME ORAL 09/18/17 21:00 10/18/17 20:59 Pregabalin (Lyrica) 200 mg BID ORAL 09/19/17 09:00 10/19/17 08:59 09/19/17 08:50 Vitamin D (Vitamin D) 1,000 intlu DAILY ORAL 09/19/17 09:00 10/19/17 08:59 09/19/17 08:51 ARIELA NEVAREZ Sep 19, 2017 14:37
--- NOTE | 2017-09-19 16:11 | Diagnostic Imaging Report ---
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 The left upper extremity was prepped with alcohol. All elements of maximal sterile barrier technique were followed including usage of a cap, mask, sterile gown, sterile gloves, hand hygiene and a large sterile sheet. Sonographic evaluation of the upper extremity was performed demonstrating a patent and compressible cephalic vein. Access was obtained under real-time ultrasound guidance (with utilization of sterile gel and sterile probe cover) and digital image was saved and archived. An .018 wire was introduced. Needle exchanged for a 5 [place] peel-away sheath. Measurements were obtained. A 5 [place] dual-lumen Power PICC line catheter was cut to 45 cm and introduced over the wire. Peel-away sheath and wire were removed.Catheter was secured to the skin using 2-0 Prolene suture. Both ports aspirate and flush easily. Fluoroscopic images show distal tip in the superior vena cava. Total fluoroscopic time 0.3 minutes Impression: Successful placement of an upper extremity PICC line catheter
[2017-09-19 16:13] VITALS: BP 100/52
[2017-09-19] MEDS: HYDROcodone/Acetamin 10/325 tab ORAL PRN (16:38)
[2017-09-19] MEDS: Meropenem 1 GM in NS 55 ML IVPB SCH ×2 (17:29→22:37)
--- NOTE | 2017-09-19 18:00 | Consultation ---
DATE OF CONSULTATION: 09/18/2017 CONSULTING PHYSICIAN: Shaheen Gutierrez M.D. REFERRING PHYSICIAN: Gregg Cortes M.D. REASON FOR CONSULTATION: For evaluation and followup of suprapubic tube. HISTORY OF PRESENT ILLNESS: This is a 51-year-old female. She is known to me from previous evaluations. The patient has a history of neurogenic bladder with chronic suprapubic tube. I have seen her a number of times in the hospital for exchange of suprapubic tube. She had been to my office one time for exchange, which was about [id number] months ago. I have repeatedly recommended for the patient to follow up in the office on a monthly basis for the catheter to be changed; however, she does not come in for followup and she was again brought to the emergency room apparently because her suprapubic tube was occluded. Apparently, the emergency room physician was able to remove the old suprapubic tube and put a new one in, which has been draining well. Urology evaluation was requested. She does appear to have an infection in her urine also. PAST MEDICAL HISTORY: Significant for above and neurogenic bladder, history of diabetes, recurrent UTIs, pressure ulcers, and hyperlipidemia. PAST SURGICAL HISTORY: Suprapubic tube. MEDICATIONS: [facility] was reviewed. She was previously on baclofen, Cymbalta, ferrous sulfate, insulin, Lasix, Mobic, [place], Pravachol, and vitamin D3. ALLERGIES: No known drug allergies. SOCIAL HISTORY: She is a nonsmoker. REVIEW OF SYSTEMS: As above. FAMILY HISTORY: Noncontributory. PHYSICAL EXAMINATION: GENERAL: This is an obese female. VITAL SIGNS: Temperature 96.3, blood pressure is 102/60, pulse 85, and respirations 11. ABDOMEN: Soft. No CVA tenderness. New suprapubic tube is in place, which is 22-Belarusian with briana urine. EXTREMITIES: No clubbing. LABORATORY DATA: The patient does not have any blood work yet. Urinalysis showed 30 to 40 RBCs, 15 to 20 WBCs, and 2+ protein. I did review some of her old records and her creatinine has been normal before. IMAGING STUDIES: The patient's last renal ultrasound was in November 2016 and at that time, there was no hydronephrosis noted. IMPRESSION: 1. History of urinary retention with chronic suprapubic tube. 2. Neurogenic bladder. 3. Urinary tract infection and colonization. 4. Hematuria. 5. Proteinuria. PLAN AND DISCUSSION: Again as noted above, the patient's suprapubic tube has been exchanged. I did speak with the nursing staff. Images are reviewed, and it is in good position. The patient will be monitored clinically with antibiotics as needed. Again I recommend for the SP tube to be changed on a regular basis, so she does not have problems with occlusion like this again. Thank you for this consultation. Shaheen Gutierrez M.D. DR: LEE ANN JOB#: [id number] CC:
[2017-09-19 19:14] VITALS: BP 97/67
[2017-09-19 23:23] VITALS: BP 125/57
[2017-09-20 03:19] VITALS: BP 132/71
--- NOTE | 2017-09-20 05:30 | Consultation ---
DATE OF CONSULTATION: 09/19/2017 NOTE: POOR AUDIO INFECTIOUS DISEASE CONSULTATION CONSULTING PHYSICIAN: Nils Meneses M.D. ATTENDING PHYSICIAN: Rj Choe M.D. I was asked by Dr. Escobedo to see this patient. REASON FOR CONSULTATION: Gram-negative complicated UTI. CHIEF COMPLAINT: The patient's chief complaint coming into the hospital is blocked suprapubic catheter. HISTORY OF PRESENT ILLNESS: This is a very pleasant 51-year-old female, who comes in with history of recurrent urinary tract infection. The patient was noted to have a blocked suprapubic catheter. The patient was seen by Urology and I believe this was changed. Workup shows the patient has gram-negative UTI. Urinalysis had 2+ leukocyte esterase, 15-20 white blood cells, and moderate bacteria. The patient has generalized weakness. The patient was placed on meropenem 1 g IV q.8 h. pending urine culture results. Case was communicated with Dr. Escobedo. Case discussed with the patient. MAR was noted. Orders were noted. Notes were reviewed. PAST MEDICAL HISTORY: The patient's past medical history includes the following: The patient has a past medical history of recurrent urinary tract infection, history of suprapubic catheter. She has a history of weakness, history of diabetes, history of neurogenic bladder, obesity, history of hyperlipidemia, peripheral neuropathy, history of paraplegia, history of edema, history of ulcers, history of impetigo, and anemia. No history of hypertension mentioned. MEDICATIONS: Outside medications noted and reconciliated. She was on Pravachol, lorazepam, multivitamins, insulin, hydrocodone, ferrous sulfate, docusate, bisacodyl, and . Medications here, upon reviewing the MAR, she is on the following medications. She was put on meropenem 1 g IV q.8 h., vitamin D, ferrous sulfate, and insulin. She is on Lyrica, therapeutic vitamin. She is on Cymbalta, heparin, Colace, Pravachol, NovoLog insulin, Dulcolax, acetaminophen, albuterol treatments, polyethylene, Zofran, diphenhydramine, Bactroban, and lorazepam. ALLERGIES: No known drug allergies. No antibiotic allergies. SOCIAL HISTORY: Negative for smoking, alcohol, or drug abuse. FAMILY HISTORY: Noncontributory. Negative for exposure to tuberculosis or cancer. REVIEW OF SYSTEMS: CONSTITUTIONAL: The patient has generalized weakness and fatigue. She has suprapubic catheter. No fever, chills, night sweats, or weight loss. HEAD AND NECK: No head pain, neck pain, thrush, or dysphagia. CARDIAC: No chest pain. GASTROINTESTINAL: No nausea, vomiting, or diarrhea. GENITOURINARY: She has a suprapubic catheter. PULMONARY: No congestion, shortness of breath, hemoptysis, or secretions. SKIN: No rash, no itching NEUROLOGIC: No seizures. PHYSICAL EXAMINATION: GENERAL: Alert and responsive, no acute distress. She is oriented x3. VITAL SIGNS: Temperature 97.9 degrees, pulse rate 75, respiratory rate 19, blood pressure 122/70, and saturation 97%. HEAD AND NECK: Oral, no thrush. Eyes, no icterus. Normocephalic. No facial droop. No neck stiffness. Neck is supple. HEART: Regular. No rubs, gallop, or murmur. No friction rub. ABDOMEN: Soft. Positive bowel sounds. Nontender. No organomegaly. LUNGS: Clear bilaterally. No rhonchi or rales. SKIN: No rash. Suprapubic catheter site is covered. It was changed. MUSCULOSKELETAL: No effusion. Legs without cellulitis. PERIPHERAL VASCULAR: No cyanosis or gangrene. GENITOURINARY: She has a Garcia. Urine is cloudy. LINES: Line sites without phlebitis. NEUROLOGIC: Generally weak, responsive. LABORATORY AND DIAGNOSTIC DATA: Laboratory data as follows: White count 5.8, hemoglobin 13.0, and platelet count 250. Creatinine is 0.8. Hemoglobin A1c was 12.5. Urinalysis had 2+ leukocyte esterase, 15-20 white blood cells, and moderate bacteria. Urine culture is greater than 100,000 gram-negative organisms, identification is pending. Imaging studies were not done. ASSESSMENT AND PLAN: 1. The patient has complicated gram-negative urinary tract infection. She has history of gram-negative organisms and currently she has gram-negative organisms. Based on previous sensitivities, we will place the patient on meropenem 1 g IV q.8 h. and check urine culture results. Meropenem to cover esbl uti pending workup. 2. Blocked suprapubic catheter, status post change per Urology. 3. Generalized weakness. 4. History of recurrent urinary tract infection. 5. Suprapubic catheter. 6. Diabetes. Blood sugar treatment per primary. 7. Obesity. 8. Neuropathy. 9. Neurogenic bladder. 10. Edema. 11. Hyperlipidemia. 12. Peripheral neuropathy. 13. Anemia. 14. History of wounds. Continue wound care protocol. 15. Past medical history noted. 16. MAR was noted. 17. Family history noncontributory. 18. Social history negative. 19. Case discussed with RN. 20. Allergies are negative. 21. Case communicated with Dr. Escobedo. 22. Continue treatment per primary and consultants 23. allergies - negative 24. Notes and records were reviewed. Nils Meneses M.D. DR: ADRIÁN JOB#: [id number] CC: MARYCARMEN
[2017-09-20] MEDS: NovoLOG Insulin Flexpen SUBQ SCH ×6 (06:02→21:48)
[2017-09-20 08:27] VITALS: BP 105/66
[2017-09-20] MEDS: Vitamin D 1000 IU Tab ORAL SCH (09:28)
[2017-09-20] MEDS: Meropenem 1 GM in NS 55 ML IVPB SCH (09:28)
[2017-09-20] MEDS: Multivitamin w/Minerals tab ORAL SCH (09:28)
[2017-09-20] MEDS: Docusate 100mg cap ORAL SCH ×2 (09:29→21:13)
[2017-09-20] MEDS: Lyrica 50mg cap ORAL SCH ×2 (09:29→17:43)
[2017-09-20] MEDS: DULoxetine 30mg cap ORAL SCH ×2 (09:29→17:42)
[2017-09-20] MEDS: Heparin 5000 units/ml inj SUBQ SCH ×2 (09:38→21:14)
[2017-09-20] MEDS: Levemir Flexpen SUBQ SCH (09:39)
--- NOTE | 2017-09-20 10:22 | Urology Progress Note ---
Assessment/Plan Assessment/Plan urinary retention neurogenic bladder with chronic sp tube UTI/colinized hematuria proteinuria sp tube last changed 09/18 I personally hand irrigated cath, patent abx as ordered Subjective Allergies: Coded Allergies: No Known Allergies (Unverified , 07/15/16) Subjective all noted, feels fair Objective Last 24 Hour Vital Signs Date Time Temp Pulse Resp B/P (MAP) Pulse Ox O2 Delivery O2 Flow Rate FiO2 09/20/17 08:27 97.6 86 20 105/66 96 09/20/17 03:19 97.2 78 20 132/71 97 Room Air 09/19/17 23:23 97.5 83 20 125/57 97 09/19/17 19:14 97.9 93 20 97/67 99 Room Air 09/19/17 19:01 82 20 Room Air 21 09/19/17 17:37 97.5 09/19/17 16:13 97.5 85 20 100/52 99 09/19/17 14:31 Room Air 09/19/17 12:00 97.9 75 19 122/70 97 Intake and Output 09/19/17 09/20/17 19:00 07:00 Intake Total 1070 ml 55 ml Output Total 400 ml Balance 670 ml 55 ml Intake Oral 960 ml IV Total 110 ml 55 ml Output Urine Total 400 ml Microbiology Date/Time Source Procedure Growth Status 09/18/17 14:37 Urine,Clean Catch Urine Culture - Final Escherichia Coli Complete Current Medications Medications (Trade) Dose Ordered Sig/Cristóbal Route PRN Reason Start Time Stop Time Status Last Admin Dose Admin Acetaminophen (Tylenol) 650 mg Q4H PRN ORAL Mild Pain (Pain Scale 1-3) 09/18/17 18:30 10/18/17 18:29 Acetaminophen (Tylenol) 650 mg Q4H PRN ORAL fever (temp>100.5F) 09/18/17 18:30 10/18/17 18:29 Acetaminophen/ Hydrocodone Bitart (Forrest 10/325) 1 tab Q6H PRN ORAL Pain 4-10 09/18/17 18:30 09/25/17 18:29 09/19/17 16:38 Al Hydroxide/Mg Hydroxide (Mylanta II) 30 ml Q6H PRN ORAL dyspepsia 09/18/17 18:30 10/18/17 18:29 Albuterol/ Ipratropium (Albuterol/ Ipratropium) 3 ml Q4H PRN HHN Shortness of Breath 09/18/17 18:30 09/23/17 18:29 Baclofen (Lioresal) 20 mg TIDPRN PRN ORAL Muscle Spasms 09/18/17 18:30 10/18/17 18:29 Bisacodyl (Dulcolax) 10 mg HSPRN PRN RECTAL Constipation 09/18/17 19:00 10/18/17 18:29 Dextrose (Dextrose 50%) STAT PRN IV Hypoglycemia 09/18/17 18:45 10/18/17 18:44 Diphenhydramine HCl (Benadryl) 25 mg Q6H PRN ORAL Itching/Pruritis 09/18/17 18:30 10/18/17 18:29 Docusate Sodium (Colace) 100 mg EVERY 12 HOURS ORAL 09/18/17 21:00 10/18/17 20:59 09/20/17 09:29 Duloxetine HCl (Cymbalta) 30 mg BID ORAL 09/18/17 22:00 10/18/17 21:59 09/20/17 09:29 Ferrous Sulfate (Feosol) 325 mg DAILY ORAL 09/19/17 09:00 10/19/17 08:59 09/20/17 09:29 Heparin Sodium (Porcine) (Heparin 5000 units/ml) 5,000 units EVERY 12 HOURS SUBQ 09/18/17 21:00 10/18/17 20:59 09/20/17 09:38 Insulin Aspart (NovoLOG) BEFORE MEALS AND HS SUBQ 09/18/17 21:00 10/18/17 20:59 09/20/17 06:02 Insulin Aspart (NovoLOG) 10 units NOVOTIAC SUBQ 09/20/17 11:50 10/20/17 11:49 Insulin Detemir (Levemir) 30 units DAILY SUBQ 09/19/17 09:00 10/19/17 08:59 09/20/17 09:39 Lorazepam (Ativan) 1 mg TIDPRN PRN ORAL For Anxiety 09/18/17 18:30 09/25/17 18:29 Meropenem 1 gm/ Sodium Chloride 55 ml @ 110 mls/hr Q8H IVPB 2/2/18 16:30 09/24/17 16:29 09/20/17 09:28 Multivitamins Therapeutic (Therapeutic Multivitamin) 1 ea DAILY ORAL 09/19/17 09:00 10/19/17 08:59 09/20/17 09:28 Ondansetron HCl (Zofran) 4 mg Q6H PRN IVP Nausea & Vomiting 09/18/17 18:30 10/18/17 18:29 Polyethylene Glycol (Miralax) 17 gm HSPRN PRN ORAL Constipation 09/18/17 18:30 10/18/17 18:29 Pravastatin Sodium (Pravachol) 40 mg BEDTIME ORAL 09/18/17 21:00 10/18/17 20:59 09/19/17 22:37 Pregabalin (Lyrica) 200 mg BID ORAL 09/19/17 09:00 10/19/17 08:59 09/20/17 09:29 Vitamin D (Vitamin D) 1,000 intlu DAILY ORAL 09/19/17 09:00 10/19/17 08:59 09/20/17 09:28 Height (Feet): 5 Height (Inches): 7.00 Weight (Pounds): 350 Objective exam stable, urine yellow with debris DAPHNIE VIDES Sep 20, 2017 10:22
[2017-09-20 11:55] VITALS: BP 117/64
--- NOTE | 2017-09-20 12:13 | Infectious Diseases Prog Note ---
Assessment/Plan Assessment/Plan ASSESSMENT AND PLAN: 1. e.coli uti - change abx to rocephin - day # 2/10 abx - clinically stable - watch labs 2. Blocked suprapubic catheter, status post change per Urology. 3. Generalized weakness. 4. History of recurrent urinary tract infection. 5. Suprapubic catheter. 6. Diabetes. Blood sugar treatment per primary. 7. Obesity. 8. Neuropathy. 9. Neurogenic bladder. 10. Edema. 11. Hyperlipidemia. 12. Peripheral neuropathy. 13. Anemia. 14. History of wounds. Continue wound care protocol. 15. Past medical history noted. 16. MAR was noted. 17. Family history noncontributory. 18. Social history negative. 19. Case discussed with RN. 20. Allergies are negative. 21. Case communicated with Dr. Escoebdo. 22. Continue treatment per primary consultants 23. d/w patient 24. Notes and records were reviewed. Subjective Constitutional: Denies: fever HEENT: Denies: congestion Respiratory: Denies: shortness of breath Cardiovascular: Denies: chest pain Gastrointestinal/Abdominal: Denies: nausea, diarrhea Genitourinary: Reports: other - + sp catheter Neurologic: Denies: headache Psychiatric: Denies: depression Skin: Denies: rash Hematologic: Denies: bleeding Musculoskeletal: Denies: pain Allergies: Coded Allergies: No Known Allergies (Unverified , 07/15/16) Objective Vital Signs Last 24 Hour Vital Signs Date Time Temp Pulse Resp B/P (MAP) Pulse Ox O2 Delivery O2 Flow Rate FiO2 09/20/17 11:55 97.8 85 20 117/64 98 09/20/17 08:27 97.6 86 20 105/66 96 09/20/17 03:19 97.2 78 20 132/71 97 Room Air 09/19/17 23:23 97.5 83 20 125/57 97 09/19/17 19:14 97.9 93 20 97/67 99 Room Air 09/19/17 19:01 82 20 Room Air 21 09/19/17 17:37 97.5 09/19/17 16:13 97.5 85 20 100/52 99 09/19/17 14:31 Room Air Height (Feet): 5 Height (Inches): 7.00 Weight (Pounds): 350 General Appearance: no acute distress HEENT: normocephalic, atraumatic, anicteric, mucous membranes moist, EOMI, pharynx normal, supple, no JVD Respiratory/Chest: lungs clear, normal breath sounds, no respiratory distress, no accessory muscle use Cardiovascular: normal rate, regular rhythm, no gallop/murmur, no JVD Abdomen: normal bowel sounds, soft, non tender, no organomegaly, non distended Genitourinary: other - + milton - urine clearer Extremities: no cyanosis Skin: no rash 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 normal, alert, oriented x 3, responsive Lymphatic: no neck adenopathy Musculoskeletal: no effusion Objective none Microbiology Date/Time Source Procedure Growth Status 09/18/17 14:37 Urine,Clean Catch Urine Culture - Final Escherichia Coli Complete Labs Test 09/18/17 14:37 09/19/17 07:50 Urine Color Yellow Urine Appearance Clear Urine pH 5 (4.5-8.0) Urine Specific [place] 1.020 (1.005-1.035) Urine Protein 2+ (NEGATIVE) Urine Glucose (UA) 4+ (NEGATIVE) Urine Ketones Negative (NEGATIVE) Urine Occult Blood 5+ (NEGATIVE) Urine Nitrite Positive (NEGATIVE) Urine Bilirubin Negative (NEGATIVE) Urine Urobilinogen Normal MG/DL (0.0-1.0) Urine Leukocyte Esterase 2+ (NEGATIVE) Urine RBC 30-40 /HPF (0 - 2) Urine WBC 15-20 /HPF (0 - 2) Urine Squamous Epithelial Cells Few /LPF (NONE/OCC) Urine Bacteria Moderate /HPF (NONE) White Blood Count 5.8 K/UL (4.8-10.8) Red Blood Count 4.54 M/UL (4.20-5.40) Hemoglobin 13.0 G/DL (12.0-16.0) Hematocrit 41.0 % (37.0-47.0) Mean Corpuscular Volume 90 FL (80-99) Mean Corpuscular Hemoglobin 28.7 PG (27.0-31.0) Mean Corpuscular Hemoglobin Concent 31.8 G/DL (32.0-36.0) Red Cell Distribution Width 13.5 % (11.6-14.8) Platelet Count 250 K/UL (150-450) Mean Platelet Volume 7.2 FL (6.5-10.1) Neutrophils (%) (Auto) 53.8 % (45.0-75.0) Lymphocytes (%) (Auto) 33.8 % (20.0-45.0) Monocytes (%) (Auto) 7.9 % (1.0-10.0) Eosinophils (%) (Auto) 3.3 % (0.0-3.0) Basophils (%) (Auto) 1.3 % (0.0-2.0) Sodium Level 138 MMOL/L (136-145) Potassium Level 3.8 MMOL/L (3.5-5.1) Chloride Level 100 MMOL/L (98-107) Carbon Dioxide Level 31 MMOL/L (21-32) Anion Gap 7 mmol/L (5-15) Blood Urea Nitrogen 7 mg/dL (7-18) Creatinine 0.8 MG/DL (0.55-1.30) Estimat Glomerular Filtration Rate > 60 mL/min (>60) Glucose Level 275 MG/DL (74-106) Hemoglobin A1c 12.5 % (4.3-6.0) Calcium Level 8.8 MG/DL (8.5-10.1) Magnesium Level 1.5 MG/DL (1.8-2.4) Total Bilirubin 0.2 MG/DL (0.2-1.0) Aspartate Amino Transf (AST/SGOT) 18 U/L (15-37) Alanine Aminotransferase (ALT/SGPT) 23 U/L (12-78) Alkaline Phosphatase 90 U/L (46-116) Total Protein 6.7 G/DL (6.4-8.2) Albumin 2.3 G/DL (3.4-5.0) Globulin 4.4 g/dL Albumin/Globulin Ratio 0.5 (1.0-2.7) Current Medications Medications (Trade) Dose Ordered Sig/Cristóbal Route PRN Reason Start Time Stop Time Status Last Admin Dose Admin Acetaminophen (Tylenol) 650 mg Q4H PRN ORAL Mild Pain (Pain Scale 1-3) 09/18/17 18:30 10/18/17 18:29 Acetaminophen (Tylenol) 650 mg Q4H PRN ORAL fever (temp>100.5F) 09/18/17 18:30 10/18/17 18:29 Acetaminophen/ Hydrocodone Bitart (Minter 10) 1 tab Q6H PRN ORAL Pain 4-10 09/18/17 18:30 09/25/17 18:29 09/19/17 16:38 Al Hydroxide/Mg Hydroxide (Mylanta II) 30 ml Q6H PRN ORAL dyspepsia 09/18/17 18:30 10/18/17 18:29 Albuterol/ Ipratropium (Albuterol/ Ipratropium) 3 ml Q4H PRN HHN Shortness of Breath 09/18/17 18:30 09/23/17 18:29 Baclofen (Lioresal) 20 mg TIDPRN PRN ORAL Muscle Spasms 09/18/17 18:30 10/18/17 18:29 Bisacodyl (Dulcolax) 10 mg HSPRN PRN RECTAL Constipation 09/18/17 19:00 10/18/17 18:29 Dextrose (Dextrose 50%) STAT PRN IV Hypoglycemia 09/18/17 18:45 10/18/17 18:44 Diphenhydramine HCl (Benadryl) 25 mg Q6H PRN ORAL Itching/Pruritis 09/18/17 18:30 10/18/17 18:29 Docusate Sodium (Colace) 100 mg EVERY 12 HOURS ORAL 09/18/17 21:00 10/18/17 20:59 09/20/17 09:29 Duloxetine HCl (Cymbalta) 30 mg BID ORAL 09/18/17 22:00 10/18/17 21:59 09/20/17 09:29 Ferrous Sulfate (Feosol) 325 mg DAILY ORAL 09/19/17 09:00 10/19/17 08:59 09/20/17 09:29 Heparin Sodium (Porcine) (Heparin 5000 units/ml) 5,000 units EVERY 12 HOURS SUBQ 09/18/17 21:00 10/18/17 20:59 09/20/17 09:38 Insulin Aspart (NovoLOG) BEFORE MEALS AND HS SUBQ 09/18/17 21:00 10/18/17 20:59 09/20/17 06:02 Insulin Aspart (NovoLOG) 10 units NOVOTIAC SUBQ 09/20/17 11:50 10/20/17 11:49 Insulin Detemir (Levemir) 30 units DAILY SUBQ 09/19/17 09:00 10/19/17 08:59 09/20/17 09:39 Lorazepam (Ativan) 1 mg TIDPRN PRN ORAL For Anxiety 09/18/17 18:30 09/25/17 18:29 Meropenem 1 gm/ Sodium Chloride 55 ml @ 110 mls/hr Q8H IVPB 09/19/17 16:30 09/24/17 16:29 09/20/17 09:28 Multivitamins Therapeutic (Therapeutic Multivitamin) 1 ea DAILY ORAL 09/19/17 09:00 10/19/17 08:59 09/20/17 09:28 Ondansetron HCl (Zofran) 4 mg Q6H PRN IVP Nausea & Vomiting 09/18/17 18:30 10/18/17 18:29 Polyethylene Glycol (Miralax) 17 gm HSPRN PRN ORAL Constipation 09/18/17 18:30 10/18/17 18:29 Pravastatin Sodium (Pravachol) 40 mg BEDTIME ORAL 09/18/17 21:00 10/18/17 20:59 09/19/17 22:37 Pregabalin (Lyrica) 200 mg BID ORAL 09/19/17 09:00 10/19/17 08:59 09/20/17 09:29 Vitamin D (Vitamin D) 1,000 intlu DAILY ORAL 09/19/17 09:00 10/19/17 08:59 09/20/17 09:28 ARIELA NEVAREZ Sep 20, 2017 12:13
--- NOTE | 2017-09-20 14:35 | Emergency Room Report ---
History of Present Illness General Chief Complaint: Female Urogenital Problems Source: Patient, Medical Record Present Illness HPI [id number] BIBEMS from SNF for "blocked suprapubic catheter." Patient endorses catheter hasn't been changed in 2-3 weeks States has not been bathed at intermediate either States her PMD Dr. Patrick sent her for admission Denies associated abdominal pain, vomiting, fever or chills States she has history of drug resistant UTI Allergies: Coded Allergies: No Known Allergies (Unverified , 07/15/16) Patient History Past Medical History: old chart reviewed Past Surgical History: other - suprapubic cath replacement Pertinent Family History: none Social History: Denies: smoking, alcohol use, drug use Now: No Immunizations: UTD Reviewed Nursing Documentation: PMH: Agreed, PSxH: Agreed Nursing Documentation-PMH Past Medical History: No History, Except For Hx Diabetes: Yes Hx Cancer: No Hx Gastrointestinal Problems: No Hx Neurological Problems: Yes - paraplegic Hx Paralysis: Yes Hx Peripheral Neuropathy: Yes 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 Review of Systems All Other Systems: negative except mentioned in HPI Physical Exam Vital Signs Date Time Temp Pulse Resp B/P (MAP) Pulse Ox O2 Delivery O2 Flow Rate FiO2 09/18/17 12:20 96.3 86 18 92/56 99 Room Air 09/19/17 07:18 21 Sp02 EP Interpretation: reviewed, normal General Appearance: normal inspection, well appearing, no apparent distress, alert, GCS 15, non-toxic, obese Head: normocephalic, atraumatic Eyes: bilateral eye PERRL, bilateral eye EOMI ENT: normal ENT inspection, hearing grossly normal, normal pharynx, no angioedema, normal voice, TMs + canals normal, uvula midline, moist mucus membranes Neck: normal inspection, full range of motion, supple, thyroid normal, no meningismus, no bony tend Respiratory: normal inspection, lungs clear, normal breath sounds, no rhonchi, no respiratory distress, no retraction, no accessory muscle use, no wheezing, speaking full sentences Cardiovascular #1: regular rate, rhythm, no edema, no JVD, normal capillary refill Gastrointestinal: normal inspection, normal bowel sounds, non tender, soft, no mass, no peritonitis, non-distended, no guarding, no hernia, no pulsatile mass Genitourinary: no CVA tenderness, other - Suprapubic cath noted compressed by morbid obesity/pannus. Area around site is VERY dirty. Tube itself has dried pus on it. Bag of urine with scant thick, dark urine. 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, motor strength/tone normal, cerebellar normal, normal gait, speech normal Psychiatric: normal inspection, judgement/insight normal, mood/affect normal, no suicidal/homicidal ideation, no delusions Skin: normal inspection, normal color, no rash Lymphatic: normal inspection, no adenopathy Medical Decision Making Diagnostic Impression: Primary Impression: Suprapubic catheter dysfunction ER Course VSS, afebrile Patient very unkempt from SNF, likely infected suprapubic site/urine d/t unclean area, large pannus, obesity I was able to exchange 22F suprapubic cath but advised PMD DR Patrick to consult Urology for need for proper suprapubic cath/tunnelling with trochar given large pannus/obesity Labs, endorsement for admission pending at time of signout to Dr Zuñiga at 130pm Last Vital Signs Date Time Temp Pulse Resp B/P (MAP) Pulse Ox O2 Delivery O2 Flow Rate FiO2 09/20/17 11:55 97.8 85 20 117/64 98 09/20/17 03:19 Room Air 09/19/17 19:01 21 Status: improved Disposition: ADMITTED INPATIENT Condition: Stable Referrals: RICHARD PATRICK (PCP) JOSÉ MIGUEL PADRON M.D. Sep 20, 2017 14:35
[2017-09-20] MEDS: cefTRIAXone 1 GM in NS 55 ML IVPB SCH (14:39)
[2017-09-20 15:32] VITALS: BP 114/65
[2017-09-20] MEDS ORDERED: Tubing IV Secondary IV ONE (16:41)
[2017-09-20 19:18] VITALS: BP 117/67
--- NOTE | 2017-09-20 21:10 | General Progress Note ---
Assessment/Plan Problem List: (1) Blocked suprapubic catheter ICD Codes: T83.090A - Other mechanical complication of cystostomy catheter, initial encounter SNOMED: 836347667, 801392463 (2) UTI (urinary tract infection) ICD Codes: N39.0 - Urinary tract infection, site not specified SNOMED: 91267499 (3) Neurogenic bladder ICD Codes: N31.9 - Neuromuscular dysfunction of bladder, unspecified SNOMED: 621308473 (4) Diabetes mellitus type 2 with complications, uncontrolled ICD Codes: E11.8 - Type 2 diabetes mellitus with unspecified complications; E11.65 - Type 2 diabetes mellitus with hyperglycemia SNOMED: 30042054, 643014489, 857523394 (5) Peripheral neuropathy ICD Codes: G62.9 - Polyneuropathy, unspecified SNOMED: 56508614 (6) Hyperlipidemia ICD Codes: E78.5 - Hyperlipidemia, unspecified SNOMED: 36527396, 117428467 (7) Paraplegia ICD Codes: G82.20 - Paraplegia, unspecified SNOMED: 22259754 (8) Generalized weakness ICD Codes: R53.1 - Weakness SNOMED: 34217523 (9) Multiple pressure ulcers Status: stable Assessment/Plan Urology consulted s/p suprapubic catheter exchange in ED on 09/18/17 ID consulted U/A w/ concern for UTI F/u urine cx-->shows estrada sensitive E. Coli s/p meropenem (09/19-2/) Start ceftriaxone (09/20-) PICC placed 09/19/17 F/u urine cx Cont home meds Incr to levemir 34U daily Incr to aspart 11U TID AC F/u A1C-->12.5 Pain control, supportive care, bowel regimen PT/OT Wound care CM consulted for SNF placement DVT Prophylaxis: SCD, HSQ Code Status: Full Hospital Classification Declaration: Based on this initial evaluation, and depending on the patient's clinical course, I anticipate that this patient will require hospitalization for 1-2 days for suprapubic catheter dysfunction, UTI, and close respiratory/hemodynamic monitoring. Disposition: Once the patient is stable to leave the hospital, I anticipate the patient will likely be discharged to the following environment: SNF Discussed with patient/family, nursing staff, SW/CM, ID, urology regarding clinical status, treatment course, and disposition planning. D/w ID re abx change Time of note may not reflect time of encounter. Subjective Date patient seen: Sep 20, 2017 Time patient seen: 11:00 ROS Limited/Unobtainable: No Constitutional: Reports: malaise, weakness HEENT: Reports: no symptoms Cardiovascular: Reports: no symptoms Respiratory: Reports: no symptoms Gastrointestinal/Abdominal: Reports: no symptoms Genitourinary: Reports: no symptoms Neurologic/Psychiatric: Reports: no symptoms Endocrine: Reports: no symptoms Hematologic/Lymphatic: Reports: no symptoms Allergies: Coded Allergies: No Known Allergies (Unverified , 07/15/16) All Systems: reviewed and negative except above Subjective No acute o/n events Urine cx showing E. Coli Pt notes improvement in color and odor of urine. Denies pain, f/c, n/v, d/c, chest pain, SOB Objective Last 24 Hour Vital Signs Date Time Temp Pulse Resp B/P (MAP) Pulse Ox O2 Delivery O2 Flow Rate FiO2 09/20/17 20:39 92 20 Room Air 21 09/20/17 20:13 Room Air 09/20/17 19:18 97.2 92 20 117/67 97 Room Air 09/20/17 18:38 98.2 09/20/17 15:35 98 Room Air 09/20/17 15:32 98.2 78 20 114/65 98 09/20/17 11:55 97.8 85 20 117/64 98 09/20/17 11:55 98 Room Air 09/20/17 08:30 96 Room Air 09/20/17 08:27 97.6 86 20 105/66 96 09/20/17 03:19 97.2 78 20 132/71 97 Room Air 09/19/17 23:23 97.5 83 20 125/57 97 Intake and Output 09/19/17 09/20/17 19:00 07:00 Intake Total 1070 ml 55 ml Output Total 400 ml Balance 670 ml 55 ml Intake Oral 960 ml IV Total 110 ml 55 ml Output Urine Total 400 ml Height (Feet): 5 Height (Inches): 7.00 Weight (Pounds): 350 Objective General: alert, cooperative, no distress, appears stated age, morbidly obese Head: normocephalic, without obvious abnormality, atraumatic Eyes: conjunctivae/corneas clear. PERRL, EOM's intact Throat: lips, mucosa, and tongue normal. MMM Neck: supple, symmetrical, trachea midline, and no JVD Lungs: clear to auscultation bilaterally Heart: regular rate and rhythm, S1, S2 normal, no murmur, click, rub or gallop Abdomen: soft, non-tender, non-distended, bowel sounds normal; no masses or organomegaly : suprapubic catheter site c/d/i Extremities: extremities normal, atraumatic, no cyanosis or edema Pulses: 2+ and symmetric Skin: skin color, texture, turgor normal; no rashes or lesions Neurologic: +weakness BLE, stable Gregg Cortes M.D. Sep 20, 2017 21:10
[2017-09-20] MEDS: Dyna-Hex 2% Top Sol 2oz TOPIC SCH (21:46)
[2017-09-20 23:15] VITALS: BP 133/84
[2017-09-20] MEDS: HYDROcodone/Acetamin 10/325 tab ORAL PRN (23:54)
[2017-09-21 04:47] VITALS: BP 128/67
[2017-09-21] MEDS: NovoLOG Insulin Flexpen SUBQ SCH ×7 (06:36→21:15)
[2017-09-21 08:00] VITALS: BP 100/50
[2017-09-21 08:15] LABS: BASOPHILS % (AUTO) 1.2 % (0.0-2.0); EOSINOPHILS % (AUTO) 5.3 % (0.0-3.0); HEMATOCRIT 34.8 % (37.0-47.0); HEMOGLOBIN 11.3 G/DL (12.0-16.0); LYMPHOCYTES % (AUTO) 43.3 % (20.0-45.0); MEAN CORPUSCULAR VOLUME 89 FL (80-99); MONOCYTES % (AUTO) 8.5 % (1.0-10.0); NEUTROPHILS % (AUTO) 41.7 % (45.0-75.0); PLATELET COUNT 212 K/UL (150-450); WHITE BLOOD COUNT 5.9 K/UL (4.8-10.8)
[2017-09-21 08:19] LABS: ANION GAP 3 mmol/L (5-15); BLOOD UREA NITROGEN 10 mg/dL (7-18); CALCIUM 8.7 MG/DL (8.5-10.1); CARBON DIOXIDE 31 MMOL/L (21-32); CHLORIDE 103 MMOL/L (98-107); CREATININE 0.7 MG/DL (0.55-1.30); POTASSIUM 4.1 MMOL/L (3.5-5.1); SODIUM 136 MMOL/L (136-145)
--- NOTE | 2017-09-21 09:27 | Urology Progress Note ---
Assessment/Plan Assessment/Plan urinary retention neurogenic bladder with chronic sp tube UTI/colinized hematuria proteinuria sp tube last changed 09/18 I personally hand irrigated cath, patent abx as ordered Subjective Allergies: Coded Allergies: No Known Allergies (Unverified , 07/15/16) Subjective all noted, feels fair Objective Last 24 Hour Vital Signs Date Time Temp Pulse Resp B/P (MAP) Pulse Ox O2 Delivery O2 Flow Rate FiO2 09/21/17 08:00 97.2 89 16 100/50 97 Room Air 09/21/17 08:00 88 18 Room Air 21 09/21/17 04:51 Room Air 09/21/17 04:47 98.1 82 20 128/67 97 Room Air 09/21/17 00:53 97.3 09/21/17 00:04 Room Air 09/20/17 23:15 97.3 90 20 133/84 99 Room Air 09/20/17 20:39 92 20 Room Air 21 09/20/17 20:13 Room Air 09/20/17 19:18 97.2 92 20 117/67 97 Room Air 09/20/17 18:38 98.2 09/20/17 15:35 98 Room Air 09/20/17 15:32 98.2 78 20 114/65 98 09/20/17 11:55 97.8 85 20 117/64 98 09/20/17 11:55 98 Room Air Intake and Output 09/20/17 09/21/17 19:00 07:00 Intake Total 1080 ml 200 ml Output Total 300 ml 950 ml Balance 780 ml -750 ml Intake Oral 1080 ml IV Total 200 ml Output Urine Total 300 ml 950 ml # Bowel Movements 2 1 Microbiology Date/Time Source Procedure Growth Status 09/18/17 14:37 Urine,Clean Catch Urine Culture - Final Escherichia Coli Complete Current Medications Medications (Trade) Dose Ordered Sig/Cristóbal Route PRN Reason Start Time Stop Time Status Last Admin Dose Admin Acetaminophen (Tylenol) 650 mg Q4H PRN ORAL Mild Pain (Pain Scale 1-3) 09/18/17 18:30 10/18/17 18:29 Acetaminophen (Tylenol) 650 mg Q4H PRN ORAL fever (temp>100.5F) 09/18/17 18:30 10/18/17 18:29 Acetaminophen/ Hydrocodone Bitart ([place] 10/325) 1 tab Q6H PRN ORAL Pain 4-10 09/18/17 18:30 09/25/17 18:29 09/20/17 23:54 Al Hydroxide/Mg Hydroxide (Mylanta II) 30 ml Q6H PRN ORAL dyspepsia 09/18/17 18:30 10/18/17 18:29 Albuterol/ Ipratropium (Albuterol/ Ipratropium) 3 ml Q4H PRN HHN Shortness of Breath 09/18/17 18:30 09/23/17 18:29 Baclofen (Lioresal) 20 mg TIDPRN PRN ORAL Muscle Spasms 09/18/17 18:30 10/18/17 18:29 09/20/17 17:46 Bisacodyl (Dulcolax) 10 mg HSPRN PRN RECTAL Constipation 09/18/17 19:00 10/18/17 18:29 Ceftriaxone Sodium 1 gm/ Sodium Chloride 55 ml @ 110 mls/hr Q24H IVPB 09/20/17 14:00 09/27/17 13:59 09/20/17 14:39 Chlorhexidine Gluconate (Glenda-Hex 2%) 1 applic DAILY@2000 TOPIC 09/20/17 21:42 10/20/17 21:41 09/20/17 21:46 Dextrose (Dextrose 50%) STAT PRN IV Hypoglycemia 09/18/17 18:45 10/18/17 18:44 Diphenhydramine HCl (Benadryl) 25 mg Q6H PRN ORAL Itching/Pruritis 09/18/17 18:30 10/18/17 18:29 Docusate Sodium (Colace) 100 mg EVERY 12 HOURS ORAL 09/18/17 21:00 10/18/17 20:59 09/20/17 21:13 Duloxetine HCl (Cymbalta) 30 mg BID ORAL 09/18/17 22:00 10/18/17 21:59 09/20/17 17:42 Ferrous Sulfate (Feosol) 325 mg DAILY ORAL 09/19/17 09:00 10/19/17 08:59 09/20/17 09:29 Heparin Sodium (Porcine) (Heparin 5000 units/ml) 5,000 units EVERY 12 HOURS SUBQ 09/18/17 21:00 10/18/17 20:59 09/20/17 21:14 Insulin Aspart (NovoLOG) BEFORE MEALS AND HS SUBQ 09/18/17 21:00 10/18/17 20:59 09/21/17 06:36 Insulin Aspart (NovoLOG) 11 units NOVOTIAC SUBQ 09/21/17 06:30 10/21/17 06:29 09/21/17 06:37 Insulin Detemir (Levemir) 34 units DAILY SUBQ 09/21/17 09:00 10/21/17 08:59 Lorazepam (Ativan) 1 mg TIDPRN PRN ORAL For Anxiety 09/18/17 18:30 09/25/17 18:29 09/21/17 04:11 Multivitamins Therapeutic (Therapeutic Multivitamin) 1 ea DAILY ORAL 09/19/17 09:00 10/19/17 08:59 09/20/17 09:28 Ondansetron HCl (Zofran) 4 mg Q6H PRN IVP Nausea & Vomiting 09/18/17 18:30 10/18/17 18:29 Polyethylene Glycol (Miralax) 17 gm HSPRN PRN ORAL Constipation 09/18/17 18:30 10/18/17 18:29 Pravastatin Sodium (Pravachol) 40 mg BEDTIME ORAL 09/18/17 21:00 10/18/17 20:59 09/20/17 21:13 Pregabalin (Lyrica) 200 mg BID ORAL 09/19/17 09:00 10/19/17 08:59 09/20/17 17:43 Vitamin D (Vitamin D) 1,000 intlu DAILY ORAL 09/19/17 09:00 10/19/17 08:59 09/20/17 09:28 Laboratory Tests 09/21/17 05:27: White Blood Count 5.9, Red Blood Count 3.90L, Hemoglobin 11.3L, Hematocrit 34.8L , Mean Corpuscular Volume 89, Mean Corpuscular Hemoglobin 28.9, Mean Corpuscular Hemoglobin Concent 32.4, Red Cell Distribution Width 14.0, Platelet Count 212, Mean Platelet Volume 7.0, Neutrophils (%) (Auto) 41.7L, Lymphocytes ( %) (Auto) 43.3, Monocytes (%) (Auto) 8.5, Eosinophils (%) (Auto) 5.3H, Basophils (%) (Auto) 1.2, Sodium Level 136, Potassium Level 4.1, Chloride Level 103, Carbon Dioxide Level 31, Anion Gap 3L, Blood Urea Nitrogen 10, Creatinine 0.7, Estimat Glomerular Filtration Rate > 60, Glucose Level 148H, Calcium Level 8.7, Magnesium Level 1.9 Height (Feet): 5 Height (Inches): 7.00 Weight (Pounds): 350 Objective exam stable, urine yellow with debris DAPHNIE VIDES Sep 21, 2017 09:27
[2017-09-21] MEDS: DULoxetine 30mg cap ORAL SCH ×2 (10:18→17:52)
[2017-09-21] MEDS: Docusate 100mg cap ORAL SCH ×3 (10:18→21:00)
[2017-09-21] MEDS: Multivitamin w/Minerals tab ORAL SCH (10:20)
[2017-09-21] MEDS: Lyrica 50mg cap ORAL SCH ×2 (10:20→17:54)
[2017-09-21] MEDS: Vitamin D 1000 IU Tab ORAL SCH (10:21)
[2017-09-21] MEDS: Heparin 5000 units/ml inj SUBQ SCH ×2 (10:21→21:16)
[2017-09-21] MEDS: Levemir Flexpen SUBQ SCH (10:22)
[2017-09-21 12:00] VITALS: BP 117/67
--- NOTE | 2017-09-21 13:38 | General Progress Note ---
Assessment/Plan Problem List: (1) Blocked suprapubic catheter ICD Codes: T83.090A - Other mechanical complication of cystostomy catheter, initial encounter SNOMED: 930193269, 458419022 (2) UTI (urinary tract infection) ICD Codes: N39.0 - Urinary tract infection, site not specified SNOMED: 86072244 (3) Neurogenic bladder ICD Codes: N31.9 - Neuromuscular dysfunction of bladder, unspecified SNOMED: 732451621 (4) Diabetes mellitus type 2 with complications, uncontrolled ICD Codes: E11.8 - Type 2 diabetes mellitus with unspecified complications; E11.65 - Type 2 diabetes mellitus with hyperglycemia SNOMED: 04291271, 912688911, 662444360 (5) Peripheral neuropathy ICD Codes: G62.9 - Polyneuropathy, unspecified SNOMED: 73023660 (6) Hyperlipidemia ICD Codes: E78.5 - Hyperlipidemia, unspecified SNOMED: 64631679, 011211865 (7) Paraplegia ICD Codes: G82.20 - Paraplegia, unspecified SNOMED: 97091909 (8) Generalized weakness ICD Codes: R53.1 - Weakness SNOMED: 59395085 (9) Multiple pressure ulcers Status: stable Assessment/Plan Urology consulted s/p suprapubic catheter exchange in ED on 09/18/17 ID consulted U/A w/ concern for UTI F/u urine cx-->shows estrada-sensitive E. Coli s/p meropenem (09/19-2/) Start ceftriaxone (09/20-)--10 day course of IV abx per ID PICC placed 09/19/17 F/u urine cx Cont home meds Incr to levemir 34U daily Incr to aspart 11U TID AC F/u A1C-->12.5 Pain control, supportive care, bowel regimen PT/OT Wound care CM consulted for SNF placement DVT Prophylaxis: SCD, HSQ Code Status: Full Hospital Classification Declaration: Based on this initial evaluation, and depending on the patient's clinical course, I anticipate that this patient will require hospitalization for 1-2 days for suprapubic catheter dysfunction, UTI, and close respiratory/hemodynamic monitoring. Disposition: Once the patient is stable to leave the hospital, I anticipate the patient will likely be discharged to the following environment: SNF Discussed with patient/family, nursing staff, SW/CM, ID, urology regarding clinical status, treatment course, and disposition planning. D/w ID re abx change Time of note may not reflect time of encounter. Subjective Date patient seen: Sep 21, 2017 Time patient seen: 10:00 ROS Limited/Unobtainable: No Constitutional: Reports: malaise, weakness HEENT: Reports: no symptoms Cardiovascular: Reports: no symptoms Respiratory: Reports: no symptoms Gastrointestinal/Abdominal: Reports: no symptoms Genitourinary: Reports: no symptoms Neurologic/Psychiatric: Reports: no symptoms Endocrine: Reports: no symptoms Hematologic/Lymphatic: Reports: no symptoms Allergies: Coded Allergies: No Known Allergies (Unverified , 07/15/16) All Systems: reviewed and negative except above Subjective No acute o/n events Urine cx showing E. Coli Pt notes improvement in color and odor of urine. Denies pain, f/c, n/v, d/c, chest pain, SOB Objective Last 24 Hour Vital Signs Date Time Temp Pulse Resp B/P (MAP) Pulse Ox O2 Delivery O2 Flow Rate FiO2 09/21/17 12:00 97.7 90 19 117/67 94 09/21/17 08:00 97.2 89 16 100/50 97 Room Air 09/21/17 08:00 88 18 Room Air 21 09/21/17 04:51 Room Air 09/21/17 04:47 98.1 82 20 128/67 97 Room Air 09/21/17 00:53 97.3 09/21/17 00:04 Room Air 09/20/17 23:15 97.3 90 20 133/84 99 Room Air 09/20/17 20:39 92 20 Room Air 21 09/20/17 20:13 Room Air 09/20/17 19:18 97.2 92 20 117/67 97 Room Air 09/20/17 18:38 98.2 09/20/17 15:35 98 Room Air 09/20/17 15:32 98.2 78 20 114/65 98 Intake and Output 09/20/17 09/21/17 19:00 07:00 Intake Total 1080 ml 200 ml Output Total 300 ml 950 ml Balance 780 ml -750 ml Intake Oral 1080 ml IV Total 200 ml Output Urine Total 300 ml 950 ml # Bowel Movements 2 1 Laboratory Tests 09/21/17 05:27: White Blood Count 5.9, Red Blood Count 3.90L, Hemoglobin 11.3L, Hematocrit 34.8L , Mean Corpuscular Volume 89, Mean Corpuscular Hemoglobin 28.9, Mean Corpuscular Hemoglobin Concent 32.4, Red Cell Distribution Width 14.0, Platelet Count 212, Mean Platelet Volume 7.0, Neutrophils (%) (Auto) 41.7L, Lymphocytes ( %) (Auto) 43.3, Monocytes (%) (Auto) 8.5, Eosinophils (%) (Auto) 5.3H, Basophils (%) (Auto) 1.2, Sodium Level 136, Potassium Level 4.1, Chloride Level 103, Carbon Dioxide Level 31, Anion Gap 3L, Blood Urea Nitrogen 10, Creatinine 0.7, Estimat Glomerular Filtration Rate > 60, Glucose Level 148H, Calcium Level 8.7, Magnesium Level 1.9 Height (Feet): 5 Height (Inches): 7.00 Weight (Pounds): 350 Objective General: alert, cooperative, no distress, appears stated age, morbidly obese Head: normocephalic, without obvious abnormality, atraumatic Eyes: conjunctivae/corneas clear. PERRL, EOM's intact Throat: lips, mucosa, and tongue normal. MMM Neck: supple, symmetrical, trachea midline, and no JVD Lungs: clear to auscultation bilaterally Heart: regular rate and rhythm, S1, S2 normal, no murmur, click, rub or gallop Abdomen: soft, non-tender, non-distended, bowel sounds normal; no masses or organomegaly : suprapubic catheter site c/d/i Extremities: extremities normal, atraumatic, no cyanosis or edema Pulses: 2+ and symmetric Skin: skin color, texture, turgor normal; no rashes or lesions Neurologic: +weakness BLE, stable Gregg Cortes M.D. Sep 21, 2017 13:38
[2017-09-21] MEDS ORDERED: LEVEMIR FL100 UNIT/1 SUBQ (13:40)
[2017-09-21] MEDS ORDERED: NOVOLOG100 UNITS1 SUBQ ×2 (13:40)
[2017-09-21] MEDS: cefTRIAXone 1 GM in NS 55 ML IVPB SCH (14:05)
--- NOTE | 2017-09-21 14:23 | Infectious Diseases Prog Note ---
Assessment/Plan Assessment/Plan ASSESSMENT AND PLAN: 1. e.coli uti - change abx to rocephin - day # 3/ abx - clinically stable, urine clearer - watch labs 2. Blocked suprapubic catheter, status post change per Urology. 3. Generalized weakness. 4. History of recurrent urinary tract infection. 5. Suprapubic catheter. 6. Diabetes. Blood sugar treatment per primary. 7. Obesity. 8. Neuropathy. 9. Neurogenic bladder. 10. Edema. 11. Hyperlipidemia. 12. Peripheral neuropathy. 13. Anemia. 14. History of wounds. Continue wound care protocol. 15. Past medical history noted. 16. MAR was noted. 17. Family history noncontributory. 18. Social history negative. 19. Case discussed with RN. 20. Allergies are negative. 21. Case communicated with Dr. Escobedo. 22. Continue treatment per primary consultants 23. d/w patient 24. Notes and records were reviewed. Subjective Constitutional: Denies: fever HEENT: Denies: congestion Respiratory: Denies: shortness of breath Cardiovascular: Denies: chest pain Gastrointestinal/Abdominal: Reports: other - no abdominal pain, Denies: nausea , vomiting, diarrhea Genitourinary: Reports: other - + milton Neurologic: Denies: headache Psychiatric: Denies: depression Skin: Denies: rash Hematologic: Denies: bleeding Musculoskeletal: Denies: pain Allergies: Coded Allergies: No Known Allergies (Unverified , 07/15/16) Objective Vital Signs Last 24 Hour Vital Signs Date Time Temp Pulse Resp B/P (MAP) Pulse Ox O2 Delivery O2 Flow Rate FiO2 09/21/17 12:00 97.7 90 19 117/67 94 09/21/17 08:00 97.2 89 16 100/50 97 Room Air 09/21/17 08:00 88 18 Room Air 21 09/21/17 04:51 Room Air 09/21/17 04:47 98.1 82 20 128/67 97 Room Air 09/21/17 00:53 97.3 09/21/17 00:04 Room Air 09/20/17 23:15 97.3 90 20 133/84 99 Room Air 09/20/17 20:39 92 20 Room Air 21 09/20/17 20:13 Room Air 09/20/17 19:18 97.2 92 20 117/67 97 Room Air 09/20/17 18:38 98.2 09/20/17 15:35 98 Room Air 09/20/17 15:32 98.2 78 20 114/65 98 Height (Feet): 5 Height (Inches): 7.00 Weight (Pounds): 350 General Appearance: no acute distress HEENT: normocephalic, atraumatic, anicteric, mucous membranes moist Respiratory/Chest: lungs clear, normal breath sounds, no respiratory distress, no accessory muscle use Cardiovascular: normal rate, regular rhythm, no gallop/murmur, no JVD Abdomen: normal bowel sounds, soft, non tender, no organomegaly, non distended Genitourinary: other - + milton - urine clearer Extremities: no cyanosis Skin: no rash 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0 % (11.6-14.8) Platelet Count 212 K/UL (150-450) Mean Platelet Volume 7.0 FL (6.5-10.1) Neutrophils (%) (Auto) 41.7 % (45.0-75.0) L Lymphocytes (%) (Auto) 43.3 % (20.0-45.0) Monocytes (%) (Auto) 8.5 % (1.0-10.0) Eosinophils (%) (Auto) 5.3 % (0.0-3.0) H Basophils (%) (Auto) 1.2 % (0.0-2.0) Sodium Level 136 MMOL/L (136-145) Potassium Level 4.1 MMOL/L (3.5-5.1) Chloride Level 103 MMOL/L (98-107) Carbon Dioxide Level 31 MMOL/L (21-32) Anion Gap 3 mmol/L (5-15) L Blood Urea Nitrogen 10 mg/dL (7-18) Creatinine 0.7 MG/DL (0.55-1.30) Estimat Glomerular Filtration Rate > 60 mL/min (>60) Glucose Level 148 MG/DL (74-106) H Calcium Level 8.7 MG/DL (8.5-10.1) Magnesium Level 1.9 MG/DL (1.8-2.4) Current Medications Medications (Trade) Dose Ordered Sig/Cristóbal Route PRN Reason Start Time Stop Time Status Last Admin Dose Admin Acetaminophen (Tylenol) 650 mg Q4H PRN ORAL Mild Pain (Pain Scale 1-3) 09/18/17 18:30 10/18/17 18:29 Acetaminophen (Tylenol) 650 mg Q4H PRN ORAL fever (temp>100.5F) 09/18/17 18:30 10/18/17 18:29 Acetaminophen/ Hydrocodone Bitart ([place] 10/325) 1 tab Q6H PRN ORAL Pain 4-10 09/18/17 18:30 09/25/17 18:29 09/20/17 23:54 Al Hydroxide/Mg Hydroxide (Mylanta II) 30 ml Q6H PRN ORAL dyspepsia 09/18/17 18:30 10/18/17 18:29 Albuterol/ Ipratropium (Albuterol/ Ipratropium) 3 ml Q4H PRN HHN Shortness of Breath 09/18/17 18:30 09/23/17 18:29 Baclofen (Lioresal) 20 mg TIDPRN PRN ORAL Muscle Spasms 09/18/17 18:30 10/18/17 18:29 09/20/17 17:46 Bisacodyl (Dulcolax) 10 mg HSPRN PRN RECTAL Constipation 09/18/17 19:00 10/18/17 18:29 Ceftriaxone Sodium 1 gm/ Sodium Chloride 55 ml @ 110 mls/hr Q24H IVPB 2/3/18 14:00 09/27/17 13:59 09/21/17 14:05 Chlorhexidine Gluconate (Glenda-Hex 2%) 1 applic DAILY@2000 TOPIC 09/20/17 21:42 10/20/17 21:41 09/20/17 21:46 Dextrose (Dextrose 50%) STAT PRN IV Hypoglycemia 09/18/17 18:45 10/18/17 18:44 Diphenhydramine HCl (Benadryl) 25 mg Q6H PRN ORAL Itching/Pruritis 09/18/17 18:30 10/18/17 18:29 Docusate Sodium (Colace) 100 mg EVERY 12 HOURS ORAL 09/18/17 21:00 10/18/17 20:59 09/20/17 21:13 Duloxetine HCl (Cymbalta) 30 mg BID ORAL 09/18/17 22:00 10/18/17 21:59 09/21/17 10:18 Ferrous Sulfate (Feosol) 325 mg DAILY ORAL 09/19/17 09:00 10/19/17 08:59 09/21/17 10:18 Heparin Sodium (Porcine) (Heparin 5000 units/ml) 5,000 units EVERY 12 HOURS SUBQ 09/18/17 21:00 10/18/17 20:59 09/21/17 10:21 Insulin Aspart (NovoLOG) BEFORE MEALS AND HS SUBQ 09/18/17 21:00 10/18/17 20:59 09/21/17 11:41 Insulin Aspart (NovoLOG) 11 units NOVOTIAC SUBQ 09/21/17 06:30 10/21/17 06:29 09/21/17 11:42 Insulin Detemir (Levemir) 34 units DAILY SUBQ 09/21/17 09:00 10/21/17 08:59 09/21/17 10:22 Lorazepam (Ativan) 1 mg TIDPRN PRN ORAL For Anxiety 09/18/17 18:30 09/25/17 18:29 09/21/17 04:11 Multivitamins Therapeutic (Therapeutic Multivitamin) 1 ea DAILY ORAL 09/19/17 09:00 10/19/17 08:59 09/21/17 10:20 Ondansetron HCl (Zofran) 4 mg Q6H PRN IVP Nausea & Vomiting 09/18/17 18:30 10/18/17 18:29 Polyethylene Glycol (Miralax) 17 gm HSPRN PRN ORAL Constipation 09/18/17 18:30 10/18/17 18:29 Pravastatin Sodium (Pravachol) 40 mg BEDTIME ORAL 09/18/17 21:00 10/18/17 20:59 09/20/17 21:13 Pregabalin (Lyrica) 200 mg BID ORAL 09/19/17 09:00 10/19/17 08:59 09/21/17 10:20 Vitamin D (Vitamin D) 1,000 intlu DAILY ORAL 09/19/17 09:00 10/19/17 08:59 09/21/17 10:21 ARIELA NEVAREZ Sep 21, 2017 14:23
[2017-09-21] MEDS ORDERED: Tubing IV Secondary IV ONE (15:49)
[2017-09-21 16:00] VITALS: BP 95/53
[2017-09-21 17:00] VITALS: BP 103/63
[2017-09-21 20:00] VITALS: BP 114/63
[2017-09-21] MEDS: Dyna-Hex 2% Top Sol 2oz TOPIC SCH (21:12)
[2017-09-22] VITALS (7 sets, daily range): BP systolic 112–148; BP diastolic 60–89
[2017-09-22] MEDS: NovoLOG Insulin Flexpen SUBQ SCH ×7 (06:27→20:37)
[2017-09-22] MEDS: Docusate 100mg cap ORAL SCH ×2 (08:57→20:35)
[2017-09-22] MEDS: Vitamin D 1000 IU Tab ORAL SCH (08:58)
[2017-09-22] MEDS: DULoxetine 30mg cap ORAL SCH ×2 (09:03→17:50)
[2017-09-22] MEDS: Multivitamin w/Minerals tab ORAL SCH (09:05)
[2017-09-22] MEDS: Lyrica 50mg cap ORAL SCH ×2 (09:05→17:50)
[2017-09-22] MEDS: Heparin 5000 units/ml inj SUBQ SCH ×2 (09:08→20:36)
[2017-09-22] MEDS: Levemir Flexpen SUBQ SCH (09:09)
--- NOTE | 2017-09-22 10:07 | Urology Progress Note ---
Assessment/Plan Assessment/Plan urinary retention neurogenic bladder with chronic sp tube UTI/colinized hematuria proteinuria sp tube last changed 09/18 I personally hand irrigated cath, patent abx as ordered Subjective Allergies: Coded Allergies: No Known Allergies (Unverified , 07/15/16) Subjective all noted, feels fair Objective Last 24 Hour Vital Signs Date Time Temp Pulse Resp B/P (MAP) Pulse Ox O2 Delivery O2 Flow Rate FiO2 09/22/17 07:56 98.1 90 20 144/83 96 09/22/17 04:58 Room Air 09/22/17 04:00 97.5 83 20 148/80 93 Nasal Cannula 09/22/17 00:00 97.6 84 18 112/60 97 09/22/17 00:00 Room Air 09/21/17 20:00 97.7 86 18 114/63 97 09/21/17 20:00 Room Air 09/21/17 19:51 85 18 Room Air 21 09/21/17 18:53 97.7 09/21/17 17:00 78 103/63 09/21/17 16:00 97.7 87 19 95/53 97 09/21/17 12:00 97.7 90 19 117/67 94 Intake and Output 09/21/17 09/22/17 19:00 07:00 Intake Total 480 ml Output Total 1250 ml 1600 ml Balance -770 ml -1600 ml Intake Oral 480 ml Output Urine Total 1250 ml 1600 ml # Bowel Movements 2 Microbiology Date/Time Source Procedure Growth Status 09/18/17 14:37 Urine,Clean Catch Urine Culture - Final Escherichia Coli Complete Current Medications Medications (Trade) Dose Ordered Sig/Cristóbal Route PRN Reason Start Time Stop Time Status Last Admin Dose Admin Acetaminophen (Tylenol) 650 mg Q4H PRN ORAL Mild Pain (Pain Scale 1-3) 09/18/17 18:30 10/18/17 18:29 Acetaminophen (Tylenol) 650 mg Q4H PRN ORAL fever (temp>100.5F) 09/18/17 18:30 10/18/17 18:29 Acetaminophen/ Hydrocodone Bitart ([place] 10/325) 1 tab Q6H PRN ORAL Pain 4-10 09/18/17 18:30 09/25/17 18:29 09/20/17 23:54 Al Hydroxide/Mg Hydroxide (Mylanta II) 30 ml Q6H PRN ORAL dyspepsia 09/18/17 18:30 10/18/17 18:29 Albuterol/ Ipratropium (Albuterol/ Ipratropium) 3 ml Q4H PRN HHN Shortness of Breath 09/18/17 18:30 09/23/17 18:29 Baclofen (Lioresal) 20 mg TIDPRN PRN ORAL Muscle Spasms 09/18/17 18:30 10/18/17 18:29 09/22/17 09:49 Bisacodyl (Dulcolax) 10 mg HSPRN PRN RECTAL Constipation 09/18/17 19:00 10/18/17 18:29 Ceftriaxone Sodium 1 gm/ Sodium Chloride 55 ml @ 110 mls/hr Q24H IVPB 09/20/17 14:00 09/27/17 13:59 09/21/17 14:05 Chlorhexidine Gluconate (Glenda-Hex 2%) 1 applic DAILY@2000 TOPIC 09/20/17 21:42 10/20/17 21:41 09/21/17 21:12 Dextrose (Dextrose 50%) STAT PRN IV Hypoglycemia 09/18/17 18:45 10/18/17 18:44 Diphenhydramine HCl (Benadryl) 25 mg Q6H PRN ORAL Itching/Pruritis 09/18/17 18:30 10/18/17 18:29 Docusate Sodium (Colace) 100 mg EVERY 12 HOURS ORAL 09/18/17 21:00 10/18/17 20:59 09/20/17 21:13 Duloxetine HCl (Cymbalta) 30 mg BID ORAL 09/18/17 22:00 10/18/17 21:59 09/22/17 09:03 Ferrous Sulfate (Feosol) 325 mg DAILY ORAL 09/19/17 09:00 10/19/17 08:59 09/22/17 09:04 Heparin Sodium (Porcine) (Heparin 5000 units/ml) 5,000 units EVERY 12 HOURS SUBQ 09/18/17 21:00 10/18/17 20:59 09/22/17 09:08 Insulin Aspart (NovoLOG) BEFORE MEALS AND HS SUBQ 09/18/17 21:00 10/18/17 20:59 09/22/17 06:27 Insulin Aspart (NovoLOG) 11 units NOVOTIAC SUBQ 09/21/17 06:30 10/21/17 06:29 09/22/17 06:27 Insulin Detemir (Levemir) 34 units DAILY SUBQ 09/21/17 09:00 10/21/17 08:59 09/22/17 09:09 Lorazepam (Ativan) 1 mg TIDPRN PRN ORAL For Anxiety 09/18/17 18:30 09/25/17 18:29 09/21/17 04:11 Multivitamins Therapeutic (Therapeutic Multivitamin) 1 ea DAILY ORAL 09/19/17 09:00 10/19/17 08:59 09/22/17 09:05 Ondansetron HCl (Zofran) 4 mg Q6H PRN IVP Nausea & Vomiting 09/18/17 18:30 10/18/17 18:29 Polyethylene Glycol (Miralax) 17 gm HSPRN PRN ORAL Constipation 09/18/17 18:30 10/18/17 18:29 Pravastatin Sodium (Pravachol) 40 mg BEDTIME ORAL 09/18/17 21:00 10/18/17 20:59 09/21/17 21:12 Pregabalin (Lyrica) 200 mg BID ORAL 09/19/17 09:00 10/19/17 08:59 09/22/17 09:05 Vitamin D (Vitamin D) 1,000 intlu DAILY ORAL 09/19/17 09:00 10/19/17 08:59 09/21/17 10:21 Height (Feet): 5 Height (Inches): 7.00 Weight (Pounds): 350 Objective exam stable, urine yellow with debris DAPHNIE VIDES Sep 22, 2017 10:07
--- NOTE | 2017-09-22 11:05 | Infectious Diseases Prog Note ---
Assessment/Plan Assessment/Plan ASSESSMENT AND PLAN: 1. e.coli uti - change abx to rocephin - day # 4/ abx - clinically stable, urine clearer - watch labs - d/w patient about management 2. Blocked suprapubic catheter, status post change per Urology. 3. Generalized weakness. 4. History of recurrent urinary tract infection. 5. Suprapubic catheter. 6. Diabetes. Blood sugar treatment per primary. 7. Obesity. 8. Neuropathy. 9. Neurogenic bladder. 10. Edema. 11. Hyperlipidemia. 12. Peripheral neuropathy. 13. Anemia. 14. History of wounds. Continue wound care protocol. 15. Past medical history noted. 16. MAR was noted. 17. Family history noncontributory. 18. Social history negative. 19. Case discussed with RN. 20. Allergies are negative. 21. Case communicated with Dr. Escobedo. 22. Continue treatment per primary consultants 23. d/w patient 24. Notes and records were reviewed. Subjective Constitutional: Denies: fever HEENT: Denies: congestion Respiratory: Denies: shortness of breath Cardiovascular: Denies: chest pain Gastrointestinal/Abdominal: Denies: nausea, vomiting, diarrhea Genitourinary: Reports: other - + milton Neurologic: Denies: headache Psychiatric: Denies: depression Skin: Denies: rash Hematologic: Denies: bleeding Musculoskeletal: Denies: pain Allergies: Coded Allergies: No Known Allergies (Unverified , 07/15/16) Objective Vital Signs Last 24 Hour Vital Signs Date Time Temp Pulse Resp B/P (MAP) Pulse Ox O2 Delivery O2 Flow Rate FiO2 09/22/17 07:56 98.1 90 20 144/83 96 09/22/17 07:54 90 18 Room Air 21 09/22/17 04:58 Room Air 09/22/17 04:00 97.5 83 20 148/80 93 Nasal Cannula 09/22/17 00:00 97.6 84 18 112/60 97 09/22/17 00:00 Room Air 09/21/17 20:00 97.7 86 18 114/63 97 09/21/17 20:00 Room Air 09/21/17 19:51 85 18 Room Air 21 09/21/17 18:53 97.7 09/21/17 17:00 78 103/63 09/21/17 16:00 97.7 87 19 95/53 97 09/21/17 12:00 97.7 90 19 117/67 94 Height (Feet): 5 Height (Inches): 7.00 Weight (Pounds): 350 General Appearance: no acute distress HEENT: normocephalic, atraumatic, anicteric, mucous membranes moist Respiratory/Chest: lungs clear, normal breath sounds, no respiratory distress, no accessory muscle use Cardiovascular: normal rate, regular rhythm, no gallop/murmur, no JVD Abdomen: normal bowel sounds, soft, non tender, no organomegaly, non distended Genitourinary: other - + milton- urine clearer Extremities: no cyanosis Skin: no rash Neurologic/Psychiatric: 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 designer II-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 grossly normal, alert, responsive Lymphatic: no neck adenopathy Musculoskeletal: no effusion Objective none Microbiology Date/Time Source Procedure Growth Status 09/18/17 14:37 Urine,Clean Catch Urine Culture - Final Escherichia Coli Complete Labs Test 09/21/17 05:27 White Blood Count 5.9 K/UL (4.8-10.8) Red Blood Count 3.90 M/UL (4.20-5.40) Hemoglobin 11.3 G/DL (12.0-16.0) Hematocrit 34.8 % (37.0-47.0) Mean Corpuscular Volume 89 FL (80-99) Mean Corpuscular Hemoglobin 28.9 PG (27.0-31.0) Mean Corpuscular Hemoglobin Concent 32.4 G/DL (32.0-36.0) Red Cell Distribution Width 14.0 % (11.6-14.8) Platelet Count 212 K/UL (150-450) Mean Platelet Volume 7.0 FL (6.5-10.1) Neutrophils (%) (Auto) 41.7 % (45.0-75.0) Lymphocytes (%) (Auto) 43.3 % (20.0-45.0) Monocytes (%) (Auto) 8.5 % (1.0-10.0) Eosinophils (%) (Auto) 5.3 % (0.0-3.0) Basophils (%) (Auto) 1.2 % (0.0-2.0) Sodium Level 136 MMOL/L (136-145) Potassium Level 4.1 MMOL/L (3.5-5.1) Chloride Level 103 MMOL/L (98-107) Carbon Dioxide Level 31 MMOL/L (21-32) Anion Gap 3 mmol/L (5-15) Blood Urea Nitrogen 10 mg/dL (7-18) Creatinine 0.7 MG/DL (0.55-1.30) Estimat Glomerular Filtration Rate > 60 mL/min (>60) Glucose Level 148 MG/DL (74-106) Calcium Level 8.7 MG/DL (8.5-10.1) Magnesium Level 1.9 MG/DL (1.8-2.4) Current Medications Medications (Trade) Dose Ordered Sig/Cristóbal Route PRN Reason Start Time Stop Time Status Last Admin Dose Admin Acetaminophen (Tylenol) 650 mg Q4H PRN ORAL Mild Pain (Pain Scale 1-3) 09/18/17 18:30 10/18/17 18:29 Acetaminophen (Tylenol) 650 mg Q4H PRN ORAL fever (temp>100.5F) 09/18/17 18:30 10/18/17 18:29 Acetaminophen/ Hydrocodone Bitart ([place] 10/325) 1 tab Q6H PRN ORAL Pain 4-10 09/18/17 18:30 09/25/17 18:29 09/20/17 23:54 Al Hydroxide/Mg Hydroxide (Mylanta II) 30 ml Q6H PRN ORAL dyspepsia 09/18/17 18:30 10/18/17 18:29 Albuterol/ Ipratropium (Albuterol/ Ipratropium) 3 ml Q4H PRN HHN Shortness of Breath 09/18/17 18:30 09/23/17 18:29 Baclofen (Lioresal) 20 mg TIDPRN PRN ORAL Muscle Spasms 09/18/17 18:30 10/18/17 18:29 09/22/17 09:49 Bisacodyl (Dulcolax) 10 mg HSPRN PRN RECTAL Constipation 09/18/17 19:00 10/18/17 18:29 Ceftriaxone Sodium 1 gm/ Sodium Chloride 55 ml @ 110 mls/hr Q24H IVPB 09/20/17 14:00 09/27/17 13:59 09/21/17 14:05 Chlorhexidine Gluconate ([place]-Hex 2%) 1 applic DAILY@2000 TOPIC 09/20/17 21:42 10/20/17 21:41 09/21/17 21:12 Dextrose (Dextrose 50%) STAT PRN IV Hypoglycemia 09/18/17 18:45 10/18/17 18:44 Diphenhydramine HCl (Benadryl) 25 mg Q6H PRN ORAL Itching/Pruritis 09/18/17 18:30 10/18/17 18:29 Docusate Sodium (Colace) 100 mg EVERY 12 HOURS ORAL 09/18/17 21:00 10/18/17 20:59 09/20/17 21:13 Duloxetine HCl (Cymbalta) 30 mg BID ORAL 09/18/17 22:00 10/18/17 21:59 09/22/17 09:03 Ferrous Sulfate (Feosol) 325 mg DAILY ORAL 09/19/17 09:00 10/19/17 08:59 09/22/17 09:04 Heparin Sodium (Porcine) (Heparin 5000 units/ml) 5,000 units EVERY 12 HOURS SUBQ 09/18/17 21:00 10/18/17 20:59 09/22/17 09:08 Insulin Aspart (NovoLOG) BEFORE MEALS AND HS SUBQ 09/18/17 21:00 10/18/17 20:59 09/22/17 06:27 Insulin Aspart (NovoLOG) 11 units NOVOTIAC SUBQ 09/21/17 06:30 10/21/17 06:29 09/22/17 06:27 Insulin Detemir (Levemir) 34 units DAILY SUBQ 09/21/17 09:00 10/21/17 08:59 09/22/17 09:09 Lorazepam (Ativan) 1 mg TIDPRN PRN ORAL For Anxiety 09/18/17 18:30 09/25/17 18:29 09/21/17 04:11 Multivitamins Therapeutic (Therapeutic Multivitamin) 1 ea DAILY ORAL 09/19/17 09:00 10/19/17 08:59 09/22/17 09:05 Ondansetron HCl (Zofran) 4 mg Q6H PRN IVP Nausea & Vomiting 09/18/17 18:30 10/18/17 18:29 Polyethylene Glycol (Miralax) 17 gm HSPRN PRN ORAL Constipation 09/18/17 18:30 10/18/17 18:29 Pravastatin Sodium (Pravachol) 40 mg BEDTIME ORAL 09/18/17 21:00 10/18/17 20:59 09/21/17 21:12 Pregabalin (Lyrica) 200 mg BID ORAL 09/19/17 09:00 10/19/17 08:59 09/22/17 09:05 Vitamin D (Vitamin D) 1,000 intlu DAILY ORAL 09/19/17 09:00 10/19/17 08:59 09/21/17 10:21 ARIELA NEVAREZ Sep 22, 2017 11:05
--- NOTE | 2017-09-22 12:51 | Wound Care Consultation ---
Wound Assessment Wound Assessment #1: Wound Number: 1 Wound Present on Admission: Yes New Wound: No Status Change of Wound: No Wound Location Body Site Modif: right Wound Location Body Site: ischial tuberosity Wound Type: pressure ulcer Chato Test: Does not Chato Pressure Ulcer Stage: II Wound Thickness: Partial Thickness Wound Length: 2.5 Wound Width: 3.0 Wound Depth: less than 0.1 Percent of Wound Burnet/Red: 100 Wound Drainage Description: Serosanguineous Wound Drainage Amount: Scant Wound Drainage Odor: None/Absent Tissue Surrounding Wound: Macerated Wound General Appearance: Reddened, Draining Wound Assessment #2: Wound Number: 2 Wound Present on Admission: Yes New Wound: No Status Change of Wound: No Wound Location Body Site Modif: left Wound Location Body Site: ischial tuberosity Wound Type: pressure ulcer Chato Test: Does not Chato Pressure Ulcer Stage: II Wound Thickness: Partial Thickness Wound Length: 1.5 Wound Width: 2.0 Wound Depth: less than 0.1 Percent of Wound Burnet/Red: 100 Wound Drainage Amount: None Wound Drainage Odor: None/Absent Tissue Surrounding Wound: Macerated Wound General Appearance: Reddened, Draining Wound Assessment #3: Wound Number: 3 Wound Present on Admission: Yes New Wound: No Status Change of Wound: No Wound Location Body Site Modif: mid Wound Location Body Site: other - Sacrococcygeal Wound Type: pressure ulcer Chato Test: Does not Chato Pressure Ulcer Stage: III Wound Thickness: Full Thickness Wound Length: 4.0 Wound Width: 2.5 Wound Depth: 0.3 Percent of Wound Burnet/Red: 100 Wound Drainage Description: Serosanguineous Wound Drainage Amount: Moderate Wound Drainage Odor: None/Absent Tissue Surrounding Wound: Macerated Wound General Appearance: Reddened, Draining Wound Assessment #4: Wound Number: 4 Wound Present on Admission: Yes New Wound: No Status Change of Wound: No Wound Location Body Site Modif: right, upper Wound Location Body Site: back Wound Type: pressure ulcer Chato Test: Does not Chato Pressure Ulcer Stage: II Wound Thickness: Partial Thickness Wound Length: 1.0 Wound Width: 1.0 Wound Depth: less than 0.1 Percent of Wound Burnet/Red: 100 Wound Drainage Amount: Scant Wound Drainage Odor: None/Absent Tissue Surrounding Wound: Intact Wound General Appearance: Reddened Wound Comment #1 Sacrococcygeal stage III pressure ulcer #2 Left ischial tuberosity stage II pressure ulcer #3 Right ischial tuberosity stage II pressure ulcer #4 Right upper back stage II pressure ulcer Recommendation -Local wound care per protocol -Keep clean and dry -Turn and reposition -Offload both heels -Heel protector on both heels -Optimize nutrition -Low air loss mattress -Assess f/u accordingly for any changes JALIL CAMPA RN Sep 22, 2017 12:50
[2017-09-22] MEDS: cefTRIAXone 1 GM in NS 55 ML IVPB SCH (13:20)
[2017-09-22] MEDS: Dyna-Hex 2% Top Sol 2oz TOPIC SCH (20:35)
[2017-09-22] MEDS ORDERED: CEFTRIAXONE1 G2 IV (22:21)
--- NOTE | 2017-09-22 22:22 | General Progress Note ---
Assessment/Plan Problem List: (1) Blocked suprapubic catheter ICD Codes: T83.090A - Other mechanical complication of cystostomy catheter, initial encounter SNOMED: 860416575, 460321619 (2) UTI (urinary tract infection) ICD Codes: N39.0 - Urinary tract infection, site not specified SNOMED: 15316608 (3) Neurogenic bladder ICD Codes: N31.9 - Neuromuscular dysfunction of bladder, unspecified SNOMED: 561698413 (4) Diabetes mellitus type 2 with complications, uncontrolled ICD Codes: E11.8 - Type 2 diabetes mellitus with unspecified complications; E11.65 - Type 2 diabetes mellitus with hyperglycemia SNOMED: 50103440, 637498622, 898234376 (5) Peripheral neuropathy ICD Codes: G62.9 - Polyneuropathy, unspecified SNOMED: 83099945 (6) Hyperlipidemia ICD Codes: E78.5 - Hyperlipidemia, unspecified SNOMED: 16069402, 275382491 (7) Paraplegia ICD Codes: G82.20 - Paraplegia, unspecified SNOMED: 83458443 (8) Generalized weakness ICD Codes: R53.1 - Weakness SNOMED: 39285414 (9) Multiple pressure ulcers Status: stable Assessment/Plan Urology consulted s/p suprapubic catheter exchange in ED on 09/18/17 ID consulted U/A w/ concern for UTI F/u urine cx-->shows estrada-sensitive E. Coli s/p meropenem (09/19-2/) Start ceftriaxone (/-)--10 day course of IV abx per ID--currently day 11/25 PICC placed 09/19/17 F/u urine cx Cont home meds Incr to levemir 34U daily Incr to aspart 11U TID AC F/u A1C-->12.5 Pain control, supportive care, bowel regimen PT/OT Wound care CM consulted for SNF placement. Awaiting bed DVT Prophylaxis: SCD, HSQ Code Status: Full Hospital Classification Declaration: Based on this initial evaluation, and depending on the patient's clinical course, I anticipate that this patient will require hospitalization for 1-2 days for suprapubic catheter dysfunction, UTI, and close respiratory/hemodynamic monitoring. Disposition: Once the patient is stable to leave the hospital, I anticipate the patient will likely be discharged to the following environment: SNF Discussed with patient/family, nursing staff, SW/CM, ID, urology regarding clinical status, treatment course, and disposition planning. D/w ID re abx course Time of note may not reflect time of encounter. Subjective Date patient seen: Sep 22, 2017 Time patient seen: 12:00 ROS Limited/Unobtainable: No Constitutional: Reports: no symptoms HEENT: Reports: no symptoms Cardiovascular: Reports: no symptoms Respiratory: Reports: no symptoms Gastrointestinal/Abdominal: Reports: no symptoms Genitourinary: Reports: no symptoms Neurologic/Psychiatric: Reports: no symptoms Endocrine: Reports: no symptoms Hematologic/Lymphatic: Reports: no symptoms Allergies: Coded Allergies: No Known Allergies (Unverified , 07/15/16) All Systems: reviewed and negative except above Subjective No acute o/n events Urine cx showing E. Coli Awaiting SNF placement Pt notes improvement in color and odor of urine. Denies pain, f/c, n/v, d/c, chest pain, SOB Objective Last 24 Hour Vital Signs Date Time Temp Pulse Resp B/P (MAP) Pulse Ox O2 Delivery O2 Flow Rate FiO2 09/22/17 19:11 97.2 72 20 123/71 97 Room Air 09/22/17 18:49 97.2 09/22/17 16:00 97.9 89 20 118/67 99 09/22/17 11:42 98.2 87 20 136/80 98 09/22/17 07:56 98.1 90 20 144/83 96 09/22/17 07:54 90 18 Room Air 21 09/22/17 04:58 Room Air 09/22/17 04:00 97.5 83 20 148/80 93 Nasal Cannula 09/22/17 00:00 97.6 84 18 112/60 97 09/22/17 00:00 Room Air Intake and Output 09/21/17 09/22/17 19:00 07:00 Intake Total 480 ml Output Total 1250 ml 1600 ml Balance -770 ml -1600 ml Intake Oral 480 ml Output Urine Total 1250 ml 1600 ml # Bowel Movements 2 Height (Feet): 5 Height (Inches): 7.00 Weight (Pounds): 350 Objective General: alert, cooperative, no distress, appears stated age, morbidly obese Head: normocephalic, without obvious abnormality, atraumatic Eyes: conjunctivae/corneas clear. PERRL, EOM's intact Throat: lips, mucosa, and tongue normal. MMM Neck: supple, symmetrical, trachea midline, and no JVD Lungs: clear to auscultation bilaterally Heart: regular rate and rhythm, S1, S2 normal, no murmur, click, rub or gallop Abdomen: soft, non-tender, non-distended, bowel sounds normal; no masses or organomegaly : suprapubic catheter site c/d/i Extremities: extremities normal, atraumatic, no cyanosis or edema Pulses: 2+ and symmetric Skin: skin color, texture, turgor normal; no rashes or lesions Neurologic: +weakness BLE, stable Gregg Cortes M.D. Sep 22, 2017 22:22
[2017-09-23 03:23] VITALS: BP 141/77
[2017-09-23] MEDS: NovoLOG Insulin Flexpen SUBQ SCH ×7 (06:03→20:31)
[2017-09-23 08:09] VITALS: BP 124/75
[2017-09-23] MEDS: Vitamin D 1000 IU Tab ORAL SCH (09:00)
[2017-09-23] MEDS: DULoxetine 30mg cap ORAL SCH ×2 (09:05→18:28)
[2017-09-23] MEDS: Docusate 100mg cap ORAL SCH ×2 (09:05→20:28)
[2017-09-23] MEDS: Multivitamin w/Minerals tab ORAL SCH (09:06)
[2017-09-23] MEDS: Lyrica 50mg cap ORAL SCH ×2 (09:07→18:29)
[2017-09-23] MEDS: Levemir Flexpen SUBQ SCH (09:12)
[2017-09-23] MEDS: Heparin 5000 units/ml inj SUBQ SCH ×2 (09:12→20:29)
--- NOTE | 2017-09-23 10:38 | Urology Progress Note ---
Assessment/Plan Assessment/Plan urinary retention neurogenic bladder with chronic sp tube UTI/colinized hematuria proteinuria sp tube last changed 09/18 I personally hand irrigated cath, patent sp tube needs to be changed q 3 weeks abx as ordered consider CT Subjective Allergies: Coded Allergies: No Known Allergies (Unverified , 07/15/16) Subjective all noted, feels fair Objective Last 24 Hour Vital Signs Date Time Temp Pulse Resp B/P (MAP) Pulse Ox O2 Delivery O2 Flow Rate FiO2 09/23/17 08:17 83 18 Room Air 21 09/23/17 08:09 98.1 86 20 124/75 96 09/23/17 03:38 94 Room Air 09/23/17 03:23 97.8 74 20 141/77 94 Room Air 09/22/17 23:16 97.5 84 20 147/89 99 Room Air 09/22/17 23:16 99 Room Air 09/22/17 19:30 97 Room Air 09/22/17 19:11 97.2 72 20 123/71 97 Room Air 09/22/17 18:49 97.2 09/22/17 16:00 97.9 89 20 118/67 99 09/22/17 11:42 98.2 87 20 136/80 98 Intake and Output 09/22/17 09/23/17 19:00 07:00 Intake Total 615 ml Output Total 950 ml 1800 ml Balance -335 ml -1800 ml Intake Oral 560 ml IV Total 55 ml Output Urine Total 950 ml 1800 ml Microbiology Date/Time Source Procedure Growth Status 09/18/17 14:37 Urine,Clean Catch Urine Culture - Final Escherichia Coli Complete Current Medications Medications (Trade) Dose Ordered Sig/Cristóbal Route PRN Reason Start Time Stop Time Status Last Admin Dose Admin Acetaminophen (Tylenol) 650 mg Q4H PRN ORAL Mild Pain (Pain Scale 1-3) 09/18/17 18:30 10/18/17 18:29 Acetaminophen (Tylenol) 650 mg Q4H PRN ORAL fever (temp>100.5F) 09/18/17 18:30 10/18/17 18:29 Acetaminophen/ Hydrocodone Bitart ([place] 10/325) 1 tab Q6H PRN ORAL Pain 4-10 09/18/17 18:30 09/25/17 18:29 09/20/17 23:54 Al Hydroxide/Mg Hydroxide (Mylanta II) 30 ml Q6H PRN ORAL dyspepsia 09/18/17 18:30 10/18/17 18:29 Albuterol/ Ipratropium (Albuterol/ Ipratropium) 3 ml Q4H PRN HHN Shortness of Breath 09/18/17 18:30 09/23/17 18:29 Baclofen (Lioresal) 20 mg TIDPRN PRN ORAL Muscle Spasms 09/18/17 18:30 10/18/17 18:29 09/23/17 09:08 Bisacodyl (Dulcolax) 10 mg HSPRN PRN RECTAL Constipation 09/18/17 19:00 10/18/17 18:29 Ceftriaxone Sodium 1 gm/ Sodium Chloride 55 ml @ 110 mls/hr Q24H IVPB 09/20/17 14:00 09/27/17 13:59 09/22/17 13:20 Chlorhexidine Gluconate (Glenda-Hex 2%) 1 applic DAILY@2000 TOPIC 09/20/17 21:42 10/20/17 21:41 09/22/17 20:35 Dextrose (Dextrose 50%) STAT PRN IV Hypoglycemia 09/18/17 18:45 10/18/17 18:44 Diphenhydramine HCl (Benadryl) 25 mg Q6H PRN ORAL Itching/Pruritis 09/18/17 18:30 10/18/17 18:29 Docusate Sodium (Colace) 100 mg EVERY 12 HOURS ORAL 09/18/17 21:00 10/18/17 20:59 09/23/17 09:05 Duloxetine HCl (Cymbalta) 30 mg BID ORAL 09/18/17 22:00 10/18/17 21:59 09/23/17 09:05 Ferrous Sulfate (Feosol) 325 mg DAILY ORAL 09/19/17 09:00 10/19/17 08:59 09/23/17 09:07 Heparin Sodium (Porcine) (Heparin 5000 units/ml) 5,000 units EVERY 12 HOURS SUBQ 09/18/17 21:00 10/18/17 20:59 09/23/17 09:12 Insulin Aspart (NovoLOG) BEFORE MEALS AND HS SUBQ 09/18/17 21:00 10/18/17 20:59 09/23/17 06:04 Insulin Aspart (NovoLOG) 11 units NOVOTIAC SUBQ 09/21/17 06:30 10/21/17 06:29 09/23/17 06:03 Insulin Detemir (Levemir) 34 units DAILY SUBQ 09/21/17 09:00 10/21/17 08:59 09/23/17 09:12 Lorazepam (Ativan) 1 mg TIDPRN PRN ORAL For Anxiety 09/18/17 18:30 09/25/17 18:29 09/21/17 04:11 Multivitamins Therapeutic (Therapeutic Multivitamin) 1 ea DAILY ORAL 09/19/17 09:00 10/19/17 08:59 09/23/17 09:06 Ondansetron HCl (Zofran) 4 mg Q6H PRN IVP Nausea & Vomiting 09/18/17 18:30 10/18/17 18:29 Polyethylene Glycol (Miralax) 17 gm HSPRN PRN ORAL Constipation 09/18/17 18:30 10/18/17 18:29 Pravastatin Sodium (Pravachol) 40 mg BEDTIME ORAL 09/18/17 21:00 10/18/17 20:59 09/22/17 20:35 Pregabalin (Lyrica) 200 mg BID ORAL 09/19/17 09:00 10/19/17 08:59 09/23/17 09:07 Vitamin D (Vitamin D) 1,000 intlu DAILY ORAL 09/19/17 09:00 10/19/17 08:59 09/21/17 10:21 Height (Feet): 5 Height (Inches): 7.00 Weight (Pounds): 350 Objective exam stable, urine yellow with debris DAPHNIE VIDES Sep 23, 2017 10:38
[2017-09-23 11:28] VITALS: BP 128/72
[2017-09-23] MEDS: cefTRIAXone 1 GM in NS 55 ML IVPB SCH (13:25)
--- NOTE | 2017-09-23 13:54 | Discharge Summary ---
Discharge Summary Hospital Course Date of Admission Sep 18, 2017 at 14:02 Date of Discharge 09/23/17 Admitting Diagnosis Blocked suprapubic catheter, UTI Reason for Hospitalization: Blocked suprapubic catheter, UTI HPI 51 year old female with pmh of uncontrolled DM2 (A1C 12.5) c/b neuropathy, morbid obesity, paraplegia s/p fall, and neurogenic bladder w/ multiple admissions for clogged suprapubic catheter and UTI, multiple decubitus ulcers presents with generalized weakness and blocked suprapubic catheter with concern for infection. Pt states suprapubic catheter is blocked with decreased drainage. It is overdue for change per pt. Pt c/o cloudy, malodorous urine, fevers/chills for the past few days. She also c/o generalized weakness and inability to care for self. She was noted to have uncontrolled sugars. Denies n/ v, d/c, chest pain, SOB. Consultations Urology, Infectious disease Hospital Course Pt was admitted and seen by urology and ID. She underwent suprapubic catheter exchange on 09/18/17. Urinalysis concerning for UTI. Pt was started on empiric antibiotics. Urine culture ultimately showed estrada-sensitive E. Coli. Pt was transitioned to ceftriaxone to complete 10 day course per ID. Pt also with generalized weakness and deconditioning. She was seen by PT/OT who recommended rehab. She was discharged to SNF to complete IV antibiotics and for PT/OT. Discharge physical exam: General: alert, cooperative, no distress, appears stated age, morbidly obese Head: normocephalic, without obvious abnormality, atraumatic Eyes: conjunctivae/corneas clear. PERRL, EOM's intact Throat: lips, mucosa, and tongue normal. MMM Neck: supple, symmetrical, trachea midline, and no JVD Lungs: clear to auscultation bilaterally Heart: regular rate and rhythm, S1, S2 normal, no murmur, click, rub or gallop Abdomen: soft, non-tender, non-distended, bowel sounds normal; no masses or organomegaly : suprapubic catheter site c/d/i Extremities: extremities normal, atraumatic, no cyanosis or edema Pulses: 2+ and symmetric Skin: skin color, texture, turgor normal; no rashes or lesions Neurologic: +weakness BLE, stable Discharge diagnoses: (1) Blocked suprapubic catheter ICD Codes: T83.090A - Other mechanical complication of cystostomy catheter, initial encounter SNOMED: 311084702, 583275132 (2) UTI (urinary tract infection) ICD Codes: N39.0 - Urinary tract infection, site not specified SNOMED: 21788967 (3) Neurogenic bladder ICD Codes: N31.9 - Neuromuscular dysfunction of bladder, unspecified SNOMED: 286417268 (4) Diabetes mellitus type 2 with complications, uncontrolled ICD Codes: E11.8 - Type 2 diabetes mellitus with unspecified complications; E11.65 - Type 2 diabetes mellitus with hyperglycemia SNOMED: 88721900, 771388662, 396185859 (5) Peripheral neuropathy ICD Codes: G62.9 - Polyneuropathy, unspecified SNOMED: 37791467 (6) Hyperlipidemia ICD Codes: E78.5 - Hyperlipidemia, unspecified SNOMED: 88192771, 506218982 (7) Paraplegia ICD Codes: G82.20 - Paraplegia, unspecified SNOMED: 64337313 (8) Generalized weakness ICD Codes: R53.1 - Weakness SNOMED: 65022458 (9) Multiple pressure ulcers Discharge Medications New Medications: Ceftriaxone Sodium (Ceftriaxone) 1 Gm Vial.port 1 GM IV Q24H for 6 Days, VIAL Insulin Aspart (Novolog Flexpen) 100 Unit/1 Ml Insuln.pen 11 UNITS SUBQ NOVOTIAC for 30 Days, EA Insulin Aspart (Novolog Flexpen) 100 Unit/1 Ml Insuln.pen 0 UNITS SUBQ BEFORE MEALS AND HS for 30 Days, EA Insulin Detemir (Levemir Flexpen) 100 Unit/1 Ml Insuln.pen 34 UNITS SUBQ DAILY for 30 Days, EA Continued Medications: Baclofen* (Lioresal*) 20 Mg Tablet 20 MG ORAL THREE TIMES A DAY PRN for Muscle Spasms, TAB Bisacodyl (Dulcolax) 10 Mg Supp.rect 10 MG RC DAILY PRN for Constipation, SUPP Cholecalciferol (Vitamin D3)* (Vitamin D*) 1,000 Unit Tablet 1000 INTLU ORAL DAILY for 30 Days, TAB Duloxetine Hcl* (Cymbalta*) 30 Mg Capsule.dr 30 MG ORAL BID, CAP Ferrous Sulfate (Iron) 325 Mg Tablet 325 MG PO DAILY, TAB Hydrocodone Bit/Acetaminophen 10-325* ([place] 10-325*) 1 Each Tablet 1 TAB ORAL Q6H PRN for For Pain, #10 TAB 0 Refills PRN PAIN Insulin Aspart (Novolog Flexpen) 100 Unit/1 Ml Insuln.pen 0 UNITS SUBQ BEFORE MEALS AND HS for 30 Days, EA Ipratropium/Albuterol Sulfate (DuoNeb 0.5-3(2.5)mg/3ml) 3 Ml Ampul.neb 3 ML HHN EVERY 4 HOURS PRN for Shortness of Breath, EA Lactobacillus Acidophilus (Probiotic) 1 Each Capsule 1 EACH PO DAILY, CAP Lorazepam* (Ativan*) 1 Mg Tablet 1 MG ORAL THREE TIMES A DAY PRN for For Anxiety, TAB Meloxicam* (Meloxicam*) 15 Mg Tablet 15 MG PO DAILY, TAB Mineral Oil (Mineral Oil Enema) 133 Ml Enema 133 ML RC DAILY PRN for Constipation, EA Multivitamin with Minerals (Multivitamins with Minerals) 1 Each Tablet 1 TAB ORAL DAILY, TAB Pravastatin Sodium (Pravachol) 40 Mg Tablet 40 MG ORAL BEDTIME, TAB Pregabalin* (Lyrica*) 75 Mg Capsule 200 MG ORAL BID, CAP Discontinued Medications: Insulin Aspart (Novolog Flexpen) 100 Unit/1 Ml Insuln.pen 10 UNITS SUBQ NOVOTIAC for 90 Days, EA Insulin Detemir (Levemir Flexpen) 100 Unit/1 Ml Insuln.pen 30 UNITS SUBQ DAILY for 90 Days, EA Discharge Condition Upon Discharge: stable Discharge Disposition Patient was discharged to SNF Discharge Diagnoses: Gregg Cortes M.D. Sep 23, 2017 13:54
[2017-09-23 15:42] VITALS: BP 148/73
--- NOTE | 2017-09-23 16:15 | Infectious Diseases Prog Note ---
Assessment/Plan Assessment/Plan ASSESSMENT AND PLAN: 1. e.coli uti - change abx to rocephin - day # 5/10 abx - clinically stable, urine clearer - watch labs - d/w RN and patient is colonized for MRSA of nares 2. Blocked suprapubic catheter, status post change per Urology. 3. Generalized weakness. 4. History of recurrent urinary tract infection. 5. Suprapubic catheter. 6. Diabetes. Blood sugar treatment per primary. 7. Obesity. 8. Neuropathy. 9. Neurogenic bladder. 10. Edema. 11. Hyperlipidemia. 12. Peripheral neuropathy. 13. Anemia. 14. History of wounds. Continue wound care protocol. 15. Past medical history noted. 16. MAR was noted. 17. Family history noncontributory. 18. Social history negative. 19. Case discussed with RN. 20. Allergies are negative. 21. Case communicated with Dr. Escobedo. 22. Continue treatment per primary consultants 23. d/w patient 24. Notes and records were reviewed. Subjective Constitutional: Denies: fever HEENT: Denies: congestion Respiratory: Denies: shortness of breath Cardiovascular: Denies: chest pain Gastrointestinal/Abdominal: Denies: nausea, vomiting, diarrhea Genitourinary: Reports: other - + milton - urine clearer Neurologic: Denies: headache Psychiatric: Denies: depression Skin: Denies: rash Hematologic: Denies: bleeding Musculoskeletal: Denies: pain Allergies: Coded Allergies: No Known Allergies (Unverified , 07/15/16) Objective Vital Signs Last 24 Hour Vital Signs Date Time Temp Pulse Resp B/P (MAP) Pulse Ox O2 Delivery O2 Flow Rate FiO2 09/23/17 15:42 97.7 84 20 148/73 98 09/23/17 11:28 98.2 82 20 128/72 97 09/23/17 08:17 83 18 Room Air 21 09/23/17 08:09 98.1 86 20 124/75 96 09/23/17 03:38 94 Room Air 09/23/17 03:23 97.8 74 20 141/77 94 Room Air 09/22/17 23:16 97.5 84 20 147/89 99 Room Air 09/22/17 23:16 99 Room Air 09/22/17 19:30 97 Room Air 09/22/17 19:11 97.2 72 20 123/71 97 Room Air 09/22/17 18:49 97.2 Height (Feet): 5 Height (Inches): 7.00 Weight (Pounds): 350 General Appearance: no acute distress HEENT: normocephalic, atraumatic, anicteric, mucous membranes moist Respiratory/Chest: lungs clear, normal breath sounds, no respiratory distress, no accessory muscle use Cardiovascular: normal rate, regular rhythm, no gallop/murmur, no JVD Abdomen: normal bowel sounds, soft, non tender, no organomegaly, non distended Genitourinary: other - + milton - urine clearer Extremities: no cyanosis Skin: no rash 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, alert, oriented x 3, responsive Lymphatic: no neck adenopathy Musculoskeletal: no effusion Objective none Microbiology Date/Time Source Procedure Growth Status 09/18/17 14:37 Urine,Clean Catch Urine Culture - Final Escherichia Coli Complete Labs Test 09/21/17 05:27 White Blood Count 5.9 K/UL (4.8-10.8) Red Blood Count 3.90 M/UL (4.20-5.40) Hemoglobin 11.3 G/DL (12.0-16.0) Hematocrit 34.8 % (37.0-47.0) Mean Corpuscular Volume 89 FL (80-99) Mean Corpuscular Hemoglobin 28.9 PG (27.0-31.0) Mean Corpuscular Hemoglobin Concent 32.4 G/DL (32.0-36.0) Red Cell Distribution Width 14.0 % (11.6-14.8) Platelet Count 212 K/UL (150-450) Mean Platelet Volume 7.0 FL (6.5-10.1) Neutrophils (%) (Auto) 41.7 % (45.0-75.0) Lymphocytes (%) (Auto) 43.3 % (20.0-45.0) Monocytes (%) (Auto) 8.5 % (1.0-10.0) Eosinophils (%) (Auto) 5.3 % (0.0-3.0) Basophils (%) (Auto) 1.2 % (0.0-2.0) Sodium Level 136 MMOL/L (136-145) Potassium Level 4.1 MMOL/L (3.5-5.1) Chloride Level 103 MMOL/L (98-107) Carbon Dioxide Level 31 MMOL/L (21-32) Anion Gap 3 mmol/L (5-15) Blood Urea Nitrogen 10 mg/dL (7-18) Creatinine 0.7 MG/DL (0.55-1.30) Estimat Glomerular Filtration Rate > 60 mL/min (>60) Glucose Level 148 MG/DL (74-106) Calcium Level 8.7 MG/DL (8.5-10.1) Magnesium Level 1.9 MG/DL (1.8-2.4) Current Medications Medications (Trade) Dose Ordered Sig/Cristóbal Route PRN Reason Start Time Stop Time Status Last Admin Dose Admin Acetaminophen (Tylenol) 650 mg Q4H PRN ORAL Mild Pain (Pain Scale 1-3) 09/18/17 18:30 10/18/17 18:29 Acetaminophen (Tylenol) 650 mg Q4H PRN ORAL fever (temp>100.5F) 09/18/17 18:30 10/18/17 18:29 Acetaminophen/ Hydrocodone Bitart ([place] 10/325) 1 tab Q6H PRN ORAL Pain 4-10 09/18/17 18:30 09/25/17 18:29 09/20/17 23:54 Al Hydroxide/Mg Hydroxide (Mylanta II) 30 ml Q6H PRN ORAL dyspepsia 09/18/17 18:30 10/18/17 18:29 Albuterol/ Ipratropium (Albuterol/ Ipratropium) 3 ml Q4H PRN HHN Shortness of Breath 09/18/17 18:30 09/23/17 18:29 Baclofen (Lioresal) 20 mg TIDPRN PRN ORAL Muscle Spasms 09/18/17 18:30 10/18/17 18:29 09/23/17 09:08 Bisacodyl (Dulcolax) 10 mg HSPRN PRN RECTAL Constipation 09/18/17 19:00 10/18/17 18:29 Ceftriaxone Sodium 1 gm/ Sodium Chloride 55 ml @ 110 mls/hr Q24H IVPB 09/20/17 14:00 09/27/17 13:59 09/23/17 13:25 Chlorhexidine Gluconate (Glenda-Hex 2%) 1 applic DAILY@2000 TOPIC 09/20/17 21:42 10/20/17 21:41 09/22/17 20:35 Dextrose (Dextrose 50%) STAT PRN IV Hypoglycemia 09/18/17 18:45 10/18/17 18:44 Diphenhydramine HCl (Benadryl) 25 mg Q6H PRN ORAL Itching/Pruritis 09/18/17 18:30 10/18/17 18:29 Docusate Sodium (Colace) 100 mg EVERY 12 HOURS ORAL 09/18/17 21:00 10/18/17 20:59 09/23/17 09:05 Duloxetine HCl (Cymbalta) 30 mg BID ORAL 09/18/17 22:00 10/18/17 21:59 09/23/17 09:05 Ferrous Sulfate (Feosol) 325 mg DAILY ORAL 09/19/17 09:00 10/19/17 08:59 09/23/17 09:07 Heparin Sodium (Porcine) (Heparin 5000 units/ml) 5,000 units EVERY 12 HOURS SUBQ 09/18/17 21:00 10/18/17 20:59 09/23/17 09:12 Insulin Aspart (NovoLOG) BEFORE MEALS AND HS SUBQ 09/18/17 21:00 10/18/17 20:59 09/23/17 12:23 Insulin Aspart (NovoLOG) 11 units NOVOTIAC SUBQ 09/21/17 06:30 10/21/17 06:29 09/23/17 12:23 Insulin Detemir (Levemir) 34 units DAILY SUBQ 09/21/17 09:00 10/21/17 08:59 09/23/17 09:12 Lorazepam (Ativan) 1 mg TIDPRN PRN ORAL For Anxiety 09/18/17 18:30 09/25/17 18:29 09/21/17 04:11 Multivitamins Therapeutic (Therapeutic Multivitamin) 1 ea DAILY ORAL 09/19/17 09:00 10/19/17 08:59 09/23/17 09:06 Ondansetron HCl (Zofran) 4 mg Q6H PRN IVP Nausea & Vomiting 09/18/17 18:30 10/18/17 18:29 Polyethylene Glycol (Miralax) 17 gm HSPRN PRN ORAL Constipation 2/1/18 18:30 10/18/17 18:29 Pravastatin Sodium (Pravachol) 40 mg BEDTIME ORAL 09/18/17 21:00 10/18/17 20:59 09/22/17 20:35 Pregabalin (Lyrica) 200 mg BID ORAL 09/19/17 09:00 10/19/17 08:59 09/23/17 09:07 Vitamin D (Vitamin D) 1,000 intlu DAILY ORAL 09/19/17 09:00 10/19/17 08:59 09/21/17 10:21 ARIELA NEVAREZ Sep 23, 2017 16:14
[2017-09-23 19:17] VITALS: BP 133/72
[2017-09-23] MEDS: Dyna-Hex 2% Top Sol 2oz TOPIC SCH (20:27)
== END 2017-09-23 22:46 | DRG 698 ==
LOC: EDBD 12:16 → EMR 13:01 → EDBEDREQ 13:46 → 4W 14:02 → EDBEDREQ 15:05
PROC: 02HV33Z Insertion of Infusion Device into Superior Vena Cava, Percutaneous Approach (ICD-10-PCS; principal; 2017-09-19)
DX: N99.518 Other cystostomy complication (principal); L89.153 Pressure ulcer of sacral region, stage 3; G82.20 Paraplegia, unspecified; L89.312 Pressure ulcer of right buttock, stage 2; L89.112 Pressure ulcer of right upper back, stage 2; N39.0 Urinary tract infection, site not specified; L89.322 Pressure ulcer of left buttock, stage 2; E11.9 Type 2 diabetes mellitus without complications; B96.20 Unspecified Escherichia coli [E. coli] as the cause of diseases classified elsewhere; Z68.43 Body mass index [BMI] 50.0-59.9, adult; E66.01 Morbid (severe) obesity due to excess calories; T83.090A Other mechanical complication of cystostomy catheter, initial encounter; Y83.3 Surgical operation with formation of external stoma as the cause of abnormal reaction of the patient, or of later complication, without mention of misadventure at the time of the procedure; G62.9 Polyneuropathy, unspecified; R33.9 Retention of urine, unspecified; E78.5 Hyperlipidemia, unspecified; N31.9 Neuromuscular dysfunction of bladder, unspecified; Z79.4 Long term (current) use of insulin; R53.1 Weakness
CPT/HCPCS: 36415; 36569; 76937; 80048; 80053; 81003; 82962; 83036; 83735; 85025; 87086; 87181; 94664; 99285; J1815; S5561

== ENCOUNTER 2017-11-11 15:33 | Emergency (ER) | payer MEDICARE, MEDICAID ==
[~2017-11-11] VITALS: Ht 170.2 cm; Wt 154.2 kg
[~2017-11-11 15:33] MED LIST changes: +CEFTRIAXONE1 G2 IV; +MELOXICAM15 MG PO
--- NOTE | 2017-11-11 15:58 | Emergency Room Report ---
History of Present Illness General Chief Complaint: Female Urogenital Problems Source: Patient Present Illness HPI Patient is a 51-year-old female who presented after increased urinary retention. The patient had previous suprapubic catheter placement. Patient was unable to void due to paraplegia and neurogenic bladder. Patient had noticed no urine output from her Garcia catheter. Patient had increased sediment over the past 2 days. She denied any fever. She had not been vomiting. Patient prior history of decubitus ulcers Allergies: Coded Allergies: No Known Allergies (Unverified , 07/15/16) Patient History Past Medical History: see triage record Past Surgical History: unable to obtain Last Menstrual Period: na Reviewed Nursing Documentation: PMH: Agreed; PSxH: Agreed Nursing Documentation-PMH Past Medical History: No History, Except For Hx Diabetes: Yes Hx Cancer: No Hx Gastrointestinal Problems: No - suprapubic catheter History Of Psychiatric Problem: Yes - depression, anxiety Hx Neurological Problems: Yes - paraplegic Hx Paralysis: Yes Hx Peripheral Neuropathy: Yes 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 Review of Systems All Other Systems: negative except mentioned in HPI Physical Exam Vital Signs Date Time Temp Pulse Resp B/P (MAP) Pulse Ox O2 Delivery O2 Flow Rate FiO2 11/11/17 15:41 97.2 98 20 97/49 98 Room Air 97.2 Sp02 EP Interpretation: reviewed, normal General Appearance: normal inspection, well appearing, no apparent distress, alert Head: atraumatic ENT: normal ENT inspection, hearing grossly normal, normal voice Neck: normal inspection, full range of motion, supple, no bony tend Respiratory: normal inspection, lungs clear, normal breath sounds, no respiratory distress, no retraction, no wheezing Cardiovascular #1: regular rate, rhythm, no edema Gastrointestinal: normal inspection, normal bowel sounds, non tender, soft, no guarding, no hernia Genitourinary: no CVA tenderness Musculoskeletal: normal inspection, back normal, normal range of motion Neurologic: speech normal, motor weakness - bilateral lower extremity weakness Psychiatric: normal inspection, judgement/insight normal, mood/affect normal Skin: normal color, no rash, other - decubitus ulcers Medical Decision Making Diagnostic Impression: Primary Impression: Recurrent UTI ER Course Patient presented for decreased urine output. The differential diagnosis included was not limited to Garcia catheter malfunction, acute renal failure, abscess, urinary tract infection and among others.Because of complexity of patient's case laboratory testing and imaging studies were ordered. The laboratory testing showed evidence of urinary infection. The catheter was changed with a 22 [place] catheter with sterile technique and Betadine prep. The balloon was inflated to 10 mL with sterile water. The patient was noted to have good urine output after change of catheter. Patient was started on IV antibiotics for a urinary infection. Patient was given [place] for pain.The patient is advised to follow up with primary care doctor in 1-2 days. Patient is advised to return if any worsening condition or if any changes in status that are concerning. This report is dictated with [employer] wireless communications engineer software which may occasionally lead to discrepancies related to use of this software. Labs Test 11/11/17 16:59 11/11/17 18:20 Urine Color Yellow Urine Appearance Very cloudy Urine pH 9 (4.5-8.0) Urine Specific [place] 1.015 (1.005-1.035) Urine Protein 2+ (NEGATIVE) Urine Glucose (UA) Negative (NEGATIVE) Urine Ketones 2+ (NEGATIVE) Urine Occult Blood 1+ (NEGATIVE) Urine Nitrite Positive (NEGATIVE) Urine Bilirubin Negative (NEGATIVE) Urine Urobilinogen Normal MG/DL (0.0-1.0) Urine Leukocyte Esterase 3+ (NEGATIVE) Urine RBC 5-10 /HPF (0 - 2) Urine WBC 5-10 /HPF (0 - 2) Urine Squamous Epithelial Cells None /LPF (NONE/OCC) Urine Triple Phosphate Crystals Few /LPF (NONE) Urine Bacteria Many /HPF (NONE) White Blood Count 7.6 K/UL (4.8-10.8) Red Blood Count 4.31 M/UL (4.20-5.40) Hemoglobin 12.5 G/DL (12.0-16.0) Hematocrit 38.4 % (37.0-47.0) Mean Corpuscular Volume 89 FL (80-99) Mean Corpuscular Hemoglobin 29.1 PG (27.0-31.0) Mean Corpuscular Hemoglobin Concent 32.6 G/DL (32.0-36.0) Red Cell Distribution Width 14.0 % (11.6-14.8) Platelet Count 219 K/UL (150-450) Mean Platelet Volume 8.2 FL (6.5-10.1) Neutrophils (%) (Auto) 60.1 % (45.0-75.0) Lymphocytes (%) (Auto) 28.1 % (20.0-45.0) Monocytes (%) (Auto) 6.8 % (1.0-10.0) Eosinophils (%) (Auto) 3.6 % (0.0-3.0) Basophils (%) (Auto) 1.5 % (0.0-2.0) Last Vital Signs Date Time Temp Pulse Resp B/P (MAP) Pulse Ox O2 Delivery O2 Flow Rate FiO2 11/11/17 15:41 97.2 98 20 97/49 98 Room Air 97.2 Status: improved Disposition: HOME, SELF-CARE Condition: Stable Scripts Cephalexin* (KEFLEX*) 500 Mg Capsule 500 MG ORAL Q6H, #28 CAP 0 Refills Prov: Anuj Ng 11/11/17 Anuj Ng Nov 11, 2017 15:58
[2017-11-11 16:34] VITALS: BP 106/53
[2017-11-11] MEDS ORDERED: cefTRIAXone 1 GM in NS 55 ML IVPB ONE (17:00)
[2017-11-11] MEDS ORDERED: Norco 5mg/325mg tab ORAL ONE (17:30)
[2017-11-11 18:00] LABS: APPEARANCE,URINE VERY CLOUDY; BILIRUBIN, URINE NEGATIVE (NEGATIVE); GLUCOSE, URINE (UA) NEGATIVE (NEGATIVE); KETONES,URINE 2+ (NEGATIVE); LEUKOCYTE ESTERASE ,URINE 3+ (NEGATIVE); NITRITE,URINE POSITIVE (NEGATIVE); PH,URINE 9 (4.5-8.0); PROTEIN,URINE 2+ (NEGATIVE); UROBILINOGEN,URINE NORMAL MG/DL (0.0-1.0)
[2017-11-11 18:02] LABS: COLOR,URINE YELLOW
[2017-11-11 18:37] VITALS: BP 120/59
[2017-11-11] MEDS ORDERED: KEFLEX500 MG ORAL (18:42)
[2017-11-11 18:51] LABS: BASOPHILS % (AUTO) 1.5 % (0.0-2.0); EOSINOPHILS % (AUTO) 3.6 % (0.0-3.0); HEMATOCRIT 38.4 % (37.0-47.0); HEMOGLOBIN 12.5 G/DL (12.0-16.0); LYMPHOCYTES % (AUTO) 28.1 % (20.0-45.0); MEAN CORPUSCULAR VOLUME 89 FL (80-99); MONOCYTES % (AUTO) 6.8 % (1.0-10.0); NEUTROPHILS % (AUTO) 60.1 % (45.0-75.0); PLATELET COUNT 219 K/UL (150-450); RED BLOOD COUNT 4.31 M/UL (4.20-5.40); WHITE BLOOD COUNT 7.6 K/UL (4.8-10.8)
[2017-11-11 22:40] VITALS: BP 117/68
[2017-11-11 22:45] VITALS: BP 117/68
--- NOTE | 2017-11-12 09:55 | Diagnostic Imaging Report ---
Indication: Shortness of breath Technique: One view of the chest Comparison: 12/11/2016 Findings: Lungs and pleural spaces are clear. The heart is upper limits of normal in size. No significant interim change. Impression: No acute process
--- NOTE | 2017-11-12 16:07 | Cardiology Report ---
APPROVED REPORT EKG Measurement Heart [id number] OR [id number] Normal sinus rhythm Low voltage QRS Borderline ECG
== END 2017-11-11 22:56 | disposition home or self-care (01) ==
LOC: EMR 16:17
DX: N39.0 Urinary tract infection, site not specified (principal); E11.9 Type 2 diabetes mellitus without complications; F41.9 Anxiety disorder, unspecified; F32.9 Major depressive disorder, single episode, unspecified; G82.20 Paraplegia, unspecified
CPT/HCPCS: 36415; 71045; 81003; 83605; 84484; 85025; 87040; 87086; 87181; 93005; 96374; 96375; 99284; J0696

== ENCOUNTER 2018-03-30 19:19 | Inpatient (IN) | payer MEDICARE, MEDICAID ==
[~2018-03-30] VITALS: Ht 170.2 cm; Wt 142.9 kg
[~2018-03-30 19:19] MED LIST changes: +KEFLEX500 MG ORAL
[2018-03-30 19:45] VITALS: BP 130/90
[2018-03-30] MEDS ORDERED: Piperacillin/Tazobactam 4.5 GM in NS 110 ML IVPB ONE (19:45)
[2018-03-30 20:29] LABS: APPEARANCE,URINE SLIGHTLY CLOUDY; BILIRUBIN, URINE NEGATIVE (NEGATIVE); GLUCOSE, URINE (UA) 4+ (NEGATIVE); KETONES,URINE 1+ (NEGATIVE); LEUKOCYTE ESTERASE ,URINE 3+ (NEGATIVE); NITRITE,URINE POSITIVE (NEGATIVE); PH,URINE 5 (4.5-8.0); PROTEIN,URINE 3+ (NEGATIVE); UROBILINOGEN,URINE NORMAL MG/DL (0.0-1.0)
[2018-03-30 20:30] LABS: ANION GAP 7 mmol/L (5-15); BLOOD UREA NITROGEN 11 mg/dL (7-18); CALCIUM 9.3 MG/DL (8.5-10.1); CARBON DIOXIDE 31 MMOL/L (21-32); CHLORIDE 100 MMOL/L (98-107); POTASSIUM 4.1 MMOL/L (3.5-5.1); SODIUM 138 MMOL/L (136-145)
[2018-03-30 20:32] LABS: BASOPHILS % (AUTO) 0.6 % (0.0-2.0); EOSINOPHILS % (AUTO) 8.3 % (0.0-3.0); HEMATOCRIT 43.1 % (37.0-47.0); LYMPHOCYTES % (AUTO) 33.6 % (20.0-45.0); MEAN CORPUSCULAR VOLUME 88 FL (80-99); MONOCYTES % (AUTO) 5.8 % (1.0-10.0); NEUTROPHILS % (AUTO) 51.7 % (45.0-75.0); PLATELET COUNT 235 K/UL (150-450); RED BLOOD COUNT 4.92 M/UL (4.20-5.40); RED CELL DISTRIBUTION WIDTH 12.9 % (11.6-14.8); WHITE BLOOD COUNT 8.1 K/UL (4.8-10.8)
[2018-03-30 20:34] LABS: COLOR,URINE YELLOW
[2018-03-30 20:35] LABS: ALANINE AMINOTRANSFERASE 25 U/L (12-78); ALBUMIN 2.9 G/DL (3.4-5.0); ALBUMIN/GLOBULIN RATIO 0.6 (1.0-2.7); ALKALINE PHOSPHATASE 102 U/L (46-116); ASPARTATE AMINO TRANSFERASE 14 U/L (15-37); BILIRUBIN,TOTAL 0.4 MG/DL (0.2-1.0)
[2018-03-30] MEDS ORDERED: Morphine Sulfate 4mg/ml Inj (IV USE ONLY) IVP ONE (21:15)
[2018-03-30 23:24] VITALS: BP 130/71
[2018-03-30] MEDS: Sodium Chloride 500ML 550 ML IV SCH (23:30)
--- NOTE | 2018-03-30 23:46 | Emergency Room Report ---
History of Present Illness General Chief Complaint: Abdominal Pain Source: Patient, Medical Record Present Illness Allergies: Coded Allergies: No Known Allergies (Unverified , 07/15/16) Patient History Past Medical History: see triage record, old chart reviewed PMH Narrative Ms. Mejia is a 52-year-old female with history of paraplegia, neurogenic bladder, recurrent UTI and decubitus ulcers who presents with urethral irritation and leaking Garcia catheter. Is followed by urologist who had arranged for previous Garcia catheter change. She denies fever. She's had generalized malaise. She has pain at the sites of her decubitus ulcers. She also has bulging at the right lower quadrant of her abdomen. Pain is sometimes in severity. It has been present for several days. She has had bladder spasm. 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 Review of Systems Constitutional: Reports: malaise; Denies: fever Cardiovascular: Denies: chest pain Gastrointestinal: Reports: abdominal pain Genitourinary: Reports: dysuria All Other Systems: negative except mentioned in HPI Physical Exam Vital Signs Date Time Temp Pulse Resp B/P (MAP) Pulse Ox O2 Delivery O2 Flow Rate FiO2 03/30/18 19:14 98.5 84 16 130/90 98 Room Air 98.4 Sp02 EP Interpretation: reviewed, normal General Appearance: no apparent distress, alert, GCS 15, non-toxic Head: normocephalic, atraumatic Eyes: bilateral eye normal inspection, bilateral eye PERRL ENT: hearing grossly normal, normal pharynx, no angioedema, normal voice Neck: full range of motion, supple/symm/no masses Respiratory: chest non-tender, lungs clear, normal breath sounds, speaking full sentences Cardiovascular #1: regular rate, rhythm, no edema Gastrointestinal: normal bowel sounds, non tender, soft, non-distended, no guarding, no rebound Neurologic: alert, oriented x3, responsive, speech normal Psychiatric: judgement/insight normal, memory normal, mood/affect normal Medical Decision Making Diagnostic Impression: Primary Impression: Recurrent UTI Additional Impressions: Morbid obesity Suprapubic catheter Blocked suprapubic catheter ER Course I reviewed EMR. Previous organism sensitive to Zosyn which was ordered in ED on this visit. admitted for complicated UTI. I spoke with Dr. Rios transportation aide for Dr. Farley Patient's personal Urologist came to bedside and evaluated patient. Labs Test 03/30/18 20:00 03/30/18 22:30 White Blood Count 8.1 K/UL (4.8-10.8) Red Blood Count 4.92 M/UL (4.20-5.40) Hemoglobin 14.0 G/DL (12.0-16.0) Hematocrit 43.1 % (37.0-47.0) Mean Corpuscular Volume 88 FL (80-99) Mean Corpuscular Hemoglobin 28.5 PG (27.0-31.0) Mean Corpuscular Hemoglobin Concent 32.5 G/DL (32.0-36.0) Red Cell Distribution Width 12.9 % (11.6-14.8) Platelet Count 235 K/UL (150-450) Mean Platelet Volume 8.1 FL (6.5-10.1) Neutrophils (%) (Auto) 51.7 % (45.0-75.0) Lymphocytes (%) (Auto) 33.6 % (20.0-45.0) Monocytes (%) (Auto) 5.8 % (1.0-10.0) Eosinophils (%) (Auto) 8.3 % (0.0-3.0) Basophils (%) (Auto) 0.6 % (0.0-2.0) Urine Color Yellow Urine Appearance Slightly cloudy Urine pH 5 (4.5-8.0) Urine Specific [place] 1.020 (1.005-1.035) Urine Protein 3+ (NEGATIVE) Urine Glucose (UA) 4+ (NEGATIVE) Urine Ketones 1+ (NEGATIVE) Urine Occult Blood 5+ (NEGATIVE) Urine Nitrite Positive (NEGATIVE) Urine Bilirubin Negative (NEGATIVE) Urine Urobilinogen Normal MG/DL (0.0-1.0) Urine Leukocyte Esterase 3+ (NEGATIVE) Urine RBC 5-10 /HPF (0 - 2) Urine WBC 20-30 /HPF (0 - 2) Urine Squamous Epithelial Cells Few /LPF (NONE/OCC) Urine Bacteria Many /HPF (NONE) Urine Yeast Moderate /HPF (NONE) Sodium Level 138 MMOL/L (136-145) Potassium Level 4.1 MMOL/L (3.5-5.1) Chloride Level 100 MMOL/L (98-107) Carbon Dioxide Level 31 MMOL/L (21-32) Anion Gap 7 mmol/L (5-15) Blood Urea Nitrogen 11 mg/dL (7-18) Creatinine 1.0 MG/DL (0.55-1.30) Estimat Glomerular Filtration Rate > 60 mL/min (>60) Glucose Level 391 MG/DL (74-106) Lactic Acid Level 2.40 mmol/L (0.4-2.0) 1.10 mmol/L (0.4-2.0) Calcium Level 9.3 MG/DL (8.5-10.1) Total Bilirubin 0.4 MG/DL (0.2-1.0) Aspartate Amino Transf (AST/SGOT) 14 U/L (15-37) Alanine Aminotransferase (ALT/SGPT) 25 U/L (12-78) Alkaline Phosphatase 102 U/L (46-116) Total Protein 7.4 G/DL (6.4-8.2) Albumin 2.9 G/DL (3.4-5.0) Globulin 4.5 g/dL Albumin/Globulin Ratio 0.6 (1.0-2.7) Lab Results Impression normal WBC, downtrending lactic acid Last Vital Signs Date Time Temp Pulse Resp B/P (MAP) Pulse Ox O2 Delivery O2 Flow Rate FiO2 03/30/18 23:24 98.4 83 19 130/71 100 Room Air 98.4 Referrals: Rj Choe MD (PCP) SHYAM TAVAREZ Mar 30, 2018 23:46
[2018-03-31] VITALS (7 sets, daily range): BP systolic 113–145; BP diastolic 62–71
[2018-03-31] MEDS ORDERED: UNOBMED (00:43)
[2018-03-31] MEDS ORDERED: Piperacillin/Tazobactam 3.375 GM in NS 110 ML IVPB SCH (02:00)
[2018-03-31] MEDS ORDERED: LIORESAL20 MG ORAL (02:42)
[2018-03-31] MEDS ORDERED: PRAVASTATIN SOD40 M1 ORAL (02:42)
[2018-03-31] MEDS ORDERED: LEVEMIR100 UNIT/1 SUBQ (02:42)
[2018-03-31] MEDS ORDERED: ACTOS30 MG ORAL (02:42)
[2018-03-31] MEDS ORDERED: MELOXICAM10 GM MC (02:42)
[2018-03-31] MEDS ORDERED: NOVOLOG100 UNIT/5 SUBQ (02:42)
[2018-03-31] MEDS ORDERED: CYMBALTA20 MG ORAL (02:42)
[2018-03-31] MEDS ORDERED: GLIPIZIDE5 G1 MC (02:42)
[2018-03-31] MEDS ORDERED: LYRICA200 MG ORAL (02:42)
[2018-03-31] MEDS: Sodium Chloride 500ML 550 ML IV SCH ×3 (02:58→21:39)
[2018-03-31] MEDS ORDERED: Zosyn 2.25gm inj IV SCH (06:00)
[2018-03-31] MEDS ORDERED: LORazepam 1mg tab ORAL PRN (10:15)
[2018-03-31] MEDS ORDERED: Fleet's Mineral Oil Enema RECTAL PRN (10:15)
[2018-03-31] MEDS ORDERED: Albuterol/Ipratropium 3ml neb HHN PRN (10:15)
--- NOTE | 2018-03-31 10:36 | Urology Progress Note ---
Assessment/Plan Assessment/Plan 1. Urinary retention history. 2. Neurogenic bladder with chronic suprapubic tube. 3. UTI and colonization. 4. Hematuria. 5. Proteinuria history. keep sp tube indwelling hand irrigated and do PRN abx as ordered f/u on urine cx consider adding anticholinergics consider renal imaging cysto later Subjective Allergies: Coded Allergies: No Known Allergies (Unverified , 07/15/16) Subjective sp tube draining, bladder spasms Objective Last 24 Hour Vital Signs Date Time Temp Pulse Resp B/P (MAP) Pulse Ox O2 Delivery O2 Flow Rate FiO2 03/31/18 04:00 97.2 75 20 135/70 (91) 98 97.2 03/31/18 04:00 82 03/31/18 01:13 98.2 87 20 140/71 (94) 97 98.2 03/31/18 01:00 Room Air 03/31/18 00:45 98.4 80 15 121/64 100 Room Air 209.1 03/31/18 00:45 98.4 80 15 121/64 100 Room Air 98.4 03/30/18 23:24 98.4 83 19 130/71 100 Room Air 98.4 03/30/18 21:10 98.5 03/30/18 19:45 98.4 84 16 130/90 98 Room Air 98.4 03/30/18 19:14 98.5 84 16 130/90 98 Room Air 98.4 Intake and Output 03/30/18 03/31/18 19:00 07:00 Output Total 600 ml Balance -600 ml Output Urine Total 600 ml # Bowel Movements 1 Microbiology Date/Time Source Procedure Growth Status 03/30/18 20:00 Indwelling Cath Urine Culture - Preliminary Resulted Current Medications Medications (Trade) Dose Ordered Sig/Cristóbal Route PRN Reason Start Time Stop Time Status Last Admin Dose Admin Acetaminophen (Tylenol) 650 mg Q4H PRN ORAL Mild Pain (Pain Scale 1-3) 03/30/18 23:30 04/29/18 23:29 Acetaminophen/ Hydrocodone Bitart ([place] 10/325) 1 tab EVERY 6 HOURS PRN ORAL For Pain 03/31/18 10:15 04/07/18 10:14 UNV Albuterol/ Ipratropium (Albuterol/ Ipratropium) 3 ml Q4H PRN HHN Shortness of Breath 03/31/18 10:15 04/05/18 10:14 UNV Baclofen (Lioresal) 30 mg THREE TIMES A DAY ORAL 03/31/18 13:00 04/30/18 12:59 UNV Bisacodyl (Dulcolax) 10 mg DAILYPRN PRN RECTAL Constipation 03/31/18 10:15 04/30/18 10:14 UNV Dextrose (Dextrose 50%) 25 ml STAT PRN IV Hypoglycemia 03/30/18 23:30 04/29/18 23:29 Dextrose (Dextrose 50%) 25 ml STAT PRN IV Hypoglycemia 03/31/18 10:15 04/30/18 10:14 UNV Dextrose (Dextrose 50%) 50 ml STAT PRN IV Hypoglycemia 03/30/18 23:30 04/29/18 23:29 Dextrose (Dextrose 50%) 50 ml STAT PRN IV Hypoglycemia 03/31/18 10:15 04/30/18 10:14 UNV Duloxetine HCl (Cymbalta) 30 mg BID ORAL 03/31/18 18:00 04/30/18 17:59 UNV Ferrous Gluconate (Fergon) 325 mg DAILY ORAL 04/01/18 09:00 05/01/18 08:59 UNV Glipizide (Glucotrol) 5 mg BID ORAL 03/31/18 18:00 04/30/18 17:59 UNV Insulin Aspart (NovoLOG) BEFORE MEALS AND HS SUBQ 03/31/18 11:30 04/30/18 11:29 UNV Insulin Detemir (Levemir) 34 units BEDTIME SUBQ 03/31/18 21:00 04/30/18 20:59 UNV Lorazepam (Ativan) 1 mg TID PRN ORAL For Anxiety 03/31/18 10:15 04/07/18 10:14 UNV Meloxicam (Mobic) 10 mg DAILY ORAL 04/01/18 09:00 05/01/18 08:59 UNV Mineral Oil (Fleet's Mineral Oil Enema) 133 ml DAILY PRN RECTAL Constipation 03/31/18 10:15 04/30/18 10:14 UNV Pioglitazone HCl (Actos) 30 mg ACBREAKFAST ORAL 04/01/18 06:30 05/01/18 06:29 UNV Piperacillin Sod/ Tazobactam Sod 3.375 gm/Sodium Chloride 110 ml @ 27.5 mls/hr Q8HR IVPB 03/31/18 09:00 04/07/18 08:59 Pravastatin Sodium (Pravachol) 40 mg BEDTIME ORAL 03/31/18 21:00 04/30/18 20:59 UNV Pregabalin (Lyrica) 200 mg BID ORAL 03/31/18 18:00 04/30/18 17:59 UNV Sodium Chloride 550 ml @ 75 mls/hr Q7H20M IV 03/30/18 23:30 04/29/18 23:29 03/31/18 02:58 Vitamin D (Vitamin D) 1,000 intlu DAILY ORAL 04/01/18 09:00 05/01/18 08:59 UNV Laboratory Tests 03/30/18 20:00: White Blood Count 8.1, Red Blood Count 4.92, Hemoglobin 14.0, Hematocrit 43.1, Mean Corpuscular Volume 88, Mean Corpuscular Hemoglobin 28.5, Mean Corpuscular Hemoglobin Concent 32.5, Red Cell Distribution Width 12.9, Platelet Count 235, Mean Platelet Volume 8.1, Neutrophils (%) (Auto) 51.7, Lymphocytes (%) (Auto) 33.6, Monocytes (%) (Auto) 5.8, Eosinophils (%) (Auto) 8.3H, Basophils (%) (Auto ) 0.6, Urine Color Yellow, Urine Appearance Slightly cloudy, Urine pH 5, Urine Specific [place] 1.020, Urine Protein 3+H, Urine Glucose (UA) 4+H, Urine Ketones 1+H, Urine Occult Blood 5+H, Urine Nitrite PositiveH, Urine Bilirubin Negative, Urine Urobilinogen Normal, Urine Leukocyte Esterase 3+H, Urine RBC 5- 10H, Urine WBC 20-30H, Urine Squamous Epithelial Cells Few, Urine Bacteria ManyH , Urine Yeast ModerateH, Sodium Level 138, Potassium Level 4.1, Chloride Level 100, Carbon Dioxide Level 31, Anion Gap 7, Blood Urea Nitrogen 11, Creatinine 1.0, Estimat Glomerular Filtration Rate > 60, Glucose Level 391H, Lactic Acid Level 2.40H, Calcium Level 9.3, Total Bilirubin 0.4, Aspartate Amino Transf (AST /SGOT) 14L, Alanine Aminotransferase (ALT/SGPT) 25, Alkaline Phosphatase 102, Total Protein 7.4, Albumin 2.9L, Globulin 4.5, Albumin/Globulin Ratio 0.6L 03/30/18 22:30: Lactic Acid Level 1.10 Height (Feet): 5 Height (Inches): 7.00 Weight (Pounds): 297 Objective exam stable, urine briana, some debris DAPHNIE VIDES Mar 31, 2018 10:36
--- NOTE | 2018-03-31 10:57 | Consultation ---
DATE OF CONSULTATION: 03/30/2018 CONSULTING PHYSICIAN: Shaheen Gutierrez M.D. REFERRING PHYSICIAN: Ava Bejarano M.D. REASON FOR CONSULTATION: Evaluation of suprapubic tube. HISTORY OF PRESENT ILLNESS: This is a 52-year-old female. She is known to me from previous evaluations. The patient has a history of suprapubic tube for neurogenic bladder. She has had this change a number of times. I have seen her in the hospital on number of occasions and earlier today her home nurse called me stating that the patient has had foul-smelling urine with urinary frequency and leakage and spasms and she was brought to the emergency room for further evaluation. Apparently, her suprapubic tube was last changed about 10 days ago. It has been draining fairly well. She apparently has had some low-grade fevers at home. PAST MEDICAL HISTORY: Significant for above, again neurogenic bladder, also history of diabetes, recurrent UTIs, pressure ulcers, and hyperlipidemia. PAST SURGICAL HISTORY: As above. MEDICATIONS: Old medication list was reviewed. She was baclofen, Cymbalta, insulin, Lasix as in her however, current medication list. ALLERGIES: No known drug allergies. SOCIAL HISTORY: She lives at home. She has a home health visiting her. FAMILY HISTORY: Noncontributory. REVIEW OF SYSTEMS: As above. PHYSICAL EXAMINATION: GENERAL: Well developed, obese female. VITAL SIGNS: There are no vitals taken from this admission yet, apparently, she has had low-grade fevers at home. HEENT: Normocephalic. NECK: Supple. ABDOMEN: Soft. A 22-[place]ic suprapubic tube is in place. Insertion site is clean. Urine looks cloudy. Mild hematuria. LABORATORY AND DIAGNOSTIC DATA: Laboratory studies, none from this admission yet. Her last creatinine was normal. Her old urinalysis and cultures were also reviewed. Diagnostic imaging studies, none during this admission. She did have renal ultrasound in 2017, which was essentially negative. IMPRESSION: 1. Urinary retention history. 2. Neurogenic bladder with chronic suprapubic tube. 3. UTI and colonization. 4. Hematuria. 5. Proteinuria history. PLAN AND DISCUSSION: Again, I did evaluate the patient in the emergency room tube is in good position. I was able to hand irrigated it, irrigates well. She does have some spasms. She does have cloudy urine, which is consistent with UTI and colonization. Her laboratories are pending and I will follow up on that. In the meantime, the suprapubic tube will be maintained. It is relatively new, it has been only in for 10 days. I would recommend antibiotics as well as anticholinergics for spasms and plan on changing the suprapubic tube in the near future. Thank you for this consultation. Shaheen Gutierrez M.D. DR: MORTEZA JOB#: [id number] CC:
[2018-03-31] MEDS: HYDROcodone/Acetamin 10/325 tab ORAL PRN ×2 (11:09→20:46)
[2018-03-31] MEDS: Piperacillin/Tazobactam 3.375 GM in NS 110 ML IVPB SCH ×3 (11:10→21:39)
[2018-03-31 11:18] LABS: BASOPHILS % (AUTO) 0.6 % (0.0-2.0); EOSINOPHILS % (AUTO) 8.7 % (0.0-3.0); HEMATOCRIT 42.1 % (37.0-47.0); HEMOGLOBIN 13.4 G/DL (12.0-16.0); LYMPHOCYTES % (AUTO) 27.1 % (20.0-45.0); MEAN CORPUSCULAR VOLUME 88 FL (80-99); MONOCYTES % (AUTO) 7.4 % (1.0-10.0); NEUTROPHILS % (AUTO) 56.2 % (45.0-75.0); PLATELET COUNT 197 K/UL (150-450); RED CELL DISTRIBUTION WIDTH 13.1 % (11.6-14.8); WHITE BLOOD COUNT 7.5 K/UL (4.8-10.8)
--- NOTE | 2018-03-31 11:33 | Consultation ---
History of Present Illness General Date patient seen: Mar 31, 2018 Chief Complaint: Abdominal Pain Present Illness HPI 52-year-old female.The pt has history of mdd, anxiety, suprapubic tube for neurogenic bladder. The pt is sad and low energy. No si/hi. Allergies: Coded Allergies: No Known Allergies (Unverified , 07/15/16) Medication History Scheduled Baclofen (Baclofen), 30 MG ORAL THREE TIMES A DAY, (Reported) Ceftriaxone Sodium (Ceftriaxone), 1 GM IV Q24H Cephalexin* (Keflex*), 500 MG ORAL Q6H Cholecalciferol (Vitamin D3)* (Vitamin D*), 1,000 INTLU ORAL DAILY Duloxetine (Cymbalta), 30 MG ORAL BID, (Reported) Duloxetine Hcl* (Cymbalta*), 30 MG ORAL BID, (Reported) Ferrous Sulfate (Iron), 325 MG PO DAILY, (Reported) Glipizide (Glipizide), 5 GM MC BID, (Reported) Insulin Aspart (Novolog Flexpen), 0 UNITS SUBQ BEFORE MEALS AND HS Insulin Aspart (Novolog Flexpen), 11 UNITS SUBQ NOVOTIAC Insulin Aspart (Novolog Flexpen), 0 UNITS SUBQ BEFORE MEALS AND HS Insulin Aspart (Novolog), 11 SUBQ TID, (Reported) Insulin Detemir (Levemir Flexpen), 34 UNITS SUBQ DAILY Insulin Detemir (Levemir), 34 SUBQ BEDTIME, (Reported) Lactobacillus Acidophilus (Probiotic), 1 EACH PO DAILY, (Reported) Meloxicam* (Meloxicam*), 15 MG PO DAILY, (Reported) Multivitamin with Minerals (Multivitamins with Minerals), 1 TAB ORAL DAILY, ( Reported) Pioglitazone Hcl* (Actos*), 30 MG ORAL DAILY, (Reported) Pravastatin Sod (Pravastatin Sod), 40 MG ORAL BEDTIME, (Reported) Pravastatin Sodium (Pravachol), 40 MG ORAL BEDTIME, (Reported) Pregabalin (Lyrica), 200 MG ORAL TWICE A DAY, (Reported) Pregabalin* (Lyrica*), 200 MG ORAL BID, (Reported) Scheduled PRN Baclofen* (Lioresal*), 20 MG ORAL THREE TIMES A DAY PRN for Muscle Spasms, ( Reported) Bisacodyl (Dulcolax), 10 MG RC DAILY PRN for Constipation, (Reported) Hydrocodone Bit/Acetaminophen 10-325* ([place] 10-325*), 1 TAB ORAL Q6H PRN for For Pain, (Reported) Ipratropium/Albuterol Sulfate (DuoNeb 0.5-3(2.5)mg/3ml), 3 ML HHN EVERY 4 HOURS PRN for Shortness of Breath, (Reported) Lorazepam* (Ativan*), 1 MG ORAL THREE TIMES A DAY PRN for For Anxiety, (Reported ) Mineral Oil (Mineral Oil Enema), 133 ML RC DAILY PRN for Constipation, (Reported ) Miscellaneous Medications Meloxicam (Meloxicam), 10 GM MC, (Reported) Unable to Obtain Medications (Unable To Obtain Meds), (Reported) Patient History Limited by: medical condition History Provided By: Patient, Medical Record, PMD Healthcare decision maker Resuscitation status Full Code Advanced Directive on File Past Medical/Surgical History Past Medical/Surgical History: (1) Anemia (2) Hypoalbuminemia (3) Abdominal pain (4) Hypomagnesemia (5) Hyponatremia (6) Sacrococcygeal stage III pressure ulcer (7) Left and right ischial tuberosity scattered stage II pressure ulcer (8) Paraplegia (9) Multiple pressure ulcers (10) Pressure ulcer of sacral region, unspecified stage (11) Recurrent UTI (12) Blocked suprapubic catheter (13) Suprapubic catheter (14) Morbid obesity (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, uncontrolled (16) Hyperlipidemia (17) Peripheral neuropathy (18) Generalized weakness (19) Bilateral lower extremity edema (20) UTI (urinary tract infection) (21) Neurogenic bladder (22) Pressure ulcer of left buttock, stage 2 (23) Pressure ulcer of coccygeal region, stage 2 (24) Suprapubic catheter dysfunction (25) Intertrigo Review of Systems Psychiatric: Reports: prior hx, anxiety, depressed feelings, emotional problems Physical Exam General Appearance: no apparent distress, alert Neurologic: oriented x 3, responsive, depressed affect Last 24 Hour Vital Signs Date Time Temp Pulse Resp B/P (MAP) Pulse Ox O2 Delivery O2 Flow Rate FiO2 03/31/18 11:09 97.2 03/31/18 04:00 97.2 75 20 135/70 (91) 98 97.2 03/31/18 04:00 82 03/31/18 01:13 98.2 87 20 140/71 (94) 97 98.2 03/31/18 01:00 Room Air 03/31/18 00:45 98.4 80 15 121/64 100 Room Air 209.1 03/31/18 00:45 98.4 80 15 121/64 100 Room Air 98.4 03/30/18 23:24 98.4 83 19 130/71 100 Room Air 98.4 03/30/18 21:10 98.5 03/30/18 19:45 98.4 84 16 130/90 98 Room Air 98.4 03/30/18 19:14 98.5 84 16 130/90 98 Room Air 98.4 Intake and Output 03/30/18 03/31/18 19:00 07:00 Output Total 600 ml Balance -600 ml Output Urine Total 600 ml # Bowel Movements 1 Laboratory Tests Test 03/30/18 20:00 03/30/18 22:30 03/31/18 11:00 White Blood Count 8.1 K/UL (4.8-10.8) 7.5 K/UL (4.8-10.8) Red Blood Count 4.92 M/UL (4.20-5.40) 4.80 M/UL (4.20-5.40) Hemoglobin 14.0 G/DL (12.0-16.0) 13.4 G/DL (12.0-16.0) Hematocrit 43.1 % (37.0-47.0) 42.1 % (37.0-47.0) Mean Corpuscular Volume 88 FL (80-99) 88 FL (80-99) Mean Corpuscular Hemoglobin 28.5 PG (27.0-31.0) 27.9 PG (27.0-31.0) Mean Corpuscular Hemoglobin Concent 32.5 G/DL (32.0-36.0) 31.9 G/DL (32.0-36.0) L Red Cell Distribution Width 12.9 % (11.6-14.8) 13.1 % (11.6-14.8) Platelet Count 235 K/UL (150-450) 197 K/UL (150-450) Mean Platelet Volume 8.1 FL (6.5-10.1) 8.0 FL (6.5-10.1) Neutrophils (%) (Auto) 51.7 % (45.0-75.0) 56.2 % (45.0-75.0) Lymphocytes (%) (Auto) 33.6 % (20.0-45.0) 27.1 % (20.0-45.0) Monocytes (%) (Auto) 5.8 % (1.0-10.0) 7.4 % (1.0-10.0) Eosinophils (%) (Auto) 8.3 % (0.0-3.0) H 8.7 % (0.0-3.0) H Basophils (%) (Auto) 0.6 % (0.0-2.0) 0.6 % (0.0-2.0) Urine Color Yellow Urine Appearance Slightly cloudy Urine pH 5 (4.5-8.0) Urine Specific [place] 1.020 (1.005-1.035) Urine Protein 3+ (NEGATIVE) H Urine Glucose (UA) 4+ (NEGATIVE) H Urine Ketones 1+ (NEGATIVE) H Urine Occult Blood 5+ (NEGATIVE) H Urine Nitrite Positive (NEGATIVE) H Urine Bilirubin Negative (NEGATIVE) Urine Urobilinogen Normal MG/DL (0.0-1.0) Urine Leukocyte Esterase 3+ (NEGATIVE) H Urine RBC 5-10 /HPF (0 - 2) H Urine WBC 20-30 /HPF (0 - 2) H Urine Squamous Epithelial Cells Few /LPF (NONE/OCC) Urine Bacteria Many /HPF (NONE) H Urine Yeast Moderate /HPF (NONE) H Sodium Level 138 MMOL/L (136-145) Pending Potassium Level 4.1 MMOL/L (3.5-5.1) Pending Chloride Level 100 MMOL/L (98-107) Pending Carbon Dioxide Level 31 MMOL/L (21-32) Pending Anion Gap 7 mmol/L (5-15) Blood Urea Nitrogen 11 mg/dL (7-18) Pending Creatinine 1.0 MG/DL (0.55-1.30) Pending Estimat Glomerular Filtration Rate > 60 mL/min (>60) Pending Glucose Level 391 MG/DL (74-106) H Pending Lactic Acid Level 2.40 mmol/L (0.4-2.0) H 1.10 mmol/L (0.4-2.0) Calcium Level 9.3 MG/DL (8.5-10.1) Pending Total Bilirubin 0.4 MG/DL (0.2-1.0) Aspartate Amino Transf (AST/SGOT) 14 U/L (15-37) L Alanine Aminotransferase (ALT/SGPT) 25 U/L (12-78) Alkaline Phosphatase 102 U/L (46-116) Total Protein 7.4 G/DL (6.4-8.2) Albumin 2.9 G/DL (3.4-5.0) L Globulin 4.5 g/dL Albumin/Globulin Ratio 0.6 (1.0-2.7) L Microbiology Date/Time Source Procedure Growth Status 03/30/18 20:00 Indwelling Cath Urine Culture - Preliminary Resulted Height (Feet): 5 Height (Inches): 7.00 Weight (Pounds): 297 Medications Current Medications Medications (Trade) Dose Ordered Sig/Cristóbal Route PRN Reason Start Time Stop Time Status Last Admin Dose Admin Acetaminophen (Tylenol) 650 mg Q4H PRN ORAL Mild Pain (Pain Scale 1-3) 03/30/18 23:30 04/29/18 23:29 Acetaminophen/ Hydrocodone Bitart ([place] 10/325) 1 tab Q6H PRN ORAL PAIN 4-10 03/31/18 10:15 04/07/18 10:14 03/31/18 11:09 Albuterol/ Ipratropium (Albuterol/ Ipratropium) 3 ml Q4H PRN HHN Shortness of Breath 03/31/18 10:15 04/05/18 10:14 Baclofen (Lioresal) 20 mg TIDPRN PRN ORAL MUSCLE SPASMS 03/31/18 13:00 04/30/18 12:59 Bisacodyl (Dulcolax) 10 mg DAILYPRN PRN RECTAL Constipation 03/31/18 10:15 04/30/18 10:14 Dextrose (Dextrose 50%) 25 ml STAT PRN IV Hypoglycemia 03/30/18 23:30 04/29/18 23:29 Dextrose (Dextrose 50%) 50 ml STAT PRN IV Hypoglycemia 03/30/18 23:30 9/12/18 23:29 Duloxetine HCl (Cymbalta) 30 mg BID ORAL 03/31/18 18:00 04/30/18 17:59 Ferrous Sulfate (Feosol) 325 mg DAILY ORAL 04/01/18 09:00 05/01/18 08:59 Glipizide (Glucotrol) 5 mg BID ORAL 03/31/18 18:00 04/30/18 17:59 Insulin Aspart (NovoLOG) BEFORE MEALS AND HS SUBQ 03/31/18 11:30 04/30/18 11:29 Insulin Detemir (Levemir) 34 units BEDTIME SUBQ 03/31/18 21:00 04/30/18 20:59 Lorazepam (Ativan) 1 mg Q8H PRN ORAL For Anxiety 03/31/18 10:15 04/07/18 10:14 Meloxicam (Mobic) 15 mg DAILY ORAL 04/01/18 09:00 05/01/18 08:59 Mineral Oil (Fleet's Mineral Oil Enema) 133 ml DAILY PRN RECTAL Constipation 03/31/18 10:15 04/30/18 10:14 Pioglitazone HCl (Actos) 30 mg ACBREAKFAST ORAL 04/01/18 06:30 05/01/18 06:29 Piperacillin Sod/ Tazobactam Sod 3.375 gm/Sodium Chloride 110 ml @ 27.5 mls/hr Q8HR IVPB 03/31/18 09:00 04/07/18 08:59 03/31/18 11:10 Pravastatin Sodium (Pravachol) 40 mg BEDTIME ORAL 03/31/18 21:00 04/30/18 20:59 Pregabalin (Lyrica) 200 mg Q12HR ORAL 03/31/18 21:00 04/30/18 20:59 Sodium Chloride 550 ml @ 75 mls/hr Q7H20M IV 03/30/18 23:30 04/29/18 23:29 03/31/18 02:58 Vitamin D (Vitamin D) 1,000 intlu DAILY ORAL 04/01/18 09:00 05/01/18 08:59 Assessment/Plan Assessment/Plan mdd anxiety d/o -cymbalta 30mg bid -ativan prn Savannah Saeed MD Mar 31, 2018 11:32
[2018-03-31 11:35] LABS: ANION GAP 4 mmol/L (5-15); BLOOD UREA NITROGEN 10 mg/dL (7-18); CALCIUM 8.5 MG/DL (8.5-10.1); CARBON DIOXIDE 29 MMOL/L (21-32); CHLORIDE 103 MMOL/L (98-107); CREATININE 0.9 MG/DL (0.55-1.30); POTASSIUM 4.2 MMOL/L (3.5-5.1); SODIUM 136 MMOL/L (136-145)
[2018-03-31] MEDS: NovoLOG Insulin Flexpen SUBQ SCH ×3 (12:48→20:50)
--- NOTE | 2018-03-31 13:31 | Infectious Diseases Prog Note ---
Assessment/Plan Assessment/Plan Full consult to follow: A) 1) complicated uti 2) pmh noted 3) allergies - negative P) 1) zosyn 2) check urine culture 3) thanks Subjective Allergies: Coded Allergies: No Known Allergies (Unverified , 07/15/16) Objective Vital Signs Last 24 Hour Vital Signs Date Time Temp Pulse Resp B/P (MAP) Pulse Ox O2 Delivery O2 Flow Rate FiO2 03/31/18 11:09 97.2 03/31/18 08:00 97.6 82 16 113/62 (79) 97 97.6 03/31/18 04:00 97.2 75 20 135/70 (91) 98 97.2 03/31/18 04:00 82 03/31/18 01:13 98.2 87 20 140/71 (94) 97 98.2 03/31/18 01:00 Room Air 03/31/18 00:45 98.4 80 15 121/64 100 Room Air 209.1 03/31/18 00:45 98.4 80 15 121/64 100 Room Air 98.4 03/30/18 23:24 98.4 83 19 130/71 100 Room Air 98.4 03/30/18 21:10 98.5 03/30/18 19:45 98.4 84 16 130/90 98 Room Air 98.4 03/30/18 19:14 98.5 84 16 130/90 98 Room Air 98.4 Height (Feet): 5 Height (Inches): 7.00 Weight (Pounds): 297 Microbiology Date/Time Source Procedure Growth Status 03/30/18 20:00 Indwelling Cath Urine Culture - Preliminary Resulted Laboratory Tests Test 03/30/18 20:00 03/30/18 22:30 03/31/18 11:00 White Blood Count 8.1 K/UL (4.8-10.8) 7.5 K/UL (4.8-10.8) Red Blood Count 4.92 M/UL (4.20-5.40) 4.80 M/UL (4.20-5.40) Hemoglobin 14.0 G/DL (12.0-16.0) 13.4 G/DL (12.0-16.0) Hematocrit 43.1 % (37.0-47.0) 42.1 % (37.0-47.0) Mean Corpuscular Volume 88 FL (80-99) 88 FL (80-99) Mean Corpuscular Hemoglobin 28.5 PG (27.0-31.0) 27.9 PG (27.0-31.0) Mean Corpuscular Hemoglobin Concent 32.5 G/DL (32.0-36.0) 31.9 G/DL (32.0-36.0) L Red Cell Distribution Width 12.9 % (11.6-14.8) 13.1 % (11.6-14.8) Platelet Count 235 K/UL (150-450) 197 K/UL (150-450) Mean Platelet Volume 8.1 FL (6.5-10.1) 8.0 FL (6.5-10.1) Neutrophils (%) (Auto) 51.7 % (45.0-75.0) 56.2 % (45.0-75.0) Lymphocytes (%) (Auto) 33.6 % (20.0-45.0) 27.1 % (20.0-45.0) Monocytes (%) (Auto) 5.8 % (1.0-10.0) 7.4 % (1.0-10.0) Eosinophils (%) (Auto) 8.3 % (0.0-3.0) H 8.7 % (0.0-3.0) H Basophils (%) (Auto) 0.6 % (0.0-2.0) 0.6 % (0.0-2.0) Urine Color Yellow Urine Appearance Slightly cloudy Urine pH 5 (4.5-8.0) Urine Specific [place] 1.020 (1.005-1.035) Urine Protein 3+ (NEGATIVE) H Urine Glucose (UA) 4+ (NEGATIVE) H Urine Ketones 1+ (NEGATIVE) H Urine Occult Blood 5+ (NEGATIVE) H Urine Nitrite Positive (NEGATIVE) H Urine Bilirubin Negative (NEGATIVE) Urine Urobilinogen Normal MG/DL (0.0-1.0) Urine Leukocyte Esterase 3+ (NEGATIVE) H Urine RBC 5-10 /HPF (0 - 2) H Urine WBC 20-30 /HPF (0 - 2) H Urine Squamous Epithelial Cells Few /LPF (NONE/OCC) Urine Bacteria Many /HPF (NONE) H Urine Yeast Moderate /HPF (NONE) H Sodium Level 138 MMOL/L (136-145) 136 MMOL/L (136-145) Potassium Level 4.1 MMOL/L (3.5-5.1) 4.2 MMOL/L (3.5-5.1) Chloride Level 100 MMOL/L (98-107) 103 MMOL/L (98-107) Carbon Dioxide Level 31 MMOL/L (21-32) 29 MMOL/L (21-32) Anion Gap 7 mmol/L (5-15) 4 mmol/L (5-15) L Blood Urea Nitrogen 11 mg/dL (7-18) 10 mg/dL (7-18) Creatinine 1.0 MG/DL (0.55-1.30) 0.9 MG/DL (0.55-1.30) Estimat Glomerular Filtration Rate > 60 mL/min (>60) > 60 mL/min (>60) Glucose Level 391 MG/DL (74-106) H 319 MG/DL (74-106) H Lactic Acid Level 2.40 mmol/L (0.4-2.0) H 1.10 mmol/L (0.4-2.0) Calcium Level 9.3 MG/DL (8.5-10.1) 8.5 MG/DL (8.5-10.1) Total Bilirubin 0.4 MG/DL (0.2-1.0) Aspartate Amino Transf (AST/SGOT) 14 U/L (15-37) L Alanine Aminotransferase (ALT/SGPT) 25 U/L (12-78) Alkaline Phosphatase 102 U/L (46-116) Total Protein 7.4 G/DL (6.4-8.2) Albumin 2.9 G/DL (3.4-5.0) L Globulin 4.5 g/dL Albumin/Globulin Ratio 0.6 (1.0-2.7) L Current Medications Medications (Trade) Dose Ordered Sig/Cristóbal Route PRN Reason Start Time Stop Time Status Last Admin Dose Admin Acetaminophen (Tylenol) 650 mg Q4H PRN ORAL Mild Pain (Pain Scale 1-3) 03/30/18 23:30 04/29/18 23:29 Acetaminophen/ Hydrocodone Bitart ([place] 10/325) 1 tab Q6H PRN ORAL PAIN 4-10 03/31/18 10:15 04/07/18 10:14 03/31/18 11:09 Albuterol/ Ipratropium (Albuterol/ Ipratropium) 3 ml Q4H PRN HHN Shortness of Breath 03/31/18 10:15 04/05/18 10:14 Baclofen (Lioresal) 20 mg TIDPRN PRN ORAL MUSCLE SPASMS 03/31/18 13:00 04/30/18 12:59 Bisacodyl (Dulcolax) 10 mg DAILYPRN PRN RECTAL Constipation 03/31/18 10:15 04/30/18 10:14 Dextrose (Dextrose 50%) 25 ml STAT PRN IV Hypoglycemia 03/30/18 23:30 04/29/18 23:29 Dextrose (Dextrose 50%) 50 ml STAT PRN IV Hypoglycemia 03/30/18 23:30 04/29/18 23:29 Duloxetine HCl (Cymbalta) 30 mg BID ORAL 03/31/18 18:00 04/30/18 17:59 Ferrous Sulfate (Feosol) 325 mg DAILY ORAL 04/01/18 09:00 05/01/18 08:59 Glipizide (Glucotrol) 5 mg BID ORAL 03/31/18 18:00 04/30/18 17:59 Insulin Aspart (NovoLOG) BEFORE MEALS AND HS SUBQ 03/31/18 11:30 04/30/18 11:29 03/31/18 12:48 Insulin Detemir (Levemir) 34 units BEDTIME SUBQ 03/31/18 21:00 04/30/18 20:59 Lorazepam (Ativan) 1 mg Q8H PRN ORAL For Anxiety 03/31/18 10:15 04/07/18 10:14 Meloxicam (Mobic) 15 mg DAILY ORAL 04/01/18 09:00 05/01/18 08:59 Mineral Oil (Fleet's Mineral Oil Enema) 133 ml DAILY PRN RECTAL Constipation 03/31/18 10:15 04/30/18 10:14 Pioglitazone HCl (Actos) 30 mg ACBREAKFAST ORAL 04/01/18 06:30 05/01/18 06:29 Piperacillin Sod/ Tazobactam Sod 3.375 gm/Sodium Chloride 110 ml @ 27.5 mls/hr Q8HR IVPB 03/31/18 09:00 04/07/18 08:59 03/31/18 11:10 Pravastatin Sodium (Pravachol) 40 mg BEDTIME ORAL 03/31/18 21:00 04/30/18 20:59 Pregabalin (Lyrica) 200 mg Q12HR ORAL 03/31/18 21:00 04/30/18 20:59 Sodium Chloride 550 ml @ 75 mls/hr Q7H20M IV 03/30/18 23:30 04/29/18 23:29 03/31/18 02:58 Vitamin D (Vitamin D) 1,000 intlu DAILY ORAL 04/01/18 09:00 05/01/18 08:59 Nils Meneses MD Mar 31, 2018 13:31
--- NOTE | 2018-03-31 14:42 | History and Physical ---
History of Present Illness General Reason for Hospitalization: Abdominal Pain Present Illness HPI 52 year old female with a PMH of paraplegia, neurogenic bladder s/p suprapubic catheter, DM, neuropathy, and HLD presented from home for pain to urethral area for the last 1-2 days. She states that she also noted her urine to be cloudy and malodorous. She states that she has been having painful urethral spasms with urine leakage. Patient states that the suprapubic catheter was changed 10 days ago by a home health RN. Denies fevers/chills, cp, sob, n/v, abdominal pain. Patient also reports an "abdominal bulge" that she has noticed for the last 1 week near the epigastric area but denies any abdominal pain, n/v. Additionally, she states that she has been having blood coming out from her groin region for the last 1-2 days. She states that she still continues to have premenopausal symptoms and gets her menstrual cycle every 1-2 months for 24-48 hours. She states that she does not know if the blood is coming from her vaginal area or from somewhere else. PMH: as noted above PSxHx: insignificant Family Hx: insignificant Social Hx: stays at home with daughter Allergies: Coded Allergies: No Known Allergies (Unverified , 07/15/16) Medication History Scheduled Baclofen (Baclofen), 30 MG ORAL THREE TIMES A DAY, (Reported) Ceftriaxone Sodium (Ceftriaxone), 1 GM IV Q24H Cephalexin* (Keflex*), 500 MG ORAL Q6H Cholecalciferol (Vitamin D3)* (Vitamin D*), 1,000 INTLU ORAL DAILY Duloxetine (Cymbalta), 30 MG ORAL BID, (Reported) Duloxetine Hcl* (Cymbalta*), 30 MG ORAL BID, (Reported) Ferrous Sulfate (Iron), 325 MG PO DAILY, (Reported) Glipizide (Glipizide), 5 GM MC BID, (Reported) Insulin Aspart (Novolog Flexpen), 0 UNITS SUBQ BEFORE MEALS AND HS Insulin Aspart (Novolog Flexpen), 11 UNITS SUBQ NOVOTIAC Insulin Aspart (Novolog Flexpen), 0 UNITS SUBQ BEFORE MEALS AND HS Insulin Aspart (Novolog), 11 SUBQ TID, (Reported) Insulin Detemir (Levemir Flexpen), 34 UNITS SUBQ DAILY Insulin Detemir (Levemir), 34 SUBQ BEDTIME, (Reported) Lactobacillus Acidophilus (Probiotic), 1 EACH PO DAILY, (Reported) Meloxicam* (Meloxicam*), 15 MG PO DAILY, (Reported) Multivitamin with Minerals (Multivitamins with Minerals), 1 TAB ORAL DAILY, ( Reported) Pioglitazone Hcl* (Actos*), 30 MG ORAL DAILY, (Reported) Pravastatin Sod (Pravastatin Sod), 40 MG ORAL BEDTIME, (Reported) Pravastatin Sodium (Pravachol), 40 MG ORAL BEDTIME, (Reported) Pregabalin (Lyrica), 200 MG ORAL TWICE A DAY, (Reported) Pregabalin* (Lyrica*), 200 MG ORAL BID, (Reported) Scheduled PRN Baclofen* (Lioresal*), 20 MG ORAL THREE TIMES A DAY PRN for Muscle Spasms, ( Reported) Bisacodyl (Dulcolax), 10 MG RC DAILY PRN for Constipation, (Reported) Hydrocodone Bit/Acetaminophen 10-325* ([place] 10-325*), 1 TAB ORAL Q6H PRN for For Pain, (Reported) Ipratropium/Albuterol Sulfate (DuoNeb 0.5-3(2.5)mg/3ml), 3 ML HHN EVERY 4 HOURS PRN for Shortness of Breath, (Reported) Lorazepam* (Ativan*), 1 MG ORAL THREE TIMES A DAY PRN for For Anxiety, (Reported ) Mineral Oil (Mineral Oil Enema), 133 ML RC DAILY PRN for Constipation, (Reported ) Miscellaneous Medications Meloxicam (Meloxicam), 10 GM MC, (Reported) Unable to Obtain Medications (Unable To Obtain Meds), (Reported) Patient History History Provided By: Patient, Medical Record Healthcare decision maker Resuscitation status Full Code Advanced Directive on File Family History Family History: Patient reports no known family medical history. Review of Systems All Other Systems: negative except mentioned in HPI Physical Exam General Appearance: no apparent distress, alert HEENT: normocephalic, atraumatic, PERRL Neck: non-tender, normal alignment, supple Respiratory/Chest: chest wall non-tender, lungs clear, normal breath sounds Cardiovascular/Chest: normal peripheral pulses, normal rate, regular rhythm Abdomen: normal bowel sounds, non tender, soft, other - abdominal bulge to epigastric area 8cm x 8cm approximately Genitourinary/Rectal: suprapubic catheter, other - minimal blood stains noted to bilateral thighs near groin Extremities: non-tender Skin Exam: normal pigmentation, warm/dry Neurologic: alert, oriented x 3, other - paraplegic Last 24 Hour Vital Signs Date Time Temp Pulse Resp B/P (MAP) Pulse Ox O2 Delivery O2 Flow Rate FiO2 03/31/18 11:09 97.2 03/31/18 09:00 Room Air 03/31/18 08:00 97.6 82 16 113/62 (79) 97 97.6 03/31/18 04:00 97.2 75 20 135/70 (91) 98 97.2 03/31/18 04:00 82 03/31/18 01:13 98.2 87 20 140/71 (94) 97 98.2 03/31/18 01:00 Room Air 03/31/18 00:45 98.4 80 15 121/64 100 Room Air 209.1 03/31/18 00:45 98.4 80 15 121/64 100 Room Air 98.4 03/30/18 23:24 98.4 83 19 130/71 100 Room Air 98.4 03/30/18 21:10 98.5 03/30/18 19:45 98.4 84 16 130/90 98 Room Air 98.4 03/30/18 19:14 98.5 84 16 130/90 98 Room Air 98.4 Intake and Output 03/30/18 03/31/18 19:00 07:00 Output Total 600 ml Balance -600 ml Output Urine Total 600 ml # Bowel Movements 1 Laboratory Tests Test 03/30/18 20:00 03/30/18 22:30 03/31/18 11:00 White Blood Count 8.1 K/UL (4.8-10.8) 7.5 K/UL (4.8-10.8) Red Blood Count 4.92 M/UL (4.20-5.40) 4.80 M/UL (4.20-5.40) Hemoglobin 14.0 G/DL (12.0-16.0) 13.4 G/DL (12.0-16.0) Hematocrit 43.1 % (37.0-47.0) 42.1 % (37.0-47.0) Mean Corpuscular Volume 88 FL (80-99) 88 FL (80-99) Mean Corpuscular Hemoglobin 28.5 PG (27.0-31.0) 27.9 PG (27.0-31.0) Mean Corpuscular Hemoglobin Concent 32.5 G/DL (32.0-36.0) 31.9 G/DL (32.0-36.0) L Red Cell Distribution Width 12.9 % (11.6-14.8) 13.1 % (11.6-14.8) Platelet Count 235 K/UL (150-450) 197 K/UL (150-450) Mean Platelet Volume 8.1 FL (6.5-10.1) 8.0 FL (6.5-10.1) Neutrophils (%) (Auto) 51.7 % (45.0-75.0) 56.2 % (45.0-75.0) Lymphocytes (%) (Auto) 33.6 % (20.0-45.0) 27.1 % (20.0-45.0) Monocytes (%) (Auto) 5.8 % (1.0-10.0) 7.4 % (1.0-10.0) Eosinophils (%) (Auto) 8.3 % (0.0-3.0) H 8.7 % (0.0-3.0) H Basophils (%) (Auto) 0.6 % (0.0-2.0) 0.6 % (0.0-2.0) Urine Color Yellow Urine Appearance Slightly cloudy Urine pH 5 (4.5-8.0) Urine Specific [place] 1.020 (1.005-1.035) Urine Protein 3+ (NEGATIVE) H Urine Glucose (UA) 4+ (NEGATIVE) H Urine Ketones 1+ (NEGATIVE) H Urine Occult Blood 5+ (NEGATIVE) H Urine Nitrite Positive (NEGATIVE) H Urine Bilirubin Negative (NEGATIVE) Urine Urobilinogen Normal MG/DL (0.0-1.0) Urine Leukocyte Esterase 3+ (NEGATIVE) H Urine RBC 5-10 /HPF (0 - 2) H Urine WBC 20-30 /HPF (0 - 2) H Urine Squamous Epithelial Cells Few /LPF (NONE/OCC) Urine Bacteria Many /HPF (NONE) H Urine Yeast Moderate /HPF (NONE) H Sodium Level 138 MMOL/L (136-145) 136 MMOL/L (136-145) Potassium Level 4.1 MMOL/L (3.5-5.1) 4.2 MMOL/L (3.5-5.1) Chloride Level 100 MMOL/L (98-107) 103 MMOL/L (98-107) Carbon Dioxide Level 31 MMOL/L (21-32) 29 MMOL/L (21-32) Anion Gap 7 mmol/L (5-15) 4 mmol/L (5-15) L Blood Urea Nitrogen 11 mg/dL (7-18) 10 mg/dL (7-18) Creatinine 1.0 MG/DL (0.55-1.30) 0.9 MG/DL (0.55-1.30) Estimat Glomerular Filtration Rate > 60 mL/min (>60) > 60 mL/min (>60) Glucose Level 391 MG/DL (74-106) H 319 MG/DL (74-106) H Lactic Acid Level 2.40 mmol/L (0.4-2.0) H 1.10 mmol/L (0.4-2.0) Calcium Level 9.3 MG/DL (8.5-10.1) 8.5 MG/DL (8.5-10.1) Total Bilirubin 0.4 MG/DL (0.2-1.0) Aspartate Amino Transf (AST/SGOT) 14 U/L (15-37) L Alanine Aminotransferase (ALT/SGPT) 25 U/L (12-78) Alkaline Phosphatase 102 U/L (46-116) Total Protein 7.4 G/DL (6.4-8.2) Albumin 2.9 G/DL (3.4-5.0) L Globulin 4.5 g/dL Albumin/Globulin Ratio 0.6 (1.0-2.7) L Microbiology Date/Time Source Procedure Growth Status 03/30/18 20:00 Indwelling Cath Urine Culture - Preliminary Resulted Height (Feet): 5 Height (Inches): 7.00 Weight (Pounds): 297 Medications Current Medications Medications (Trade) Dose Ordered Sig/Cristóbal Route PRN Reason Start Time Stop Time Status Last Admin Dose Admin Acetaminophen (Tylenol) 650 mg Q4H PRN ORAL Mild Pain (Pain Scale 1-3) 03/30/18 23:30 04/29/18 23:29 Acetaminophen/ Hydrocodone Bitart ([place] 10/325) 1 tab Q6H PRN ORAL PAIN 4-10 03/31/18 10:15 04/07/18 10:14 03/31/18 11:09 Albuterol/ Ipratropium (Albuterol/ Ipratropium) 3 ml Q4H PRN HHN Shortness of Breath 03/31/18 10:15 04/05/18 10:14 Baclofen (Lioresal) 20 mg TIDPRN PRN ORAL MUSCLE SPASMS 03/31/18 13:00 04/30/18 12:59 Bisacodyl (Dulcolax) 10 mg DAILYPRN PRN RECTAL Constipation 03/31/18 10:15 04/30/18 10:14 Dextrose (Dextrose 50%) 25 ml STAT PRN IV Hypoglycemia 03/30/18 23:30 04/29/18 23:29 Dextrose (Dextrose 50%) 50 ml STAT PRN IV Hypoglycemia 03/30/18 23:30 04/29/18 23:29 Duloxetine HCl (Cymbalta) 30 mg BID ORAL 03/31/18 18:00 04/30/18 17:59 Ferrous Sulfate (Feosol) 325 mg DAILY ORAL 04/01/18 09:00 05/01/18 08:59 Glipizide (Glucotrol) 5 mg BID ORAL 03/31/18 18:00 04/30/18 17:59 Insulin Aspart (NovoLOG) BEFORE MEALS AND HS SUBQ 03/31/18 11:30 04/30/18 11:29 03/31/18 12:48 Insulin Detemir (Levemir) 34 units BEDTIME SUBQ 03/31/18 21:00 04/30/18 20:59 Lorazepam (Ativan) 1 mg Q8H PRN ORAL For Anxiety 03/31/18 10:15 04/07/18 10:14 Meloxicam (Mobic) 15 mg DAILY ORAL 04/01/18 09:00 05/01/18 08:59 Mineral Oil (Fleet's Mineral Oil Enema) 133 ml DAILY PRN RECTAL Constipation 03/31/18 10:15 04/30/18 10:14 Pioglitazone HCl (Actos) 30 mg ACBREAKFAST ORAL 04/01/18 06:30 05/01/18 06:29 Piperacillin Sod/ Tazobactam Sod 3.375 gm/Sodium Chloride 110 ml @ 27.5 mls/hr Q8HR IVPB 03/31/18 09:00 04/07/18 08:59 03/31/18 11:10 Pravastatin Sodium (Pravachol) 40 mg BEDTIME ORAL 03/31/18 21:00 04/30/18 20:59 Pregabalin (Lyrica) 200 mg Q12HR ORAL 03/31/18 21:00 04/30/18 20:59 Sodium Chloride 550 ml @ 75 mls/hr Q7H20M IV 03/30/18 23:30 04/29/18 23:29 03/31/18 02:58 Vitamin D (Vitamin D) 1,000 intlu DAILY ORAL 04/01/18 09:00 05/01/18 08:59 Assessment/Plan Problem List: (1) DVT (deep venous thrombosis) ICD Codes: I82.409 - Acute embolism and thrombosis of unspecified deep veins of unspecified lower extremity SNOMED: 766676506 (2) Recurrent UTI ICD Codes: N39.0 - Urinary tract infection, site not specified SNOMED: 482772088 (3) Anemia ICD Codes: D64.9 - Anemia, unspecified SNOMED: 708445920 (4) Paraplegia ICD Codes: G82.20 - Paraplegia, unspecified SNOMED: 35012743 (5) Suprapubic catheter ICD Codes: Z93.59 - Other cystostomy status SNOMED: 598412542 (6) Morbid obesity ICD Codes: E66.01 - Morbid (severe) obesity due to excess calories SNOMED: 318584867 (7) Diabetes mellitus type 2 with complications, uncontrolled ICD Codes: E11.8 - Type 2 diabetes mellitus with unspecified complications; E11.65 - Type 2 diabetes mellitus with hyperglycemia SNOMED: 33111691, 703427442, 493979061 (8) Hyperlipidemia ICD Codes: E78.5 - Hyperlipidemia, unspecified SNOMED: 66086830, 097298890 (9) Peripheral neuropathy ICD Codes: G62.9 - Polyneuropathy, unspecified SNOMED: 37358405 (10) Lives in private house SNOMED: 050746813 (11) Neurogenic bladder ICD Codes: N31.9 - Neuromuscular dysfunction of bladder, unspecified SNOMED: 580682287 Status: stable, progressing Assessment/Plan - Admit to inpatient - Urology consulted, appreciate rec's - ID consulted, appreciate rec's - Hematology consulted, appreciate rec's - no need for suprapubic catheter to be changed again per urology - IV zosyn - F/u urine cx, blood cx - Start oxybutynin for bladder spasms - Trend CBC - Start lovenox 140mg BID SC for DVT treatment. Monitor for bleeding - Transvaginal U/S and pelvic U/S to r/o fibroids and evaluate for cause of vaginal bleeding - Abdominal U/S to evaluate abdominal "bulge" - Continue home meds - Check A1c and lipid panel - Diabetic diet - PT/OT - Pain control and supportive care DVT Prophylaxis: on lovenox treatment for DVT Code Status: Full Hospital Classification Declaration: Based on this initial evaluation, and depending on the patient's clinical course, I anticipate that this patient will require hospitalization for 2-3 days for complicated UTI and DVT and close respiratory/hemodynamic monitoring. Disposition: Once the patient is stable to leave the hospital, I anticipate the patient will likely be discharged to the following environment: home with vs SNF I spent 72 minutes on this patient's case, and 45 minutes were dedicated to counseling and/or care coordination. Discussed with patient/family, nursing staff, SW/CM, ID, urology, and hematology regarding clinical status, treatment course, and disposition planning. Time of note may not reflect time of encounter. Amy Crenshaw NP Mar 31, 2018 14:42
[2018-03-31] MEDS ORDERED: Enoxaparin 60mg Inj SUBQ SCH (14:45)
[2018-03-31] MEDS: GlipiZIDE 5mg tab ORAL SCH (17:08)
[2018-03-31] MEDS: DULoxetine 30mg cap ORAL SCH (17:08)
--- NOTE | 2018-03-31 18:08 | Consultation ---
History of Present Illness General Date patient seen: Mar 31, 2018 Chief Complaint: Abdominal Pain Reason for Consultation: sacral wounds Present Illness HPI 52F with multiple medical comorbidities presented and is currently being treated for complicated UTI. on admission noted to have sacral wounds with areas around upper thigh and buttock as well. surgery called to evaluate and assist with wound care. patient seen, chart reviewed, patient examined. Allergies: Coded Allergies: No Known Allergies (Unverified , 07/15/16) Medication History Scheduled Baclofen (Baclofen), 30 MG ORAL THREE TIMES A DAY, (Reported) Ceftriaxone Sodium (Ceftriaxone), 1 GM IV Q24H Cephalexin* (Keflex*), 500 MG ORAL Q6H Cholecalciferol (Vitamin D3)* (Vitamin D*), 1,000 INTLU ORAL DAILY Duloxetine (Cymbalta), 30 MG ORAL BID, (Reported) Duloxetine Hcl* (Cymbalta*), 30 MG ORAL BID, (Reported) Ferrous Sulfate (Iron), 325 MG PO DAILY, (Reported) Glipizide (Glipizide), 5 GM MC BID, (Reported) Insulin Aspart (Novolog Flexpen), 0 UNITS SUBQ BEFORE MEALS AND HS Insulin Aspart (Novolog Flexpen), 11 UNITS SUBQ NOVOTIAC Insulin Aspart (Novolog Flexpen), 0 UNITS SUBQ BEFORE MEALS AND HS Insulin Aspart (Novolog), 11 SUBQ TID, (Reported) Insulin Detemir (Levemir Flexpen), 34 UNITS SUBQ DAILY Insulin Detemir (Levemir), 34 SUBQ BEDTIME, (Reported) Lactobacillus Acidophilus (Probiotic), 1 EACH PO DAILY, (Reported) Meloxicam* (Meloxicam*), 15 MG PO DAILY, (Reported) Multivitamin with Minerals (Multivitamins with Minerals), 1 TAB ORAL DAILY, ( Reported) Pioglitazone Hcl* (Actos*), 30 MG ORAL DAILY, (Reported) Pravastatin Sod (Pravastatin Sod), 40 MG ORAL BEDTIME, (Reported) Pravastatin Sodium (Pravachol), 40 MG ORAL BEDTIME, (Reported) Pregabalin (Lyrica), 200 MG ORAL TWICE A DAY, (Reported) Pregabalin* (Lyrica*), 200 MG ORAL BID, (Reported) Scheduled PRN Baclofen* (Lioresal*), 20 MG ORAL THREE TIMES A DAY PRN for Muscle Spasms, ( Reported) Bisacodyl (Dulcolax), 10 MG RC DAILY PRN for Constipation, (Reported) Hydrocodone Bit/Acetaminophen 10-325* ([place] 10-325*), 1 TAB ORAL Q6H PRN for For Pain, (Reported) Ipratropium/Albuterol Sulfate (DuoNeb 0.5-3(2.5)mg/3ml), 3 ML HHN EVERY 4 HOURS PRN for Shortness of Breath, (Reported) Lorazepam* (Ativan*), 1 MG ORAL THREE TIMES A DAY PRN for For Anxiety, (Reported ) Mineral Oil (Mineral Oil Enema), 133 ML RC DAILY PRN for Constipation, (Reported ) Miscellaneous Medications Meloxicam (Meloxicam), 10 GM MC, (Reported) Unable to Obtain Medications (Unable To Obtain Meds), (Reported) Patient History History Provided By: Patient, Medical Record, PMD Healthcare decision maker Resuscitation status Full Code Advanced Directive on File Past Medical/Surgical History Past Medical/Surgical History: (1) Recurrent UTI (2) Blocked suprapubic catheter (3) Anemia (4) Hypomagnesemia (5) Paraplegia (6) Hyponatremia (7) Hypoalbuminemia (8) Abdominal pain (9) Pressure ulcer of sacral region, unspecified stage (10) Multiple pressure ulcers (11) Left and right ischial tuberosity scattered stage II pressure ulcer (12) Sacrococcygeal stage III pressure ulcer (13) Suprapubic catheter (14) Morbid obesity (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, uncontrolled (16) Hyperlipidemia (17) Peripheral neuropathy (18) Generalized weakness (19) Bilateral lower extremity edema (20) UTI (urinary tract infection) (21) Neurogenic bladder (22) Pressure ulcer of left buttock, stage 2 (23) Suprapubic catheter dysfunction (24) Pressure ulcer of coccygeal region, stage 2 (25) Intertrigo Review of Systems All Other Systems: negative except mentioned in HPI Physical Exam General Appearance: no apparent distress HEENT: normocephalic, atraumatic Neck: normal inspection Respiratory/Chest: lungs clear, normal breath sounds, no respiratory distress, no accessory muscle use Cardiovascular/Chest: normal peripheral pulses Abdomen: soft, no organomegaly, no mass Extremities: other Skin Exam: other Neurologic: alert Last 24 Hour Vital Signs Date Time Temp Pulse Resp B/P (MAP) Pulse Ox O2 Delivery O2 Flow Rate FiO2 03/31/18 16:00 74 03/31/18 16:00 98.9 79 20 115/66 (82) 99 98.9 03/31/18 12:08 97.2 03/31/18 12:00 78 03/31/18 12:00 98.0 81 16 127/68 (87) 99 98.0 03/31/18 11:09 97.2 03/31/18 09:00 Room Air 03/31/18 08:00 97.6 82 16 113/62 (79) 97 97.6 03/31/18 08:00 79 03/31/18 04:00 97.2 75 20 135/70 (91) 98 97.2 03/31/18 04:00 82 03/31/18 01:13 98.2 87 20 140/71 (94) 97 98.2 03/31/18 01:00 Room Air 03/31/18 00:45 98.4 80 15 121/64 100 Room Air 209.1 03/31/18 00:45 98.4 80 15 121/64 100 Room Air 98.4 03/30/18 23:24 98.4 83 19 130/71 100 Room Air 98.4 03/30/18 21:10 98.5 03/30/18 19:45 98.4 84 16 130/90 98 Room Air 98.4 03/30/18 19:14 98.5 84 16 130/90 98 Room Air 98.4 Intake and Output 03/30/18 03/31/18 19:00 07:00 Output Total 600 ml Balance -600 ml Output Urine Total 600 ml # Bowel Movements 1 Laboratory Tests Test 03/30/18 20:00 03/30/18 22:30 03/31/18 11:00 White Blood Count 8.1 K/UL (4.8-10.8) 7.5 K/UL (4.8-10.8) Red Blood Count 4.92 M/UL (4.20-5.40) 4.80 M/UL (4.20-5.40) Hemoglobin 14.0 G/DL (12.0-16.0) 13.4 G/DL (12.0-16.0) Hematocrit 43.1 % (37.0-47.0) 42.1 % (37.0-47.0) Mean Corpuscular Volume 88 FL (80-99) 88 FL (80-99) Mean Corpuscular Hemoglobin 28.5 PG (27.0-31.0) 27.9 PG (27.0-31.0) Mean Corpuscular Hemoglobin Concent 32.5 G/DL (32.0-36.0) 31.9 G/DL (32.0-36.0) L Red Cell Distribution Width 12.9 % (11.6-14.8) 13.1 % (11.6-14.8) Platelet Count 235 K/UL (150-450) 197 K/UL (150-450) Mean Platelet Volume 8.1 FL (6.5-10.1) 8.0 FL (6.5-10.1) Neutrophils (%) (Auto) 51.7 % (45.0-75.0) 56.2 % (45.0-75.0) Lymphocytes (%) (Auto) 33.6 % (20.0-45.0) 27.1 % (20.0-45.0) Monocytes (%) (Auto) 5.8 % (1.0-10.0) 7.4 % (1.0-10.0) Eosinophils (%) (Auto) 8.3 % (0.0-3.0) H 8.7 % (0.0-3.0) H Basophils (%) (Auto) 0.6 % (0.0-2.0) 0.6 % (0.0-2.0) Urine Color Yellow Urine Appearance Slightly cloudy Urine pH 5 (4.5-8.0) Urine Specific [place] 1.020 (1.005-1.035) Urine Protein 3+ (NEGATIVE) H Urine Glucose (UA) 4+ (NEGATIVE) H Urine Ketones 1+ (NEGATIVE) H Urine Occult Blood 5+ (NEGATIVE) H Urine Nitrite Positive (NEGATIVE) H Urine Bilirubin Negative (NEGATIVE) Urine Urobilinogen Normal MG/DL (0.0-1.0) Urine Leukocyte Esterase 3+ (NEGATIVE) H Urine RBC 5-10 /HPF (0 - 2) H Urine WBC 20-30 /HPF (0 - 2) H Urine Squamous Epithelial Cells Few /LPF (NONE/OCC) Urine Bacteria Many /HPF (NONE) H Urine Yeast Moderate /HPF (NONE) H Sodium Level 138 MMOL/L (136-145) 136 MMOL/L (136-145) Potassium Level 4.1 MMOL/L (3.5-5.1) 4.2 MMOL/L (3.5-5.1) Chloride Level 100 MMOL/L (98-107) 103 MMOL/L (98-107) Carbon Dioxide Level 31 MMOL/L (21-32) 29 MMOL/L (21-32) Anion Gap 7 mmol/L (5-15) 4 mmol/L (5-15) L Blood Urea Nitrogen 11 mg/dL (7-18) 10 mg/dL (7-18) Creatinine 1.0 MG/DL (0.55-1.30) 0.9 MG/DL (0.55-1.30) Estimat Glomerular Filtration Rate > 60 mL/min (>60) > 60 mL/min (>60) Glucose Level 391 MG/DL (74-106) H 319 MG/DL (74-106) H Lactic Acid Level 2.40 mmol/L (0.4-2.0) H 1.10 mmol/L (0.4-2.0) Calcium Level 9.3 MG/DL (8.5-10.1) 8.5 MG/DL (8.5-10.1) Total Bilirubin 0.4 MG/DL (0.2-1.0) Aspartate Amino Transf (AST/SGOT) 14 U/L (15-37) L Alanine Aminotransferase (ALT/SGPT) 25 U/L (12-78) Alkaline Phosphatase 102 U/L (46-116) Total Protein 7.4 G/DL (6.4-8.2) Albumin 2.9 G/DL (3.4-5.0) L Globulin 4.5 g/dL Albumin/Globulin Ratio 0.6 (1.0-2.7) L Microbiology Date/Time Source Procedure Growth Status 03/30/18 20:00 Indwelling Cath Urine Culture - Preliminary Resulted Height (Feet): 5 Height (Inches): 7.00 Weight (Pounds): 297 Medications Current Medications Medications (Trade) Dose Ordered Sig/Cristóbal Route PRN Reason Start Time Stop Time Status Last Admin Dose Admin Acetaminophen (Tylenol) 650 mg Q4H PRN ORAL Mild Pain (Pain Scale 1-3) 03/30/18 23:30 04/29/18 23:29 Acetaminophen/ Hydrocodone Bitart ([place] 10/325) 1 tab Q6H PRN ORAL PAIN 4-10 03/31/18 10:15 04/07/18 10:14 03/31/18 11:09 Albuterol/ Ipratropium (Albuterol/ Ipratropium) 3 ml Q4H PRN HHN Shortness of Breath 03/31/18 10:15 04/05/18 10:14 Baclofen (Lioresal) 20 mg TIDPRN PRN ORAL MUSCLE SPASMS 03/31/18 13:00 04/30/18 12:59 03/31/18 17:08 Bisacodyl (Dulcolax) 10 mg DAILYPRN PRN RECTAL Constipation 03/31/18 10:15 04/30/18 10:14 Dextrose (Dextrose 50%) 25 ml STAT PRN IV Hypoglycemia 03/30/18 23:30 04/29/18 23:29 Dextrose (Dextrose 50%) 50 ml STAT PRN IV Hypoglycemia 03/30/18 23:30 04/29/18 23:29 Duloxetine HCl (Cymbalta) 30 mg BID ORAL 03/31/18 18:00 04/30/18 17:59 03/31/18 17:08 Enoxaparin Sodium (Lovenox) 60 mg Q12HR SUBQ 03/31/18 21:00 04/30/18 20:59 Enoxaparin Sodium (Lovenox) 80 mg Q12HR SUBQ 03/31/18 21:00 04/30/18 20:59 Ferrous Sulfate (Feosol) 325 mg DAILY ORAL 04/01/18 09:00 05/01/18 08:59 Glipizide (Glucotrol) 5 mg BID ORAL 03/31/18 18:00 04/30/18 17:59 03/31/18 17:08 Insulin Aspart (NovoLOG) BEFORE MEALS AND HS SUBQ 03/31/18 11:30 04/30/18 11:29 03/31/18 17:09 Insulin Detemir (Levemir) 34 units BEDTIME SUBQ 03/31/18 21:00 04/30/18 20:59 Lorazepam (Ativan) 1 mg Q8H PRN ORAL For Anxiety 03/31/18 10:15 04/07/18 10:14 Meloxicam (Mobic) 15 mg DAILY ORAL 04/01/18 09:00 05/01/18 08:59 Mineral Oil (Fleet's Mineral Oil Enema) 133 ml DAILY PRN RECTAL Constipation 03/31/18 10:15 04/30/18 10:14 Pioglitazone HCl (Actos) 30 mg ACBREAKFAST ORAL 04/01/18 06:30 05/01/18 06:29 Piperacillin Sod/ Tazobactam Sod 3.375 gm/Sodium Chloride 110 ml @ 27.5 mls/hr Q8HR IVPB 03/31/18 09:00 04/07/18 08:59 03/31/18 15:10 Pravastatin Sodium (Pravachol) 40 mg BEDTIME ORAL 03/31/18 21:00 04/30/18 20:59 Pregabalin (Lyrica) 200 mg Q12HR ORAL 03/31/18 21:00 04/30/18 20:59 Sodium Chloride 550 ml @ 75 mls/hr Q7H20M IV 03/30/18 23:30 04/29/18 23:29 03/31/18 15:10 Vitamin D (Vitamin D) 1,000 intlu DAILY ORAL 04/01/18 09:00 05/01/18 08:59 Assessment/Plan Problem List: (1) Pressure ulcer of sacral region, unspecified stage ICD Codes: L89.159 - Pressure ulcer of sacral region, unspecified stage SNOMED: 406077206 (2) Multiple pressure ulcers (3) Left and right ischial tuberosity scattered stage II pressure ulcer (4) Sacrococcygeal stage III pressure ulcer (5) Pressure ulcer of left buttock, stage 2 ICD Codes: L89.322 - Pressure ulcer of left buttock, stage 2 SNOMED: 605644986 (6) Pressure ulcer of coccygeal region, stage 2 ICD Codes: L89.152 - Pressure ulcer of sacral region, stage 2 SNOMED: 486582784 Status: stable Assessment/Plan Pt noted to have full thickness pressure injury to sacrum .Wound bed beefy red and moist .Edges flat adherent to base of wound. Per Hx obtained from pt ,wound is a stage four wound for which pt received wound care at home from [facility]. Full thickness pressure injury noted to R buttocks.wound bed granular with approx 5% slough .Edges of wound flat and adherent to base of wound ,periwound without induration . Hyperpigmented skin discoloration noted to R and L ischial areas .Pt confirmed Hx of Pressure injuries to R and L ischiums . Tx Plan: Apply Biatain to sacral wound daily and prn . Cleanse Rb buttocks with saline .Apply TheraHoney and cover wth Biatain drsg daily and prn. Encourage and assist with repositioning. Surface Support overlay on bed .Float heels with pillow. Gregory Nazario Mar 31, 2018 18:08
[2018-03-31] MEDS: Lyrica 50mg cap ORAL SCH (20:45)
[2018-03-31] MEDS: Enoxaparin 80mg Inj SUBQ SCH (20:48)
[2018-03-31] MEDS: Enoxaparin 60mg Inj SUBQ SCH (20:49)
[2018-03-31] MEDS ORDERED: Levemir Flexpen SUBQ SCH (21:00)
[2018-04-01] VITALS (7 sets, daily range): BP systolic 118–133; BP diastolic 59–77
[2018-04-01] MEDS: Sodium Chloride 500ML 550 ML IV SCH ×2 (04:50→12:19)
[2018-04-01] MEDS: Piperacillin/Tazobactam 3.375 GM in NS 110 ML IVPB SCH ×3 (06:13→21:58)
[2018-04-01] MEDS: NovoLOG Insulin Flexpen SUBQ SCH ×4 (06:15→21:55)
[2018-04-01 08:31] LABS: BASOPHILS % (AUTO) 1.3 % (0.0-2.0); EOSINOPHILS % (AUTO) 10.8 % (0.0-3.0); HEMATOCRIT 40.1 % (37.0-47.0); HEMOGLOBIN 12.9 G/DL (12.0-16.0); LYMPHOCYTES % (AUTO) 38.1 % (20.0-45.0); MEAN CORPUSCULAR VOLUME 88 FL (80-99); MONOCYTES % (AUTO) 10.7 % (1.0-10.0); NEUTROPHILS % (AUTO) 39.2 % (45.0-75.0); PLATELET COUNT 184 K/UL (150-450); RED BLOOD COUNT 4.57 M/UL (4.20-5.40); RED CELL DISTRIBUTION WIDTH 12.9 % (11.6-14.8); WHITE BLOOD COUNT 6.6 K/UL (4.8-10.8)
--- NOTE | 2018-04-01 08:31 | Diagnostic Imaging Report ---
Indication: Pelvic pain and vaginal bleeding Technique: Transabdominal and transvaginal images Comparison: none Findings: Exam is very limited. Bladder is empty and there is a suprapubic catheter limiting visualization in the transabdominal approach. Body habitus also limits visualization of the pelvic structures. Uterus is retroverted, measures 4 cm length by 2 cm AP. The endometrial stripe is not conclusively visualized. Neither ovary could be demonstrated Impression: Limited, essentially nondiagnostic exam, due to factors described above
--- NOTE | 2018-04-01 08:41 | Diagnostic Imaging Report ---
Indication: Abdominal distention Technique: Deshpande-scale and duplex images of the upper abdomen were obtained Comparison: none Findings: Exam is limited due to patient body habitus and presence of considerable bowel gas Gallbladder is surgically absent. Common bile duct measures 3 mm in diameter. No intrahepatic biliary ductal dilatation. Liver demonstrates diffusely increased echogenicity, consistent with diffuse hepatocellular disease, most likely fatty change. It is borderline enlarged. Portal vein and hepatic veins are not well visualized. Pancreas is incompletely visualized due to overlying bowel gas, visualized portions are unremarkable. Spleen is unremarkable. Left kidney measures 12.2 cm in length. Right kidney measures 11.8 cm length. Both kidneys demonstrate normal echogenicity. There is no hydronephrosis. No focal abnormality . Abdominal aorta is partially obscured by bowel gas, visualized portions are non-aneurysmal . Impression: Limited exam, as described Liver demonstrates diffusely increased echogenicity, consistent with diffuse hepatocellular disease, most likely fatty change. It is slightly enlarged Surgically absent gallbladder. Negative for dilated ducts.
[2018-04-01] MEDS ORDERED: Vitamin D 1000 IU Tab ORAL SCH (09:00)
[2018-04-01] MEDS ORDERED: Meloxicam 15 MG TAB ORAL SCH (09:00)
[2018-04-01 09:17] LABS: CHOLESTEROL 237 MG/DL (< 200); HDL CHOLESTEROL 36 MG/DL (40-60); TRIGLYCERIDES 323 MG/DL (30-150)
[2018-04-01] MEDS: GlipiZIDE 5mg tab ORAL SCH ×2 (09:46→18:32)
[2018-04-01] MEDS: DULoxetine 30mg cap ORAL SCH ×2 (09:46→18:31)
[2018-04-01] MEDS: Enoxaparin 60mg Inj SUBQ SCH ×2 (09:48→21:56)
[2018-04-01 09:49] LABS: ANION GAP 10 mmol/L (5-15); BLOOD UREA NITROGEN 9 mg/dL (7-18); CALCIUM 8.3 MG/DL (8.5-10.1); CARBON DIOXIDE 25 MMOL/L (21-32); CHLORIDE 105 MMOL/L (98-107); CREATININE 0.8 MG/DL (0.55-1.30); POTASSIUM 3.5 MMOL/L (3.5-5.1); SODIUM 140 MMOL/L (136-145)
[2018-04-01] MEDS: Enoxaparin 80mg Inj SUBQ SCH ×2 (09:49→21:57)
[2018-04-01] MEDS: Lyrica 50mg cap ORAL SCH ×2 (09:56→21:52)
--- NOTE | 2018-04-01 10:10 | Urology Progress Note ---
Assessment/Plan Assessment/Plan 1. Urinary retention history. 2. Neurogenic bladder with chronic suprapubic tube. 3. UTI and colonization. 4. Hematuria. 5. Proteinuria history. keep sp tube indwelling hand irrigated and do PRN abx as ordered f/u on urine cx ditropan added consider renal imaging cysto later Subjective Allergies: Coded Allergies: No Known Allergies (Unverified , 07/15/16) Subjective sp tube draining, bladder spasms Objective Last 24 Hour Vital Signs Date Time Temp Pulse Resp B/P (MAP) Pulse Ox O2 Delivery O2 Flow Rate FiO2 04/01/18 08:00 96.8 77 20 118/61 (80) 100 96.8 04/01/18 04:00 97.2 87 18 133/74 (93) 96 97.2 04/01/18 00:26 96.6 80 19 127/74 (91) 95 96.6 04/01/18 00:00 96.6 80 20 127/74 (91) 95 96.6 04/01/18 00:00 71 03/31/18 21:00 Room Air 03/31/18 20:03 96.8 99 20 145/63 (90) 97 96.8 03/31/18 20:00 82 03/31/18 16:00 74 03/31/18 16:00 98.9 79 20 115/66 (82) 99 98.9 03/31/18 12:08 97.2 03/31/18 12:00 78 03/31/18 12:00 98.0 81 16 127/68 (87) 99 98.0 03/31/18 11:09 97.2 Intake and Output 03/31/18 04/01/18 19:00 07:00 Intake Total 240 ml 225 ml Output Total 900 ml 450 ml Balance -660 ml -225 ml Intake Oral 240 ml IV Total 225 ml Output Urine Total 900 ml 450 ml # Voids 1 # Bowel Movements 1 Microbiology Date/Time Source Procedure Growth Status 03/30/18 20:00 Blood Blood Culture - Preliminary NO GROWTH AFTER 24 HOURS Resulted 03/30/18 20:00 Indwelling Cath Urine Culture - Preliminary Gram Negative Bacillus 1 Resulted Current Medications Medications (Trade) Dose Ordered Sig/Cristóbal Route PRN Reason Start Time Stop Time Status Last Admin Dose Admin Acetaminophen (Tylenol) 650 mg Q4H PRN ORAL Mild Pain (Pain Scale 1-3) 8/13/18 23:30 04/29/18 23:29 Acetaminophen/ Hydrocodone Bitart ([place] 10/325) 1 tab Q6H PRN ORAL PAIN 4-10 03/31/18 10:15 04/07/18 10:14 03/31/18 20:46 Albuterol/ Ipratropium (Albuterol/ Ipratropium) 3 ml Q4H PRN HHN Shortness of Breath 03/31/18 10:15 04/05/18 10:14 Baclofen (Lioresal) 20 mg TIDPRN PRN ORAL MUSCLE SPASMS 03/31/18 13:00 04/30/18 12:59 03/31/18 17:08 Bisacodyl (Dulcolax) 10 mg DAILYPRN PRN RECTAL Constipation 03/31/18 10:15 04/30/18 10:14 Dextrose (Dextrose 50%) 25 ml STAT PRN IV Hypoglycemia 03/30/18 23:30 04/29/18 23:29 Dextrose (Dextrose 50%) 50 ml STAT PRN IV Hypoglycemia 03/30/18 23:30 04/29/18 23:29 Duloxetine HCl (Cymbalta) 30 mg BID ORAL 03/31/18 18:00 04/30/18 17:59 04/01/18 09:46 Enoxaparin Sodium (Lovenox) 60 mg Q12HR SUBQ 03/31/18 21:00 04/30/18 20:59 04/01/18 09:48 Enoxaparin Sodium (Lovenox) 80 mg Q12HR SUBQ 03/31/18 21:00 04/30/18 20:59 04/01/18 09:49 Ferrous Sulfate (Feosol) 325 mg DAILY ORAL 04/01/18 09:00 05/01/18 08:59 04/01/18 09:46 Glipizide (Glucotrol) 5 mg BID ORAL 03/31/18 18:00 04/30/18 17:59 04/01/18 09:46 Insulin Aspart (NovoLOG) BEFORE MEALS AND HS SUBQ 03/31/18 11:30 04/30/18 11:29 04/01/18 06:15 Insulin Detemir (Levemir) 34 units BEDTIME SUBQ 03/31/18 21:00 04/30/18 20:59 03/31/18 20:50 Lorazepam (Ativan) 1 mg Q8H PRN ORAL For Anxiety 03/31/18 10:15 04/07/18 10:14 Meloxicam (Mobic) 15 mg DAILY ORAL 04/01/18 09:00 05/01/18 08:59 04/01/18 09:46 Mineral Oil (Fleet's Mineral Oil Enema) 133 ml DAILY PRN RECTAL Constipation 03/31/18 10:15 04/30/18 10:14 Oxybutynin Chloride (Ditropan) 5 mg Q8HR ORAL 04/01/18 14:00 05/01/18 13:59 Pioglitazone HCl (Actos) 30 mg ACBREAKFAST ORAL 04/01/18 06:30 05/01/18 06:29 04/01/18 06:14 Piperacillin Sod/ Tazobactam Sod 3.375 gm/Sodium Chloride 110 ml @ 27.5 mls/hr Q8HR IVPB 03/31/18 09:00 04/07/18 08:59 04/01/18 06:13 Pravastatin Sodium (Pravachol) 40 mg BEDTIME ORAL 03/31/18 21:00 04/30/18 20:59 03/31/18 20:45 Pregabalin (Lyrica) 200 mg Q12HR ORAL 03/31/18 21:00 04/30/18 20:59 04/01/18 09:56 Sodium Chloride 550 ml @ 75 mls/hr Q7H20M IV 03/30/18 23:30 04/29/18 23:29 03/31/18 21:39 Vitamin D (Vitamin D) 1,000 intlu DAILY ORAL 04/01/18 09:00 05/01/18 08:59 04/01/18 09:46 Laboratory Tests 03/31/18 11:00: White Blood Count 7.5, Red Blood Count 4.80, Hemoglobin 13.4, Hematocrit 42.1, Mean Corpuscular Volume 88, Mean Corpuscular Hemoglobin 27.9, Mean Corpuscular Hemoglobin Concent 31.9L, Red Cell Distribution Width 13.1, Platelet Count 197, Mean Platelet Volume 8.0, Neutrophils (%) (Auto) 56.2, Lymphocytes (%) (Auto) 27.1, Monocytes (%) (Auto) 7.4, Eosinophils (%) (Auto) 8.7H, Basophils (%) (Auto ) 0.6, Sodium Level 136, Potassium Level 4.2, Chloride Level 103, Carbon Dioxide Level 29, Anion Gap 4L, Blood Urea Nitrogen 10, Creatinine 0.9, Estimat Glomerular Filtration Rate > 60, Glucose Level 319H, Calcium Level 8.5 04/01/18 08:05: White Blood Count 6.6, Red Blood Count 4.57, Hemoglobin 12.9, Hematocrit 40.1, Mean Corpuscular Volume 88, Mean Corpuscular Hemoglobin 28.2, Mean Corpuscular Hemoglobin Concent 32.1, Red Cell Distribution Width 12.9, Platelet Count 184, Mean Platelet Volume 7.9, Neutrophils (%) (Auto) 39.2L, Lymphocytes (%) (Auto) 38.1, Monocytes (%) (Auto) 10.7H, Eosinophils (%) (Auto) 10.8H, Basophils (%) ( Auto) 1.3, Sodium Level 140, Potassium Level 3.5, Chloride Level 105, Carbon Dioxide Level 25, Anion Gap 10, Blood Urea Nitrogen 9, Creatinine 0.8, Estimat Glomerular Filtration Rate > 60, Glucose Level 139#H, Calcium Level 8.3L, Hemoglobin A1c 13.0H, Triglycerides Level 323H, Cholesterol Level 237H, LDL Cholesterol 162H, HDL Cholesterol 36L, Cholesterol/HDL Ratio 6.6H Height (Feet): 5 Height (Inches): 7.00 Weight (Pounds): 142 Objective exam stable, urine briana, some debris DAPHNIE VIDES Apr 01, 2018 10:10
--- NOTE | 2018-04-01 13:51 | General Progress Note ---
Assessment/Plan Problem List: (1) DVT (deep venous thrombosis) ICD Codes: I82.409 - Acute embolism and thrombosis of unspecified deep veins of unspecified lower extremity SNOMED: 673496033 (2) Recurrent UTI ICD Codes: N39.0 - Urinary tract infection, site not specified SNOMED: 923279650 (3) Anemia ICD Codes: D64.9 - Anemia, unspecified SNOMED: 438821446 (4) Paraplegia ICD Codes: G82.20 - Paraplegia, unspecified SNOMED: 99112317 (5) Suprapubic catheter ICD Codes: Z93.59 - Other cystostomy status SNOMED: 069348671 (6) Morbid obesity ICD Codes: E66.01 - Morbid (severe) obesity due to excess calories SNOMED: 965140659 (7) Diabetes mellitus type 2 with complications, uncontrolled ICD Codes: E11.8 - Type 2 diabetes mellitus with unspecified complications; E11.65 - Type 2 diabetes mellitus with hyperglycemia SNOMED: 06308078, 055914431, 078059909 (8) Hyperlipidemia ICD Codes: E78.5 - Hyperlipidemia, unspecified SNOMED: 12326886, 838814109 (9) Peripheral neuropathy ICD Codes: G62.9 - Polyneuropathy, unspecified SNOMED: 30679386 (10) Lives in private house SNOMED: 047996338 (11) Neurogenic bladder ICD Codes: N31.9 - Neuromuscular dysfunction of bladder, unspecified SNOMED: 257576707 Assessment/Plan - Urology consulted for UTI s/p suprapubic catheter, appreciate rec's - ID consulted for complicated UTI, appreciate rec's - Hematology consulted for DVT, appreciate rec's - Endocrinology consulted for uncontrolled DM, appreciate rec's - no need for suprapubic catheter to be changed again per urology - IV zosyn - F/u urine cx, blood cx - Start oxybutynin for bladder spasms - Trend CBC - Start lovenox 140mg BID SC for DVT treatment. Monitor for bleeding - Transvaginal U/S and pelvic U/S to r/o fibroids and evaluate for cause of vaginal bleeding -- unremarkable. - Abdominal U/S to evaluate abdominal "bulge" - no abdominal aneurysm. fatty liver changes and hepatomegaly present - Continue home meds - A1c 13 - LDL 160 -- increase lipitor - Diabetic diet - PT/OT - Pain control and supportive care - simethicone prn for abdominal gas DVT Prophylaxis: on lovenox treatment for DVT Code Status: Full Hospital Classification Declaration: Based on this initial evaluation, and depending on the patient's clinical course, I anticipate that this patient will require hospitalization for 2-3 days for complicated UTI and DVT and close respiratory/hemodynamic monitoring. Disposition: Once the patient is stable to leave the hospital, I anticipate the patient will likely be discharged to the following environment: home with vs SNF I spent 72 minutes on this patient's case, and 45 minutes were dedicated to counseling and/or care coordination. Discussed with patient/family, nursing staff, SW/CM, ID, urology, and hematology regarding clinical status, treatment course, and disposition planning. Time of note may not reflect time of encounter. Subjective Allergies: Coded Allergies: No Known Allergies (Unverified , 07/15/16) Subjective - AF, HDS - doing well. denies cp, sob, abdominal pain, n/v, f/c - states that vaginal bleeding stopped - c/o abdominal gas Objective Last 24 Hour Vital Signs Date Time Temp Pulse Resp B/P (MAP) Pulse Ox O2 Delivery O2 Flow Rate FiO2 04/01/18 09:00 Room Air 04/01/18 08:00 96.8 77 20 118/61 (80) 100 96.8 04/01/18 04:00 97.2 87 18 133/74 (93) 96 97.2 04/01/18 00:26 96.6 80 19 127/74 (91) 95 96.6 04/01/18 00:00 96.6 80 20 127/74 (91) 95 96.6 04/01/18 00:00 71 03/31/18 21:00 Room Air 03/31/18 20:03 96.8 99 20 145/63 (90) 97 96.8 03/31/18 20:00 82 03/31/18 16:00 74 03/31/18 16:00 98.9 79 20 115/66 (82) 99 98.9 Intake and Output 03/31/18 04/01/18 19:00 07:00 Intake Total 240 ml 225 ml Output Total 900 ml 450 ml Balance -660 ml -225 ml Intake Oral 240 ml IV Total 225 ml Output Urine Total 900 ml 450 ml # Voids 1 # Bowel Movements 1 Laboratory Tests 8/15/18 08:05: White Blood Count 6.6, Red Blood Count 4.57, Hemoglobin 12.9, Hematocrit 40.1, Mean Corpuscular Volume 88, Mean Corpuscular Hemoglobin 28.2, Mean Corpuscular Hemoglobin Concent 32.1, Red Cell Distribution Width 12.9, Platelet Count 184, Mean Platelet Volume 7.9, Neutrophils (%) (Auto) 39.2L, Lymphocytes (%) (Auto) 38.1, Monocytes (%) (Auto) 10.7H, Eosinophils (%) (Auto) 10.8H, Basophils (%) ( Auto) 1.3, Sodium Level 140, Potassium Level 3.5, Chloride Level 105, Carbon Dioxide Level 25, Anion Gap 10, Blood Urea Nitrogen 9, Creatinine 0.8, Estimat Glomerular Filtration Rate > 60, Glucose Level 139#H, Hemoglobin A1c 13.0H, Calcium Level 8.3L, Triglycerides Level 323H, Cholesterol Level 237H, LDL Cholesterol 162H, HDL Cholesterol 36L, Cholesterol/HDL Ratio 6.6H Height (Feet): 5 Height (Inches): 7.00 Weight (Pounds): 142 General Appearance: no apparent distress, alert, morbidly obese EENT: PERRL/EOMI, normal ENT inspection Neck: non-tender, normal alignment, supple Cardiovascular: normal peripheral pulses, normal rate, regular rhythm Respiratory/Chest: chest wall non-tender, lungs clear, normal breath sounds Abdomen: normal bowel sounds, non tender, soft Genitourinary/Rectal: other - +suprapubic catheter Neurologic: alert, oriented x 3, other - decreased motor strength to bilateral lower extremities Skin: normal pigmentation, warm/dry Amy Crenshaw NP Apr 01, 2018 13:51
[2018-04-01] MEDS ORDERED: Simethicone 80mg tab ORAL PRN ×2 (14:00→18:00)
[2018-04-01] MEDS ORDERED: Oxybutynin 5mg tab ORAL SCH (14:00)
--- NOTE | 2018-04-01 15:25 | Consultation ---
History of Present Illness General Date patient seen: Apr 01, 2018 Time patient seen: 15:16 Chief Complaint: Abdominal Pain Reason for Consultation: sacral wounds Present Illness HPI Asked to evaluate this 52 yof with sacral pressure ulcer to see if candidate for surgical closure. Patient has decreased ROM due to spinal compression. She has had the ulcer for four years. She is currently admitted to [facility] for UTI. She has been receiving medihoney to the ulcer at home for the last 2 months. She has a wound physician going to the house weekly. Allergies: Coded Allergies: No Known Allergies (Unverified , 07/15/16) Medication History Scheduled Baclofen (Baclofen), 30 MG ORAL THREE TIMES A DAY, (Reported) Ceftriaxone Sodium (Ceftriaxone), 1 GM IV Q24H Cephalexin* (Keflex*), 500 MG ORAL Q6H Cholecalciferol (Vitamin D3)* (Vitamin D*), 1,000 INTLU ORAL DAILY Duloxetine (Cymbalta), 30 MG ORAL BID, (Reported) Duloxetine Hcl* (Cymbalta*), 30 MG ORAL BID, (Reported) Ferrous Sulfate (Iron), 325 MG PO DAILY, (Reported) Glipizide (Glipizide), 5 GM MC BID, (Reported) Insulin Aspart (Novolog Flexpen), 0 UNITS SUBQ BEFORE MEALS AND HS Insulin Aspart (Novolog Flexpen), 11 UNITS SUBQ NOVOTIAC Insulin Aspart (Novolog Flexpen), 0 UNITS SUBQ BEFORE MEALS AND HS Insulin Aspart (Novolog), 11 SUBQ TID, (Reported) Insulin Detemir (Levemir Flexpen), 34 UNITS SUBQ DAILY Insulin Detemir (Levemir), 34 SUBQ BEDTIME, (Reported) Lactobacillus Acidophilus (Probiotic), 1 EACH PO DAILY, (Reported) Meloxicam* (Meloxicam*), 15 MG PO DAILY, (Reported) Multivitamin with Minerals (Multivitamins with Minerals), 1 TAB ORAL DAILY, ( Reported) Pioglitazone Hcl* (Actos*), 30 MG ORAL DAILY, (Reported) Pravastatin Sod (Pravastatin Sod), 40 MG ORAL BEDTIME, (Reported) Pravastatin Sodium (Pravachol), 40 MG ORAL BEDTIME, (Reported) Pregabalin (Lyrica), 200 MG ORAL TWICE A DAY, (Reported) Pregabalin* (Lyrica*), 200 MG ORAL BID, (Reported) Scheduled PRN Baclofen* (Lioresal*), 20 MG ORAL THREE TIMES A DAY PRN for Muscle Spasms, ( Reported) Bisacodyl (Dulcolax), 10 MG RC DAILY PRN for Constipation, (Reported) Hydrocodone Bit/Acetaminophen 10-325* ([place] 10-325*), 1 TAB ORAL Q6H PRN for For Pain, (Reported) Ipratropium/Albuterol Sulfate (DuoNeb 0.5-3(2.5)mg/3ml), 3 ML HHN EVERY 4 HOURS PRN for Shortness of Breath, (Reported) Lorazepam* (Ativan*), 1 MG ORAL THREE TIMES A DAY PRN for For Anxiety, (Reported ) Mineral Oil (Mineral Oil Enema), 133 ML RC DAILY PRN for Constipation, (Reported ) Miscellaneous Medications Meloxicam (Meloxicam), 10 GM MC, (Reported) Unable to Obtain Medications (Unable To Obtain Meds), (Reported) Patient History History Provided By: Patient, Medical Record Healthcare decision maker Resuscitation status Full Code Advanced Directive on File Past Medical/Surgical History Past Medical/Surgical History: (1) Morbid obesity (2) Diabetes mellitus type 2 with complications, uncontrolled (3) Suprapubic catheter dysfunction Review of Systems Constitutional: Reports: no symptoms ENT: Reports: no symptoms Genitourinary: Reports: see HPI Skin: Reports: see HPI Psychiatric: Reports: no symptoms Physical Exam General Appearance: no apparent distress, alert Lines, tubes and drains: peripheral, other - suprapubic catheter Respiratory/Chest: no respiratory distress Skin Exam: other - Stage three sacralulcer with healthy granular tissue. Bilateral stage 2 medial buttock ulcers with clean base. Periskin macerated but no erythema or warmth. Last 24 Hour Vital Signs Date Time Temp Pulse Resp B/P (MAP) Pulse Ox O2 Delivery O2 Flow Rate FiO2 04/01/18 12:00 97.6 78 19 127/70 (89) 97 97.6 04/01/18 12:00 82 04/01/18 09:00 Room Air 04/01/18 08:10 77 20 Room Air 21 04/01/18 08:00 78 04/01/18 08:00 96.8 77 20 118/61 (80) 100 96.8 8/15/18 04:00 97.2 87 18 133/74 (93) 96 97.2 04/01/18 00:26 96.6 80 19 127/74 (91) 95 96.6 04/01/18 00:00 96.6 80 20 127/74 (91) 95 96.6 04/01/18 00:00 71 03/31/18 21:00 Room Air 03/31/18 20:03 96.8 99 20 145/63 (90) 97 96.8 03/31/18 20:00 82 03/31/18 16:00 74 03/31/18 16:00 98.9 79 20 115/66 (82) 99 98.9 Intake and Output 03/31/18 04/01/18 19:00 07:00 Intake Total 240 ml 225 ml Output Total 900 ml 450 ml Balance -660 ml -225 ml Intake Oral 240 ml IV Total 225 ml Output Urine Total 900 ml 450 ml # Voids 1 # Bowel Movements 1 Laboratory Tests Test 04/01/18 08:05 White Blood Count 6.6 K/UL (4.8-10.8) Red Blood Count 4.57 M/UL (4.20-5.40) Hemoglobin 12.9 G/DL (12.0-16.0) Hematocrit 40.1 % (37.0-47.0) Mean Corpuscular Volume 88 FL (80-99) Mean Corpuscular Hemoglobin 28.2 PG (27.0-31.0) Mean Corpuscular Hemoglobin Concent 32.1 G/DL (32.0-36.0) Red Cell Distribution Width 12.9 % (11.6-14.8) Platelet Count 184 K/UL (150-450) Mean Platelet Volume 7.9 FL (6.5-10.1) Neutrophils (%) (Auto) 39.2 % (45.0-75.0) L Lymphocytes (%) (Auto) 38.1 % (20.0-45.0) Monocytes (%) (Auto) 10.7 % (1.0-10.0) H Eosinophils (%) (Auto) 10.8 % (0.0-3.0) H Basophils (%) (Auto) 1.3 % (0.0-2.0) Sodium Level 140 MMOL/L (136-145) Potassium Level 3.5 MMOL/L (3.5-5.1) Chloride Level 105 MMOL/L (98-107) Carbon Dioxide Level 25 MMOL/L (21-32) Anion Gap 10 mmol/L (5-15) Blood Urea Nitrogen 9 mg/dL (7-18) Creatinine 0.8 MG/DL (0.55-1.30) Estimat Glomerular Filtration Rate > 60 mL/min (>60) Glucose Level 139 MG/DL (74-106) #H Hemoglobin A1c 13.0 % (4.3-6.0) H Calcium Level 8.3 MG/DL (8.5-10.1) L Triglycerides Level 323 MG/DL (30-150) H Cholesterol Level 237 MG/DL (< 200) H LDL Cholesterol 162 mg/dL (<100) H HDL Cholesterol 36 MG/DL (40-60) L Cholesterol/HDL Ratio 6.6 (3.3-4.4) H Height (Feet): 5 Height (Inches): 7.00 Weight (Pounds): 142 Medications Current Medications Medications (Trade) Dose Ordered Sig/Cristóbal Route PRN Reason Start Time Stop Time Status Last Admin Dose Admin Acetaminophen (Tylenol) 650 mg Q4H PRN ORAL Mild Pain (Pain Scale 1-3) 03/30/18 23:30 04/29/18 23:29 Acetaminophen/ Hydrocodone Bitart ([place] 10/325) 1 tab Q6H PRN ORAL PAIN 4-10 03/31/18 10:15 04/07/18 10:14 03/31/18 20:46 Albuterol/ Ipratropium (Albuterol/ Ipratropium) 3 ml Q4H PRN HHN Shortness of Breath 03/31/18 10:15 04/05/18 10:14 Atorvastatin Calcium (Lipitor) 80 mg BEDTIME ORAL 04/01/18 21:00 05/01/18 20:59 Baclofen (Lioresal) 20 mg TIDPRN PRN ORAL MUSCLE SPASMS 03/31/18 13:00 04/30/18 12:59 03/31/18 17:08 Bisacodyl (Dulcolax) 10 mg DAILYPRN PRN RECTAL Constipation 03/31/18 10:15 04/30/18 10:14 Dextrose (Dextrose 50%) 25 ml STAT PRN IV Hypoglycemia 03/30/18 23:30 04/29/18 23:29 Dextrose (Dextrose 50%) 50 ml STAT PRN IV Hypoglycemia 03/30/18 23:30 04/29/18 23:29 Duloxetine HCl (Cymbalta) 30 mg BID ORAL 03/31/18 18:00 04/30/18 17:59 04/01/18 09:46 Enoxaparin Sodium (Lovenox) 60 mg Q12HR SUBQ 03/31/18 21:00 04/30/18 20:59 04/01/18 09:48 Enoxaparin Sodium (Lovenox) 80 mg Q12HR SUBQ 03/31/18 21:00 04/30/18 20:59 04/01/18 09:49 Ferrous Sulfate (Feosol) 325 mg DAILY ORAL 04/01/18 09:00 05/01/18 08:59 04/01/18 09:46 Glipizide (Glucotrol) 5 mg BID ORAL 03/31/18 18:00 04/30/18 17:59 04/01/18 09:46 Insulin Aspart (NovoLOG) BEFORE MEALS AND HS SUBQ 03/31/18 11:30 04/30/18 11:29 04/01/18 12:19 Insulin Detemir (Levemir) 34 units BEDTIME SUBQ 03/31/18 21:00 04/30/18 20:59 03/31/18 20:50 Lorazepam (Ativan) 1 mg Q8H PRN ORAL For Anxiety 03/31/18 10:15 04/07/18 10:14 Meloxicam (Mobic) 15 mg DAILY ORAL 04/01/18 09:00 05/01/18 08:59 04/01/18 09:46 Mineral Oil (Fleet's Mineral Oil Enema) 133 ml DAILY PRN RECTAL Constipation 03/31/18 10:15 04/30/18 10:14 Oxybutynin Chloride (Ditropan) 5 mg Q8HR ORAL 04/01/18 14:00 05/01/18 13:59 04/01/18 14:12 Pioglitazone HCl (Actos) 30 mg ACBREAKFAST ORAL 04/01/18 06:30 05/01/18 06:29 04/01/18 06:14 Piperacillin Sod/ Tazobactam Sod 3.375 gm/Sodium Chloride 110 ml @ 27.5 mls/hr Q8HR IVPB 03/31/18 09:00 04/07/18 08:59 04/01/18 14:12 Pregabalin (Lyrica) 200 mg Q12HR ORAL 03/31/18 21:00 04/30/18 20:59 04/01/18 09:56 Simethicone (Mylicon) 80 mg BIDPRN PRN ORAL gas 04/01/18 14:00 05/01/18 13:59 Sodium Chloride 550 ml @ 75 mls/hr Q7H20M IV 03/30/18 23:30 04/29/18 23:29 04/01/18 12:19 Vitamin D (Vitamin D) 1,000 intlu DAILY ORAL 04/01/18 09:00 05/01/18 08:59 04/01/18 09:46 Assessment/Plan Status: stable Assessment/Plan Discussed with patient criteria for surgical resection and closure: 1) Failure to heal with proper offloading, 2) no active infection, 3) normal nutrition, 4) Controlled medical co-morbidities. Most difficult aspect of patient's wound healing is her body habitus as well as level of moisture due to the location of the ulcer. Ideally she should be on her side and would switch to alginate dressing for the next 1-2 weeks to alleviate the moisture. Would check prealbumin level as well. She currently states she is not interested in undergoing surgical excision and closure of the ucler as she is keen to go to rehab to begin ambulating therapy and recovery from ulcer closure would delay that. Shaheen Polanco MD Apr 01, 2018 15:25
--- NOTE | 2018-04-01 15:40 | Infectious Diseases Prog Note ---
Assessment/Plan Assessment/Plan Full consult dictated: A) 1) complicated gram neg uti 2) pmh noted 3) allergies - negative P) 1) zosyn 2) check urine culture final 3) d/w Amy Crenshaw NP Subjective Allergies: Coded Allergies: No Known Allergies (Unverified , 07/15/16) Objective Vital Signs Last 24 Hour Vital Signs Date Time Temp Pulse Resp B/P (MAP) Pulse Ox O2 Delivery O2 Flow Rate FiO2 04/01/18 12:00 97.6 78 19 127/70 (89) 97 97.6 04/01/18 12:00 82 04/01/18 09:00 Room Air 04/01/18 08:10 77 20 Room Air 21 04/01/18 08:00 78 04/01/18 08:00 96.8 77 20 118/61 (80) 100 96.8 04/01/18 04:00 97.2 87 18 133/74 (93) 96 97.2 04/01/18 00:26 96.6 80 19 127/74 (91) 95 96.6 04/01/18 00:00 96.6 80 20 127/74 (91) 95 96.6 04/01/18 00:00 71 03/31/18 21:00 Room Air 03/31/18 20:03 96.8 99 20 145/63 (90) 97 96.8 03/31/18 20:00 82 03/31/18 16:00 74 03/31/18 16:00 98.9 79 20 115/66 (82) 99 98.9 Height (Feet): 5 Height (Inches): 7.00 Weight (Pounds): 142 Microbiology Date/Time Source Procedure Growth Status 03/30/18 20:00 Blood Blood Culture - Preliminary NO GROWTH AFTER 24 HOURS Resulted 03/30/18 20:00 Blood Blood Culture - Preliminary NO GROWTH AFTER 24 HOURS Resulted 03/30/18 20:00 Indwelling Cath Urine Culture - Preliminary Gram Negative Bacillus 1 Resulted Laboratory Tests Test 04/01/18 08:05 White Blood Count 6.6 K/UL (4.8-10.8) Red Blood Count 4.57 M/UL (4.20-5.40) Hemoglobin 12.9 G/DL (12.0-16.0) Hematocrit 40.1 % (37.0-47.0) Mean Corpuscular Volume 88 FL (80-99) Mean Corpuscular Hemoglobin 28.2 PG (27.0-31.0) Mean Corpuscular Hemoglobin Concent 32.1 G/DL (32.0-36.0) Red Cell Distribution Width 12.9 % (11.6-14.8) Platelet Count 184 K/UL (150-450) Mean Platelet Volume 7.9 FL (6.5-10.1) Neutrophils (%) (Auto) 39.2 % (45.0-75.0) L Lymphocytes (%) (Auto) 38.1 % (20.0-45.0) Monocytes (%) (Auto) 10.7 % (1.0-10.0) H Eosinophils (%) (Auto) 10.8 % (0.0-3.0) H Basophils (%) (Auto) 1.3 % (0.0-2.0) Sodium Level 140 MMOL/L (136-145) Potassium Level 3.5 MMOL/L (3.5-5.1) Chloride Level 105 MMOL/L (98-107) Carbon Dioxide Level 25 MMOL/L (21-32) Anion Gap 10 mmol/L (5-15) Blood Urea Nitrogen 9 mg/dL (7-18) Creatinine 0.8 MG/DL (0.55-1.30) Estimat Glomerular Filtration Rate > 60 mL/min (>60) Glucose Level 139 MG/DL (74-106) #H Hemoglobin A1c 13.0 % (4.3-6.0) H Calcium Level 8.3 MG/DL (8.5-10.1) L Triglycerides Level 323 MG/DL (30-150) H Cholesterol Level 237 MG/DL (< 200) H LDL Cholesterol 162 mg/dL (<100) H HDL Cholesterol 36 MG/DL (40-60) L Cholesterol/HDL Ratio 6.6 (3.3-4.4) H Current Medications Medications (Trade) Dose Ordered Sig/Cristóbal Route PRN Reason Start Time Stop Time Status Last Admin Dose Admin Acetaminophen (Tylenol) 650 mg Q4H PRN ORAL Mild Pain (Pain Scale 1-3) 03/30/18 23:30 04/29/18 23:29 Acetaminophen/ Hydrocodone Bitart ([place] 10) 1 tab Q6H PRN ORAL PAIN 4-10 03/31/18 10:15 04/07/18 10:14 03/31/18 20:46 Albuterol/ Ipratropium (Albuterol/ Ipratropium) 3 ml Q4H PRN HHN Shortness of Breath 03/31/18 10:15 04/05/18 10:14 Atorvastatin Calcium (Lipitor) 80 mg BEDTIME ORAL 04/01/18 21:00 05/01/18 20:59 Baclofen (Lioresal) 20 mg TIDPRN PRN ORAL MUSCLE SPASMS 03/31/18 13:00 04/30/18 12:59 03/31/18 17:08 Bisacodyl (Dulcolax) 10 mg DAILYPRN PRN RECTAL Constipation 03/31/18 10:15 04/30/18 10:14 Dextrose (Dextrose 50%) 25 ml STAT PRN IV Hypoglycemia 03/30/18 23:30 04/29/18 23:29 Dextrose (Dextrose 50%) 50 ml STAT PRN IV Hypoglycemia 03/30/18 23:30 04/29/18 23:29 Duloxetine HCl (Cymbalta) 30 mg BID ORAL 03/31/18 18:00 04/30/18 17:59 04/01/18 09:46 Enoxaparin Sodium (Lovenox) 60 mg Q12HR SUBQ 03/31/18 21:00 04/30/18 20:59 04/01/18 09:48 Enoxaparin Sodium (Lovenox) 80 mg Q12HR SUBQ 03/31/18 21:00 04/30/18 20:59 04/01/18 09:49 Ferrous Sulfate (Feosol) 325 mg DAILY ORAL 04/01/18 09:00 05/01/18 08:59 04/01/18 09:46 Glipizide (Glucotrol) 5 mg BID ORAL 03/31/18 18:00 04/30/18 17:59 04/01/18 09:46 Insulin Aspart (NovoLOG) BEFORE MEALS AND HS SUBQ 03/31/18 11:30 04/30/18 11:29 04/01/18 12:19 Insulin Detemir (Levemir) 34 units BEDTIME SUBQ 03/31/18 21:00 04/30/18 20:59 03/31/18 20:50 Lorazepam (Ativan) 1 mg Q8H PRN ORAL For Anxiety 03/31/18 10:15 04/07/18 10:14 Meloxicam (Mobic) 15 mg DAILY ORAL 04/01/18 09:00 05/01/18 08:59 04/01/18 09:46 Mineral Oil (Fleet's Mineral Oil Enema) 133 ml DAILY PRN RECTAL Constipation 03/31/18 10:15 04/30/18 10:14 Oxybutynin Chloride (Ditropan) 5 mg Q8HR ORAL 04/01/18 14:00 05/01/18 13:59 04/01/18 14:12 Pioglitazone HCl (Actos) 30 mg ACBREAKFAST ORAL 04/01/18 06:30 05/01/18 06:29 04/01/18 06:14 Piperacillin Sod/ Tazobactam Sod 3.375 gm/Sodium Chloride 110 ml @ 27.5 mls/hr Q8HR IVPB 03/31/18 09:00 04/07/18 08:59 04/01/18 14:12 Pregabalin (Lyrica) 200 mg Q12HR ORAL 03/31/18 21:00 04/30/18 20:59 04/01/18 09:56 Simethicone (Mylicon) 80 mg BIDPRN PRN ORAL gas 04/01/18 14:00 05/01/18 13:59 Sodium Chloride 550 ml @ 75 mls/hr Q7H20M IV 03/30/18 23:30 04/29/18 23:29 04/01/18 12:19 Vitamin D (Vitamin D) 1,000 intlu DAILY ORAL 04/01/18 09:00 05/01/18 08:59 04/01/18 09:46 Nils Meneses MD Apr 01, 2018 15:39
--- NOTE | 2018-04-01 15:49 | General Progress Note ---
Assessment/Plan Status: stable Assessment/Plan mdd anxiety d/o -cymbalta 30mg bid -ativan prn Subjective Date patient seen: Apr 01, 2018 Neurologic/Psychiatric: Reports: anxiety, depressed, emotional problems Allergies: Coded Allergies: No Known Allergies (Unverified , 07/15/16) Objective Last 24 Hour Vital Signs Date Time Temp Pulse Resp B/P (MAP) Pulse Ox O2 Delivery O2 Flow Rate FiO2 04/01/18 12:00 97.6 78 19 127/70 (89) 97 97.6 04/01/18 12:00 82 04/01/18 09:00 Room Air 04/01/18 08:10 77 20 Room Air 21 04/01/18 08:00 78 04/01/18 08:00 96.8 77 20 118/61 (80) 100 96.8 04/01/18 04:00 97.2 87 18 133/74 (93) 96 97.2 04/01/18 00:26 96.6 80 19 127/74 (91) 95 96.6 04/01/18 00:00 96.6 80 20 127/74 (91) 95 96.6 04/01/18 00:00 71 03/31/18 21:00 Room Air 03/31/18 20:03 96.8 99 20 145/63 (90) 97 96.8 03/31/18 20:00 82 03/31/18 16:00 74 03/31/18 16:00 98.9 79 20 115/66 (82) 99 98.9 Intake and Output 03/31/18 04/01/18 19:00 07:00 Intake Total 240 ml 225 ml Output Total 900 ml 450 ml Balance -660 ml -225 ml Intake Oral 240 ml IV Total 225 ml Output Urine Total 900 ml 450 ml # Voids 1 # Bowel Movements 1 Laboratory Tests 04/01/18 08:05: White Blood Count 6.6, Red Blood Count 4.57, Hemoglobin 12.9, Hematocrit 40.1, Mean Corpuscular Volume 88, Mean Corpuscular Hemoglobin 28.2, Mean Corpuscular Hemoglobin Concent 32.1, Red Cell Distribution Width 12.9, Platelet Count 184, Mean Platelet Volume 7.9, Neutrophils (%) (Auto) 39.2L, Lymphocytes (%) (Auto) 38.1, Monocytes (%) (Auto) 10.7H, Eosinophils (%) (Auto) 10.8H, Basophils (%) ( Auto) 1.3, Sodium Level 140, Potassium Level 3.5, Chloride Level 105, Carbon Dioxide Level 25, Anion Gap 10, Blood Urea Nitrogen 9, Creatinine 0.8, Estimat Glomerular Filtration Rate > 60, Glucose Level 139#H, Hemoglobin A1c 13.0H, Calcium Level 8.3L, Triglycerides Level 323H, Cholesterol Level 237H, LDL Cholesterol 162H, HDL Cholesterol 36L, Cholesterol/HDL Ratio 6.6H Height (Feet): 5 Height (Inches): 7.00 Weight (Pounds): 142 General Appearance: no apparent distress, alert Neurologic: oriented x 3, responsive, depressed affect Savannah Saeed MD Apr 01, 2018 15:49
[2018-04-01] MEDS ORDERED: Fleet's Mineral Oil Enema RECTAL PRN (18:00)
[2018-04-01] MEDS ORDERED: LORazepam 1mg tab ORAL PRN (18:15)
[2018-04-01] MEDS ORDERED: Albuterol/Ipratropium 3ml neb HHN PRN (18:15)
[2018-04-01] MEDS: HYDROcodone/Acetamin 10/325 tab ORAL PRN (18:36)
[2018-04-01] MEDS ORDERED: Atorvastatin 80mg tab ORAL SCH (21:00)
[2018-04-01] MEDS ORDERED: Levemir Flexpen SUBQ SCH (21:00)
[2018-04-01] MEDS: Oxybutynin 5mg tab ORAL SCH (21:50)
[2018-04-01] MEDS: Atorvastatin 80mg tab ORAL SCH (21:51)
--- NOTE | 2018-04-01 23:35 | Diagnostic Imaging Report ---
APPROVED REPORT CPT Code: 33142 Present Symptoms Comments: Screening Comments Technically difficult/limited visualization due to vessel depth (mid-distal thigh and calf area). RIGHT LEG: Venous imaging reveals a patent deep venous system. There is no evidence of thrombus within the common femoral, proximal superficial, popliteal or tibial segments. The greater saphenous vein is also within normal limits. Doppler indicates normal spontaneous flow within these segments. LEFT LEG: Venous imaging reveals acute thrombus in the common to the proximal superficial femoral veins. Imagining also reveals patency of the popliteal and calf veins. Greater saphenous vein is within normal limits. Mid to distal superficial femoral veins in the both legs not well visualized. JORDIN Humphries was notified of abnormal results at 1250 hours.
[2018-04-02] VITALS: BP 117/66
--- NOTE | 2018-04-02 | Consultation ---
DATE OF CONSULTATION: 04/01/2018 INFECTIOUS DISEASE CONSULT CONSULTING PHYSICIAN: Nils Meneses M.D. ATTENDING PHYSICIAN: Rj Choe M.D. REFERRING PHYSICIAN: Rj Cohe M.D. REASON FOR CONSULTATION: Complicated gram-negative urinary tract infection. CHIEF COMPLAINT: The patient's chief complaint coming into the hospital is complicated urinary tract infection. HISTORY OF PRESENT ILLNESS: This is a 52-year-old female with history of recurrent UTIs. She currently has a Agrcia. Past cultures were reviewed. The patient comes in with complicated urinary tract infection with positive urinalysis. She also has spasms in the genitourinary tract. Infectious Disease consultation was requested for this patient who has a complicated urinary tract infection. The patient currently is on Zosyn and urine culture is growing greater than 100,000 gram-negative rods. The patient will be continued on Zosyn pending workup. Case discussed with Amy Crenshaw, nurse practitioner for Dr. Choe. The patient was also discussed with the patient herself and questions were answered. At this time, we will continue with Zosyn intravenous. The patient also is being seen by Urology. The patient also had abdominal pain and was seen by surgery. The patient has a sacral wound and as discussed earlier, the patient had genitourinary pain, which is around urethra one to two days prior to admission. PAST MEDICAL HISTORY: The patient's past medical history includes the following. The patient has past medical history of paraplegia. She has a sacral wound. She has a history of neurogenic bladder. She has a history of diabetes, history of neuropathy, history of suprapubic catheter, history of hyperlipidemia, neuropathy, hyperlipidemia, suprapubic catheter, paraplegia, and neurogenic bladder. It looks like, no history of hypertension or cancer. No history of cardiac disease. She does have a history of history of suprapubic catheter and also spinal cord injury. MEDICATIONS: Upon reviewing the MAR, she is on the following medications. She is on Lipitor, Ditropan, Mylicon, Mobic, vitamin D, Feosol, Actos, Levemir insulin, Lovenox, Cymbalta, Glucotrol, baclofen, glipizide, duloxetine, enoxaparin, Bactroban, insulin, , albuterol treatments, lorazepam, hydrocodone, bisacodyl, Zosyn 3.375 grams every 8 hours or extended infusion acetaminophen. Outside medications, noted and reconciliated. ALLERGIES: No known drug allergies. No antibiotic allergies. SOCIAL HISTORY: Negative for smoking, alcohol, or drug abuse. FAMILY HISTORY: Noncontributory. Negative for exposure to tuberculosis or cancer. REVIEW OF SYSTEMS: CONSTITUTIONAL: The patient has paraplegia, generalized weakness, and fatigue. No fever or chills. No weight loss mentioned. HEAD AND NECK: No head pain, neck pain, thrush, or dysphagia. CARDIAC: No chest pain or palpitations. No pressors. GASTROINTESTINAL: Some abdominal discomfort and urethral discomfort. No nausea, vomiting, or diarrhea. GENITOURINARY: She has a suprapubic catheter. PULMONARY: No congestion, shortness of breath, hemoptysis, or secretions. No productive cough. SKIN: No rash. EXTREMITIES: No extremity pain. NEUROLOGIC: No seizures. She does have a sacral wound. PHYSICAL EXAMINATION: VITAL SIGNS: Temperature is 97.6, pulse rate 78, respiratory rate 19, blood pressure 127/70, and saturation 97%. GENERAL: Alert, responsive, and oriented x3. No acute distress. HEAD AND NECK: Oral exam, no thrush. Eye exam, no icterus. Neck is supple. No JVD. Normocephalic. No facial droop. No neck stiffness. HEART: Regular. No obvious gallop or murmur. No friction rub. ABDOMEN: Soft. Positive bowel sounds. Nontender. LUNGS: Clear bilaterally. No rhonchi or rales. SKIN: No rash. MUSCULOSKELETAL: No effusion. Legs are without cellulitis. PERIPHERAL VASCULAR: No cyanosis or gangrene. GENITOURINARY: She has suprapubic catheter. Urine is cloudy. LINE SITES: Without phlebitis. NEUROLOGIC: Generalized weakness and unresponsive. She does have a sacral wound that looks fairly red and clean. Looks like mostly granulating. This was noted and reviewed. LABORATORY DATA: Creatinine is 0.8. LFTs were noted. White count 6.6, hemoglobin 12.9, and platelet count is 184,000. Creatinine 1.0 on admission. Now, it is 0.8. Urinalysis, positive nitrite, 3+ leukocyte esterase, 20 to 30 white blood cells, and many bacteria. Blood cultures are negative. Urine culture greater than 100,000 gram-negative bacilli. IMAGING STUDIES: Abdominal ultrasound showed findings consistent with hepatocellular disease. ASSESSMENT AND PLAN: 1. The patient has complicated gram-negative urinary tract infection. The patient has a suprapubic catheter and urethral spasms and pain. She has generalized weakness and fatigue. We will continue intravenous antibiotic Zosyn to cover gram-negative urinary tract infection. Check urine culture. Once the urine culture is back, we will adjust antibiotics to hopefully streamline the spectrum of the antibiotics. Continue Zosyn for now for complicated gram-negative urinary tract infection. Pending urine culture. 2. Suprapubic catheter. 3. Paraplegia. 4. Spinal cord injury. 5. History of urinary tract infection. 6. Diabetes. 7. Blood sugar treatment per primary. 8. Neurogenic bladder. 9. Neuropathy. 10. Hyperlipidemia. 11. No known allergies. 12. MAR was noted. 13. Case was discussed with RN. 14. Family history is noncontributory. 15. Social history is negative. 16. Continue treatment per primary consultants. 17. Case was discussed with Amy Crenshaw, nurse practitioner. 18. Skin care and sacral wound care per Surgery, not acutely infected, and Surgery is following. 19. Notes and records were noted. Orders were entered. 20. Urology is following the patient. Nils Meneses M.D. DR: ANGEL JOB#: [id number] CC:
[2018-04-02] MEDS: HYDROcodone/Acetamin 10/325 tab ORAL PRN ×2 (02:11→11:55)
[2018-04-02 04:00] VITALS: BP 102/54
[2018-04-02] MEDS: Piperacillin/Tazobactam 3.375 GM in NS 110 ML IVPB SCH ×3 (06:20→21:25)
[2018-04-02] MEDS: Oxybutynin 5mg tab ORAL SCH ×3 (06:20→21:24)
[2018-04-02] MEDS: NovoLOG Insulin Flexpen SUBQ SCH ×4 (06:30→21:49)
[2018-04-02 06:47] LABS: BASOPHILS % (AUTO) 1.5 % (0.0-2.0); EOSINOPHILS % (AUTO) 12.3 % (0.0-3.0); HEMATOCRIT 38.2 % (37.0-47.0); HEMOGLOBIN 12.2 G/DL (12.0-16.0); LYMPHOCYTES % (AUTO) 43.9 % (20.0-45.0); MEAN CORPUSCULAR VOLUME 88 FL (80-99); MONOCYTES % (AUTO) 9.8 % (1.0-10.0); NEUTROPHILS % (AUTO) 32.5 % (45.0-75.0); PLATELET COUNT 204 K/UL (150-450); RED BLOOD COUNT 4.36 M/UL (4.20-5.40); RED CELL DISTRIBUTION WIDTH 12.9 % (11.6-14.8); WHITE BLOOD COUNT 5.6 K/UL (4.8-10.8)
[2018-04-02 07:32] LABS: ALANINE AMINOTRANSFERASE 64 U/L (12-78); ALBUMIN 2.4 G/DL (3.4-5.0); ALBUMIN/GLOBULIN RATIO 0.6 (1.0-2.7); ALKALINE PHOSPHATASE 107 U/L (46-116); ANION GAP 5 mmol/L (5-15); ASPARTATE AMINO TRANSFERASE 49 U/L (15-37); BILIRUBIN,TOTAL 0.4 MG/DL (0.2-1.0); BLOOD UREA NITROGEN 10 mg/dL (7-18); CALCIUM 8.5 MG/DL (8.5-10.1); CARBON DIOXIDE 30 MMOL/L (21-32); CHLORIDE 105 MMOL/L (98-107); CREATININE 0.8 MG/DL (0.55-1.30); POTASSIUM 3.4 MMOL/L (3.5-5.1); SODIUM 140 MMOL/L (136-145)
[2018-04-02 08:00] VITALS: BP 107/58
--- NOTE | 2018-04-02 09:29 | Urology Progress Note ---
Assessment/Plan Assessment/Plan 1. Urinary retention history. 2. Neurogenic bladder with chronic suprapubic tube. 3. UTI and colonization. 4. Hematuria. 5. Proteinuria history. keep sp tube indwelling hand irrigated and do PRN abx as ordered f/u on urine cx ditropan added cysto later Subjective Allergies: Coded Allergies: No Known Allergies (Unverified , 07/15/16) Subjective sp tube draining, bladder spasms Objective Last 24 Hour Vital Signs Date Time Temp Pulse Resp B/P (MAP) Pulse Ox O2 Delivery O2 Flow Rate FiO2 04/02/18 08:00 97.7 88 19 107/58 (74) 98 97.7 04/02/18 04:00 97.3 73 19 102/54 (70) 99 97.3 04/02/18 00:00 98.2 72 19 117/66 (83) 96 98.2 04/01/18 21:00 Room Air 04/01/18 20:00 98.0 70 19 119/59 (79) 97 98.0 04/01/18 19:42 80 20 Room Air 21 04/01/18 18:36 97.6 04/01/18 16:00 97.6 78 19 122/77 (92) 99 97.6 04/01/18 12:00 97.6 78 19 127/70 (89) 97 97.6 04/01/18 12:00 82 Intake and Output 04/01/18 04/02/18 19:00 07:00 Intake Total 27.5 ml 785.0 ml Output Total 250 ml Balance 27.5 ml 535.0 ml Intake Oral 150 ml IV Total 27.5 ml 635.0 ml Output Urine Total 250 ml Microbiology Date/Time Source Procedure Growth Status 03/30/18 20:00 Blood Blood Culture - Preliminary NO GROWTH AFTER 48 HOURS Resulted 03/30/18 20:00 Indwelling Cath Urine Culture - Preliminary Gram Negative Bacillus 1 Resulted Current Medications Medications (Trade) Dose Ordered Sig/Cristóbal Route PRN Reason Start Time Stop Time Status Last Admin Dose Admin Acetaminophen (Tylenol) 650 mg Q4H PRN ORAL Mild Pain (Pain Scale 1-3) 04/01/18 18:00 04/29/18 17:59 Acetaminophen/ Hydrocodone Bitart ([place] 10/325) 1 tab Q6H PRN ORAL PAIN 4-10 04/01/18 18:00 8/21/18 17:59 04/02/18 02:11 Albuterol/ Ipratropium (Albuterol/ Ipratropium) 3 ml Q4H PRN HHN Shortness of Breath 04/01/18 18:15 04/05/18 10:14 Atorvastatin Calcium (Lipitor) 80 mg BEDTIME ORAL 04/01/18 21:00 05/01/18 20:59 04/01/18 21:51 Baclofen (Lioresal) 20 mg TIDPRN PRN ORAL MUSCLE SPASMS 04/01/18 18:00 05/01/18 17:59 Bisacodyl (Dulcolax) 10 mg DAILYPRN PRN RECTAL Constipation 04/01/18 18:00 05/01/18 17:59 Dextrose (Dextrose 50%) 25 ml STAT PRN IV Hypoglycemia 04/01/18 18:00 04/29/18 17:59 Dextrose (Dextrose 50%) 50 ml STAT PRN IV Hypoglycemia 04/01/18 18:00 05/01/18 17:59 Duloxetine HCl (Cymbalta) 30 mg BID ORAL 04/01/18 18:00 04/30/18 17:59 04/01/18 18:31 Enoxaparin Sodium (Lovenox) 60 mg Q12HR SUBQ 04/01/18 21:00 04/30/18 20:59 04/01/18 21:56 Enoxaparin Sodium (Lovenox) 80 mg Q12HR SUBQ 04/01/18 21:00 04/30/18 20:59 04/01/18 21:57 Ferrous Sulfate (Feosol) 325 mg DAILY ORAL 04/02/18 09:00 05/01/18 08:59 Glipizide (Glucotrol) 5 mg BID ORAL 04/01/18 18:00 04/30/18 17:59 04/01/18 18:32 Insulin Aspart (NovoLOG) BEFORE MEALS AND HS SUBQ 04/01/18 21:00 04/30/18 11:29 04/01/18 21:55 Insulin Detemir (Levemir) 34 units BEDTIME SUBQ 04/01/18 21:00 04/30/18 20:59 04/01/18 21:54 Lorazepam (Ativan) 1 mg Q8H PRN ORAL For Anxiety 04/01/18 18:15 04/07/18 10:14 Meloxicam (Mobic) 15 mg DAILY ORAL 04/02/18 09:00 05/01/18 08:59 Mineral Oil (Fleet's Mineral Oil Enema) 133 ml DAILYPRN PRN RECTAL Constipation 04/01/18 18:00 05/01/18 17:59 Oxybutynin Chloride (Ditropan) 5 mg Q8HR ORAL 04/01/18 22:00 05/01/18 13:59 04/02/18 06:20 Pioglitazone HCl (Actos) 30 mg ACBREAKFAST ORAL 04/02/18 06:30 05/01/18 06:29 04/02/18 06:20 Piperacillin Sod/ Tazobactam Sod 3.375 gm/Sodium Chloride 110 ml @ 27.5 mls/hr Q8HR IVPB 04/01/18 22:00 04/07/18 08:59 04/02/18 06:20 Pregabalin (Lyrica) 200 mg Q12HR ORAL 04/01/18 21:00 04/30/18 20:59 04/01/18 21:52 Simethicone (Mylicon) 80 mg BIDPRN PRN ORAL gas 04/01/18 18:00 05/01/18 17:59 Sodium Chloride 1,000 ml @ 75 mls/hr [id number] IV 04/01/18 18:00 04/29/18 17:59 04/02/18 06:22 Vitamin D (Vitamin D) 1,000 intlu DAILY ORAL 04/02/18 09:00 05/01/18 08:59 Laboratory Tests 04/02/18 05:40: White Blood Count 5.6, Red Blood Count 4.36, Hemoglobin 12.2, Hematocrit 38.2, Mean Corpuscular Volume 88, Mean Corpuscular Hemoglobin 28.0, Mean Corpuscular Hemoglobin Concent 31.9L, Red Cell Distribution Width 12.9, Platelet Count 204, Mean Platelet Volume 8.1, Neutrophils (%) (Auto) 32.5L, Lymphocytes (%) (Auto) 43.9, Monocytes (%) (Auto) 9.8, Eosinophils (%) (Auto) 12.3H, Basophils (%) ( Auto) 1.5, Sodium Level 140, Potassium Level 3.4L, Chloride Level 105, Carbon Dioxide Level 30, Anion Gap 5, Blood Urea Nitrogen 10, Creatinine 0.8, Estimat Glomerular Filtration Rate > 60, Glucose Level 103, Calcium Level 8.5, Total Bilirubin 0.4, Aspartate Amino Transf (AST/SGOT) 49H, Alanine Aminotransferase ( ALT/SGPT) 64, Alkaline Phosphatase 107, Total Protein 6.3L, Albumin 2.4L, Globulin 3.9, Albumin/Globulin Ratio 0.6L Height (Feet): 5 Height (Inches): 7.00 Weight (Pounds): 315 Objective exam stable, urine briana, some debris abd u/s noted DAPHNIE VIDES Apr 02, 2018 09:29
[2018-04-02] MEDS: DULoxetine 30mg cap ORAL SCH ×2 (10:03→18:08)
[2018-04-02] MEDS: GlipiZIDE 5mg tab ORAL SCH ×2 (10:03→18:09)
[2018-04-02] MEDS: Lyrica 50mg cap ORAL SCH ×2 (10:04→21:24)
[2018-04-02] MEDS: Meloxicam 15 MG TAB ORAL SCH (10:04)
[2018-04-02] MEDS: Vitamin D 1000 IU Tab ORAL SCH (10:04)
[2018-04-02] MEDS: Enoxaparin 60mg Inj SUBQ SCH (10:05)
[2018-04-02] MEDS: Enoxaparin 80mg Inj SUBQ SCH (10:06)
--- NOTE | 2018-04-02 11:43 | General Progress Note ---
Assessment/Plan Status: stable Assessment/Plan mdd anxiety d/o -cymbalta 30mg bid -ativan prn Subjective Date patient seen: Apr 02, 2018 Neurologic/Psychiatric: Reports: anxiety, depressed, emotional problems Allergies: Coded Allergies: No Known Allergies (Unverified , 07/15/16) Objective Last 24 Hour Vital Signs Date Time Temp Pulse Resp B/P (MAP) Pulse Ox O2 Delivery O2 Flow Rate FiO2 04/02/18 10:15 Room Air 04/02/18 08:00 97.7 88 19 107/58 (74) 98 97.7 04/02/18 04:00 97.3 73 19 102/54 (70) 99 97.3 04/02/18 00:00 98.2 72 19 117/66 (83) 96 98.2 04/01/18 21:00 Room Air 04/01/18 20:00 98.0 70 19 119/59 (79) 97 98.0 04/01/18 19:42 80 20 Room Air 21 04/01/18 18:36 97.6 04/01/18 16:00 97.6 78 19 122/77 (92) 99 97.6 04/01/18 12:00 97.6 78 19 127/70 (89) 97 97.6 04/01/18 12:00 82 Intake and Output 04/01/18 04/02/18 19:00 07:00 Intake Total 27.5 ml 785.0 ml Output Total 250 ml Balance 27.5 ml 535.0 ml Intake Oral 150 ml IV Total 27.5 ml 635.0 ml Output Urine Total 250 ml Laboratory Tests 04/02/18 05:40: White Blood Count 5.6, Red Blood Count 4.36, Hemoglobin 12.2, Hematocrit 38.2, Mean Corpuscular Volume 88, Mean Corpuscular Hemoglobin 28.0, Mean Corpuscular Hemoglobin Concent 31.9L, Red Cell Distribution Width 12.9, Platelet Count 204, Mean Platelet Volume 8.1, Neutrophils (%) (Auto) 32.5L, Lymphocytes (%) (Auto) 43.9, Monocytes (%) (Auto) 9.8, Eosinophils (%) (Auto) 12.3H, Basophils (%) ( Auto) 1.5, Sodium Level 140, Potassium Level 3.4L, Chloride Level 105, Carbon Dioxide Level 30, Anion Gap 5, Blood Urea Nitrogen 10, Creatinine 0.8, Estimat Glomerular Filtration Rate > 60, Glucose Level 103, Calcium Level 8.5, Total Bilirubin 0.4, Aspartate Amino Transf (AST/SGOT) 49H, Alanine Aminotransferase ( ALT/SGPT) 64, Alkaline Phosphatase 107, Total Protein 6.3L, Albumin 2.4L, Globulin 3.9, Albumin/Globulin Ratio 0.6L Height (Feet): 5 Height (Inches): 7.00 Weight (Pounds): 315 General Appearance: no apparent distress, alert Neurologic: oriented x 3, responsive, depressed affect Savannah Saeed MD Apr 02, 2018 11:43
[2018-04-02 12:00] VITALS: BP 147/82
--- NOTE | 2018-04-02 13:43 | General Progress Note ---
Assessment/Plan Problem List: (1) DVT (deep venous thrombosis) ICD Codes: I82.409 - Acute embolism and thrombosis of unspecified deep veins of unspecified lower extremity SNOMED: 019665131 (2) Recurrent UTI ICD Codes: N39.0 - Urinary tract infection, site not specified SNOMED: 123722467 (3) Anemia ICD Codes: D64.9 - Anemia, unspecified SNOMED: 932570640 (4) Paraplegia ICD Codes: G82.20 - Paraplegia, unspecified SNOMED: 60680441 (5) Suprapubic catheter ICD Codes: Z93.59 - Other cystostomy status SNOMED: 059417472 (6) Morbid obesity ICD Codes: E66.01 - Morbid (severe) obesity due to excess calories SNOMED: 431838114 (7) Diabetes mellitus type 2 with complications, uncontrolled ICD Codes: E11.8 - Type 2 diabetes mellitus with unspecified complications; E11.65 - Type 2 diabetes mellitus with hyperglycemia SNOMED: 16022502, 987349663, 132512145 (8) Hyperlipidemia ICD Codes: E78.5 - Hyperlipidemia, unspecified SNOMED: 90543951, 299979944 (9) Peripheral neuropathy ICD Codes: G62.9 - Polyneuropathy, unspecified SNOMED: 84444450 (10) Lives in private house SNOMED: 137399602 (11) Neurogenic bladder ICD Codes: N31.9 - Neuromuscular dysfunction of bladder, unspecified SNOMED: 883682488 Status: stable, progressing Assessment/Plan - Urology consulted for UTI s/p suprapubic catheter, appreciate rec's - ID consulted for complicated UTI, appreciate rec's - Hematology consulted for DVT, appreciate rec's - Endocrinology consulted for uncontrolled DM, appreciate rec's - no need for suprapubic catheter to be changed again per urology - IV zosyn - F/u urine cx, blood cx -- urine cx growing Pseudomonas - Start oxybutynin for bladder spasms -- increase to oxybutynin 10mg q8hr - Trend CBC - Start lovenox 140mg BID SC for DVT treatment. Monitor for bleeding. Will switch to a NOAC upon discharge to [facility] - Transvaginal U/S and pelvic U/S to r/o fibroids and evaluate for cause of vaginal bleeding -- unremarkable. - Abdominal U/S to evaluate abdominal "bulge" - no abdominal aneurysm. fatty liver changes and hepatomegaly present - Continue home meds - A1c 13 - LDL 160 -- increase to lipitor 80mg qhs - Diabetic diet - PT/OT - Pain control and supportive care - simethicone prn for abdominal gas DC planning in AM to SNF ([facility]) with abx and NOAC and oxybutynin DVT Prophylaxis: on lovenox treatment for DVT Code Status: Full Hospital Classification Declaration: Based on this initial evaluation, and depending on the patient's clinical course, I anticipate that this patient will require hospitalization for 2-3 days for complicated UTI and DVT and close respiratory/hemodynamic monitoring. Disposition: Once the patient is stable to leave the hospital, I anticipate the patient will likely be discharged to the following environment: home with HH vs SNF I spent 32 minutes on this patient's case, and 25 minutes were dedicated to counseling and/or care coordination. Discussed with patient/family, nursing staff, SW/CM, ID, urology, and hematology regarding clinical status, treatment course, and disposition planning. Time of note may not reflect time of encounter. Subjective Date patient seen: Apr 02, 2018 Allergies: Coded Allergies: No Known Allergies (Unverified , 07/15/16) Subjective - AF, HDS - doing well. denies cp, sob, abdominal pain, n/v, f/c - states that vaginal bleeding stopped - reports urine orange colored today after the oxybutynin - continues to c/o urethral spasms, painful - urine cx growing pseudomonas Objective Last 24 Hour Vital Signs Date Time Temp Pulse Resp B/P (MAP) Pulse Ox O2 Delivery O2 Flow Rate FiO2 04/02/18 12:00 98.2 78 19 147/82 (103) 98 98.2 04/02/18 10:15 Room Air 04/02/18 08:00 97.7 88 19 107/58 (74) 98 97.7 04/02/18 04:00 97.3 73 19 102/54 (70) 99 97.3 04/02/18 00:00 98.2 72 19 117/66 (83) 96 98.2 04/01/18 21:00 Room Air 04/01/18 20:00 98.0 70 19 119/59 (79) 97 98.0 04/01/18 19:42 80 20 Room Air 21 04/01/18 18:36 97.6 04/01/18 16:00 97.6 78 19 122/77 (92) 99 97.6 Intake and Output 04/01/18 04/02/18 19:00 07:00 Intake Total 27.5 ml 785.0 ml Output Total 250 ml Balance 27.5 ml 535.0 ml Intake Oral 150 ml IV Total 27.5 ml 635.0 ml Output Urine Total 250 ml Laboratory Tests 04/02/18 05:40: White Blood Count 5.6, Red Blood Count 4.36, Hemoglobin 12.2, Hematocrit 38.2, Mean Corpuscular Volume 88, Mean Corpuscular Hemoglobin 28.0, Mean Corpuscular Hemoglobin Concent 31.9L, Red Cell Distribution Width 12.9, Platelet Count 204, Mean Platelet Volume 8.1, Neutrophils (%) (Auto) 32.5L, Lymphocytes (%) (Auto) 43.9, Monocytes (%) (Auto) 9.8, Eosinophils (%) (Auto) 12.3H, Basophils (%) ( Auto) 1.5, Sodium Level 140, Potassium Level 3.4L, Chloride Level 105, Carbon Dioxide Level 30, Anion Gap 5, Blood Urea Nitrogen 10, Creatinine 0.8, Estimat Glomerular Filtration Rate > 60, Glucose Level 103, Calcium Level 8.5, Total Bilirubin 0.4, Aspartate Amino Transf (AST/SGOT) 49H, Alanine Aminotransferase ( ALT/SGPT) 64, Alkaline Phosphatase 107, Total Protein 6.3L, Albumin 2.4L, Globulin 3.9, Albumin/Globulin Ratio 0.6L Height (Feet): 5 Height (Inches): 7.00 Weight (Pounds): 315 General Appearance: no apparent distress, alert, morbidly obese EENT: PERRL/EOMI, normal ENT inspection Neck: non-tender, normal alignment, supple Cardiovascular: normal peripheral pulses, normal rate, regular rhythm Respiratory/Chest: chest wall non-tender, lungs clear, normal breath sounds Abdomen: normal bowel sounds, non tender, soft Genitourinary/Rectal: other - +suprapubic catheter with orange-colored urine 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
--- NOTE | 2018-04-02 14:57 | Consultation ---
Consult Note Consult Note Hematology Consult DOS: 04/02/18 RFC: dvt REQ MD: Дмитрий/Den HPI 52 year old female with a PMH of paraplegia, neurogenic bladder s/p suprapubic catheter, DM, neuropathy, and HLD presented from home for pain to urethral area for the last 1-2 days. She states that she also noted her urine to be cloudy and malodorous. She states that she has been having painful urethral spasms with urine leakage. Patient states that the suprapubic catheter was changed 10 days ago by a home health RN. Denies fevers/chills, cp, sob, n/v, abdominal pain. Patient also reports an "abdominal bulge" that she has noticed for the last 1 week near the epigastric area but denies any abdominal pain, n/v. Additionally, she states that she has been having blood coming out from her groin region for the last 1-2 days. She states that she still continues to have premenopausal symptoms and gets her menstrual cycle every 1-2 months for 24-48 hours. She states that she does not know if the blood is coming from her vaginal area or from somewhere else. Noted to have a dvt of the left leg, started on lovenox and heme service consult ordered. PMH: as noted above PSxHx: insignificant Family Hx: insignificant Social Hx: stays at home with daughter Allergies: Coded Allergies: No Known Allergies (Unverified , 07/15/16) Scheduled Baclofen (Baclofen), 30 MG ORAL THREE TIMES A DAY, (Reported) Ceftriaxone Sodium (Ceftriaxone), 1 GM IV Q24H Cephalexin* (Keflex*), 500 MG ORAL Q6H Cholecalciferol (Vitamin D3)* (Vitamin D*), 1,000 INTLU ORAL DAILY Duloxetine (Cymbalta), 30 MG ORAL BID, (Reported) Duloxetine Hcl* (Cymbalta*), 30 MG ORAL BID, (Reported) Ferrous Sulfate (Iron), 325 MG PO DAILY, (Reported) Glipizide (Glipizide), 5 GM MC BID, (Reported) Insulin Aspart (Novolog Flexpen), 0 UNITS SUBQ BEFORE MEALS AND HS Insulin Aspart (Novolog Flexpen), 11 UNITS SUBQ NOVOTIAC Insulin Aspart (Novolog Flexpen), 0 UNITS SUBQ BEFORE MEALS AND HS Insulin Aspart (Novolog), 11 SUBQ TID, (Reported) Insulin Detemir (Levemir Flexpen), 34 UNITS SUBQ DAILY Insulin Detemir (Levemir), 34 SUBQ BEDTIME, (Reported) Lactobacillus Acidophilus (Probiotic), 1 EACH PO DAILY, (Reported) Meloxicam* (Meloxicam*), 15 MG PO DAILY, (Reported) Multivitamin with Minerals (Multivitamins with Minerals), 1 TAB ORAL DAILY, ( Reported) Pioglitazone Hcl* (Actos*), 30 MG ORAL DAILY, (Reported) Pravastatin Sod (Pravastatin Sod), 40 MG ORAL BEDTIME, (Reported) Pravastatin Sodium (Pravachol), 40 MG ORAL BEDTIME, (Reported) Pregabalin (Lyrica), 200 MG ORAL TWICE A DAY, (Reported) Pregabalin* (Lyrica*), 200 MG ORAL BID, (Reported) Scheduled PRN Baclofen* (Lioresal*), 20 MG ORAL THREE TIMES A DAY PRN for Muscle Spasms, ( Reported) Bisacodyl (Dulcolax), 10 MG RC DAILY PRN for Constipation, (Reported) Hydrocodone Bit/Acetaminophen 10-325* ([place] 10-325*), 1 TAB ORAL Q6H PRN for For Pain, (Reported) Ipratropium/Albuterol Sulfate (DuoNeb 0.5-3(2.5)mg/3ml), 3 ML HHN EVERY 4 HOURS PRN for Shortness of Breath, (Reported) Lorazepam* (Ativan*), 1 MG ORAL THREE TIMES A DAY PRN for For Anxiety, (Reported ) Mineral Oil (Mineral Oil Enema), 133 ML RC DAILY PRN for Constipation, (Reported ) Miscellaneous Medications Meloxicam (Meloxicam), 10 GM MC, (Reported) Unable to Obtain Medications (Unable To Obtain Meds), (Reported) Patient History History Provided By: Patient, Medical Record Healthcare decision maker Resuscitation status Full Code Family History: Patient reports no known family medical history. Review of Systems All Other Systems: negative except mentioned in HPI Physical Exam Last 24 Hour Vital Signs Date Time Temp Pulse Resp B/P (MAP) Pulse Ox O2 Delivery O2 Flow Rate FiO2 04/02/18 12:00 98.2 78 19 147/82 (103) 98 98.2 04/02/18 10:15 Room Air 04/02/18 08:00 97.7 88 19 107/58 (74) 98 97.7 04/02/18 04:00 97.3 73 19 102/54 (70) 99 97.3 04/02/18 00:00 98.2 72 19 117/66 (83) 96 98.2 04/01/18 21:00 Room Air 04/01/18 20:00 98.0 70 19 119/59 (79) 97 98.0 04/01/18 19:42 80 20 Room Air 21 04/01/18 18:36 97.6 04/01/18 16:00 97.6 78 19 122/77 (92) 99 97.6 General Appearance: no apparent distress, alert HEENT: normocephalic, atraumatic, PERRL Neck: non-tender, normal alignment, supple Respiratory/Chest: chest wall non-tender, lungs clear Cardiovascular/Chest: normal Abdomen: normal bowel sounds, non tender, soft Genitourinary/Rectal: suprapubic catheter, other - minimal blood stains noted to bilateral thighs near groin Extremities: non-tender Skin Exam: normal pigmentation, warm/dry Neurologic: alert, oriented x 3, other - paraplegic Laboratory Tests Test 04/02/18 05:40 White Blood Count 5.6 K/UL (4.8-10.8) Red Blood Count 4.36 M/UL (4.20-5.40) Hemoglobin 12.2 G/DL (12.0-16.0) Hematocrit 38.2 % (37.0-47.0) Mean Corpuscular Volume 88 FL (80-99) Mean Corpuscular Hemoglobin 28.0 PG (27.0-31.0) Mean Corpuscular Hemoglobin Concent 31.9 G/DL (32.0-36.0) L Red Cell Distribution Width 12.9 % (11.6-14.8) Platelet Count 204 K/UL (150-450) Mean Platelet Volume 8.1 FL (6.5-10.1) Neutrophils (%) (Auto) 32.5 % (45.0-75.0) L Lymphocytes (%) (Auto) 43.9 % (20.0-45.0) Monocytes (%) (Auto) 9.8 % (1.0-10.0) Eosinophils (%) (Auto) 12.3 % (0.0-3.0) H Basophils (%) (Auto) 1.5 % (0.0-2.0) Sodium Level 140 MMOL/L (136-145) Potassium Level 3.4 MMOL/L (3.5-5.1) L Chloride Level 105 MMOL/L (98-107) Carbon Dioxide Level 30 MMOL/L (21-32) Anion Gap 5 mmol/L (5-15) Blood Urea Nitrogen 10 mg/dL (7-18) Creatinine 0.8 MG/DL (0.55-1.30) Estimat Glomerular Filtration Rate > 60 mL/min (>60) Glucose Level 103 MG/DL (74-106) Calcium Level 8.5 MG/DL (8.5-10.1) Total Bilirubin 0.4 MG/DL (0.2-1.0) Aspartate Amino Transf (AST/SGOT) 49 U/L (15-37) H Alanine Aminotransferase (ALT/SGPT) 64 U/L (12-78) Alkaline Phosphatase 107 U/L (46-116) Total Protein 6.3 G/DL (6.4-8.2) L Albumin 2.4 G/DL (3.4-5.0) L Globulin 3.9 g/dL Albumin/Globulin Ratio 0.6 (1.0-2.7) L Assessment/Plan Problem List: (1) DVT (deep venous thrombosis) ICD Codes: I82.409 - Acute embolism and thrombosis of unspecified deep veins of unspecified lower extremity --> start on xarelto 15mg po bid x 3 weeks then 20mg po daily --> has been given lovenox sq dose today --> reimaging in 3 weeks --> consider outpatient hypercoag workup SNOMED: 710106151 (2) Hypereosinophilia --> is likely a reactive process --> monitor for resolution, total wbc is not up --> could be response from dvt (3) Anemia ICD Codes: D64.9 - Anemia, unspecified SNOMED: 139104385 (4) Paraplegia ICD Codes: G82.20 - Paraplegia, unspecified SNOMED: 78901719 (5) Suprapubic catheter ICD Codes: Z93.59 - Other cystostomy status SNOMED: 707405098 (6) Morbid obesity ICD Codes: E66.01 - Morbid (severe) obesity due to excess calories SNOMED: 223931602 (7) Diabetes mellitus type 2 with complications, uncontrolled ICD Codes: E11.8 - Type 2 diabetes mellitus with unspecified complications; E11.65 - Type 2 diabetes mellitus with hyperglycemia SNOMED: 96915846, 686010849, 635850059 (8) Hyperlipidemia ICD Codes: E78.5 - Hyperlipidemia, unspecified SNOMED: 36756007, 634590100 (9) Peripheral neuropathy ICD Codes: G62.9 - Polyneuropathy, unspecified SNOMED: 35052303 (10) Lives in private house SNOMED: 362670025 (11) Neurogenic bladder ICD Codes: N31.9 - Neuromuscular dysfunction of bladder, unspecified SNOMED: 448796892 Status: stable, progressing Greatly appreciate consultation. Martín Arguelles MD Apr 02, 2018 14:57
[2018-04-02 16:00] VITALS: BP 125/69
--- NOTE | 2018-04-02 19:42 | General Progress Note ---
Assessment/Plan Status: stable, progressing Assessment/Plan mdd anxiety d/o -cymbalta 30mg bid -ativan prn Subjective Date patient seen: Apr 02, 2018 Neurologic/Psychiatric: Reports: anxiety, depressed, emotional problems Allergies: Coded Allergies: No Known Allergies (Unverified , 07/15/16) Objective Last 24 Hour Vital Signs Date Time Temp Pulse Resp B/P (MAP) Pulse Ox O2 Delivery O2 Flow Rate FiO2 04/02/18 16:00 98.4 82 19 125/69 (87) 97 98.4 04/02/18 12:00 98.2 78 19 147/82 (103) 98 98.2 04/02/18 10:15 Room Air 04/02/18 08:00 97.7 88 19 107/58 (74) 98 97.7 04/02/18 04:00 97.3 73 19 102/54 (70) 99 97.3 04/02/18 00:00 98.2 72 19 117/66 (83) 96 98.2 04/01/18 21:00 Room Air 04/01/18 20:00 98.0 70 19 119/59 (79) 97 98.0 Intake and Output 04/01/18 04/02/18 19:00 07:00 Intake Total 27.5 ml 785.0 ml Output Total 250 ml Balance 27.5 ml 535.0 ml Intake Oral 150 ml IV Total 27.5 ml 635.0 ml Output Urine Total 250 ml Laboratory Tests 04/02/18 05:40: White Blood Count 5.6, Red Blood Count 4.36, Hemoglobin 12.2, Hematocrit 38.2, Mean Corpuscular Volume 88, Mean Corpuscular Hemoglobin 28.0, Mean Corpuscular Hemoglobin Concent 31.9L, Red Cell Distribution Width 12.9, Platelet Count 204, Mean Platelet Volume 8.1, Neutrophils (%) (Auto) 32.5L, Lymphocytes (%) (Auto) 43.9, Monocytes (%) (Auto) 9.8, Eosinophils (%) (Auto) 12.3H, Basophils (%) ( Auto) 1.5, Sodium Level 140, Potassium Level 3.4L, Chloride Level 105, Carbon Dioxide Level 30, Anion Gap 5, Blood Urea Nitrogen 10, Creatinine 0.8, Estimat Glomerular Filtration Rate > 60, Glucose Level 103, Calcium Level 8.5, Total Bilirubin 0.4, Aspartate Amino Transf (AST/SGOT) 49H, Alanine Aminotransferase ( ALT/SGPT) 64, Alkaline Phosphatase 107, Total Protein 6.3L, Albumin 2.4L, Globulin 3.9, Albumin/Globulin Ratio 0.6L Height (Feet): 5 Height (Inches): 7.00 Weight (Pounds): 315 General Appearance: no apparent distress, alert Neurologic: oriented x 3, responsive Savannah Saeed MD Apr 02, 2018 19:42
[2018-04-02 20:00] VITALS: BP 108/64
[2018-04-02] MEDS: Atorvastatin 80mg tab ORAL SCH (21:23)
[2018-04-02] MEDS: Xarelto 15mg tab ORAL SCH (21:24)
[2018-04-02] MEDS: Levemir Flexpen SUBQ SCH (21:49)
[2018-04-03] VITALS: BP 115/50
[2018-04-03 04:00] VITALS: BP 146/74
[2018-04-03] MEDS: Oxybutynin 5mg tab ORAL SCH ×2 (06:09→15:43)
[2018-04-03] MEDS: Piperacillin/Tazobactam 3.375 GM in NS 110 ML IVPB SCH (06:10)
[2018-04-03] MEDS: NovoLOG Insulin Flexpen SUBQ SCH ×2 (06:26→12:15)
[2018-04-03 08:45] VITALS: BP 158/77
--- NOTE | 2018-04-03 08:47 | Urology Progress Note ---
Assessment/Plan Assessment/Plan 1. Urinary retention history. 2. Neurogenic bladder with chronic suprapubic tube. 3. UTI and colonization. 4. Hematuria. 5. Proteinuria history. keep sp tube indwelling I personally removed old sp tube new 22f sp tube placed, irrigates well hand irrigat PRN abx as ordered f/u on blood cx ditropan added cysto later Subjective Allergies: Coded Allergies: No Known Allergies (Unverified , 07/15/16) Subjective sp tube draining, bladder spasms, leaking urine from urethra Objective Last 24 Hour Vital Signs Date Time Temp Pulse Resp B/P (MAP) Pulse Ox O2 Delivery O2 Flow Rate FiO2 04/03/18 07:48 83 18 Room Air 21 04/03/18 04:00 98.2 84 19 146/74 (98) 98 98.2 04/03/18 04:00 98.2 84 19 146/74 (98) 98 98.2 04/03/18 00:00 98.5 72 19 115/50 (71) 98 98.5 04/02/18 21:00 Room Air 04/02/18 20:26 78 20 Room Air 21 04/02/18 20:00 98.8 81 19 108/64 (79) 97 98.8 04/02/18 16:00 98.4 82 19 125/69 (87) 97 98.4 04/02/18 12:00 98.2 78 19 147/82 (103) 98 98.2 04/02/18 10:15 Room Air Intake and Output 04/02/18 04/03/18 19:00 07:00 Intake Total 882.5 ml 680.0 ml Output Total 200 ml 200 ml Balance 682.5 ml 480.0 ml Intake Oral 480 ml 120 ml IV Total 402.5 ml 560.0 ml Output Urine Total 200 ml 200 ml Microbiology Date/Time Source Procedure Growth Status 03/30/18 20:00 Blood Blood Culture - Preliminary NO GROWTH AFTER 72 HOURS Resulted 03/30/18 20:00 Indwelling Cath Urine Culture - Final Pseudomonas Aeruginosa Mariann Albicans Complete Current Medications Medications (Trade) Dose Ordered Sig/Cristóbal Route PRN Reason Start Time Stop Time Status Last Admin Dose Admin Acetaminophen (Tylenol) 650 mg Q4H PRN ORAL Mild Pain (Pain Scale 1-3) 04/01/18 18:00 04/29/18 17:59 Acetaminophen/ Hydrocodone Bitart ([place] 10/325) 1 tab Q6H PRN ORAL PAIN 4-10 04/01/18 18:00 04/07/18 17:59 04/02/18 11:55 Albuterol/ Ipratropium (Albuterol/ Ipratropium) 3 ml Q4H PRN HHN Shortness of Breath 04/01/18 18:15 04/05/18 10:14 Atorvastatin Calcium (Lipitor) 80 mg BEDTIME ORAL 04/01/18 21:00 05/01/18 20:59 04/02/18 21:23 Baclofen (Lioresal) 20 mg TIDPRN PRN ORAL MUSCLE SPASMS 04/01/18 18:00 05/01/18 17:59 Bisacodyl (Dulcolax) 10 mg DAILYPRN PRN RECTAL Constipation 04/01/18 18:00 05/01/18 17:59 Dextrose (Dextrose 50%) 25 ml STAT PRN IV Hypoglycemia 04/01/18 18:00 04/29/18 17:59 Dextrose (Dextrose 50%) 50 ml STAT PRN IV Hypoglycemia 04/01/18 18:00 05/01/18 17:59 Duloxetine HCl (Cymbalta) 30 mg BID ORAL 04/01/18 18:00 04/30/18 17:59 04/02/18 18:08 Ferrous Sulfate (Feosol) 325 mg DAILY ORAL 04/02/18 09:00 05/01/18 08:59 04/02/18 10:03 Glipizide (Glucotrol) 5 mg BID ORAL 04/01/18 18:00 04/30/18 17:59 04/02/18 18:09 Insulin Aspart (NovoLOG) BEFORE MEALS AND HS SUBQ 04/01/18 21:00 04/30/18 11:29 04/03/18 06:26 Insulin Detemir (Levemir) 34 units Q12HR SUBQ 04/02/18 21:00 04/30/18 20:59 04/02/18 21:49 Lorazepam (Ativan) 1 mg Q8H PRN ORAL For Anxiety 04/01/18 18:15 04/07/18 10:14 Meloxicam (Mobic) 15 mg DAILY ORAL 04/02/18 09:00 05/01/18 08:59 8/16/18 10:04 Mineral Oil (Fleet's Mineral Oil Enema) 133 ml DAILYPRN PRN RECTAL Constipation 04/01/18 18:00 05/01/18 17:59 Oxybutynin Chloride (Ditropan) 10 mg Q8HR ORAL 04/02/18 14:00 05/01/18 13:59 04/03/18 06:09 Pioglitazone HCl (Actos) 30 mg ACBREAKFAST ORAL 04/02/18 06:30 05/01/18 06:29 04/03/18 06:09 Piperacillin Sod/ Tazobactam Sod 3.375 gm/Sodium Chloride 110 ml @ 27.5 mls/hr Q8HR IVPB 04/01/18 22:00 04/07/18 08:59 04/03/18 06:10 Pregabalin (Lyrica) 200 mg Q12HR ORAL 04/01/18 21:00 04/30/18 20:59 04/02/18 21:24 Rivaroxaban (Xarelto) 15 mg Q12HR ORAL 04/02/18 21:00 05/02/18 20:59 04/02/18 21:24 Simethicone (Mylicon) 80 mg BIDPRN PRN ORAL gas 04/01/18 18:00 05/01/18 17:59 Sodium Chloride 1,000 ml @ 75 mls/hr [id number] IV 04/01/18 18:00 04/29/18 17:59 04/02/18 21:23 Vitamin D (Vitamin D) 1,000 intlu DAILY ORAL 04/02/18 09:00 05/01/18 08:59 04/02/18 10:04 Height (Feet): 5 Height (Inches): 7.00 Weight (Pounds): 315 Objective exam stable, urine briana, some debris abd u/s noted DAPHNIE VIDES Apr 03, 2018 08:47
[2018-04-03] MEDS: Levemir Flexpen SUBQ SCH (09:41)
[2018-04-03] MEDS: Vitamin D 1000 IU Tab ORAL SCH (09:42)
[2018-04-03] MEDS: DULoxetine 30mg cap ORAL SCH (09:42)
[2018-04-03] MEDS: Xarelto 15mg tab ORAL SCH (09:43)
[2018-04-03] MEDS: Lyrica 50mg cap ORAL SCH (09:43)
[2018-04-03] MEDS: Meloxicam 15 MG TAB ORAL SCH (09:43)
[2018-04-03] MEDS: GlipiZIDE 5mg tab ORAL SCH (09:43)
--- NOTE | 2018-04-03 09:55 | General Progress Note ---
Assessment/Plan Status: stable Assessment/Plan # DVT. --> start on xarelto 15mg po bid x 3 weeks then 20mg po daily --> has been given lovenox sq dose today --> reimaging in 3 weeks --> consider outpatient hypercoag workup --> Venous imaging reveals acute thrombus in the common to the proximal superficial femoral veins. # Hypereosinophilia --> is likely a reactive process --> monitor for resolution, total wbc is not up --> could be response from dvt # Anemia. CURRENTLY STABLE, Hgb above 12. # Paraplegia. Cont safety precautions # Morbid Obesity. # DM. A1C goal <7 --> Cont on insulin # Hyperlipidemia. Cont on statin. The time the note was entered does not necessarily correspond to the time the patient was seen. Subjective Date patient seen: Apr 03, 2018 ROS Limited/Unobtainable: Yes Allergies: Coded Allergies: No Known Allergies (Unverified , 07/15/16) All Systems: reviewed and negative except above Subjective Pt awake and alert. No acute events. Objective Last 24 Hour Vital Signs Date Time Temp Pulse Resp B/P (MAP) Pulse Ox O2 Delivery O2 Flow Rate FiO2 04/03/18 07:48 83 18 Room Air 21 04/03/18 04:00 98.2 84 19 146/74 (98) 98 98.2 04/03/18 04:00 98.2 84 19 146/74 (98) 98 98.2 04/03/18 00:00 98.5 72 19 115/50 (71) 98 98.5 04/02/18 21:00 Room Air 04/02/18 20:26 78 20 Room Air 21 04/02/18 20:00 98.8 81 19 108/64 (79) 97 98.8 04/02/18 16:00 98.4 82 19 125/69 (87) 97 98.4 04/02/18 12:00 98.2 78 19 147/82 (103) 98 98.2 04/02/18 10:15 Room Air Intake and Output 04/02/18 04/03/18 18:59 06:59 Intake Total 807.5 ml 755.0 ml Output Total 200 ml 200 ml Balance 607.5 ml 555.0 ml Intake Oral 480 ml 120 ml IV Total 327.5 ml 635.0 ml Output Urine Total 200 ml 200 ml Height (Feet): 5 Height (Inches): 7.00 Weight (Pounds): 315 General Appearance: no apparent distress EENT: PERRL/EOMI Neck: normal alignment Cardiovascular: normal peripheral pulses Respiratory/Chest: no respiratory distress Abdomen: soft aMrtín Arguelles MD Apr 03, 2018 09:55
[2018-04-03 12:00] VITALS: BP 163/83
[2018-04-03 13:44] VITALS: BP 129/66
[2018-04-03] MEDS ORDERED: LIPITOR80 MG ORAL (13:55)
[2018-04-03] MEDS ORDERED: OXYBUTYNIN CHLOR5 M1 ORAL (13:55)
[2018-04-03] MEDS ORDERED: XARELTO15 MG ORAL (13:55)
[2018-04-03] MEDS ORDERED: LEVAQUIN750 MG ORAL (13:55)
[2018-04-03] MEDS ORDERED: SIMETHICONE80 MG ORAL (13:55)
--- NOTE | 2018-04-03 14:41 | Discharge Summary ---
Discharge Summary Hospital Course Date of Admission Mar 31, 2018 at 09:59 Date of Discharge Apr 04, 2018 Admitting Diagnosis UTI HPI Carmen Mejia is a 52 year old female who was admitted on Mar 31, 2018 at 09: 59 for Urinary Tract Infection 52 year old female with a PMH of paraplegia, neurogenic bladder s/p suprapubic catheter, DM, neuropathy, and HLD presented from home for pain to urethral area for the last 1-2 days. She states that she also noted her urine to be cloudy and malodorous. She states that she has been having painful urethral spasms with urine leakage. Patient states that the suprapubic catheter was changed 10 days ago by a home health RN. Denies fevers/chills, cp, sob, n/v, abdominal pain. Patient also reports an "abdominal bulge" that she has noticed for the last 1 week near the epigastric area but denies any abdominal pain, n/v. Additionally, she states that she has been having blood coming out from her groin region for the last 1-2 days. She states that she still continues to have premenopausal symptoms and gets her menstrual cycle every 1-2 months for 24-48 hours. She states that she does not know if the blood is coming from her vaginal area or from somewhere else. PMH: as noted above PSxHx: insignificant Family Hx: insignificant Social Hx: stays at home with daughter Consultations Urology Hematology Infectious Diseases Procedures Suprapubic catheter replaced Hospital Course Patient was admitted and started on empiric IV zosyn. ID and urology were consulted. Suprapubic catheter was also replaced. Patient started having urethral spasms and was started on Ditropan for it. This helped relieve some of the pain and spasms. Patient was also noted to have a DVT to left common femoral vein and hematology was consulted. Patient was started on lovenox treatment and switched over to xarelto. Patient was also noted to have an "abdominal bulge", which was further evaluated by abdominal ultrasound. This showed fatty liver changes and hepatomegaly, but no abdominal aortic aneurysm. Patient was also noted to have 1 day of vaginal bleeding, which was associated to her menstrual cycles. Given concern for other pathology for vaginal bleeding , a pelvic ultrasound and transvaginal ultrasound was obtained but was unremarkable. Patient was also noted to have an A1c of 13 and an LDL of 160. Patient was continued on insulin and advised to follow up with outpatient endocrinology. Patient's statin was increased to atorvastatin 80mg. Patient's urine cx came back positive for Pseudomonas and prakash. Patient was therefore hemodynamically stable for discharge and was discharged on xarelto and 6 more days of levaquin. Discharge Medications New Medications: Levofloxacin* (Levaquin*) 750 Mg Tablet 750 MG ORAL DAILY for 6 Days, #6 TAB Atorvastatin (Lipitor) 80 Mg Tablet 80 MG ORAL BEDTIME for 30 Days, #30 TAB Oxybutynin Chloride (Oxybutynin Chloride) 5 Mg Tablet 10 MG ORAL Q8HR for 30 Days, #90 TAB Rivaroxaban (Xarelto) 15 Mg Tablet 15 MG ORAL Q12HR for 21 Days, #42 TAB Simethicone* (Simethicone*) 80 Mg Tab.chew 80 MG ORAL BIDPRN PRN for 30 Days, #30 TAB Continued Medications: Baclofen* (Lioresal*) 20 Mg Tablet 20 MG ORAL THREE TIMES A DAY PRN for Muscle Spasms, TAB (This prescription has been renewed) Bisacodyl (Dulcolax) 10 Mg Supp.rect 10 MG RC DAILY PRN for Constipation, SUPP (This prescription has been renewed) Cholecalciferol (Vitamin D3)* (Vitamin D*) 1,000 Unit Tablet 1000 INTLU ORAL DAILY for 30 Days, TAB Duloxetine Hcl* (Cymbalta*) 30 Mg Capsule.dr 30 MG ORAL BID, CAP (This prescription has been renewed) Glipizide (Glipizide) 5 Gm Powder 5 GM MC BID, GM (This prescription has been renewed) Hydrocodone Bit/Acetaminophen 10-325* ([place] 10-325*) 1 Each Tablet 1 TAB ORAL Q6H PRN for For Pain, #10 TAB 0 Refills PRN PAIN Insulin Aspart (Novolog Flexpen) 100 Unit/1 Ml Insuln.pen 0 UNITS SUBQ BEFORE MEALS AND HS for 30 Days, EA Insulin Detemir (Levemir Flexpen) 100 Unit/1 Ml Insuln.pen 34 UNITS SUBQ DAILY for 30 Days, EA Ipratropium/Albuterol Sulfate (DuoNeb 0.5-3(2.5)mg/3ml) 3 Ml Ampul.neb 3 ML HHN EVERY 4 HOURS PRN for Shortness of Breath, EA (This prescription has been renewed) Lactobacillus Acidophilus (Probiotic) 1 Each Capsule 1 EACH PO DAILY, CAP (This prescription has been renewed) Lorazepam* (Ativan*) 1 Mg Tablet 1 MG ORAL THREE TIMES A DAY PRN for For Anxiety, TAB Meloxicam (Meloxicam) 10 Gm Powder 10 GM MC, GM (This prescription has been renewed) Mineral Oil (Mineral Oil Enema) 133 Ml Enema 133 ML RC DAILY PRN for Constipation, EA (This prescription has been renewed) Multivitamin with Minerals (Multivitamins with Minerals) 1 Each Tablet 1 TAB ORAL DAILY, TAB (This prescription has been renewed) Pioglitazone Hcl* (Actos*) 30 Mg Tablet 30 MG ORAL DAILY, TAB (This prescription has been renewed) Pregabalin (Lyrica) 200 Mg Capsule 200 MG ORAL TWICE A DAY, CAP 0 Refills (This prescription has been renewed) Pregabalin* (Lyrica*) 75 Mg Capsule 200 MG ORAL BID, CAP (This prescription has been renewed) Unable to Obtain Medications (Unable To Obtain Meds) 1 Ea Ea (This prescription has been renewed) Discontinued Medications: Ceftriaxone Sodium (Ceftriaxone) 1 Gm Vial.port 1 GM IV Q24H for 6 Days, VIAL Cephalexin* (Keflex*) 500 Mg Capsule 500 MG ORAL Q6H, #28 CAP 0 Refills Duloxetine (Cymbalta) 20 Mg Capsule.dr 30 MG ORAL BID, CAP Ferrous Sulfate (Iron) 325 Mg Tablet 325 MG PO DAILY, TAB Insulin Aspart (Novolog Flexpen) 100 Unit/1 Ml Insuln.pen 11 UNITS SUBQ NOVOTIAC for 30 Days, EA Insulin Aspart (Novolog Flexpen) 100 Unit/1 Ml Insuln.pen 0 UNITS SUBQ BEFORE MEALS AND HS for 30 Days, EA Insulin Aspart (Novolog) 100 Unit/1 Ml Vial 11 SUBQ TID Insulin Detemir (Levemir) 100 Unit/1 Ml Vial 34 SUBQ BEDTIME, VIAL Meloxicam* (Meloxicam*) 15 Mg Tablet 15 MG PO DAILY, TAB Pravastatin Sod (Pravastatin Sod) 40 Mg Tablet 40 MG ORAL BEDTIME, TAB Pravastatin Sodium (Pravachol) 40 Mg Tablet 40 MG ORAL BEDTIME, TAB Discharge Condition Upon Discharge: improving, stable Discharge Disposition Patient was discharged to [facility]. Discharge Diagnoses: (1) Pressure ulcer of coccygeal region, stage 2 (2) Suprapubic catheter dysfunction (3) Pressure ulcer of left buttock, stage 2 (4) Neurogenic bladder (5) UTI (urinary tract infection) (6) Generalized weakness (7) Peripheral neuropathy (8) Hyperlipidemia (9) Diabetes mellitus type 2 with complications, uncontrolled (10) Morbid obesity (11) Sacrococcygeal stage III pressure ulcer (12) DVT (deep venous thrombosis) (13) Left and right ischial tuberosity scattered stage II pressure ulcer (14) Paraplegia (15) Anemia Amy Crenshaw NP Apr 03, 2018 14:41
--- NOTE | 2018-04-03 16:37 | Infectious Diseases Prog Note ---
Assessment/Plan Assessment/Plan ASSESSMENT AND PLAN: 1. complicated pseudomonas uti, fungal urine culture likely colonizer - day # 4 ofelia shi on 10 day tx course since recurrent uti and pseudomonas pathogen - can change to oral levofloxacin or cipro to complete abx course - would not treat fungal pathogen - d/w Amy Crenshaw RESTROOMS OR LOUNGES MAID - monitor labs - clinically better, less spasms 2. Suprapubic catheter. 3. Paraplegia. 4. Spinal cord injury. 5. History of urinary tract infection. 6. Diabetes. 7. Blood sugar treatment per primary. 8. Neurogenic bladder. 9. Neuropathy. 10. Hyperlipidemia. 11. No known allergies. 12. MAR was noted. 13. Case was discussed with RN. 14. Family history is noncontributory. 15. Social history is negative. 16. Continue treatment per primary consultants. 17. Case was discussed with Amy Crenshaw, nurse practitioner. 18. Skin care and sacral wound care per Surgery, not acutely infected, and Surgery is following. 19. Notes and records were noted. Orders were entered. 20. Urology is following the patient - s/p sp catheter exchange Subjective Constitutional: Denies: fever HEENT: Denies: congestion Respiratory: Denies: shortness of breath Cardiovascular: Denies: chest pain Gastrointestinal/Abdominal: Denies: nausea, vomiting, diarrhea Genitourinary: Reports: other - + sp cat Neurologic: Denies: headache Psychiatric: Denies: depression Skin: Denies: rash Hematologic: Denies: bleeding Musculoskeletal: Reports: pain, other - less spasm pain Allergies: Coded Allergies: No Known Allergies (Unverified , 07/15/16) Objective Vital Signs Last 24 Hour Vital Signs Date Time Temp Pulse Resp B/P (MAP) Pulse Ox O2 Delivery O2 Flow Rate FiO2 04/03/18 13:44 129/66 (87) 04/03/18 12:00 97.9 80 20 163/83 (109) 99 97.9 04/03/18 08:45 97.9 81 18 158/77 (104) 97 97.9 04/03/18 08:30 Room Air 04/03/18 07:48 83 18 Room Air 21 04/03/18 04:00 98.2 84 19 146/74 (98) 98 98.2 04/03/18 04:00 98.2 84 19 146/74 (98) 98 98.2 8/17/18 00:00 98.5 72 19 115/50 (71) 98 98.5 04/02/18 21:00 Room Air 04/02/18 20:26 78 20 Room Air 21 04/02/18 20:00 98.8 81 19 108/64 (79) 97 98.8 Height (Feet): 5 Height (Inches): 7.00 Weight (Pounds): 315 General Appearance: no acute distress HEENT: normocephalic, atraumatic, anicteric, mucous membranes moist Respiratory/Chest: lungs clear, normal breath sounds, no respiratory distress, no accessory muscle use Cardiovascular: normal rate, regular rhythm, no gallop/murmur, no JVD Abdomen: normal bowel sounds, soft, non tender, no organomegaly, non distended Genitourinary: other - + sp catheter Extremities: no cyanosis Skin: no rash 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 It is slightly enlarged Surgically absent gallbladder. Negative for dilated ducts. Microbiology Date/Time Source Procedure Growth Status 03/30/18 20:00 Blood Blood Culture - Preliminary NO GROWTH AFTER 72 HOURS Resulted 03/30/18 20:00 Indwelling Cath Urine Culture - Final Pseudomonas Aeruginosa Mariann Albicans Complete Labs Test 04/01/18 08:05 04/02/18 05:40 White Blood Count 6.6 K/UL (4.8-10.8) 5.6 K/UL (4.8-10.8) Red Blood Count 4.57 M/UL (4.20-5.40) 4.36 M/UL (4.20-5.40) Hemoglobin 12.9 G/DL (12.0-16.0) 12.2 G/DL (12.0-16.0) Hematocrit 40.1 % (37.0-47.0) 38.2 % (37.0-47.0) Mean Corpuscular Volume 88 FL (80-99) 88 FL (80-99) Mean Corpuscular Hemoglobin 28.2 PG (27.0-31.0) 28.0 PG (27.0-31.0) Mean Corpuscular Hemoglobin Concent 32.1 G/DL (32.0-36.0) 31.9 G/DL (32.0-36.0) Red Cell Distribution Width 12.9 % (11.6-14.8) 12.9 % (11.6-14.8) Platelet Count 184 K/UL (150-450) 204 K/UL (150-450) Mean Platelet Volume 7.9 FL (6.5-10.1) 8.1 FL (6.5-10.1) Neutrophils (%) (Auto) 39.2 % (45.0-75.0) 32.5 % (45.0-75.0) Lymphocytes (%) (Auto) 38.1 % (20.0-45.0) 43.9 % (20.0-45.0) Monocytes (%) (Auto) 10.7 % (1.0-10.0) 9.8 % (1.0-10.0) Eosinophils (%) (Auto) 10.8 % (0.0-3.0) 12.3 % (0.0-3.0) Basophils (%) (Auto) 1.3 % (0.0-2.0) 1.5 % (0.0-2.0) Sodium Level 140 MMOL/L (136-145) 140 MMOL/L (136-145) Potassium Level 3.5 MMOL/L (3.5-5.1) 3.4 MMOL/L (3.5-5.1) Chloride Level 105 MMOL/L (98-107) 105 MMOL/L (98-107) Carbon Dioxide Level 25 MMOL/L (21-32) 30 MMOL/L (21-32) Anion Gap 10 mmol/L (5-15) 5 mmol/L (5-15) Blood Urea Nitrogen 9 mg/dL (7-18) 10 mg/dL (7-18) Creatinine 0.8 MG/DL (0.55-1.30) 0.8 MG/DL (0.55-1.30) Estimat Glomerular Filtration Rate > 60 mL/min (>60) > 60 mL/min (>60) Glucose Level 139 MG/DL (74-106) 103 MG/DL (74-106) Hemoglobin A1c 13.0 % (4.3-6.0) Calcium Level 8.3 MG/DL (8.5-10.1) 8.5 MG/DL (8.5-10.1) Triglycerides Level 323 MG/DL (30-150) Cholesterol Level 237 MG/DL (< 200) LDL Cholesterol 162 mg/dL (<100) HDL Cholesterol 36 MG/DL (40-60) Cholesterol/HDL Ratio 6.6 (3.3-4.4) Total Bilirubin 0.4 MG/DL (0.2-1.0) Aspartate Amino Transf (AST/SGOT) 49 U/L (15-37) Alanine Aminotransferase (ALT/SGPT) 64 U/L (12-78) Alkaline Phosphatase 107 U/L (46-116) Total Protein 6.3 G/DL (6.4-8.2) Albumin 2.4 G/DL (3.4-5.0) Globulin 3.9 g/dL Albumin/Globulin Ratio 0.6 (1.0-2.7) Current Medications Medications (Trade) Dose Ordered Sig/Cristóbal Route PRN Reason Start Time Stop Time Status Last Admin Dose Admin Acetaminophen (Tylenol) 650 mg Q4H PRN ORAL Mild Pain (Pain Scale 1-3) 04/01/18 18:00 04/29/18 17:59 Acetaminophen/ Hydrocodone Bitart (Hopkins 10/325) 1 tab Q6H PRN ORAL PAIN 4-10 04/01/18 18:00 04/07/18 17:59 04/02/18 11:55 Albuterol/ Ipratropium (Albuterol/ Ipratropium) 3 ml Q4H PRN HHN Shortness of Breath 04/01/18 18:15 04/05/18 10:14 Atorvastatin Calcium (Lipitor) 80 mg BEDTIME ORAL 04/01/18 21:00 05/01/18 20:59 04/02/18 21:23 Baclofen (Lioresal) 20 mg TIDPRN PRN ORAL MUSCLE SPASMS 04/01/18 18:00 05/01/18 17:59 Bisacodyl (Dulcolax) 10 mg DAILYPRN PRN RECTAL Constipation 04/01/18 18:00 05/01/18 17:59 Dextrose (Dextrose 50%) 25 ml STAT PRN IV Hypoglycemia 04/01/18 18:00 04/29/18 17:59 Dextrose (Dextrose 50%) 50 ml STAT PRN IV Hypoglycemia 04/01/18 18:00 05/01/18 17:59 Duloxetine HCl (Cymbalta) 30 mg BID ORAL 04/01/18 18:00 04/30/18 17:59 04/03/18 09:42 Ferrous Sulfate (Feosol) 325 mg DAILY ORAL 04/02/18 09:00 05/01/18 08:59 04/03/18 09:43 Glipizide (Glucotrol) 5 mg BID ORAL 04/01/18 18:00 04/30/18 17:59 04/03/18 09:43 Insulin Aspart (NovoLOG) BEFORE MEALS AND HS SUBQ 04/01/18 21:00 04/30/18 11:29 04/03/18 12:15 Insulin Detemir (Levemir) 34 units Q12HR SUBQ 04/02/18 21:00 04/30/18 20:59 04/03/18 09:41 Lorazepam (Ativan) 1 mg Q8H PRN ORAL For Anxiety 04/01/18 18:15 04/07/18 10:14 Meloxicam (Mobic) 15 mg DAILY ORAL 04/02/18 09:00 05/01/18 08:59 04/03/18 09:43 Mineral Oil (Fleet's Mineral Oil Enema) 133 ml DAILYPRN PRN RECTAL Constipation 04/01/18 18:00 05/01/18 17:59 Oxybutynin Chloride (Ditropan) 10 mg Q8HR ORAL 04/02/18 14:00 05/01/18 13:59 04/03/18 15:43 Pioglitazone HCl (Actos) 30 mg ACBREAKFAST ORAL 04/02/18 06:30 05/01/18 06:29 04/03/18 06:09 Piperacillin Sod/ Tazobactam Sod 3.375 gm/Sodium Chloride 110 ml @ 27.5 mls/hr Q8HR IVPB 04/01/18 22:00 04/07/18 08:59 04/03/18 06:10 Pregabalin (Lyrica) 200 mg Q12HR ORAL 04/01/18 21:00 04/30/18 20:59 04/03/18 09:43 Rivaroxaban (Xarelto) 15 mg Q12HR ORAL 04/02/18 21:00 05/02/18 20:59 04/03/18 09:43 Simethicone (Mylicon) 80 mg BIDPRN PRN ORAL gas 04/01/18 18:00 05/01/18 17:59 Sodium Chloride 1,000 ml @ 75 mls/hr [id number] IV 04/01/18 18:00 04/29/18 17:59 04/03/18 12:14 Vitamin D (Vitamin D) 1,000 intlu DAILY ORAL 04/02/18 09:00 05/01/18 08:59 04/03/18 09:42 Nils Meneses MD Apr 03, 2018 16:37
--- NOTE | 2018-04-03 23:15 | Progress Note ---
DATE: 04/03/2018 SUBJECTIVE: The patient is , has episodes of anxiety. We discussed about the sleep doses of Cymbalta. She would like to take it as prescribed outside of the hospital. MENTAL STATUS EXAMINATION: The patient is alert and oriented times self, place, and situation. Mood is dysphoric. Affect is constricted, congruent with mood. Thought process is concrete. Thought content, no suicidal or homicidal ideation. ASSESSMENT: 1. Anxiety disorder. 2. Depression. PLAN: We will continue current medication. Provide the patient with supportive therapy and reality orientation. Savannah Saeed M.D. DR: KHANG JOB#: [id number] CC:
== END 2018-04-03 18:00 | DRG 689 ==
LOC: EDBD 19:19 → EMR 19:45 → INTOOBSV 23:09 → 2E 23:09 → OBSVTOIN 23:09 → EDBEDREQ 03-31 00:18 → OBSVTOIN 03-31 09:59 → 4E 04-01 17:33
DX: N39.0 Urinary tract infection, site not specified (principal); L89.153 Pressure ulcer of sacral region, stage 3; G82.20 Paraplegia, unspecified; Z86.718 Personal history of other venous thrombosis and embolism; D64.9 Anemia, unspecified; Z93.59 Other cystostomy status; E66.01 Morbid (severe) obesity due to excess calories; E78.5 Hyperlipidemia, unspecified; G62.9 Polyneuropathy, unspecified; N31.9 Neuromuscular dysfunction of bladder, unspecified; L89.152 Pressure ulcer of sacral region, stage 2; L89.322 Pressure ulcer of left buttock, stage 2; E11.65 Type 2 diabetes mellitus with hyperglycemia; L89.312 Pressure ulcer of right buttock, stage 2; Z79.4 Long term (current) use of insulin; F32.9 Major depressive disorder, single episode, unspecified; F41.9 Anxiety disorder, unspecified; B96.5 Pseudomonas (aeruginosa) (mallei) (pseudomallei) as the cause of diseases classified elsewhere
CPT/HCPCS: 36415; 76700; 76830; 76856; 80048; 80053; 80061; 81003; 82962; 83036; 83605; 85025; 87040; 87086; 87181; 93970; 94664; 96360; 96361; 96365; 96366; J1815; J2405; J8499; S5561